=== PATIENT | male | born 1975 | race Caucasian/White ===

== ENCOUNTER 2017-02-19 19:17 | Inpatient (IN) | payer OTHER ==
[2017-02-19 19:26] VITALS: BMI 26.6
--- NOTE | 2017-02-19 20:05 | PDOC ---
History of Present Illness - General History Source: [facility] <Cruz Mock - Last Filed: 02/19/17 22:44> - General History Source: [facility] Records Exam Limitations: Clinical Condition, Other (Nonverbal ) - History of Present Illness Initial Comments: 02/19/17 20:37 The patient is a 41 year old male with significant past medical history of profound MR, seizure disorder, and osteoporosis who presents to the ED BIBA from [facility] for low grade fever and rectal bleeding. Patient is nonverbal secondary to h/o of profound MR. As per [facility] notes, patient has had h/o of MRSA. Allergies: penicillin Social History: No alcohol, tobacco, or drug use reported. Past Surgical History: None reported PCP: Dr. Kali Garcia <Nza Murillo - Last Filed: 02/20/17 02:01> - General Chief Complaint: Rectal Bleed Stated Complaint: RECTAL BLEEDING Time Seen by Provider: 02/19/17 20:05 Past History - Past Medical History Seizures: Yes Other medical history: osteoporosis, mental retardation, nasal polyp - Psycho/Social/Smoking Cessation Hx Suicidal Ideation: No Smoking History: Never smoked <Cruz Mock - Last Filed: 02/19/17 22:44> <Naz Murillo - Last Filed: 02/20/17 02:01> - Past Medical History Allergies/Adverse Reactions: Allergies Allergy/AdvReac Type Severity Reaction Status Date / Time Penicillins Allergy Verified 02/19/17 19:22 Review of Systems - Review of Systems Able to Perform ROS?: No Comments:: 02/19/17 20:37 Unable to obtain as pt is nonverbal secondary to profound MR <Naz Murillo - Last Filed: 02/20/17 02:01> *Physical Exam - Vital Signs Last Vital Signs Temp Pulse Resp BP Pulse Ox 126 H 28 H 135/90 89 L 02/19/17 19:22 02/19/17 19:22 02/19/17 19:22 02/19/17 19:22 <Cruz Mock - Last Filed: 02/19/17 22:44> - Vital Signs Last Vital Signs Temp Pulse Resp BP Pulse Ox 126 H 28 H 135/90 89 L 02/19/17 19:22 02/19/17 19:22 02/19/17 19:22 02/19/17 19:22 - Physical Exam Comments: 02/19/17 20:38 GENERAL: Awake and alert. No apparent distress. HEENT: Normocephalic, atraumatic. PERRL, EOM intact. CARDIOVASCULAR: Normal S1, S2. Regular rate and rhythm. PULMONARY: Clear to auscultation bilaterally. ABDOMEN: Soft, non-distended, non-tender. RECTAL: Good rectal tone. No stool in vault. Heme negative. EXTREMITIES: Normal ROM of bilateral upper extremities. Contraction of bilateral lower extremities. No gross deformities. SKIN: Warm, dry. No rash NEUROLOGICAL: Pt is nonverbal. Moving bilateral upper extremities equally. Contraction of bilateral lower extremities. Good muscle tone. <Naz Murillo - Last Filed: 02/20/17 02:01> Heart Score/ECG Review - ECG Impressions Comment:: 02/20/17 02:01 Sinus tachycardia @105bpm Incomplete RBBB Borderline ECG <Naz Murillo - Last Filed: 02/20/17 02:01> ED Treatment Course - LABORATORY CBC & Chemistry Diagram: 02/19/17 20:33 02/19/17 20:33 <Cruz Mock - Last Filed: 02/19/17 22:44> - LABORATORY CBC & Chemistry Diagram: 02/19/17 20:33 02/19/17 20:33 <Naz Murillo - Last Filed: 02/20/17 02:01> Medical Decision Making - Medical Decision Making 02/19/17 21:13 Dr. Mock: The scribe's documentation has been prepared under my direction and personally reviewed by me in its entirery. I confirm that the note above accurately reflects all work, treatment, procedures, and medical decision making performed by me. <Cruz Mock - Last Filed: 02/19/17 22:44> *DC/Admit/Observation/Transfer - Discharge Dispostion Admit: Yes <Cruz Mock - Last Filed: 02/19/17 22:44> - Attestations Scribe Attestion: 02/19/17 20:38 Documentation prepared by Naz Murillo, acting as medical support assistant for Cruz Mock MD/DO. <Naz Murillo - Last Filed: 02/20/17 02:01> Diagnosis at time of Disposition: Pneumonia Qualifiers: Pneumonia type: due to unspecified organism Laterality: left Lung location: lower lobe of lung Qualified Code(s): J18.1 - Lobar pneumonia, unspecified organism
[2017-02-19] MEDS ORDERED: ACETAMINOPHEN 650 MG SUPP.RECT PR ONE (20:56)
[2017-02-19 20:57] LABS: MCH 30.3 pg (25.7-33.7); MCHC 32.7 g/dl (32.0-35.9); MEAN CELL VOLUME 92.6 fl (80-96); MEAN PLT VOLUME 8.5 fl (7.5-11.1); PLATELET COUNT 115 K/MM3 (134-434); RDW 15.3 % (11.9-15.9); WHITE BLOOD COUNT 20.2 K/mm3 (4.0-10.0)
[2017-02-19] MEDS ORDERED: ACETAMINOPHEN 650 MG SUPP.RECT ONE (21:10)
[2017-02-19 21:11] LABS: INR 1.51 (0.82-1.09); PROTHROMBIN TIME (PATIENT) 16.8 SEC (9.98-11.88)
[2017-02-19 21:15] LABS: AMYLASE 45 U/L (25-115)
[2017-02-19 21:18] LABS: ALBUMIN 3.2 g/dl (3.4-5.0); BILIRUBIN,TOTAL 0.3 mg/dL (0.2-1.0); CALCIUM 9.5 mg/dL (8.5-10.1); COCKROFT - GAULT 94.53; CREATININE 1.4 mg/dL (0.7-1.3); TOT PROT 7.4 g/dl (6.4-8.2)
[2017-02-19 21:33] LABS: METAMYELOCYTE 6 % (0-2)
[2017-02-19] MEDS ORDERED: SODIUM CHLORIDE 1,000 ML IV STA (22:27)
[2017-02-19] MEDS ORDERED: LEVOFLOXACIN 750 MG IVPB 150 ML IVPB ONE ×2 (22:42→23:07)
--- NOTE | 2017-02-19 23:12 | HP ---
CHIEF COMPLAINT: brought due to fever PCP: Dr Braeden Beck HISTORY OF PRESENT ILLNESS: This is a 41 yo M [facility] Resident with PMH of severe MR (nonverbal), seizure disorder, previous MRSA, and osteoporosis who was brought due to low grade fever and diarrhea with possible rectal bleeding. History obtained from half-way record. In Ed patietn found to be tachy 126, tacypneic 28, O2 sat 89 RA and temp 99.2. tachycardia and tachypnea and O2 sat improved with tylenol and fluids. Found to have LLL infiltrate on CXR. Stool occult negative ER course was notable for: (1)labs (2)cxr, ekg (3)tlenol, levaquin, IVF 1L NS Recent Travel: none PAST MEDICAL HISTORY: as above PAST SURGICAL HISTORY:none Social History: [facility] resident Smoking: never Alcohol: never Drugs: never Family History: unknown Allergies Penicillins Allergy (Verified 02/19/17 19:22) HOME MEDICATIONS: REVIEW OF SYSTEMS unable to obtain PHYSICAL EXAMINATION Vital Signs - 24 hr 02/19/17 02/19/17 19:22 23:02 Temperature 99.2 F Pulse Rate 126 H Pulse Rate [ 113 H Left Radial] Respiratory 28 H 20 Rate Blood Pressure 135/90 Blood Pressure 102/69 [Left Arm] O2 Sat by Pulse 89 L 93 L Oximetry (%) GENERAL: Awake, baseline noverbal, makes eye contact HEAD: Normal with no signs of trauma. EYES: Pupils equal, round and reactive to light, extraocular movements intact, sclera anicteric, conjunctiva clear. No lid lag. EARS, NOSE, THROAT: Moist mucous membranes. NECK: supple without JVD LUNGS: reduced breath sounds LLL HEART: Regular rate and rhythm, normal S1 and S2 without murmur, rub or gallop. ABDOMEN: Soft, nontender, not distended, normoactive bowel sounds, no guarding, no rebound, no masses. No hepatomegaly or splenomegaly. Rectal exam done no stool in vault good rectal tone no lesions MUSCULOSKELETAL: No CVA tenderness. UPPER EXTREMITIES: 2+ pulses, warm, well-perfused. No cyanosis. No clubbing. No peripheral edema. LOWER EXTREMITIES: 2+ pulses, warm, well-perfused. No calf tenderness. No peripheral edema. NEUROLOGICAL: face symmetrical. unable to test due to uncooperation PSYCHIATRIC: calm SKIN: Warm, dry Laboratory Results - last 24 hr 02/19/17 02/19/17 02/19/17 20:05 20:27 20:33 WBC 20.2 H RBC 4.99 Hgb 15.1 Hct 46.1 MCV 92.6 MCHC 32.7 RDW 15.3 Plt Count 115 L MPV 8.5 Neutrophils % 16.0 L Lymphocytes % 29.0 Monocytes % 13.0 H Eosinophils % 0.0 Band Neutrophils 28.0 H Metamyelocytes 6 H Myelocytes 8 H INR Sodium Potassium Chloride Carbon Dioxide Anion Gap BUN Creatinine Creat Clearance w eGFR Random Glucose Calcium Total Bilirubin AST ALT Alkaline Phosphatase Total Protein Albumin Total Amylase Lipase Stool Occult Blood Negative Blood Type A POSITIVE Antibody Screen Negative 02/19/17 02/19/17 02/19/17 20:33 20:33 20:33 WBC RBC Hgb Hct MCV MCHC RDW Plt Count MPV Neutrophils % Lymphocytes % Monocytes % Eosinophils % Band Neutrophils Metamyelocytes Myelocytes INR 1.51 H Sodium 140 Potassium 4.2 Chloride 107 Carbon Dioxide 22 Anion Gap 11 BUN 27 H Creatinine 1.4 H Creat Clearance w eGFR 56.42 Random Glucose 113 H Calcium 9.5 Total Bilirubin 0.3 AST 24 ALT 20 Alkaline Phosphatase 74 Total Protein 7.4 Albumin 3.2 L Total Amylase 45 Lipase 147 Stool Occult Blood Blood Type Antibody Screen ASSESSMENT/PLAN: This is a 41 yo M [facility] Resident with PMH of severe MR (nonverbal), seizure disorder, previous MRSA, and osteoporosis who was brought due to low grade fever and diarrhea with possible rectal bleeding. Sepsis due to Institution acquired PNA -CXR LLL Infiltrate -leukocytosis 20 with bandemia -levaquion adequate, given in ED -vol contracted; IVF NS@100 -f/u lactic acid -AM CXR -blood, sputum, urine cultures -tylenol for low grade fever HANNAH -bun/creat 27/1.3 -likle prerenal due to vol conraction; treat with IVF -trend creat SZ d/o -reconcile meds -not actively seizing Diarrhea/hematochezia -c diff toxin -stool occult blood negative, h/h stable but then bright red blood seen in stool ; repeat occult -gi consult -npo FEN NS@100 lytes stable npo SCDs Dispo: adm med seng Problem List - Problem (1) Pneumonia Code(s): J18.9 - PNEUMONIA, UNSPECIFIED ORGANISM Qualifiers: Pneumonia type: due to unspecified organism Laterality: left Lung location: lower lobe of lung Qualified Code(s): J18.1 - Lobar pneumonia, unspecified organism (2) GI bleed Code(s): K92.2 - GASTROINTESTINAL HEMORRHAGE, UNSPECIFIED (3) Anemia Code(s): D64.9 - ANEMIA, UNSPECIFIED (4) Seizure disorder Code(s): G40.909 - EPILEPSY, UNSP, NOT INTRACTABLE, WITHOUT STATUS EPILEPTICUS (5) Mental retardation Code(s): F79 - UNSPECIFIED INTELLECTUAL DISABILITIES Visit type - Emergency Visit Emergency Visit: Yes ED Registration Date: 02/19/17 Care time: The patient presented to the Emergency Department on the above date and was hospitalized for further evaluation of their emergent condition. - New Patient This patient is new to me today: Yes Date on this admission: 02/20/17 - Critical Care Critical Care patient: No
[2017-02-19] MEDS: SODIUM CHLORIDE 1,000 ML IV SCH (23:59)
--- NOTE | 2017-02-20 00:04 | PN ---
<Syd Gannon - Last Filed: 02/20/17 00:27> Teaching Attending Note ATTENDING PHYSICIAN STATEMENT I saw and evaluated the patient. I reviewed the resident's note and discussed the case with the resident. I agree with the resident's findings and plan as documented. SUBJECTIVE: The patient is a 41 year old male with significant past medical history MR, seizure disorder, and osteoporosis who presented from [facility] for low grade fever and ? rectal bleeding. History is limited due to patients clinical condition. OBJECTIVE: Last Vital Signs: 3 Temp Pulse Resp BP Pulse Ox 100.5 F H 113 H 20 102/69 93 L 02/20/17 00:02 02/19/17 23:02 02/19/17 23:02 02/19/17 23:02 02/19/17 23:02 Physical Exam: GEN: NAD A&O x 0 HEENT: NCAT, PERRL CARD: RRR, S1 S2 RESP: (+) Decreased breath sounds at the left base. ABD: NT, BWS x4 EXT: - CCE Labs: CBCD 3 WBC 20.2 K/mm3 (4.0-10.0) H 02/19/17 20:33 RBC 4.99 M/mm3 (4.00-5.60) 02/19/17 20:33 Hgb 15.1 GM/dL (11.7-16.9) 02/19/17 20:33 Hct 46.1 % (35.4-49) 02/19/17 20:33 MCV 92.6 fl (80-96) 02/19/17 20:33 MCHC 32.7 g/dl (32.0-35.9) 02/19/17 20:33 RDW 15.3 % (11.9-15.9) 02/19/17 20:33 Plt Count 115 K/MM3 (134-434) L 02/19/17 20:33 MPV 8.5 fl (7.5-11.1) 02/19/17 20:33 CMP 3 Sodium 140 mmol/L (136-145) 02/19/17 20:33 Potassium 4.2 mmol/L (3.5-5.1) 02/19/17 20:33 Chloride 107 mmol/L (98-107) 02/19/17 20:33 Carbon Dioxide 22 mmol/L (21-32) 02/19/17 20:33 Anion Gap 11 (8-16) 02/19/17 20:33 BUN 27 mg/dL (7-18) H 02/19/17 20:33 Creatinine 1.4 mg/dL (0.7-1.3) H 02/19/17 20:33 Creat Clearance w eGFR 56.42 (>60) 02/19/17 20:33 Calcium 9.5 mg/dL (8.5-10.1) 02/19/17 20:33 Total Bilirubin 0.3 mg/dL (0.2-1.0) 02/19/17 20:33 AST 24 U/L (15-37) 02/19/17 20:33 ALT 20 U/L (12-78) 02/19/17 20:33 Alkaline Phosphatase 74 U/L (45-117) 02/19/17 20:33 Total Protein 7.4 g/dl (6.4-8.2) 02/19/17 20:33 Albumin 3.2 g/dl (3.4-5.0) L 02/19/17 20:33 Imaging: EXAM: Chest X-ray. Impression: Left lower lobe pneumonia. Awaiting official report. ASSESSMENT AND PLAN: The patient is a 41 year old male with significant past medical history MR, seizure disorder, and osteoporosis who presented with fever and rectal bleeding found to have left lower lobe pneumonia.Will trend H&H doubt rectal bleeding as stool culture was negative. History difficult to obtain due to clinical condition. 1. Sepsis - most likely secondary to pneumonia. Received levaquin in ED, can continue but broaden coverage if worsening fever/infection. - IVF - Britton culture - Repeat lactic acid - Urine antigens - Tylenol PRN fever 2. ? rectal bleeding - care taken at bedside unsure. H&H stable - Repeat CBC - Stool culture negative 3. HANNAH - most likely prerenal. - IVF - Trend creatinine - Renally dosed meds 4. Thrombocytopenia - most like due to sepsis - Monitor 5. Diarrhea - Check C diff - Stool culture - IVF 6. Seizure disorder - Continue home medications 7. DVT PPX - moderate risk - Heparin 5000 units Q8 Admit to med surg. Documentation prepared by Syd Gannon, acting as medical librarian for Dr. Tayla Martin MD. <Tayla Martin - Last Filed: 02/20/17 05:14> Teaching Attending Note Name of Resident: Lynda Whitmore Addendum- Rectal- Defferred- as pt. difficult to move DVT Ppx - NO Heparin as pt. hx of ?rectal bleed - SCDs
[2017-02-20] MEDS ORDERED: IBUPROFEN 800 MG/8 ML IJ IVPB ONE ×2 (00:18→00:25)
[2017-02-20] MEDS ORDERED: SODIUM CHLORIDE 1,000 ML IV STA ×2 (01:45→05:09)
[2017-02-20] MEDS ORDERED: clonazePAM 0.5 MG TABLET ONE ×2 (05:41→17:32)
[2017-02-20] MEDS ORDERED: PATIENT'S OWN MEDICATION (NON-FORMULARY) (Clonazepam [Klonopin] 1 MG) PO SCH (06:00)
[2017-02-20] MEDS ORDERED: LEVOFLOXACIN 750 MG IVPB 150 ML IVPB ONE (06:00)
[2017-02-20] MEDS ORDERED: PANTOPRAZOLE SODIUM 80 MG in SODIUM CHLORIDE 100 ML IVPB SCH (06:15)
[2017-02-20 06:21] LABS: MCH 30.1 pg (25.7-33.7); MCHC 32.2 g/dl (32.0-35.9); MEAN CELL VOLUME 93.7 fl (80-96); MEAN PLT VOLUME 8.2 fl (7.5-11.1); PLATELET COUNT 96 K/MM3 (134-434); RDW 15.2 % (11.9-15.9); WHITE BLOOD COUNT 17.2 K/mm3 (4.0-10.0)
[2017-02-20] MEDS ORDERED: PANTOPRAZOLE SODIUM 40 MG VIAL ONE (06:33)
[2017-02-20 06:40] LABS: CALCIUM 8.6 mg/dL (8.5-10.1); COCKROFT - GAULT 132.34; MAGNESIUM 2.1 mg/dL (1.8-2.4); PHOSPHOROUS 2.7 mg/dL (2.5-4.9)
[2017-02-20] MEDS ORDERED: VANCOMYCIN 1 GRAM (PRE-DOCKED) 250 ML IVPB ONE ×2 (09:30→09:50)
[2017-02-20] MEDS ORDERED: PANTOPRAZOLE SODIUM 100 ML IVPB SCH (10:00)
[2017-02-20 10:49] LABS: URINE APPEARANCE CLEAR; URINE BILIRUBIN NEGATIVE (NEGATIVE); URINE BLOOD NEGATIVE (NEGATIVE); URINE COLOR LTYELLOW; URINE GLUCOSE (UA) NEGATIVE (NEGATIVE); URINE KETONE TRACE (NEGATIVE); URINE LEUK ESTERASE NEGATIVE (NEGATIVE); URINE NITRITE NEGATIVE (NEGATIVE); URINE PROTEIN NEGATIVE (NEGATIVE); URINE UROBILINOGEN NEGATIVE E.U./dl (0.2-1.0)
[2017-02-20] MEDS: VALPROIC ACID 250 MG CAPSULE PO SCH ×2 (11:00→21:25)
[2017-02-20] MEDS: LORATADINE 10 MG TABLET PO SCH (11:00)
[2017-02-20] MEDS: TOPIRAMATE 25 MG TABLET (FP) PO SCH ×2 (11:00→21:23)
[2017-02-20] MEDS: LEVOFLOXACIN 750 MG IVPB 150 ML IVPB SCH (11:30)
--- NOTE | 2017-02-20 13:44 | PN ---
Teaching Attending Note Name of Resident: Caden Fountain ATTENDING PHYSICIAN STATEMENT I saw and evaluated the patient. I reviewed the resident's note and discussed the case with the resident. I agree with the resident's findings and plan as documented. SUBJECTIVE: unable to obtain hx due to MR. per aid form Ankit at bed side. 3 black BMs last night ( just blood ) . per Night team signout , blood per rectum was red .. OBJECTIVE: NAD, pleasant. MMM. no JVD. no facial droop CV: RRR, no MRG Lungs: CTAB Abd : distended, unable to determine tenderness. slightly hyperactive BS . Dullness over bladder Ext : no edema , no erythema . ASSESSMENT AND PLAN: 41 y/o male with h/o severe MR, seizure disorder, and h/o MRSA , who presented from [facility] with fevers. He was found to have severe sepsis . 1- Severe sepsis: possible source is LLL PNA . ? HCAP vs Aspiration . UA with no pyuria , no skin ulcers. Pt has diarrhea , and his abd is distended, and has rectal bleed. ? infectious colitis . need to keep bowel ischemia in DDx . - follow blood cx sent from Er . - cont with LEvaquin ( allergic to PCN) , add flagyl , this way aspiration will be covered. - add vanco due ot h/o MRSA - consut ID for abx mgt - check stool cx and c diff . Stool WBC - IVF , monitor lactate - obtain CT abd due to distention and lactic acid elevation 2- Rectal bleed. unclear if source is upper or lower GI tract( per aid , black blood , per Night MD bright red blood ) . of course infectious etiology needs to be r/o . - repeat CBC - Abd is distended , and pt has lactic acid elevation . Will get CT abd /w contrast . - cont hydration - cont PPI gtt started last night . - follow GI consult 3- HANNAH : likely prerenal , as it resolved with IVF - cont IVF - prep with mucomyst x [address] , and 2 doses after 4- Seizure disorder : cont home meds 5- thrombocytopenia : likely due ot sepsis . no abse line in system. monitor . avoid heparin products 6- HLOC
--- NOTE | 2017-02-20 13:57 | PN ---
Progress Note (short form) - Note Progress Note: ID consult dictated imp/reccd sepsis GI bleed/?colitis pneumonia seizures- 41 year old man, resident of [facility]- profound developmental delays- requires total care, nonverbal sent with low grade fever and rectal bleeding no SOB per aide who is at bedside- 3 episodes of blood per rectum at the AR apparently had dark stools this am [facility] records reviewed documented pen allergy - no further info available regarding nature of allergy noted MRSA "infection" 2007- no other details available now with low grade fever/lactic acidosis/leukocytosis/thrombocytopenia cxray with left lung infiltrate received vanco/levaquin/flagyl would continue same antibiotics f/u ct scan stool cdiff have ordered MRSA screen contact isolation for now gi eval pending Problem List - Problems (1) Sepsis Code(s): A41.9 - SEPSIS, UNSPECIFIED ORGANISM (2) Pneumonia Code(s): J18.9 - PNEUMONIA, UNSPECIFIED ORGANISM Qualifiers: Pneumonia type: due to unspecified organism Laterality: left Lung location: lower lobe of lung Qualified Code(s): J18.1 - Lobar pneumonia, unspecified organism (3) GI bleed Code(s): K92.2 - GASTROINTESTINAL HEMORRHAGE, UNSPECIFIED (4) Mental retardation Code(s): F79 - UNSPECIFIED INTELLECTUAL DISABILITIES (5) Seizure disorder Code(s): G40.909 - EPILEPSY, UNSP, NOT INTRACTABLE, WITHOUT STATUS EPILEPTICUS (6) Penicillin allergy Code(s): Z88.0 - ALLERGY STATUS TO PENICILLIN
[2017-02-20] MEDS ORDERED: ACETYLCYSTEINE 20% 200MG/ML 30ML VIAL *FOR INJECTION USE ONLY IVPB ONE (13:59)
[2017-02-20] MEDS: PANTOPRAZOLE SODIUM 80 MG in SODIUM CHLORIDE 100 ML IVPB SCH ×2 (14:00)
[2017-02-20] MEDS: METRONIDAZOLE 500 MG PREMIXED 100 ML IVPB SCH ×2 (15:00→18:37)
--- NOTE | 2017-02-20 15:21 | CONS ---
DATE OF CONSULTATION: DATE OF DICTATION: 02/20/2017 This is a 41-year-old man from the [facility]. He has multiple developmental delays and is nonverbal, requiring total care. Per his aide, who is at his bedside, he had 3 episodes of rectal bleeding yesterday and was then sent to the emergency room for evaluation of this. He was found to have a low-grade fever of 100.9 and a left lung infiltrate. He had an elevated white count of 20,000. He was given Levaquin, Flagyl, and vancomycin, as he has a PENICILLIN allergy, and I am asked to comment on further antibiotics. His past medical history, he has had 1 episode of dark stool since admission and is planned for a CAT scan of his abdomen and pelvis. He is allergic to PENICILLIN. I reviewed the records from the [facility]. The nature of the allergy is not documented. He has a history of severe mental retardation, seizure disorder. He had apparently a MRSA infection (undocumented what the nature of the infection was) in 2007, and osteoporosis. He has had multiple surgeries in the past, including a craniotomy. 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 He requires total assist. FAMILY HISTORY: Not known. ALLERGIES: He is allergic to PENICILLIN. The nature of the allergy is not known. His medication list at the correction includes perampanel, vitamin D3, calcium with vitamin D3, famotidine, Klonopin, loratadine, gemfibrozil, Depakene, Topamax, fluticasone, and gel. His family history is not available. There is no history of substance use. REVIEW OF SYSTEMS: He apparently had a dark stool earlier this morning. PHYSICAL EXAMINATION: Vital Signs: T-max is 100.9. Current temperature is 99. General: He is resting comfortably. His aide reports that he is at his baseline mental status. HEENT: He is normocephalic. Lungs: Clear to auscultation. Heart: Regular rate and rhythm. Abdomen: Firm, nontender. He has bowel sounds. Extremities: Without edema. His labs are notable for a white count of 17.2, hemoglobin 14.1, platelets 96,000. Last night he had 28% bands on his differential. His INR is 1.5. His lactic acid was 2.9 on admission and is now 1.6. BUN 23, creatinine 1. Urinalysis is negative except for trace ketones. His Legionella and pneumococcal antigens are negative. Blood cultures are pending. Chest x-ray reveals a left-sided infiltrate. In summary, this is a 41-year-old man admitted with rectal bleeding and a low-grade fever. He has, as well, evidence of pneumonia on x-ray, and leukocytosis. He presented with lactic acidosis. He has relative thrombocytopenia as well, a prior history of MRSA. Given this unknown PENICILLIN allergy, I would continue his Levaquin and Flagyl. Would continue vancomycin as well pending blood cultures, follow up CAT scan, continue IV fluids. Differential diagnosis of the GI bleed would include colitis, which CAT scan will help us evaluate. He is having frequent stools, probably due to his GI bleed, but would send a C. difficile as well and would continue contact isolation. I have ordered a MRSA screen for him. GI evaluation is pending, as well as CAT scan. Further recommendations to follow based on his clinical course. JOSEFA NOYOLA M.D. [id number]
[2017-02-20] MEDS ORDERED: METRONIDAZOLE 500 MG PREMIXED 100 ML IVPB ONE (16:11)
--- NOTE | 2017-02-20 16:42 | PN ---
Physical Exam: SUBJECTIVE: Patient seen and examined at bedside. Non verbal. No signs of bleeding per rectum. OBJECTIVE: Vital Signs Period Temp Pulse Resp BP Sys/Monroy Pulse Ox Last 24 Hr 99.0 F-100.5 F 99-122 18-22 97-126/67-80 93-97 GENERAL: non verbal , NAD HEAD: NC/AT. LUNGS: CTA on R side. LLL rales HEART: RRR, no M/G/R ABDOMEN: Soft, distended, BS(+) EXTREMITIES: 2+ pulses, warm, well-perfused, no edema. SKIN: Warm, dry, normal turgor, no rashes or lesions noted Laboratory Results - last 24 hr 02/19/17 02/20/17 02/20/17 23:18 06:05 06:05 WBC 17.2 H RBC 4.67 Hgb 14.1 Hct 43.8 MCV 93.7 MCHC 32.2 RDW 15.2 Plt Count 96 L MPV 8.2 Sodium Potassium Chloride Carbon Dioxide Anion Gap BUN Creatinine Random Glucose Lactic Acid 2.9 H* 2.5 H* Calcium Phosphorus Magnesium Urine Color Urine Appearance Urine pH Ur Specific [place] Urine Protein Urine Glucose (UA) Urine Ketones Urine Blood Urine Nitrite Urine Bilirubin Urine Urobilinogen Ur Leukocyte Esterase 02/20/17 02/20/17 02/20/17 06:05 08:22 08:22 WBC RBC Hgb Hct MCV MCHC RDW Plt Count MPV Sodium 144 Potassium 4.7 Chloride 109 H Carbon Dioxide 24 Anion Gap 11 BUN 23 H Creatinine 1.0 D Random Glucose 74 D Lactic Acid 1.6 Calcium 8.6 Phosphorus 2.7 Magnesium 2.1 Urine Color Ltyellow Urine Appearance Clear Urine pH 5.0 Ur Specific [place] 1.015 Urine Protein Negative Urine Glucose (UA) Negative Urine Ketones Trace H Urine Blood Negative Urine Nitrite Negative Urine Bilirubin Negative Urine Urobilinogen Negative Ur Leukocyte Esterase Negative Active Medications Generic Name Dose Route Start Last Admin Trade Name Freq PRN Reason Stop Dose Admin Acetaminophen 650 mg 02/19/17 23:50 Tylenol - PO Q4H PRN FEVER OR PAIN Acetylcysteine 600 mg 02/20/17 22:00 Acetadote 20 Injection Use Only* - IVPB 02/21/17 10:01 BID TARIQ Clonazepam 1 mg 02/20/17 06:04 Klonopin - PO TID TARIQ Gemfibrozil 600 mg 02/20/17 16:30 Lopid - PO BIDAC TARIQ Sodium Chloride 1,000 mls @ 100 mls/hr 02/19/17 23:45 02/19/17 23:59 Normal Saline - IV 100 mls/hr ASDIR TARIQ Administration Metronidazole 100 mls @ 100 mls/hr 02/20/17 10:00 Flagyl 500mg Premixed Ivpb - IVPB Q8H-IV TARIQ Levofloxacin 150 mls @ 100 mls/hr 02/20/17 10:00 02/20/17 11:30 Levaquin 750 Mg Premixed Ivpb - IVPB 100 mls/hr DAILY TARIQ Administration Pantoprazole Sodium 80 mg/ 100 mls @ 10 mls/hr 02/20/17 09:45 02/20/17 10:58 Sodium Chloride IVPB Not Given Q10H TARIQ 8 MG/HR Vancomycin HCl 1,250 mg/ 250 mls @ 150 mls/hr 02/20/17 22:00 Dextrose IVPB BID TARIQ Protocol Loratadine 10 mg 02/20/17 10:00 02/20/17 11:00 Claritin - PO 10 mg DAILY TARIQ Administration Topiramate 75 mg 02/20/17 10:00 02/20/17 11:00 Topamax - PO 75 mg BID TARIQ Administration Valproic Acid 250 mg 02/20/17 10:00 02/20/17 11:00 Depakene - PO 250 mg BID TARIQ Administration ASSESSMENT/PLAN: 41 yo M with PMhx of severe MR, Seizure disorder, h/o MRSA presented from [facility] with fevers and bloody stools admitted for severe sepsis. Problem List - Problems (1) Severe sepsis Assessment/Plan: * Found to have LLL infiltrate on CXR possible PNA; HCAP v. aspiration * Given diarrhea and bleeding possible infective colitis v. ischemic bowel. * Blood/stool and urine cultures sent * Levaquin will be continued in addition to flagyl and vanco(h/o MRSA) * ID consulted. * Check stool WBC and C.diff * COntinue IVF with NS @100ml/hr * trend lactic acid * CTA abdomen ordered. (2) GI bleed Assessment/Plan: * repeat CBC * CTA abdomen pending * PPI gtt * GI consult. (3) HANNAH (acute kidney injury) Assessment/Plan: * pre-renal improved with volume expansion. * will give mucomyst prior to CT and 2 doses after * continue IVF Code(s): N17.9 - ACUTE KIDNEY FAILURE, UNSPECIFIED (4) Seizure disorder Assessment/Plan: * continue * Fycompa 6 mg PO HS TARIQ * Topamax 75 mg PO BID * Depakene 250 mg PO BID (5) Thrombocytopenia Assessment/Plan: * most likely 2/2 sepsis * will repeat cbc in am Visit type - Emergency Visit Emergency Visit: Yes ED Registration Date: 02/19/17 Care time: The patient presented to the Emergency Department on the above date and was hospitalized for further evaluation of their emergent condition. - New Patient This patient is new to me today: Yes Date on this admission: 02/20/17 - Critical Care Critical Care patient: No - Discharge Referral Referred to [facility] No
[2017-02-20] MEDS: clonazePAM 0.5 MG TABLET PO SCH ×2 (17:25→21:23)
[2017-02-20] MEDS: GEMFIBROZIL 600 MG TABLET (FP) PO SCH (17:49)
[2017-02-20] MEDS: SODIUM CHLORIDE 1,000 ML IV SCH (18:41)
[2017-02-20] MEDS ORDERED: PERAMPANEL 6 MG PO SCH (20:00)
--- NOTE | 2017-02-20 20:33 | CON.GI ---
Consult Consult Specialty:: GI Referred by:: Hospitalists Reason for Consultation:: Abdominal pain - History of Present Illness Chief Complaint: Patient non-verbal, does not give CC History of Present Illness: History per the chart. 41M admitted last night through the [facility] ER from [facility] for evaluation of fevers, diarrhea and ? rectal bleeding. Noted to be tachycardic in ER, tachypnic with marked leukocytosis. a ? CTA \of the abdomen was performed without PO contrast that revealed changes c/w possible left sided colitis. There has been no rectal bleeding or melena reported by the floor nurse. Temp was 100.5 at midnight and has otherwise been afebrile. - History Source History Provided By: Medical Record Limitations to Obtaining History: Physical Impairment - Past Medical History Additional Medical History: Severe mental retardation, seizure disorder, osteoporosis, h/o MRSA - Past Surgical History Past Surgical History: Yes: None - Alcohol/Substance Use Hx Alcohol Use: No - Smoking History Smoking history: Never smoked - Social History Usual Living Arrangement: Assisted ADL: Support Services Occupation: Diabled Place of : [facility] History of Recent Travel: No Home Medications - Allergies Allergies/Adverse Reactions: Allergies Allergy/AdvReac Type Severity Reaction Status Date / Time Penicillins Allergy Verified 02/19/17 19:22 - Home Medications Home Medications: Ambulatory Orders Calcium Carbonate/Vitamin D3 [Oystercal-D 500 mg-400 Unit Tb] 500 mg PO DAILY Cholecalciferol (Vitamin D3) [Vitamin D3] 2,000 unit PO DAILY 02/20/17 Clonazepam [Klonopin] 1 mg PO TID 02/20/17 Diazepam Rectal Gel [Diastat Rectal Gel -] 10 mg NV ONCE 02/20/17 Famotidine 20 mg PO DAILY 02/20/17 Fluticasone Prop 0.05% Nasal [Flonase -] 1 - 2 spray NS DAILY 02/20/17 Gemfibrozil 600 mg PO BID 02/20/17 Loratadine 10 mg PO DAILY 02/20/17 Perampanel [Fycompa] 6 mg PO DAILY 02/20/17 Topiramate 75 mg PO BID 02/20/17 Valproic Acid [Depakene] 250 mg PO BID 02/20/17 Family Disease History - Family Disease History Family History: Unable to Obtain Review of Systems Unable to obtain ROS, reason: patient non-verbal Physical Exam-GI Vital Signs: Vital Signs Temperature 98 F 02/20/17 17:54 Pulse Rate 95 H 02/20/17 17:54 Respiratory Rate 18 02/20/17 19:47 Blood Pressure 130/75 02/20/17 17:54 O2 Sat by Pulse Oximetry (%) 97 02/20/17 19:47 Constitutional: Yes: Calm Eyes: No: Sclera Icterus Cardiovascular: Yes: Tachycardia. No: Murmur Respiratory: Yes: Diminished (at bases, poor inspiratory effort) Gastrointestinal Inspection: No: Distention ...Auscultate: Yes: Normoactive Bowel Sounds ...Palpate: Yes: Tenderness (No grimacing upon palpation however possible guarding elicited upon palpation of the left abdomen) ...Percussion: No: Tympanitic ...Rectal Exam: Yes: Other (no blood, melena, masses. scant light brown stool in rectal vault) Extremities: Yes: Other (contracted LE) Edema: No Neurological: Yes: Other (awake, non-verbal) Labs: CBC, BMP 02/20/17 06:05 02/20/17 06:05 INR, PTT INR 1.51 (0.82-1.09) H 02/19/17 20:33 Hepatic Panel Total Bilirubin 0.3 mg/dL (0.2-1.0) 02/19/17 20:33 AST 24 U/L (15-37) 02/19/17 20:33 ALT 20 U/L (12-78) 02/19/17 20:33 Alkaline Phosphatase 74 U/L (45-117) 02/19/17 20:33 Albumin 3.2 g/dl (3.4-5.0) L 02/19/17 20:33 Imaging - Results Cat Scan: Report Reviewed, Image Reviewed Problem List - Problems (1) Colitis Assessment/Plan: Do not think GI bleeding is the primary issue possible colitis on CT scan. Given that he is from an institution and there was reported diarrhea, C. Diff should be excluded and I started PO vancocin given the marked leukocytosis. Alternate etiologies aside from infectious given location of the inflammatory changes would need to include ischemic coilitis however he does not have much in the way of risk factors for this Monitor Labs NPO IV hydration IV Abx per ID if no improvement and stool studies unrevealing, flex sig could be considered Code(s): K52.9 - NONINFECTIVE GASTROENTERITIS AND COLITIS, UNSPECIFIED
[2017-02-20 21:16] LABS: MCH 29.9 pg (25.7-33.7); MCHC 32.3 g/dl (32.0-35.9); MEAN CELL VOLUME 92.3 fl (80-96); MEAN PLT VOLUME 8.9 fl (7.5-11.1); RDW 15.5 % (11.9-15.9); WHITE BLOOD COUNT 14.4 K/mm3 (4.0-10.0)
[2017-02-20] MEDS: ACETYLCYSTEINE 20% 200MG/ML 4 ML VIAL *FOR ORAL / INH USE ONLY PO SCH (21:24)
[2017-02-20] MEDS: PERAMPANEL 6 MG PO SCH (21:24)
[2017-02-20 21:54] LABS: PLATELET COMMENT2 NO CLUMPING NOTED; PLATELET COMMENT3 NO CLOTTING DETECTED; PLATELET COUNT 110 K/MM3 (134-434); PLATELET ESTIMATE SLT DECREASED (NORMAL)
[2017-02-20] MEDS ORDERED: ACETYLCYSTEINE 20% 200MG/ML 30ML VIAL *FOR INJECTION USE ONLY IVPB SCH (22:00)
[2017-02-20] MEDS ORDERED: LEVOFLOXACIN 750 MG IVPB 150 ML IVPB SCH (22:00)
[2017-02-20] MEDS: VANCOMYCIN 1,250 MG in DEXTROSE 5%-WATER - 250 ML IVPB SCH (22:04)
[2017-02-21] MEDS: VANCOMYCIN 250 MG/5 ML ORAL SOLUTION PO SCH ×4 (00:58→17:11)
[2017-02-21] MEDS: METRONIDAZOLE 500 MG PREMIXED 100 ML IVPB SCH ×3 (01:13→17:11)
[2017-02-21] MEDS: GEMFIBROZIL 600 MG TABLET (FP) PO SCH ×2 (06:18→16:53)
[2017-02-21] MEDS: clonazePAM 0.5 MG TABLET PO SCH ×3 (06:19→22:02)
[2017-02-21] MEDS: SODIUM CHLORIDE 1,000 ML IV SCH ×3 (06:19→17:13)
[2017-02-21 08:15] LABS: MCH 31.2 pg (25.7-33.7); MCHC 33.5 g/dl (32.0-35.9); MEAN CELL VOLUME 92.9 fl (80-96); MEAN PLT VOLUME 8.5 fl (7.5-11.1); PLATELET COUNT 88 K/MM3 (134-434); RDW 15.1 % (11.9-15.9); WHITE BLOOD COUNT 10.4 K/mm3 (4.0-10.0)
--- NOTE | 2017-02-21 08:51 | PN ---
Teaching Attending Note Name of Resident: Caden Fountain ATTENDING PHYSICIAN STATEMENT I saw and evaluated the patient. I reviewed the resident's note and discussed the case with the resident. I agree with the resident's findings and plan as documented. SUBJECTIVE: no events over night . NO more BMs or bleed OBJECTIVE: NAD, pleasant. MMM. no JVD. no facial droop CV: RRR, no MRG Lungs: CTAB Abd: ND today , unable to determine tenderness. ND , soft today . no TTP Ext: no edema , no erythema . ASSESSMENT AND PLAN: 41 y/o male with h/o severe MR, seizure disorder, and h/o MRSA , who presented from [facility] with fevers. He was found to have severe sepsis . 1- Severe sepsis: Likely due to colitis given CT scan findings . lung bases with atelectasis , and no actual infiltrate. - Will d/w ID COnt Abx levaquin and flagyl, and Dc vanco . - leukocytosis improved - cont po vanco empirically for c diff. will dc if c diff toxin neg - follow stool cx . UA with no pyuria - cont IVF, decrease rate 2- Rectal bleed. likely due to colitis ( descending and sigmoid ) - HB dropped 3 grams from bleed and dilution. no more bleed last night . - Abd exam with less distention and softer today. - no evidence of active bleed on CTA - cont hydration - change PPI gtt to PO PPI - follow stool cx and c diff - Appreciate GI input - start a diet 3- HANNAH : likely prerenal , as it resolved with IVF - cont IVF at lower rate -cont mucomyst x 1 more dose for renal protection -BMP pending 4- Seizure disorder : SD records reviewed. Increase dose of valproic acid to 1 g BID. cont topiramate and Eycompa 5- Thrombocytopenia : likely due to sepsis . monitor . avoid heparin products 6- HLOC
[2017-02-21 08:53] LABS: COCKROFT - GAULT 179.18; CREATININE 0.7 mg/dL (0.7-1.3)
[2017-02-21 09:11] LABS: MAGNESIUM 2.1 mg/dL (1.8-2.4); PHOSPHOROUS 2.3 mg/dL (2.5-4.9)
[2017-02-21] MEDS: LEVOFLOXACIN 750 MG IVPB 150 ML IVPB SCH (09:11)
[2017-02-21 12:20] LABS: METAMYELOCYTE 2 % (0-2); PLATELET ESTIMATE DECREASED (NORMAL)
[2017-02-21] MEDS: LORATADINE 10 MG TABLET PO SCH (12:25)
[2017-02-21] MEDS: TOPIRAMATE 25 MG TABLET (FP) PO SCH ×2 (12:25→22:02)
[2017-02-21] MEDS: VALPROIC ACID 250 MG CAPSULE PO SCH ×2 (12:26→22:02)
[2017-02-21] MEDS: PANTOPRAZOLE SOD 40 MG SUSPENSION PACKET PEG SCH (12:27)
[2017-02-21] MEDS: ACETYLCYSTEINE 20% 200MG/ML 4 ML VIAL *FOR ORAL / INH USE ONLY PO SCH ×2 (12:28→22:03)
[2017-02-21] MEDS: VANCOMYCIN 1,250 MG in DEXTROSE 5%-WATER - 250 ML IVPB SCH ×2 (12:36→22:02)
--- NOTE | 2017-02-21 13:42 | PN ---
Progress Note, Physician History of Present Illness: Awake, non verbal No acute distress Temps, WBC improved CT shows colitis - Current Medication List Current Medications: Active Medications Acetaminophen (Tylenol -) 650 mg PO Q4H PRN PRN Reason: FEVER OR PAIN Acetylcysteine (Mucomyst 20 Oral / Inh Use Only*) 600 mg PO BID [facility] Last Admin: 02/21/17 12:28 Dose: 600 mg Clonazepam (Klonopin -) 1 mg PO TID [facility] Last Admin: 02/21/17 06:19 Dose: 1 mg Gemfibrozil (Lopid -) 600 mg PO BIDAC [facility] Last Admin: 02/21/17 06:18 Dose: 600 mg Metronidazole (Flagyl 500mg Premixed Ivpb -) 100 mls @ 100 mls/hr IVPB Q8H-IV [facility] Last Admin: 02/21/17 10:53 Dose: 100 mls/hr Levofloxacin (Levaquin 750 Mg Premixed Ivpb -) 150 mls @ 100 mls/hr IVPB DAILY [facility] Last Admin: 02/21/17 09:11 Dose: 100 mls/hr Vancomycin HCl 1,250 mg/ (Dextrose) 250 mls @ 150 mls/hr IVPB BID [facility] PRN Reason: Protocol Last Admin: 02/21/17 12:36 Dose: 150 mls/hr Sodium Chloride (Normal Saline -) 1,000 mls @ 75 mls/hr IV ASDIR [facility] Loratadine (Claritin -) 10 mg PO DAILY [facility] Last Admin: 02/21/17 12:25 Dose: 10 mg Non-Formulary Medication (Perampanel [Fycompa]) 6 mg PO HS [facility] Last Admin: 02/20/17 21:24 Dose: 6 mg Pantoprazole Sodium (Protonix Packets For Oral Suspension -) 40 mg PEG DAILY [facility] Last Admin: 02/21/17 12:27 Dose: 40 mg Topiramate (Topamax -) 75 mg PO BID [facility] Last Admin: 02/21/17 12:25 Dose: 75 mg Valproic Acid (Depakene -) 1,000 mg PO BID [facility] Last Admin: 02/21/17 12:26 Dose: 1,000 mg Vancomycin HCl (Vancomycin Oral Solution) 125 mg PO Q6HPO [facility] Last Admin: 02/21/17 12:37 Dose: 125 mg - Objective Vital Signs: Vital Signs Temperature 97.4 F L 02/21/17 06:12 Pulse Rate 106 H 02/21/17 06:12 Respiratory Rate 18 02/21/17 06:12 Blood Pressure 101/76 02/21/17 06:12 O2 Sat by Pulse Oximetry (%) 99 02/20/17 20:43 Constitutional: Yes: No Distress Eyes: Yes: Conjunctiva Clear Cardiovascular: Yes: Regular Rate and Rhythm, S1, S2 Respiratory: Yes: CTA Bilaterally Gastrointestinal: Yes: Normal Bowel Sounds, Soft, Other (sl distended). No: Tenderness Edema: No Labs: CBC, BMP 02/21/17 06:00 02/21/17 06:00 INR, PTT INR 1.51 (0.82-1.09) H 02/19/17 20:33 Assessment/Plan Colitis Fever/ leukocytosis- improved Possible pneumonia PCN allergy Thrombocytopenia MR Continue empiric levaquin/ flagyl
--- NOTE | 2017-02-21 14:26 | PN ---
GI Progress Note Subjective: No acute events No rectal bleeding or diarrhea since admission His Pham Intake Coordinator who is bedside felt that he looked uncomfortable after eating breakfast today - Objective Vital Signs: Vital Signs Temperature 97.4 F L 02/21/17 06:12 Pulse Rate 106 H 02/21/17 06:12 Respiratory Rate 18 02/21/17 06:12 Blood Pressure 101/76 02/21/17 06:12 O2 Sat by Pulse Oximetry (%) 99 02/20/17 20:43 Constitutional: Calm Eyes: No: Sclera Icterus Cardiovascular: Yes: Tachycardia Respiratory: Yes: Diminished (at bases, poor insp effort) Gastrointestinal Inspection: No: Distention ...Auscultate: Yes: Normoactive Bowel Sounds ...Palpate: Yes: Tenderness (guarding upon palpation in the left abdomen) ...Percussion: No: Tympanitic Edema: No (b/l LE contractures) Neurological: Yes: Other (awake) Labs: CBC, BMP 02/21/17 06:00 02/21/17 06:00 INR, PTT INR 1.51 (0.82-1.09) H 02/19/17 20:33 Hepatic Panel Total Bilirubin 0.3 mg/dL (0.2-1.0) 02/19/17 20:33 AST 24 U/L (15-37) 02/19/17 20:33 ALT 20 U/L (12-78) 02/19/17 20:33 Alkaline Phosphatase 74 U/L (45-117) 02/19/17 20:33 Albumin 3.2 g/dl (3.4-5.0) L 02/19/17 20:33 Laboratory Tests 02/21/17 06:00 C-Reactive Protein 23.1 H Problem List - Problems (1) Colitis Assessment/Plan: Improved leukocytosis. No rectal bleeding or diarrhea as of yet Continue supportive measures Stool for culture / O&P, C. Diff if diarrhea Would keep NPO on clear liquids until abdominal exam improved Code(s): K52.9 - NONINFECTIVE GASTROENTERITIS AND COLITIS, UNSPECIFIED
--- NOTE | 2017-02-21 15:00 | PN ---
Physical Exam: SUBJECTIVE: Patient seen and examined at bedside. No overnight bloody bowel BM. Abdominal pain improved, no longer grimace. OBJECTIVE: Vital Signs Period Temp Pulse Resp BP Sys/Monroy Pulse Ox Last 24 Hr 97.4 F-99.9 F 95-106 18-22 101-130/73-76 97-99 GENERAL: non verbal , NAD HEAD: NC/AT. LUNGS: CTAB HEART: RRR, no M/G/R ABDOMEN: Soft,nontender, mildly distended, BS(+) EXTREMITIES: 2+ pulses, warm, well-perfused, no edema or erythema SKIN: Warm, dry, normal turgor, no rashes or lesions noted Laboratory Results - last 24 hr 02/20/17 02/20/17 02/21/17 08:22 20:15 06:00 WBC 14.4 H 10.4 H RBC 4.26 3.98 L Hgb 12.7 12.4 Hct 39.3 37.0 MCV 92.3 92.9 MCHC 32.3 33.5 RDW 15.5 15.1 Plt Count 110 L 88 L MPV 8.9 8.5 Neutrophils % 51.0 D Lymphocytes % 19.0 D Monocytes % 27.0 H D Band Neutrophils 1.0 D Metamyelocytes 2 D Differential Comment Slide scanned Manual diff done Platelet Estimate Slt decreased Decreased Platelet Comment No clumping noted Sodium Potassium Chloride Carbon Dioxide Anion Gap BUN Creatinine Random Glucose Calcium Phosphorus Magnesium C-Reactive Protein Ur Specific [place] 1.015 02/21/17 02/21/17 02/21/17 06:00 06:00 06:00 WBC RBC Hgb Hct MCV MCHC RDW Plt Count MPV Neutrophils % Lymphocytes % Monocytes % Band Neutrophils Metamyelocytes Differential Comment Platelet Estimate Platelet Comment Sodium 144 Potassium 3.3 L D Chloride 110 H Carbon Dioxide 22 Anion Gap 12 BUN 16 D Creatinine 0.7 D Random Glucose 85 Calcium 8.0 L Phosphorus 2.3 L Cancelled Magnesium 2.1 Cancelled C-Reactive Protein 23.1 H Ur Specific [place] Active Medications Generic Name Dose Route Start Last Admin Trade Name Freq PRN Reason Stop Dose Admin Acetaminophen 650 mg 02/19/17 23:50 Tylenol - PO Q4H PRN FEVER OR PAIN Acetylcysteine 600 mg 02/20/17 22:00 02/21/17 12:28 Mucomyst 20 Oral / Inh Use Only* PO 600 mg BID [facility] Administration Clonazepam 1 mg 02/20/17 06:04 02/21/17 14:19 Klonopin - PO 1 mg TID [facility] Administration Gemfibrozil 600 mg 02/20/17 16:30 02/21/17 06:18 Lopid - PO 600 mg BIDAC [facility] Administration Metronidazole 100 mls @ 100 mls/hr 02/20/17 10:00 02/21/17 10:53 Flagyl 500mg Premixed Ivpb - IVPB 100 mls/hr Q8H-IV [facility] Administration Levofloxacin 150 mls @ 100 mls/hr 02/20/17 10:00 02/21/17 09:11 Levaquin 750 Mg Premixed Ivpb - IVPB 100 mls/hr DAILY [facility] Administration Vancomycin HCl 1,250 mg/ 250 mls @ 150 mls/hr 02/20/17 22:00 02/21/17 12:36 Dextrose IVPB 150 mls/hr BID [facility] Administration Protocol Sodium Chloride 1,000 mls @ 75 mls/hr 02/21/17 10:18 Normal Saline - IV ASDIR [facility] Loratadine 10 mg 02/20/17 10:00 02/21/17 12:25 Claritin - PO 10 mg DAILY [facility] Administration Non-Formulary Medication 6 mg 02/20/17 22:00 02/20/17 21:24 Perampanel [Fycompa] PO 6 mg HS [facility] Administration Pantoprazole Sodium 40 mg 02/21/17 10:30 02/21/17 12:27 Protonix Packets For Oral Suspension - PEG 40 mg DAILY [facility] Administration Topiramate 75 mg 02/20/17 10:00 02/21/17 12:25 Topamax - PO 75 mg BID [facility] Administration Valproic Acid 1,000 mg 02/21/17 10:00 02/21/17 12:26 Depakene - PO 1,000 mg BID [facility] Administration Vancomycin HCl 125 mg 02/21/17 00:00 02/21/17 12:37 Vancomycin Oral Solution PO 125 mg Q6HPO [facility] Administration ASSESSMENT/PLAN: 41 yo M with PMhx of severe MR, Seizure disorder, h/o MRSA presented from [facility] with fevers and bloody stools admitted for severe sepsis. Problem List - Problems (1) Severe sepsis Assessment/Plan: * CTA shows Colitis as the source of infection * Blood/stool and urine cultures pending * Levaquin and Flagyl to be continued pending cultures and sensitivity. * ID consult appreciated. * stool WBC and C.diff pending. * Reduce IVF of NS to 75ml/hr * Lactic Acid normalized. (2) GI bleed Assessment/Plan: * Most likely from Colitis. * Hgb dropped 3 units from bleed and dilution * Reduce IVF. * CTA abdomen showed colitis but no active bleed * PPI gtt switched to PO * GI consult appreciated. - Liquid diet for dinner (3) HANNAH (acute kidney injury) Assessment/Plan: * pre-renal improved with volume expansion. * will give mucomyst 1 more dose this evening * continue IVF Code(s): N17.9 - ACUTE KIDNEY FAILURE, UNSPECIFIED (4) Seizure disorder Assessment/Plan: * continue * Fycompa 6 mg PO HS [facility] * Topamax 75 mg PO BID * Depakene 1gm PO BID (5) Thrombocytopenia Assessment/Plan: * most likely 2/2 sepsis * will repeat cbc in am Visit type - Emergency Visit Emergency Visit: Yes ED Registration Date: 02/19/17 Care time: The patient presented to the Emergency Department on the above date and was hospitalized for further evaluation of their emergent condition. - New Patient This patient is new to me today: No - Critical Care Critical Care patient: No - Discharge Referral Referred to [facility] Med P.C.: No
[2017-02-21] MEDS ORDERED: PT OWN MED DRAWER 7, Y5N ONE ×2 (15:22→22:05)
--- NOTE | 2017-02-21 16:33 | EKG ---
Test Reason : Blood Pressure : / mmHG Vent. Rate : 105 BPM Atrial Rate : 105 BPM P-R Int : 154 ms QRS Dur : 100 ms QT Int : 322 ms P-R-T Axes : 025 038 044 degrees QTc Int : 425 ms SINUS TACHYCARDIA INCOMPLETE RIGHT BUNDLE BRANCH BLOCK BORDERLINE ECG WHEN COMPARED WITH ECG OF 17-SEP-2009 02:20, INCOMPLETE RIGHT BUNDLE BRANCH BLOCK IS NOW PRESENT Confirmed by AMBER ACE MD ([id number]) on 02/21/2017 4:32:34 PM Referred By: Confirmed By:AMBER ACE MD
[2017-02-21 17:36] LABS: MCH 30.6 pg (25.7-33.7); MCHC 33.1 g/dl (32.0-35.9); MEAN CELL VOLUME 92.5 fl (80-96); MEAN PLT VOLUME 9.4 fl (7.5-11.1); PLATELET COUNT 104 K/MM3 (134-434); RDW 15.4 % (11.9-15.9); WHITE BLOOD COUNT 10.5 K/mm3 (4.0-10.0)
[2017-02-21] MEDS: PERAMPANEL 6 MG PO SCH (22:24)
[2017-02-22] MEDS ORDERED: PT OWN MED DRAWER 7, Y5N ONE ×2 (00:08→11:25)
[2017-02-22] MEDS: VANCOMYCIN 250 MG/5 ML ORAL SOLUTION PO SCH ×4 (00:11→17:37)
[2017-02-22] MEDS: METRONIDAZOLE 500 MG PREMIXED 100 ML IVPB SCH ×3 (01:43→17:36)
[2017-02-22] MEDS: clonazePAM 0.5 MG TABLET PO SCH ×3 (05:19→22:35)
[2017-02-22] MEDS: GEMFIBROZIL 600 MG TABLET (FP) PO SCH ×2 (06:37→17:37)
[2017-02-22 07:39] LABS: BASOPHIL 0.3 % (0-2.0); EOSINOPHIL 1.5 % (0-4.5); MCH 30.9 pg (25.7-33.7); MCHC 33.3 g/dl (32.0-35.9); MEAN CELL VOLUME 92.9 fl (80-96); MEAN PLT VOLUME 8.6 fl (7.5-11.1); NEUTROPHILS 49.8 % (42.8-82.8); PLATELET COUNT 98 K/MM3 (134-434); RDW 15.2 % (11.9-15.9); WHITE BLOOD COUNT 8.5 K/mm3 (4.0-10.0)
[2017-02-22 08:08] LABS: CALCIUM 7.7 mg/dL (8.5-10.1); COCKROFT - GAULT 209.97; CREATININE 0.6 mg/dL (0.7-1.3)
[2017-02-22] MEDS: PANTOPRAZOLE SOD 40 MG SUSPENSION PACKET PEG SCH (10:11)
[2017-02-22] MEDS: TOPIRAMATE 25 MG TABLET (FP) PO SCH ×2 (10:14→22:35)
[2017-02-22] MEDS: VALPROIC ACID 250 MG CAPSULE PO SCH ×2 (10:17→23:05)
[2017-02-22] MEDS: LORATADINE 10 MG TABLET PO SCH (10:17)
[2017-02-22] MEDS: LEVOFLOXACIN 750 MG IVPB 150 ML IVPB SCH (10:18)
[2017-02-22] MEDS: ACETYLCYSTEINE 20% 200MG/ML 4 ML VIAL *FOR ORAL / INH USE ONLY PO SCH ×2 (13:14→22:35)
[2017-02-22] MEDS: SODIUM CHLORIDE 1,000 ML IV SCH (13:16)
[2017-02-22 13:40] LABS: C-REACTIVE PROTEIN 14.9 MG/DL (0.00-0.3)
--- NOTE | 2017-02-22 13:56 | PN ---
Teaching Attending Note Name of Resident: Caden Fountain ATTENDING PHYSICIAN STATEMENT I saw and evaluated the patient. I reviewed the resident's note and discussed the case with the resident. I agree with the resident's findings and plan as documented. SUBJECTIVE: no events over night . no BMs while here OBJECTIVE: NAD, pleasant. MMM. no JVD. no facial droop CV: RRR, no MRG Lungs: CTAB Abd: distended , TTP in LLQ , BS are heard. Ext: no edema , no erythema . ASSESSMENT AND PLAN: 41 y/o male with h/o severe MR, seizure disorder, and h/o MRSA , who presented from [facility] with fevers. He was found to have severe sepsis . 1- Severe sepsis: due to colitis . due to change in Abd exam today, KUB was ordered and shows toxic neil colon. likely due to C diff - cont ABx levaquin, flagyl and po vanco - NPO - consult surgery Dr. Petit. - Spoke to Dr. Shi, recommend CT scan of Abd /plvis - cont IVF - not stooling to perform c diff toxin. 2- Rectal bleed. likely due to colitis ( descending and sigmoid ) - no more bleed. .HB stable -cont PPI . 3- HANNAH : likely prerenal , as it resolved with IVF - cont IVF at lower rate 4- Seizure disorder :COnt valproic acid 1 g BID. cont topiramate and Eycompa 5- Thrombocytopenia : likely due to sepsis . stable 6- HLOC
--- NOTE | 2017-02-22 14:10 | PN ---
Physical Exam: SUBJECTIVE: Patient seen and examined bedside. As per Aid states that he has not eaten and not had a bowel movement. Patient is lying quietly in bed. OBJECTIVE: Vital Signs Period Temp Pulse Resp BP Sys/Monroy Pulse Ox Last 24 Hr 97.3 F-98.6 F 96-107 20-20 107-118/60-85 GENERAL: non verbal , NAD HEAD: NC/AT. LUNGS: CTAB, rales of left base. HEART: RRR, no M/G/R ABDOMEN: increased distention today, tympanic on RLQ, tenderness to palplation of RLQ, BS(+) EXTREMITIES: 2+ pulses, warm, well-perfused, no edema or erythema SKIN: Warm, dry, normal turgor, no rashes or lesions noted Laboratory Results - last 24 hr 02/21/17 02/22/17 02/22/17 16:35 06:25 06:25 WBC 10.5 H 8.5 RBC 3.86 L 3.63 L Hgb 11.8 11.2 L Hct 35.7 33.7 L MCV 92.5 92.9 MCHC 33.1 33.3 RDW 15.4 15.2 Plt Count 104 L 98 L MPV 9.4 D 8.6 Neutrophils % 49.8 Lymphocytes % 20.6 Monocytes % 27.8 H Eosinophils % 1.5 D Basophils % 0.3 Sodium 144 Potassium 3.4 L Chloride 113 H Carbon Dioxide 22 Anion Gap 9 BUN 16 Creatinine 0.6 L Random Glucose 79 Calcium 7.7 L C-Reactive Protein 14.9 H D Active Medications Generic Name Dose Route Start Last Admin Trade Name Semajq PRN Reason Stop Dose Admin Acetaminophen 650 mg 02/19/17 23:50 Tylenol - PO Q4H PRN FEVER OR PAIN Acetylcysteine 600 mg 02/20/17 22:00 02/22/17 13:14 Mucomyst 20 Oral / Inh Use Only* PO 600 mg BID [facility] Administration Clonazepam 1 mg 02/20/17 06:04 02/22/17 13:12 Klonopin - PO 1 mg TID [facility] Administration Gemfibrozil 600 mg 02/20/17 16:30 02/22/17 06:37 Lopid - PO 600 mg BIDAC [facility] Administration Metronidazole 100 mls @ 100 mls/hr 02/20/17 10:00 02/22/17 10:17 Flagyl 500mg Premixed Ivpb - IVPB 100 mls/hr Q8H-IV [facility] Administration Levofloxacin 150 mls @ 100 mls/hr 02/20/17 10:00 02/22/17 10:18 Levaquin 750 Mg Premixed Ivpb - IVPB 100 mls/hr DAILY [facility] Administration Sodium Chloride 1,000 mls @ 75 mls/hr 02/21/17 10:18 02/22/17 13:16 Normal Saline - IV Not Given ASDIR [facility] Loratadine 10 mg 02/20/17 10:00 02/22/17 10:17 Claritin - PO 10 mg DAILY [facility] Administration Non-Formulary Medication 6 mg 02/20/17 22:00 02/21/17 22:24 Perampanel [Fycompa] PO 6 mg HS [facility] Administration Pantoprazole Sodium 40 mg 02/21/17 10:30 02/22/17 10:11 Protonix Packets For Oral Suspension - PEG 40 mg DAILY [facility] Administration Topiramate 75 mg 02/20/17 10:00 02/22/17 10:14 Topamax - PO 75 mg BID [facility] Administration Valproic Acid 1,000 mg 02/21/17 10:00 02/22/17 10:17 Depakene - PO 1,000 mg BID [facility] Administration Vancomycin HCl 125 mg 02/21/17 00:00 02/22/17 12:19 Vancomycin Oral Solution PO 125 mg Q6HPO [facility] Administration ASSESSMENT/PLAN: 41 yo M with PMhx of severe MR, Seizure disorder, h/o MRSA presented from [facility] with fevers and bloody stools admitted for severe sepsis. Problem List - Problems (1) Severe sepsis Assessment/Plan: * Increased abdominal distention and tenderness worrisome for acute process * KUB shows moderately dilated colon - Dr. Shi recommends STAT CT w/o contrast. * Will consult surgery * Blood cultures negative * Levaquin and Flagyl to be continued pending cultures and sensitivity. * ID consult appreciated. * stool WBC and C.diff pending. * Continue IVF of NS to 75ml/hr (2) GI bleed Assessment/Plan: * Most likely from Colitis. * Continue IVF. * continue PO PPI (3) HANNAH (acute kidney injury) Assessment/Plan: * pre-renal improved with volume expansion. * continue IVF Code(s): N17.9 - ACUTE KIDNEY FAILURE, UNSPECIFIED (4) Seizure disorder Assessment/Plan: * continue * Fycompa 6 mg PO HS [facility] * Topamax 75 mg PO BID * Depakene 1gm PO BID (5) Thrombocytopenia Assessment/Plan: * most likely 2/2 sepsis * stable will continue to monitor. (6) Functional quadriplegia Visit type - Emergency Visit Emergency Visit: Yes ED Registration Date: 02/19/17 Care time: The patient presented to the Emergency Department on the above date and was hospitalized for further evaluation of their emergent condition. - New Patient This patient is new to me today: No - Critical Care Critical Care patient: No - Discharge Referral Referred to [facility] Med P.C.: No
--- NOTE | 2017-02-22 15:24 | PN ---
Progress Note, Physician History of Present Illness: Not verbally responsive Afebrile WBC WNL Abdomen distended; no BM reported - Current Medication List Current Medications: Active Medications Acetaminophen (Tylenol -) 650 mg PO Q4H PRN PRN Reason: FEVER OR PAIN Acetylcysteine (Mucomyst 20 Oral / Inh Use Only*) 600 mg PO BID [facility] Last Admin: 02/22/17 13:14 Dose: 600 mg Clonazepam (Klonopin -) 1 mg PO TID [facility] Last Admin: 02/22/17 13:12 Dose: 1 mg Gemfibrozil (Lopid -) 600 mg PO BIDAC [facility] Last Admin: 02/22/17 06:37 Dose: 600 mg Metronidazole (Flagyl 500mg Premixed Ivpb -) 100 mls @ 100 mls/hr IVPB Q8H-IV [facility] Last Admin: 02/22/17 10:17 Dose: 100 mls/hr Levofloxacin (Levaquin 750 Mg Premixed Ivpb -) 150 mls @ 100 mls/hr IVPB DAILY [facility] Last Admin: 02/22/17 10:18 Dose: 100 mls/hr Sodium Chloride (Normal Saline -) 1,000 mls @ 75 mls/hr IV ASDIR [facility] Last Admin: 02/22/17 13:16 Dose: Not Given Loratadine (Claritin -) 10 mg PO DAILY [facility] Last Admin: 02/22/17 10:17 Dose: 10 mg Non-Formulary Medication (Perampanel [Fycompa]) 6 mg PO HS [facility] Last Admin: 02/21/17 22:24 Dose: 6 mg Pantoprazole Sodium (Protonix Packets For Oral Suspension -) 40 mg PEG DAILY [facility] Last Admin: 02/22/17 10:11 Dose: 40 mg Topiramate (Topamax -) 75 mg PO BID [facility] Last Admin: 02/22/17 10:14 Dose: 75 mg Valproic Acid (Depakene -) 1,000 mg PO BID [facility] Last Admin: 02/22/17 10:17 Dose: 1,000 mg Vancomycin HCl (Vancomycin Oral Solution) 125 mg PO Q6HPO [facility] Last Admin: 02/22/17 12:19 Dose: 125 mg - Objective Vital Signs: Vital Signs Temperature 98.1 F 02/22/17 15:05 Pulse Rate 98 H 06/02/17 15:05 Respiratory Rate 20 02/22/17 06:18 Blood Pressure 110/70 02/22/17 15:05 O2 Sat by Pulse Oximetry (%) 99 02/21/17 09:00 Constitutional: Yes: No Distress Eyes: Yes: Conjunctiva Clear Cardiovascular: Yes: Regular Rate and Rhythm, S1, S2 Respiratory: Yes: Diminished Gastrointestinal: Yes: Normal Bowel Sounds, Soft, Other (distended). No: Tenderness Labs: CBC, BMP 02/22/17 06:25 02/22/17 06:25 INR, PTT INR 1.51 (0.82-1.09) H 02/19/17 20:33 Assessment/Plan Colitis Fever/ leukocytosis- improved PCN allergy Thrombocytopenia MR Continue empiric levaquin/ flagyl/ po vancomycin For follow up CT abdomen/pelvis R/O megacolon
[2017-02-22 15:32] LABS: MCH 30.5 pg (25.7-33.7); MEAN CELL VOLUME 92.2 fl (80-96); MEAN PLT VOLUME 8.5 fl (7.5-11.1); PLATELET COUNT 111 K/MM3 (134-434); WHITE BLOOD COUNT 8.2 K/mm3 (4.0-10.0)
[2017-02-22 15:58] LABS: METAMYELOCYTE 1 % (0-2); PLATELET ESTIMATE DECREASED (NORMAL)
--- NOTE | 2017-02-22 17:17 | PN ---
GI Progress Note Subjective: Called re: AXR findings ? megacolon as one loop opf transverse colon noted to be 9cm distended. Mr. Hanson's aid from [facility] tells me that aide from [place] being somewhat more somnolent, his behavior has not been any different. No acute events. No diarrhea or rectal pain noted. He has been afebrile. - Objective Vital Signs: Vital Signs Temperature 98.1 F 02/22/17 15:05 Pulse Rate 98 H 02/22/17 15:05 Respiratory Rate 17 02/22/17 09:00 Blood Pressure 110/70 02/22/17 15:05 O2 Sat by Pulse Oximetry (%) 99 02/22/17 09:00 Constitutional: Calm Eyes: No: Sclera Icterus Cardiovascular: Yes: Regular Rate and Rhythm Respiratory: Yes: Diminished (at bases b/l) Gastrointestinal Inspection: Yes: Distention (slightly protuberant, unchanged from previous exams). No: Scars ...Auscultate: Yes: Normoactive Bowel Sounds ...Palpate: Yes: Soft. No: Guarding (no uarding noted as noted on previous exams), Hepatomegaly ...Percussion: No: Tympanitic Edema: No (no LE edema) Labs: CBC, BMP 02/22/17 15:10 02/22/17 06:25 INR, PTT INR 1.51 (0.82-1.09) H 02/19/17 20:33 Hepatic Panel Total Bilirubin 0.3 mg/dL (0.2-1.0) 02/19/17 20:33 AST 24 U/L (15-37) 02/19/17 20:33 ALT 20 U/L (12-78) 02/19/17 20:33 Alkaline Phosphatase 74 U/L (45-117) 02/19/17 20:33 Albumin 3.2 g/dl (3.4-5.0) L 02/19/17 20:33 Laboratory Tests 02/21/17 02/22/17 06:00 06:25 C-Reactive Protein 23.1 H 14.9 H D - ....Imaging X-ray: Report Reviewed Problem List - Problems (1) Colitis Assessment/Plan: Clinically improved from my previous exams with imrpoving leukocytosis / CRP. No guarding noted on my exam today. Tachycardia improved as well No diarrhea as of yet Advised Repeat CT scan of the abdomen and pelvis to reevealuate further Surgical consult placed IV hydration, NPO for now IV Abx per ID PO vanco Dr. Pagan will be covering the weekend Code(s): K52.9 - NONINFECTIVE GASTROENTERITIS AND COLITIS, UNSPECIFIED
--- NOTE | 2017-02-22 23:26 | CONSULT ---
Consult Consult Specialty:: General surgery Referred by:: Joana Reason for Consultation:: Colitis, abdominal distention. - History of Present Illness Chief Complaint: Patient is unable to give any history, from [place]. H/O Mental retardation, MRSA, colitis. - History Source History Provided By: Medical Record Limitations to Obtaining History: Physical Impairment - Past Medical History CATTYMAN: Yes: Other (Mental retardation) Additional Medical History: Severe mental retardation, seizure disorder, osteoporosis, h/o MRSA - Past Surgical History Past Surgical History: Yes: None - Alcohol/Substance Use Hx Alcohol Use: No - Smoking History Smoking history: Never smoked - Social History Usual Living Arrangement: Retirement ADL: Support Services Occupation: Diabled History of Recent Travel: No Home Medications - Allergies Allergies/Adverse Reactions: Allergies Allergy/AdvReac Type Severity Reaction Status Date / Time cheese Allergy Verified 02/22/17 22:10 legumes Allergy Verified 02/22/17 14:37 peanut Allergy Verified 02/21/17 14:53 peas Allergy Verified 02/22/17 14:36 Penicillins Allergy Verified 02/19/17 19:22 Pork/Porcine Containing Allergy Verified 02/21/17 14:54 Products soy Allergy Verified 02/21/17 14:54 turkey Allergy Verified 02/22/17 14:36 wheat Allergy Verified 02/21/17 14:54 - Home Medications Home Medications: Ambulatory Orders Calcium Carbonate/Vitamin D3 [Oystercal-D 500 mg-400 Unit Tb] 500 mg PO DAILY Cholecalciferol (Vitamin D3) [Vitamin D3] 2,000 unit PO DAILY 02/20/17 Clonazepam [Klonopin] 1 mg PO TID 02/20/17 Diazepam Rectal Gel [Diastat Rectal Gel -] 10 mg MI ONCE 02/20/17 Famotidine 20 mg PO DAILY 02/20/17 Fluticasone Prop 0.05% Nasal [Flonase -] 1 - 2 spray NS DAILY 02/20/17 Gemfibrozil 600 mg PO BID 02/20/17 Loratadine 10 mg PO DAILY 02/20/17 Perampanel [Fycompa] 6 mg PO HS 02/20/17 Topiramate 75 mg PO BID 02/20/17 Valproic Acid [Depakene] 1 gm PO BID 02/20/17 Physical Exam Vital Signs: Vital Signs Temperature 98.1 F 02/22/17 15:05 Pulse Rate 98 H 02/22/17 15:05 Respiratory Rate 17 02/22/17 09:00 Blood Pressure 110/70 02/22/17 15:05 O2 Sat by Pulse Oximetry (%) 99 02/22/17 09:00 Gastrointestinal: Yes: Soft (Softb abdomen, not distended.), Abdomen, Obese Labs: CBC, BMP 02/22/17 15:10 02/22/17 06:25 Imaging - Results Cat Scan: Report Reviewed, Image Reviewed Problem List - Problems (1) Colitis Code(s): K52.9 - NONINFECTIVE GASTROENTERITIS AND COLITIS, UNSPECIFIED (2) Mental retardation Code(s): F79 - UNSPECIFIED INTELLECTUAL DISABILITIES (3) Sepsis Code(s): A41.9 - SEPSIS, UNSPECIFIED ORGANISM Qualifiers: Sepsis type: sepsis due to unspecified organism Qualified Code(s): A41.9 - Sepsis, unspecified organism (4) Anemia Code(s): D64.9 - ANEMIA, UNSPECIFIED Qualifiers: Anemia type: iron deficiency (5) Abnormal finding on GI tract imaging Code(s): R93.3 - ABNORMAL FINDINGS ON DX IMAGING OF PRT DIGESTIVE TRACT Assessment/Plan No acute surgical event, hydrate , follow up abdominal X-ray. g.i. management of colitis.
[2017-02-23] MEDS: VANCOMYCIN 250 MG/5 ML ORAL SOLUTION PO SCH ×4 (00:18→17:29)
[2017-02-23] MEDS: PERAMPANEL 6 MG PO SCH ×2 (00:18→22:57)
[2017-02-23] MEDS: METRONIDAZOLE 500 MG PREMIXED 100 ML IVPB SCH ×3 (02:13→17:29)
[2017-02-23] MEDS: clonazePAM 0.5 MG TABLET PO SCH ×3 (05:38→22:37)
[2017-02-23] MEDS: GEMFIBROZIL 600 MG TABLET (FP) PO SCH ×2 (06:03→16:35)
[2017-02-23 08:28] LABS: ALBUMIN 2.3 g/dl (3.4-5.0); ALK PHOS 55 U/L (45-117); ANION GAP 9 (8-16); BILIRUBIN,TOTAL 0.3 mg/dL (0.2-1.0); CO2 22 mmol/L (21-32); COCKROFT - GAULT 206.79; CREATININE 0.6 mg/dL (0.7-1.3); GLUCOSE,RANDOM 64 mg/dL (74-106); SGOT/AST 19 U/L (15-37); SGPT/ALT 15 U/L (12-78); TOT PROT 5.8 g/dl (6.4-8.2)
[2017-02-23 08:39] LABS: MCH 31.1 pg (25.7-33.7); MEAN CELL VOLUME 94.1 fl (80-96); MEAN PLT VOLUME 8.4 fl (7.5-11.1); PLATELET COUNT 128 K/MM3 (134-434); RDW 15.3 % (11.9-15.9); WHITE BLOOD COUNT 8.4 K/mm3 (4.0-10.0)
[2017-02-23 09:00] LABS: C-REACTIVE PROTEIN 12.6 MG/DL (0.00-0.3)
[2017-02-23 09:52] LABS: PLATELET ESTIMATE SLT DECREASED (NORMAL)
--- NOTE | 2017-02-23 10:11 | PN ---
Teaching Attending Note Name of Resident: Caden Fountain ATTENDING PHYSICIAN STATEMENT I saw and evaluated the patient. I reviewed the resident's note and discussed the case with the resident. I agree with the resident's findings and plan as documented. SUBJECTIVE: no events over night. had 2-3 soft BMs last night , with no blood OBJECTIVE: NAD, pleasant. more awake today MMM. no JVD. no facial droop CV: RRR, no MRG Lungs: CTAB Abd: distended, TTP in LLQ , but less tender compared to yesterday. tympanic abd Ext: no edema , no erythema. ASSESSMENT AND PLAN: 41 y/o male with h/o severe MR, seizure disorder, and h/o MRSA , who presented from [facility] with fevers. He was found to have severe sepsis . 1- Severe sepsis: due to colitis, likely C diff . Colonic distention is better on CT scan . Abd exam is slightly better today , and patient is more awake and responsive today. - cont ABx levaquin, flagyl and po vanco - repeat KUB to follow on toxic neil colon. Now and at night - keep NPO , change IVF t D5/NS+ Kcl due to hypoglycemia - appreciate GI and Surgery input - stool c diff and cx was sent last night . will follow 2- Rectal bleed. likely due to colitis ( descending and sigmoid ) . resolved - no more bleed.HB stable -cont PPI . 3- HANNAH : prerenal . resolved - cont IVF 4- Seizure disorder :COnt valproic acid 1 g BID. cont topiramate and Eycompa 5- Thrombocytopenia : likely due to sepsis . improving 6- HLOC
[2017-02-23] MEDS ORDERED: PT OWN MED DRAWER 7, Y5N ONE ×3 (10:17→21:15)
[2017-02-23] MEDS: LEVOFLOXACIN 750 MG IVPB 150 ML IVPB SCH (10:20)
[2017-02-23] MEDS: TOPIRAMATE 25 MG TABLET (FP) PO SCH ×2 (10:21→22:37)
[2017-02-23] MEDS: PANTOPRAZOLE SOD 40 MG SUSPENSION PACKET PEG SCH (10:21)
[2017-02-23] MEDS: LORATADINE 10 MG TABLET PO SCH (10:21)
[2017-02-23] MEDS: VALPROIC ACID 250 MG CAPSULE PO SCH ×2 (10:21→22:38)
--- NOTE | 2017-02-23 10:49 | PN ---
Progress Note, Physician - Current Medication List Current Medications: Active Medications Acetaminophen (Tylenol -) 650 mg PO Q4H PRN PRN Reason: FEVER OR PAIN Acetylcysteine (Mucomyst 20 Oral / Inh Use Only*) 600 mg PO BID [facility] Last Admin: 02/22/17 22:35 Dose: 600 mg Clonazepam (Klonopin -) 1 mg PO TID [facility] Last Admin: 02/23/17 05:38 Dose: 1 mg Gemfibrozil (Lopid -) 600 mg PO BIDAC [facility] Last Admin: 02/23/17 06:03 Dose: 600 mg Metronidazole (Flagyl 500mg Premixed Ivpb -) 100 mls @ 100 mls/hr IVPB Q8H-IV [facility] Last Admin: 02/23/17 10:21 Dose: 100 mls/hr Levofloxacin (Levaquin 750 Mg Premixed Ivpb -) 150 mls @ 100 mls/hr IVPB DAILY [facility] Last Admin: 02/23/17 10:20 Dose: 100 mls/hr Potassium Chloride 10 meq/ (Dextrose/Sodium Chloride) 1,005 mls @ 75 mls/hr IVPB ASDIR [facility] Loratadine (Claritin -) 10 mg PO DAILY [facility] Last Admin: 02/23/17 10:21 Dose: 10 mg Non-Formulary Medication (Perampanel [Fycompa]) 6 mg PO HS [facility] Last Admin: 02/23/17 00:18 Dose: 6 mg Pantoprazole Sodium (Protonix Packets For Oral Suspension -) 40 mg PEG DAILY [facility] Last Admin: 02/23/17 10:21 Dose: 40 mg Topiramate (Topamax -) 75 mg PO BID [facility] Last Admin: 02/23/17 10:21 Dose: 75 mg Valproic Acid (Depakene -) 1,000 mg PO BID [facility] Last Admin: 02/23/17 10:21 Dose: 1,000 mg Vancomycin HCl (Vancomycin Oral Solution) 125 mg PO Q6HPO [facility] Last Admin: 02/23/17 05:38 Dose: 125 mg - Objective Vital Signs: Vital Signs Temperature 97.9 F 02/23/17 08:00 Pulse Rate 87 02/23/17 08:00 Respiratory Rate 18 02/23/17 08:00 Blood Pressure 125/64 02/23/17 08:00 O2 Sat by Pulse Oximetry (%) 99 02/22/17 21:00 Labs: CBC, BMP 02/23/17 06:30 02/23/17 06:30 INR, PTT INR 1.51 (0.82-1.09) H 02/19/17 20:33 Problem List - Problems (1) Colitis Code(s): K52.9 - NONINFECTIVE GASTROENTERITIS AND COLITIS, UNSPECIFIED (2) Mental retardation Code(s): F79 - UNSPECIFIED INTELLECTUAL DISABILITIES (3) Sepsis Code(s): A41.9 - SEPSIS, UNSPECIFIED ORGANISM Qualifiers: Sepsis type: sepsis due to unspecified organism Qualified Code(s): A41.9 - Sepsis, unspecified organism (4) Anemia Code(s): D64.9 - ANEMIA, UNSPECIFIED Qualifiers: Anemia type: iron deficiency (5) Abnormal finding on GI tract imaging Code(s): R93.3 - ABNORMAL FINDINGS ON DX IMAGING OF PRT DIGESTIVE TRACT Assessment/Plan Surgery: Patient is comfortable. Abdomen is soft , not tender. Has had bowel movement. No acute surgical condition at this time. Colitis.
--- NOTE | 2017-02-23 11:08 | PN ---
Physical Exam: SUBJECTIVE: Patient seen and examined at bedside. Multiple BM's overnight. Lying comfortably. OBJECTIVE: Vital Signs Period Temp Pulse Resp BP Sys/Monroy Pulse Ox Last 24 Hr 97.9 F-99.5 F 87-98 18-20 100-125/62-70 99 GENERAL: non verbal , NAD HEAD: NC/AT. LUNGS: CTAB, rales of left base. HEART: RRR, no M/G/R ABDOMEN: distended , tympanic on RLQ, tenderness to palplation of RLQ, BS(+) EXTREMITIES: 2+ pulses, warm, well-perfused, no edema or erythema SKIN: Warm, dry, normal turgor, no rashes or lesions noted Laboratory Results - last 24 hr 02/22/17 02/22/17 02/22/17 06:25 15:10 15:10 WBC 8.2 RBC 3.67 L Hgb 11.2 L Hct 33.8 L MCV 92.2 MCHC 33.0 RDW 15.0 Plt Count 111 L MPV 8.5 Neutrophils % 50.0 Lymphocytes % 31.0 D Monocytes % 13.0 H Eosinophils % 3.0 D Basophils % 2.0 D Metamyelocytes 1 D Myelocytes Differential Comment Manual diff done Platelet Estimate Decreased Sodium Potassium Chloride Carbon Dioxide Anion Gap BUN Creatinine Creat Clearance w eGFR Random Glucose Lactic Acid 1.1 Calcium Total Bilirubin AST ALT Alkaline Phosphatase C-Reactive Protein 14.9 H D Total Protein Albumin Stool Occult Blood 02/23/17 02/23/17 02/23/17 01:45 06:30 06:30 WBC 8.4 RBC 4.17 Hgb 12.9 D Hct 39.2 D MCV 94.1 MCHC 33.0 RDW 15.3 Plt Count 128 L MPV 8.4 Neutrophils % 28.0 L D Lymphocytes % 35.0 Monocytes % 28.0 H D Eosinophils % 7.0 H D Basophils % 1.0 Metamyelocytes Myelocytes 1 D Differential Comment Manual diff done Platelet Estimate Slt decreased Sodium 143 Potassium 3.7 Chloride 112 H Carbon Dioxide 22 Anion Gap 9 BUN 15 Creatinine 0.6 L Creat Clearance w eGFR > 60 Random Glucose 64 L Lactic Acid Calcium 8.0 L Total Bilirubin 0.3 AST 19 D ALT 15 D Alkaline Phosphatase 55 D C-Reactive Protein 12.6 H D Total Protein 5.8 L D Albumin 2.3 L D Stool Occult Blood Positive Active Medications Generic Name Dose Route Start Last Admin Trade Name Semajq PRN Reason Stop Dose Admin Acetaminophen 650 mg 02/19/17 23:50 Tylenol - PO Q4H PRN FEVER OR PAIN Acetylcysteine 600 mg 02/20/17 22:00 02/22/17 22:35 Mucomyst 20 Oral / Inh Use Only* PO 600 mg BID [facility] Administration Clonazepam 1 mg 02/20/17 06:04 02/23/17 05:38 Klonopin - PO 1 mg TID [facility] Administration Gemfibrozil 600 mg 02/20/17 16:30 02/23/17 06:03 Lopid - PO 600 mg BIDAC [facility] Administration Metronidazole 100 mls @ 100 mls/hr 02/20/17 10:00 02/23/17 10:21 Flagyl 500mg Premixed Ivpb - IVPB 100 mls/hr Q8H-IV [facility] Administration Levofloxacin 150 mls @ 100 mls/hr 02/20/17 10:00 02/23/17 10:20 Levaquin 750 Mg Premixed Ivpb - IVPB 100 mls/hr DAILY [facility] Administration Potassium Chloride 10 meq/ 1,005 mls @ 75 mls/hr 02/23/17 10:00 Dextrose/Sodium Chloride IVPB ASDIR [facility] Loratadine 10 mg 02/20/17 10:00 02/23/17 10:21 Claritin - PO 10 mg DAILY [facility] Administration Non-Formulary Medication 6 mg 02/20/17 22:00 02/23/17 00:18 Perampanel [Fycompa] PO 6 mg HS [facility] Administration Pantoprazole Sodium 40 mg 02/21/17 10:30 02/23/17 10:21 Protonix Packets For Oral Suspension - PEG 40 mg DAILY [facility] Administration Topiramate 75 mg 02/20/17 10:00 02/23/17 10:21 Topamax - PO 75 mg BID [facility] Administration Valproic Acid 1,000 mg 02/21/17 10:00 02/23/17 10:21 Depakene - PO 1,000 mg BID [facility] Administration Vancomycin HCl 125 mg 02/21/17 00:00 02/23/17 05:38 Vancomycin Oral Solution PO 125 mg Q6HPO [facility] Administration ASSESSMENT/PLAN: 41 yo M with PMhx of severe MR, Seizure disorder, h/o MRSA presented from [facility] with fevers and bloody stools admitted for severe sepsis. Problem List - Problems (1) Severe sepsis Assessment/Plan: * Repeat CT abdomen shows significant colits. * He did move his bowels overnight which is reassuring * Repeat KUB tonight and in AM * Surgery consult appreciated. * Blood cultures negative * Levaquin and Flagyl to be continued pending cultures and sensitivity. * ID consult appreciated. * stool WBC and C.diff pending. * IVF changed to D5 NS because of low glucose on labs and patient NPO. (2) GI bleed Assessment/Plan: * No signs of active bleeding * H/H rising * Continue IVF. * continue PO PPI (3) Seizure disorder Assessment/Plan: * No seizure activity * Continue: * Fycompa 6 mg PO HS [facility] * Topamax 75 mg PO BID * Depakene 1gm PO BID (4) Thrombocytopenia Assessment/Plan: * 2/2 sepsis * stable will continue to monitor. (5) Functional quadriplegia Visit type - Emergency Visit Emergency Visit: Yes ED Registration Date: 02/19/17 Care time: The patient presented to the Emergency Department on the above date and was hospitalized for further evaluation of their emergent condition. - New Patient This patient is new to me today: No - Critical Care Critical Care patient: No
[2017-02-23] MEDS: POTASSIUM CHLORIDE 10 MEQ in DEXTROSE 5%-NORMAL SALINE 1,000 ML IVPB SCH (11:12)
--- NOTE | 2017-02-23 13:56 | PN ---
GI Progress Note Subjective: pt resting comfortiably aide reports: he doing better not restless no vomiting or pain had small bm no f/c/s - Objective Vital Signs: Vital Signs Temperature 97.9 F 02/23/17 08:00 Pulse Rate 87 02/23/17 08:00 Respiratory Rate 18 02/23/17 08:00 Blood Pressure 125/64 02/23/17 08:00 O2 Sat by Pulse Oximetry (%) 99 02/23/17 09:00 Constitutional: No Distress, Calm Eyes: Yes: WNL (+bs/ soft/ nt to palpation n all quadrants no rebound or guarding) Labs: CBC, BMP 02/23/17 06:30 02/23/17 06:30 INR, PTT INR 1.51 (0.82-1.09) H 02/19/17 20:33 Assessment/Plan pt appears comfortable have not seen him prior abd is soft and not distended as of now had bm today wbc's improved would start clears po once he more awake and alert and observe and advance diet as tolerated abdomen appears non-toxic at this time md patti
--- NOTE | 2017-02-23 14:00 | PN ---
Progress Note, Physician History of Present Illness: Awake,non verbal No acute distress +BM reported CT findings noted - Current Medication List Current Medications: Active Medications Acetaminophen (Tylenol -) 650 mg PO Q4H PRN PRN Reason: FEVER OR PAIN Acetylcysteine (Mucomyst 20 Oral / Inh Use Only*) 600 mg PO BID [facility] Last Admin: 02/22/17 22:35 Dose: 600 mg Clonazepam (Klonopin -) 1 mg PO TID [facility] Last Admin: 02/23/17 13:00 Dose: 1 mg Gemfibrozil (Lopid -) 600 mg PO BIDAC [facility] Last Admin: 02/23/17 06:03 Dose: 600 mg Metronidazole (Flagyl 500mg Premixed Ivpb -) 100 mls @ 100 mls/hr IVPB Q8H-IV [facility] Last Admin: 02/23/17 10:21 Dose: 100 mls/hr Levofloxacin (Levaquin 750 Mg Premixed Ivpb -) 150 mls @ 100 mls/hr IVPB DAILY [facility] Last Admin: 02/23/17 10:20 Dose: 100 mls/hr Potassium Chloride 10 meq/ (Dextrose/Sodium Chloride) 1,005 mls @ 75 mls/hr IVPB ASDIR [facility] Last Admin: 02/23/17 11:12 Dose: 75 mls/hr Loratadine (Claritin -) 10 mg PO DAILY [facility] Last Admin: 02/23/17 10:21 Dose: 10 mg Non-Formulary Medication (Perampanel [Fycompa]) 6 mg PO HS [facility] Last Admin: 02/23/17 00:18 Dose: 6 mg Pantoprazole Sodium (Protonix Packets For Oral Suspension -) 40 mg PEG DAILY [facility] Last Admin: 02/23/17 10:21 Dose: 40 mg Topiramate (Topamax -) 75 mg PO BID [facility] Last Admin: 02/23/17 10:21 Dose: 75 mg Valproic Acid (Depakene -) 1,000 mg PO BID [facility] Last Admin: 02/23/17 10:21 Dose: 1,000 mg Vancomycin HCl (Vancomycin Oral Solution) 125 mg PO Q6HPO [facility] Last Admin: 02/23/17 13:00 Dose: 125 mg - Objective Vital Signs: Vital Signs Temperature 97.9 F 02/23/17 08:00 Pulse Rate 87 02/23/17 08:00 Respiratory Rate 18 06/03/17 08:00 Blood Pressure 125/64 02/23/17 08:00 O2 Sat by Pulse Oximetry (%) 99 02/23/17 09:00 Constitutional: Yes: No Distress Eyes: Yes: Conjunctiva Clear Cardiovascular: Yes: Regular Rate and Rhythm, S1, S2 Respiratory: Yes: Diminished Gastrointestinal: Yes: Normal Bowel Sounds, Soft, Abdomen, Obese. No: Tenderness Labs: CBC, BMP 02/23/17 06:30 02/23/17 06:30 INR, PTT INR 1.51 (0.82-1.09) H 02/19/17 20:33 Assessment/Plan Colitis Fever/ leukocytosis- improved PCN allergy Thrombocytopenia MR Continue empiric levaquin/ flagyl/ po vancomycin Await stool studies
[2017-02-23] MEDS: VALPROATE SODIUM 250 MG/5 ML UNIT DOSE CUP PO SCH (22:58)
[2017-02-24] MEDS: METRONIDAZOLE 500 MG PREMIXED 100 ML IVPB SCH ×3 (01:48→17:06)
[2017-02-24] MEDS: VANCOMYCIN 250 MG/5 ML ORAL SOLUTION PO SCH ×2 (01:55→06:31)
[2017-02-24] MEDS ORDERED: PT OWN MED DRAWER 7, Y5N ONE ×3 (05:57→23:31)
[2017-02-24] MEDS: GEMFIBROZIL 600 MG TABLET (FP) PO SCH ×2 (06:31→17:05)
[2017-02-24] MEDS: clonazePAM 0.5 MG TABLET PO SCH ×3 (06:31→22:52)
[2017-02-24 08:05] LABS: COCKROFT - GAULT 181.85; CREATININE 0.7 mg/dL (0.7-1.3); MAGNESIUM 2.1 mg/dL (1.8-2.4); PHOSPHOROUS 3.2 mg/dL (2.5-4.9)
[2017-02-24 08:26] LABS: MCH 31.3 pg (25.7-33.7); MCHC 33.6 g/dl (32.0-35.9); MEAN CELL VOLUME 93.1 fl (80-96); PLATELET COUNT 158 K/MM3 (134-434); RDW 14.8 % (11.9-15.9)
[2017-02-24] MEDS: LORATADINE 10 MG TABLET PO SCH (09:04)
[2017-02-24] MEDS: POTASSIUM CHLORIDE 10 MEQ in DEXTROSE 5%-NORMAL SALINE 1,000 ML IVPB SCH (09:04)
[2017-02-24] MEDS: TOPIRAMATE 25 MG TABLET (FP) PO SCH ×2 (09:04→22:52)
[2017-02-24] MEDS: LEVOFLOXACIN 750 MG IVPB 150 ML IVPB SCH (09:04)
[2017-02-24] MEDS: PANTOPRAZOLE SOD 40 MG SUSPENSION PACKET PEG SCH (09:04)
[2017-02-24] MEDS: VALPROATE SODIUM 250 MG/5 ML UNIT DOSE CUP PO SCH ×2 (09:06→22:52)
[2017-02-24 10:51] LABS: METAMYELOCYTE 1 % (0-2); PLATELET ESTIMATE ADEQUATE (NORMAL)
--- NOTE | 2017-02-24 14:25 | PN ---
Progress Note (short form) - Note Progress Note: Subjective: no events over night . Objective: Vital Signs: Last Vital Signs Temp Pulse Resp BP Pulse Ox 98.4 F 79 20 107/57 98 02/24/17 08:00 02/24/17 08:00 02/24/17 08:00 02/24/17 08:00 02/24/17 09:00 Laboratory Results - last 24 hr 02/24/17 02/24/17 06:20 06:20 WBC 7.0 RBC 3.86 L Hgb 12.1 Hct 35.9 MCV 93.1 MCHC 33.6 RDW 14.8 Plt Count 158 D MPV 8.0 Neutrophils % 37.0 L D Lymphocytes % 26.0 D Monocytes % 23.0 H Eosinophils % 11.0 H Metamyelocytes 1 Myelocytes 2 D Differential Comment Manual diff done Platelet Estimate Adequate Sodium 147 H Potassium 3.7 Chloride 114 H Carbon Dioxide 24 Anion Gap 9 BUN 11 D Creatinine 0.7 Random Glucose 98 D Calcium 8.0 L Phosphorus 3.2 D Magnesium 2.1 Physical Exam: NAD, pleasant. MMM. no JVD. no facial droop CV: RRR, no MRG Lungs: CTAB Abd: slightly distended,grimaces with palpation of LLQ . nl BS Ext: no edema , no erythema. ASSESSMENT AND PLAN: 41 y/o male with h/o severe MR, seizure disorder, and h/o MRSA , who presented from [facility] with fevers. He was found to have severe sepsis . 1- Severe sepsis: due to colitis. Colonic distention is better on today's ray Abd exam has improved - cont ABx levaquin, flagyl - Dc PO vanco as C diff neg - stool cx with non-lactose fermenting rods , likely samlonella or Shigella - repeat KUB tomorrow - start thickened clears 2- Rectal bleed. likely due to colitis. resolved - no more bleed.HB stable -cont PPI . 3- HANNAH : prerenal . resolved - cont IVF - monitor hypernatremia , free water deficit 4.5 L 4- Seizure disorder :COnt valproic acid 1 g BID. cont topiramate and Eycompa 5- Thrombocytopenia : likely due to sepsis . cont to improve 6- HLOC Visit type - Emergency Visit Emergency Visit: Yes ED Registration Date: 02/19/17 Care time: The patient presented to the Emergency Department on the above date and was hospitalized for further evaluation of their emergent condition. - New Patient This patient is new to me today: No - Critical Care Critical Care patient: No
[2017-02-24] MEDS: PERAMPANEL 6 MG PO SCH (22:53)
[2017-02-24] MEDS: ACETAMINOPHEN 325 MG TABLET (FP) PO PRN (22:59)
[2017-02-24] MEDS ORDERED: ACETAMINOPHEN 650 MG SUPP.RECT PR ONE (23:38)
[2017-02-24] MEDS ORDERED: SODIUM CHLORIDE 0.45% 1,000 ML IV SCH (23:45)
--- NOTE | 2017-02-24 23:53 | HOSP ---
Subjective - Review of Symptoms Events since last encounter: Called to evaluate patient due to rectal temp of 102.6 at 11:49pm. Aide at bedside, states patient has been diaphoretic and somnolent since his shift started. Patient non verbal at baseline. Aid and nurse deny n, v, associated pain, cough. Nurse states stools are more formed and jelly like. Patient with plaza, cola colored urine in bag. General: Yes: Night Sweats, Fatigue, Malaise HEENT: No: Head Aches Pulmonary: No: Dyspnea, Cough Cardiovascular: No: Chest Pain, Palpitations Gastrointestinal: Yes: Other (jelly like stool). No: Nausea, Vomiting, Abdominal Pain Genitourinary: Yes: Other (with plaza) Physical Examination Vital Signs: Vital Signs Temperature 97.6 F 02/24/17 12:00 Pulse Rate 97 H 02/24/17 12:00 Respiratory Rate 18 02/24/17 12:00 Blood Pressure 121/83 02/24/17 12:00 O2 Sat by Pulse Oximetry (%) 98 02/24/17 09:00 Constitutional: Yes: Diaphoresis (laying in bed,legs contracted iwth hand in his mouth, non verbal, no signs of acute distress) Eyes: Yes: WNL HENT: Yes: WNL Neck: Yes: WNL Cardiovascular: Yes: Regular Rate and Rhythm Respiratory: Yes: CTA Bilaterally, Diminished, On Nasal O2 Gastrointestinal: Yes: Normal Bowel Sounds, Soft Renal/: Yes: Other (with plaza; cola colored urine) Edema: No Peripheral Pulses: Left Radial: 2+, Right Radial: 2+, Left Doralis Pedis: 2+, Right Dorsalis Pedis: 2+ Integumentary: Yes: WNL Neurological: Yes: Alert. No: Oriented Labs: CBC, BMP 02/24/17 06:20 02/24/17 06:20 Hospitalist Encounter Assessment: This is a41 year old male with h/o severe MR, seizure disorder, and h/o MRSA , who presented from [facility] with fevers. He was found to have severe sepsis secondary to colitis. Patient has been having diarrhea, c diff negative. #fever : -650mg po suppository x1 -cbc -moreno culture, urine and blood -cxr -lactic acid -IVF -patient already on levo/flagyl ; trend fever; await lab results Visit type - Emergency Visit Emergency Visit: Yes ED Registration Date: 02/19/17 Care time: The patient presented to the Emergency Department on the above date and was hospitalized for further evaluation of their emergent condition. - New Patient This patient is new to me today: Yes Date on this admission: 02/24/17 - Critical Care Critical Care patient: No
[2017-02-24] MEDS: ACETYLCYSTEINE 20% 200MG/ML 4 ML VIAL *FOR ORAL / INH USE ONLY PO SCH ×2 (23:55→23:56)
[2017-02-25] MEDS: DEXTROSE 5%-0.45% SALINE 1,000 ML IV SCH (00:14)
[2017-02-25] MEDS: ACETYLCYSTEINE 20% 200MG/ML 4 ML VIAL *FOR ORAL / INH USE ONLY PO SCH ×3 (00:15→21:43)
[2017-02-25 02:16] LABS: BASOPHIL 0.4 % (0-2.0); EOSINOPHIL 1.8 % (0-4.5); MCH 30.3 pg (25.7-33.7); MCHC 32.9 g/dl (32.0-35.9); MEAN PLT VOLUME 8.3 fl (7.5-11.1); PLATELET COUNT 199 K/MM3 (134-434); RDW 14.7 % (11.9-15.9); WHITE BLOOD COUNT 10.6 K/mm3 (4.0-10.0)
[2017-02-25 02:17] LABS: URINE APPEARANCE CLEAR; URINE BILIRUBIN NEGATIVE (NEGATIVE); URINE COLOR YELLOW; URINE GLUCOSE (UA) NEGATIVE (NEGATIVE); URINE KETONE TRACE (NEGATIVE); URINE LEUK ESTERASE NEGATIVE (NEGATIVE); URINE NITRITE NEGATIVE (NEGATIVE); URINE UROBILINOGEN NEGATIVE E.U./dl (0.2-1.0)
[2017-02-25 02:19] LABS: URINE BLOOD 2+ (NEGATIVE); URINE PROTEIN 2+ (NEGATIVE)
[2017-02-25 02:21] LABS: URINE MUCUS FEW; URINE RBC 240 /hpf (0-3); URINE WBC 8 /hpf (3-5)
[2017-02-25] MEDS: METRONIDAZOLE 500 MG PREMIXED 100 ML IVPB SCH ×3 (03:05→20:07)
[2017-02-25] MEDS: clonazePAM 0.5 MG TABLET PO SCH ×3 (06:40→21:44)
[2017-02-25] MEDS: GEMFIBROZIL 600 MG TABLET (FP) PO SCH ×2 (06:40→16:56)
[2017-02-25 07:23] LABS: CALCIUM 8.1 mg/dL (8.5-10.1); COCKROFT - GAULT 176.34; CREATININE 0.7 mg/dL (0.7-1.3); PHOSPHOROUS 3.1 mg/dL (2.5-4.9)
--- NOTE | 2017-02-25 08:52 | PN ---
Physical Exam: SUBJECTIVE: Patient seen and examined at bedside. Grunting in bed. Overnight rectal temp 102. OBJECTIVE: Vital Signs Period Temp Pulse Resp BP Sys/Monroy Pulse Ox Last 24 Hr 97.6 F-102.6 F 78-97 18-18 98-121/54-83 98-98 GENERAL: non verbal , NAD HEAD: NC/AT. LUNGS: CTAB, rales of left base. HEART: RRR, no M/G/R ABDOMEN: distended , tympanic on RLQ, tenderness to palplation of RLQ, BS(+) EXTREMITIES: 2+ pulses, warm, well-perfused, no edema or erythema SKIN: Warm, dry, normal turgor, no rashes or lesions noted Laboratory Results - last 24 hr 02/24/17 02/25/17 02/25/17 06:20 00:20 00:30 WBC RBC Hgb Hct MCV MCHC RDW Plt Count MPV Neutrophils % 37.0 L D Lymphocytes % 26.0 D Monocytes % 23.0 H Eosinophils % 11.0 H Basophils % Metamyelocytes 1 Myelocytes 2 D Differential Comment Manual diff done Platelet Estimate Adequate Sodium Potassium Chloride Carbon Dioxide Anion Gap BUN Creatinine Random Glucose Lactic Acid 1.0 Calcium Phosphorus Magnesium Urine Color Yellow Urine Appearance Clear Urine pH 6.0 Urine Protein 2+ H Urine Glucose (UA) Negative Urine Ketones Trace H Urine Blood 2+ H Urine Nitrite Negative Urine Bilirubin Negative Urine Urobilinogen Negative Ur Leukocyte Esterase Negative Urine RBC 240 Urine WBC 8 Urine Mucus Few 02/25/17 02/25/17 00:30 06:20 WBC 10.6 H D RBC 3.80 L Hgb 11.5 L Hct 35.0 L MCV 92.0 MCHC 32.9 RDW 14.7 Plt Count 199 D MPV 8.3 Neutrophils % 47.0 D Lymphocytes % 20.3 D Monocytes % 30.5 H Eosinophils % 1.8 D Basophils % 0.4 Metamyelocytes Myelocytes Differential Comment Platelet Estimate Sodium 144 Potassium 3.5 Chloride 112 H Carbon Dioxide 21 Anion Gap 11 BUN 8 D Creatinine 0.7 Random Glucose 93 Lactic Acid Calcium 8.1 L Phosphorus 3.1 Magnesium 2.0 Urine Color Urine Appearance Urine pH Urine Protein Urine Glucose (UA) Urine Ketones Urine Blood Urine Nitrite Urine Bilirubin Urine Urobilinogen Ur Leukocyte Esterase Urine RBC Urine WBC Urine Mucus Active Medications Generic Name Dose Route Start Last Admin Trade Name Freq PRN Reason Stop Dose Admin Acetaminophen 650 mg 02/19/17 23:50 Tylenol - PO Q4H PRN FEVER OR PAIN Acetylcysteine 600 mg 02/20/17 22:00 02/25/17 00:15 Mucomyst 20 Oral / Inh Use Only* PO 600 mg BID TARIQ Administration Clonazepam 1 mg 02/20/17 06:04 02/25/17 06:40 Klonopin - PO 1 mg TID TARIQ Administration Gemfibrozil 600 mg 02/20/17 16:30 02/25/17 06:40 Lopid - PO 600 mg BIDAC TARIQ Administration Metronidazole 100 mls @ 100 mls/hr 02/20/17 10:00 02/25/17 03:05 Flagyl 500mg Premixed Ivpb - IVPB 100 mls/hr Q8H-IV TARIQ Administration Levofloxacin 150 mls @ 100 mls/hr 02/20/17 10:00 02/24/17 09:04 Levaquin 750 Mg Premixed Ivpb - IVPB 100 mls/hr DAILY TARIQ Administration Dextrose/Sodium Chloride 1,000 mls @ 83 mls/hr 02/24/17 23:45 02/25/17 00:14 D5-1/2ns - IV 83 mls/hr ASDIR TARIQ Administration Loratadine 10 mg 02/20/17 10:00 02/24/17 09:04 Claritin - PO 10 mg DAILY TARIQ Administration Non-Formulary Medication 6 mg 02/20/17 22:00 02/24/17 22:53 Perampanel [Fycompa] PO 6 mg HS TARIQ Administration Pantoprazole Sodium 40 mg 02/21/17 10:30 02/24/17 09:04 Protonix Packets For Oral Suspension - PEG 40 mg DAILY TARIQ Administration Topiramate 75 mg 02/20/17 10:00 02/24/17 22:52 Topamax - PO 75 mg BID TARIQ Administration Valproate Sodium 1,000 mg 02/23/17 23:00 02/24/17 22:52 Depakene - PO 1,000 mg BID TARIQ Administration ASSESSMENT/PLAN: Problem List - Problems (1) Fever Assessment/Plan: * Rectal temp overnight 102 F * Blood and urine cultures sent * CXR read as left retrocaridiac infiltrate with left sided effusion. * Will monitor for now as he is already being covered with Levaquin and Flagyl (2) Severe sepsis Assessment/Plan: * Repeat KUB shows improvement of colonic distention. * Blood cultures negative * Levaquin and Flagyl to be continued pending cultures and sensitivity. * ID consult appreciated. * stool WBC and C.diff (-) (3) GI bleed Assessment/Plan: * No signs of active bleeding * H/H slighlty decreased from yesterday * Continue IVF. * continue PO PPI (4) Seizure disorder Assessment/Plan: * No seizure activity * Continue: * Fycompa 6 mg PO HS TARIQ * Topamax 75 mg PO BID * Depakene 1gm PO BID (5) Thrombocytopenia Assessment/Plan: * 2/2 sepsis * resolved will continue to monitor. (6) Functional quadriplegia Visit type - Emergency Visit Emergency Visit: Yes ED Registration Date: 02/19/17 Care time: The patient presented to the Emergency Department on the above date and was hospitalized for further evaluation of their emergent condition. - New Patient This patient is new to me today: No - Critical Care Critical Care patient: No - Discharge Referral Referred to [facility] Med P.C.: No
--- NOTE | 2017-02-25 10:08 | PN ---
Progress Note (short form) - Note Progress Note: isolated temp to 102.6 last pm, no fevers since 2 loose BMS yesterday, none since resting comfortably tolerated clears per aide this am does not appear to be having any pain stool WBC negative stool culture (spoke with micro) negative for enteric pathogens cdiff negative toxin and antigen Vital Signs Period Temp Pulse Resp BP Sys/Monroy Pulse Ox Last 24 Hr 97.6 F-102.6 F 78-97 18-18 98-121/54-83 98 cor-rrr lungs clear, decreased bs at bases abd slightly distended +BS, NT ext no edema CBC, BMP 02/25/17 00:30 02/25/17 06:20 Microbiology 02/23/17 01:45 Stool Salmonella/Shigella Culture - Final 02/23/17 01:45 Stool Campylobacter Culture - Final NO GROWTH OF CAMPYLOBACTER SPECIES OBTAINED 02/23/17 01:45 Stool Yersinia Culture - Final NO GROWTH OF YERSINIA SPECIES OBTAINED 02/23/17 01:45 Stool Vibrio Culture - Final NO GROWTH OF VIBRIO SPECIES OBTAINED 02/23/17 01:45 Stool Escherichia coli 0157 Culture - Final NO GROWTH OF E COLI 0157 OBTAINED 02/19/17 23:00 Blood - Arterial Blood Culture - Final NO GROWTH AFTER 5 DAYS INCUBATION 02/19/17 23:00 Blood - Arterial Blood Culture - Final NO GROWTH AFTER 5 DAYS INCUBATION 02/23/17 01:45 Stool Gram Stain - Final 02/23/17 01:45 Stool Clostridium difficile Antigen (MAGDY) - Final 02/23/17 01:45 Stool Clostridium difficile Toxin Assay - Final 02/20/17 16:17 Nares - Mrsa Screen - Left MRSA Screen - Final Mr S Aureus 02/20/17 08:22 Urine - Urine - Catheterized Urine Culture - Final NO GROWTH OBTAINED 02/20/17 08:22 Urine For Antigen Detection Legionella Antigen - Final 02/20/17 08:22 Urine For Antigen Detection Streptococcus pneumoniae Antigen (M - Final a/p colitis- ?inflammatory, w/u for infectious causes so far negative, will check norovirus diarrhea appears to be improving no esr sent, trend CRP, appears to be trending down, will repeat f/u cultures day #7 levaquin/flagyl repeat abd xray ordered GI f/u Problem List - Problems (1) Sepsis Code(s): A41.9 - SEPSIS, UNSPECIFIED ORGANISM Qualifiers: Sepsis type: sepsis due to unspecified organism Qualified Code(s): A41.9 - Sepsis, unspecified organism (2) Pneumonia Code(s): J18.9 - PNEUMONIA, UNSPECIFIED ORGANISM Qualifiers: Pneumonia type: due to unspecified organism Laterality: left Lung location: lower lobe of lung Qualified Code(s): J18.1 - Lobar pneumonia, unspecified organism (3) GI bleed Code(s): K92.2 - GASTROINTESTINAL HEMORRHAGE, UNSPECIFIED Qualifiers: GI bleed type/associated pathology: unspecified gastrointestinal hemorrhage type Qualified Code(s): K92.2 - Gastrointestinal hemorrhage, unspecified (4) Mental retardation Code(s): F79 - UNSPECIFIED INTELLECTUAL DISABILITIES (5) Seizure disorder Code(s): G40.909 - EPILEPSY, UNSP, NOT INTRACTABLE, WITHOUT STATUS EPILEPTICUS (6) Penicillin allergy Code(s): Z88.0 - ALLERGY STATUS TO PENICILLIN
[2017-02-25] MEDS ORDERED: PT OWN MED DRAWER 7, Y5N ONE ×2 (10:54→21:31)
[2017-02-25] MEDS: VALPROATE SODIUM 250 MG/5 ML UNIT DOSE CUP PO SCH ×2 (10:55→21:43)
[2017-02-25] MEDS: LORATADINE 10 MG TABLET PO SCH (10:55)
[2017-02-25] MEDS: PANTOPRAZOLE SOD 40 MG SUSPENSION PACKET PEG SCH (10:56)
[2017-02-25] MEDS: TOPIRAMATE 25 MG TABLET (FP) PO SCH ×2 (10:56→21:44)
--- NOTE | 2017-02-25 13:15 | PN ---
Teaching Attending Note Name of Resident: Caden Fountain ATTENDING PHYSICIAN STATEMENT I saw and evaluated the patient. I reviewed the resident's note and discussed the case with the resident. I agree with the resident's findings and plan as documented. SUBJECTIVE: fever last night . 2 loose non bloody BM this am , no other events . OBJECTIVE: NAD, pleasant. MMM. no JVD. no facial droop CV: RRR, no MRG Lungs: CTAB Abd: slightly distended,grimaces with palpation of LLQ . nl BS Ext: no edema , no erythema. ASSESSMENT AND PLAN: 41 y/o male with h/o severe MR, seizure disorder, and h/o MRSA , who presented from [facility] with fevers. He was found to have severe sepsis . 1- Severe sepsis: due to colitis. Colonic distention appear to be better on todays' xray . read pending Abd exam has improved. He had fever 102 last night . stool cx neg . blood cx sent last night . Cxray with possible atelectasis vs infiltrate on L base - cont ABx levaquin, flagyl day 6 - repeat C diff toxin . - follow repeat blood cx. - follow urine cx - cont clears might advance diet later today 2- Rectal bleed. likely due to colitis. resolved - HB slightly lower but no further bleed. - cont PPI . 3- HANNAH : prerenal . resolved - cont IVF - hypernatremia resolved. 4- Seizure disorder :COnt valproic acid 1 g BID. cont topiramate and Eycompa HLOC
--- NOTE | 2017-02-25 17:56 | PN ---
GI Progress Note Subjective: Had a fever overnight No diarrhea today No acute events today Stool culture, gram's stain and C.Diff toxin and antigen negative Mild colonic distention noted on repeat CT scan - Objective Vital Signs: Vital Signs Temperature 98.6 F 02/25/17 15:05 Pulse Rate 83 02/25/17 15:05 Respiratory Rate 18 02/25/17 08:00 Blood Pressure 110/63 02/25/17 15:05 O2 Sat by Pulse Oximetry (%) 97 02/25/17 09:00 Constitutional: Calm Eyes: No: Sclera Icterus Cardiovascular: Yes: Regular Rate and Rhythm Gastrointestinal Inspection: Yes: Other (protuberant abdomen (however patient laying horizontally in his bed, not flat)) ...Auscultate: Yes: Normoactive Bowel Sounds ...Palpate: No: Tenderness (no grimacing upon palpation) Edema: No Labs: CBC, BMP 02/25/17 00:30 02/25/17 06:20 INR, PTT INR 1.51 (0.82-1.09) H 02/19/17 20:33 Hepatic Panel Total Bilirubin 0.3 mg/dL (0.2-1.0) 02/23/17 06:30 AST 19 U/L (15-37) D 02/23/17 06:30 ALT 15 U/L (12-78) D 02/23/17 06:30 Alkaline Phosphatase 55 U/L (45-117) D 02/23/17 06:30 Albumin 2.3 g/dl (3.4-5.0) L D 02/23/17 06:30 Problem List - Problems (1) Colitis Assessment/Plan: Clinically improved Continue supportive measures Stool for norovirus Code(s): K52.9 - NONINFECTIVE GASTROENTERITIS AND COLITIS, UNSPECIFIED
[2017-02-25] MEDS: LEVOFLOXACIN 750 MG IVPB 150 ML IVPB SCH (17:59)
[2017-02-25] MEDS: PERAMPANEL 6 MG PO SCH (21:44)
[2017-02-26] MEDS: METRONIDAZOLE 500 MG PREMIXED 100 ML IVPB SCH ×2 (01:37→11:20)
[2017-02-26] MEDS: DEXTROSE 5%-0.45% SALINE 1,000 ML IV SCH ×2 (04:36→20:24)
[2017-02-26] MEDS: clonazePAM 0.5 MG TABLET PO SCH ×3 (06:08→22:02)
[2017-02-26] MEDS: GEMFIBROZIL 600 MG TABLET (FP) PO SCH ×3 (06:08→22:02)
[2017-02-26] MEDS: ACETAMINOPHEN 325 MG TABLET (FP) PO PRN (06:08)
[2017-02-26] MEDS ORDERED: ACETAMINOPHEN 325 MG TABLET (FP) PO PRN (07:50)
[2017-02-26 09:20] LABS: MCH 30.9 pg (25.7-33.7); MCHC 33.2 g/dl (32.0-35.9); MEAN CELL VOLUME 92.9 fl (80-96); MEAN PLT VOLUME 7.8 fl (7.5-11.1); PLATELET COUNT 236 K/MM3 (134-434); RDW 14.8 % (11.9-15.9); WHITE BLOOD COUNT 10.7 K/mm3 (4.0-10.0)
[2017-02-26] MEDS ORDERED: PT OWN MED DRAWER 7, Y5N ONE (10:30)
[2017-02-26] MEDS: PANTOPRAZOLE SOD 40 MG SUSPENSION PACKET PEG SCH (11:20)
[2017-02-26] MEDS: VALPROATE SODIUM 250 MG/5 ML UNIT DOSE CUP PO SCH ×2 (11:20→22:01)
[2017-02-26 11:28] LABS: METAMYELOCYTE 1 % (0-2); PLATELET ESTIMATE ADEQUATE (NORMAL)
[2017-02-26] MEDS: LEVOFLOXACIN 750 MG IVPB 150 ML IVPB SCH (11:31)
[2017-02-26] MEDS: TOPIRAMATE 25 MG TABLET (FP) PO SCH ×2 (11:32→22:02)
--- NOTE | 2017-02-26 11:39 | PN ---
GI Progress Note Subjective: Had a 3 minute seizure per the nurse No diarrhea - Objective Vital Signs: Vital Signs Temperature 100.4 F H 02/26/17 06:00 Pulse Rate 100 H 02/26/17 06:00 Respiratory Rate 20 02/26/17 06:00 Blood Pressure 115/66 02/26/17 06:00 O2 Sat by Pulse Oximetry (%) 97 02/25/17 21:00 Constitutional: Calm Eyes: No: Sclera Icterus Cardiovascular: Yes: Regular Rate and Rhythm Respiratory: Yes: Diminished (at bases, poor inspiratory effort) Gastrointestinal Inspection: No: Distention ...Auscultate: Yes: Normoactive Bowel Sounds ...Palpate: No: Tenderness (no guarding as noted on previous exams) Edema: No (contracted LE) Labs: CBC, BMP 02/26/17 06:05 02/25/17 06:20 INR, PTT INR 1.51 (0.82-1.09) H 02/19/17 20:33 Hepatic Panel Total Bilirubin 0.3 mg/dL (0.2-1.0) 02/23/17 06:30 AST 19 U/L (15-37) D 02/23/17 06:30 ALT 15 U/L (12-78) D 02/23/17 06:30 Alkaline Phosphatase 55 U/L (45-117) D 02/23/17 06:30 Albumin 2.3 g/dl (3.4-5.0) L D 02/23/17 06:30 Problem List - Problems (1) Colitis Assessment/Plan: No diarrhea and abdominal exam improved Abnormal CBC differential. ? viral etiology. ? heme evaluation Code(s): K52.9 - NONINFECTIVE GASTROENTERITIS AND COLITIS, UNSPECIFIED
[2017-02-26] MEDS: ACETYLCYSTEINE 20% 200MG/ML 4 ML VIAL *FOR ORAL / INH USE ONLY PO SCH ×2 (13:45→22:02)
--- NOTE | 2017-02-26 13:50 | PN ---
Physical Exam: SUBJECTIVE: Patient seen and examined at bedside. He continued to spike fevers last night. No BM just some spotting as per aide. questionable seizure activity this morning. OBJECTIVE: Vital Signs Period Temp Pulse Resp BP Sys/Monroy Pulse Ox Last 24 Hr 98.6 F-100.4 F 83-100 16-20 104-122/62-70 97 GENERAL: non verbal , NAD HEAD: NC/AT. LUNGS: CTAB, rales of left base. HEART: RRR, no M/G/R ABDOMEN: less distended ,BS(+), non tender. EXTREMITIES: contracted bilateral LE 2+ pulses, warm, well-perfused, no edema or erythema SKIN: Warm, dry, normal turgor, no rashes or lesions noted Laboratory Results - last 24 hr 02/26/17 06:05 WBC 10.7 H RBC 3.75 L Hgb 11.6 L Hct 34.9 L MCV 92.9 MCHC 33.2 RDW 14.8 Plt Count 236 MPV 7.8 Neutrophils % 42.0 L Lymphocytes % 26.0 D Monocytes % 18.0 H Eosinophils % 11.0 H D Metamyelocytes 1 Myelocytes 2 Nucleated RBCs 1 H Differential Comment Manual diff done Platelet Estimate Adequate Active Medications Generic Name Dose Route Start Last Admin Trade Name Freq PRN Reason Stop Dose Admin Acetaminophen 650 mg 02/26/17 07:50 Tylenol - PO Q4H PRN FEVER OR PAIN Acetylcysteine 600 mg 02/20/17 22:00 02/25/17 21:43 Mucomyst 20 Oral / Inh Use Only* PO 600 mg BID TARIQ Administration Clonazepam 1 mg 02/26/17 14:00 Klonopin - PO TID TARIQ Gemfibrozil 600 mg 02/26/17 10:00 02/26/17 11:31 Lopid - PO 600 mg BID TARIQ Administration Metronidazole 100 mls @ 100 mls/hr 02/20/17 10:00 02/26/17 11:20 Flagyl 500mg Premixed Ivpb - IVPB 100 mls/hr Q8H-IV TARIQ Administration Levofloxacin 150 mls @ 100 mls/hr 02/20/17 10:00 02/26/17 11:31 Levaquin 750 Mg Premixed Ivpb - IVPB 100 mls/hr DAILY TARIQ Administration Dextrose/Sodium Chloride 1,000 mls @ 83 mls/hr 06/04/17 23:45 02/26/17 04:36 D5-1/2ns - IV 83 mls/hr ASDIR TARIQ Administration Loratadine 10 mg 02/26/17 10:00 Claritin - PO DAILY TARIQ Non-Formulary Medication 6 mg 02/20/17 22:00 02/25/17 21:44 Perampanel [Fycompa] PO 6 mg HS TARIQ Administration Pantoprazole Sodium 40 mg 02/21/17 10:30 02/26/17 11:20 Protonix Packets For Oral Suspension - PEG 40 mg DAILY TARIQ Administration Topiramate 75 mg 02/26/17 10:00 02/26/17 11:32 Topamax - PO 75 mg BID TARIQ Administration Valproate Sodium 1,000 mg 02/23/17 23:00 02/26/17 11:20 Depakene - PO 1,000 mg BID TARIQ Administration ASSESSMENT/PLAN: 41 yo M with PMhx of severe MR, Seizure disorder, h/o MRSA presented from [facility] with fevers and bloody stools admitted for severe sepsis. Problem List - Problems (1) Fever Assessment/Plan: * Rectal temp overnight 102 F * Blood and urine cultures pending * CXR read as left retrocaridiac infiltrate with left sided effusion. * Will monitor for now as he is already being covered with Levaquin and Flagyl (2) Severe sepsis Assessment/Plan: * Repeat KUB shows improvement of colonic distention. * Blood cultures negative * Levaquin and Flagyl to be continued pending cultures and sensitivity. * ID consult appreciated. * stool WBC and C.diff (-) (3) GI bleed Assessment/Plan: * No signs of active bleeding * H/H slighlty decreased from yesterday * Continue IVF. * continue PO PPI (4) Seizure disorder Assessment/Plan: * No seizure activity * Continue: * Fycompa 6 mg PO HS TARIQ * Topamax 75 mg PO BID * Depakene 1gm PO BID (5) Thrombocytopenia Assessment/Plan: * 2/2 sepsis * resolved will continue to monitor. (6) Functional quadriplegia Visit type - Emergency Visit Emergency Visit: Yes ED Registration Date: 02/19/17 Care time: The patient presented to the Emergency Department on the above date and was hospitalized for further evaluation of their emergent condition. - New Patient This patient is new to me today: No - Critical Care Critical Care patient: No
--- NOTE | 2017-02-26 15:01 | PN ---
Progress Note, Physician History of Present Illness: Not verbally responsive No acute distress No diarrhea today per nurse Low grade temp noted Stool c/s, C diff negative Viral studies ordered - Current Medication List Current Medications: Active Medications Acetaminophen (Tylenol -) 650 mg PO Q4H PRN PRN Reason: FEVER OR PAIN Acetylcysteine (Mucomyst 20 Oral / Inh Use Only*) 600 mg PO BID [facility] Last Admin: 02/26/17 13:45 Dose: 600 mg Clonazepam (Klonopin -) 1 mg PO TID [facility] Last Admin: 02/26/17 13:44 Dose: 1 mg Gemfibrozil (Lopid -) 600 mg PO BID [facility] Last Admin: 02/26/17 11:31 Dose: 600 mg Metronidazole (Flagyl 500mg Premixed Ivpb -) 100 mls @ 100 mls/hr IVPB Q8H-IV [facility] Last Admin: 02/26/17 11:20 Dose: 100 mls/hr Levofloxacin (Levaquin 750 Mg Premixed Ivpb -) 150 mls @ 100 mls/hr IVPB DAILY [facility] Last Admin: 02/26/17 11:31 Dose: 100 mls/hr Dextrose/Sodium Chloride (D5-1/2ns -) 1,000 mls @ 83 mls/hr IV ASDIR [facility] Last Admin: 02/26/17 04:36 Dose: 83 mls/hr Loratadine (Claritin -) 10 mg PO DAILY [facility] Non-Formulary Medication (Perampanel [Fycompa]) 6 mg PO HS [facility] Last Admin: 02/25/17 21:44 Dose: 6 mg Pantoprazole Sodium (Protonix Packets For Oral Suspension -) 40 mg PEG DAILY [facility] Last Admin: 02/26/17 11:20 Dose: 40 mg Topiramate (Topamax -) 75 mg PO BID [facility] Last Admin: 02/26/17 11:32 Dose: 75 mg Valproate Sodium (Depakene -) 1,000 mg PO BID [facility] Last Admin: 02/26/17 11:20 Dose: 1,000 mg - Objective Vital Signs: Vital Signs Temperature 99.1 F 02/26/17 14:00 Pulse Rate 90 02/26/17 14:00 Respiratory Rate 18 02/26/17 14:00 Blood Pressure 115/66 02/26/17 06:00 O2 Sat by Pulse Oximetry (%) 97 02/25/17 21:00 Constitutional: Yes: No Distress Eyes: Yes: Conjunctiva Clear Cardiovascular: Yes: Regular Rate and Rhythm, S1, S2 Respiratory: Yes: Diminished Gastrointestinal: Yes: Normal Bowel Sounds, Soft. No: Tenderness Labs: CBC, BMP 02/26/17 06:05 02/25/17 06:20 INR, PTT INR 1.51 (0.82-1.09) H 02/19/17 20:33 Assessment/Plan Colitis, possible viral etiology ( rota, noro ) PCN allergy Thrombocytopenia MR Switch to po levaquin / flagyl Await stool viral studies
--- NOTE | 2017-02-26 15:43 | PN ---
Teaching Attending Note Name of Resident: Caden Fountain ATTENDING PHYSICIAN STATEMENT I saw and evaluated the patient. I reviewed the resident's note and discussed the case with the resident. I agree with the resident's findings and plan as documented. SUBJECTIVE: fever overnight. no diarrhea . per aid, has a 3 second minimal shaking ( tremor ) of his R hand . no tonic or other clonicactivities. no Urineor stool incontinence , no tongue biting. OBJECTIVE: NAD, pleasant. MMM. no JVD. no facial droop CV: RRR, no MRG Lungs: fine crackles at L base . otherwise clear Abd: less distended than yesterday, soft. NL BS . still grimaces with LLQ palpation Ext: no edema , no erythema. ASSESSMENT AND PLAN: 41 y/o male with h/o severe MR, seizure disorder, and h/o MRSA , who presented from [facility] with fevers. He was found to have severe sepsis . 1- Severe sepsis: due to colitis. cont to have fever ( unclear etiology). diarrhea stopped. stool cx and blood cx neg - day 7 of abx . switched to po - pt had diarrhea at presentation , stopped stooling due to toxic neil colon , so c diff ordered on admission , was not collected until later. it is neg. sensitivity of assay 98%. repeat c diff to r/o false neg results if he has diarrhea agin - follow repeat blood cx. - follow urine cx - cont full liquids. change for puree tomorrow - order KUB 2- Rectal bleed. likely due to colitis. resolved - follow HB 3- HANNAH : prerenal . resolved - cont IVF . can dc IVF tomorrow - hypernatremia resolved. 4- Seizure disorder :COnt valproic acid 1 g BID. cont topiramate and Eycompa meds confirmed with [facility] records. the activity described by his aid this AM , does not seem to be a seizure . HLOC
[2017-02-26] MEDS: LORATADINE 10 MG TABLET PO SCH (19:53)
[2017-02-26] MEDS: metroNIDAZOLE 250 MG TABLET PO SCH (22:01)
[2017-02-26] MEDS: PERAMPANEL 6 MG PO SCH (22:02)
[2017-02-27] MEDS: metroNIDAZOLE 250 MG TABLET PO SCH ×3 (05:56→21:32)
[2017-02-27] MEDS: clonazePAM 0.5 MG TABLET PO SCH ×3 (05:56→21:33)
[2017-02-27 07:25] LABS: BASOPHIL 1.7 % (0-2.0); MCH 30.9 pg (25.7-33.7); MCHC 33.7 g/dl (32.0-35.9); MEAN CELL VOLUME 91.6 fl (80-96); MEAN PLT VOLUME 7.5 fl (7.5-11.1); NEUTROPHILS 46.1 % (42.8-82.8); PLATELET COUNT 258 K/MM3 (134-434); RDW 14.8 % (11.9-15.9); WHITE BLOOD COUNT 6.7 K/mm3 (4.0-10.0)
[2017-02-27 07:32] LABS: CALCIUM 8.1 mg/dL (8.5-10.1); COCKROFT - GAULT 172.98; CREATININE 0.7 mg/dL (0.7-1.3)
[2017-02-27] MEDS ORDERED: PT OWN MED DRAWER 7, Y5N ONE (09:54)
[2017-02-27] MEDS: VALPROATE SODIUM 250 MG/5 ML UNIT DOSE CUP PO SCH ×2 (10:32→21:30)
[2017-02-27] MEDS: LEVOFLOXACIN 500 MG TABLET (FP) PO SCH (10:32)
[2017-02-27] MEDS: GEMFIBROZIL 600 MG TABLET (FP) PO SCH ×2 (10:32→21:33)
[2017-02-27] MEDS: DEXTROSE 5%-0.45% SALINE 1,000 ML IV SCH (10:33)
[2017-02-27] MEDS: TOPIRAMATE 25 MG TABLET (FP) PO SCH ×2 (10:34→21:32)
[2017-02-27] MEDS: ACETYLCYSTEINE 20% 200MG/ML 4 ML VIAL *FOR ORAL / INH USE ONLY PO SCH ×2 (10:34→21:34)
[2017-02-27] MEDS: LORATADINE 10 MG TABLET PO SCH (10:34)
--- NOTE | 2017-02-27 15:39 | PN ---
Physical Exam: SUBJECTIVE: Patient seen and examined at bedside. More alert and awake today. No overnight events. Afebrile overnight. Lying comfortably. OBJECTIVE: Vital Signs Period Temp Pulse Resp BP Sys/Monroy Pulse Ox Last 24 Hr 98.4 F-99.6 F 59-95 16-22 101-116/62-86 97 GENERAL: non verbal , NAD HEAD: NC/AT. LUNGS: CTAB, rales of left base. HEART: RRR, no M/G/R ABDOMEN: Soft, NT, ND ,BS(+), EXTREMITIES: contracted bilateral LE 2+ pulses, warm, well-perfused, no edema or erythema SKIN: Warm, dry, normal turgor, no rashes or lesions noted Laboratory Results - last 24 hr 02/27/17 02/27/17 06:20 06:20 WBC 6.7 D RBC 3.77 L Hgb 11.6 L Hct 34.5 L MCV 91.6 MCHC 33.7 RDW 14.8 Plt Count 258 MPV 7.5 Neutrophils % 46.1 Lymphocytes % 24.2 Monocytes % 17.0 H Eosinophils % 11.0 H Basophils % 1.7 D Sodium 143 Potassium 3.5 Chloride 112 H Carbon Dioxide 24 Anion Gap 7 L BUN 5 L D Creatinine 0.7 Random Glucose 118 H D Calcium 8.1 L Active Medications Generic Name Dose Route Start Last Admin Trade Name Freq PRN Reason Stop Dose Admin Acetaminophen 650 mg 02/26/17 07:50 Tylenol - PO Q4H PRN FEVER OR PAIN Acetylcysteine 600 mg 02/20/17 22:00 02/27/17 10:34 Mucomyst 20 Oral / Inh Use Only* PO Not Given BID TARIQ Clonazepam 1 mg 02/26/17 14:00 02/27/17 14:36 Klonopin - PO 1 mg TID TARIQ Administration Gemfibrozil 600 mg 02/26/17 10:00 02/27/17 10:32 Lopid - PO 600 mg BID TARIQ Administration Dextrose/Sodium Chloride 1,000 mls @ 83 mls/hr 02/24/17 23:45 02/27/17 10:33 D5-1/2ns - IV 83 mls/hr ASDIR TARIQ Administration Levofloxacin 500 mg 02/27/17 10:00 02/27/17 10:32 Levaquin - PO 500 mg DAILY TARIQ Administration Loratadine 10 mg 02/26/17 10:00 02/27/17 10:34 Claritin - PO 10 mg DAILY TARIQ Administration Metronidazole 500 mg 02/26/17 22:00 02/27/17 14:35 Flagyl - PO 500 mg TID TARIQ Administration Non-Formulary Medication 6 mg 02/20/17 22:00 02/26/17 22:02 Perampanel [Fycompa] PO 6 mg HS TARIQ Administration Topiramate 75 mg 02/26/17 10:00 02/27/17 10:34 Topamax - PO 75 mg BID TARIQ Administration Valproate Sodium 1,000 mg 02/23/17 23:00 02/27/17 10:32 Depakene - PO 1,000 mg BID TARIQ Administration ASSESSMENT/PLAN: 41 yo M with PMhx of severe MR, Seizure disorder, h/o MRSA presented from [facility] with fevers and bloody stools admitted for severe sepsis. Problem List - Problems (1) Fever Assessment/Plan: * Afebrile for 24hrs * Blood and urine cultures negative * Will continue with Oral antibiotics. (2) Severe sepsis Assessment/Plan: * Repeat KUB shows improvement of colonic distention. * Blood cultures negative * Stool viral studies pending. * stool WBC and repeat C.diff (-) * Levaquin and Flagyl switched to oral * ID consult appreciated. (3) GI bleed Assessment/Plan: * No signs of active bleeding * H/H stable (4) Seizure disorder Assessment/Plan: * No seizure activity * Continue: * Fycompa 6 mg PO HS TARIQ * Topamax 75 mg PO BID * Depakene 1gm PO BID (5) Functional quadriplegia Visit type - Emergency Visit Emergency Visit: Yes ED Registration Date: 02/19/17 Care time: The patient presented to the Emergency Department on the above date and was hospitalized for further evaluation of their emergent condition. - New Patient This patient is new to me today: No - Critical Care Critical Care patient: No - Discharge Referral Referred to [facility] Med P.C.: No
--- NOTE | 2017-02-27 20:54 | PN ---
Teaching Attending Note Name of Resident: Caden Fountain ATTENDING PHYSICIAN STATEMENT I saw and evaluated the patient. I reviewed the resident's note and discussed the case with the resident. I agree with the resident's findings and plan as documented. SUBJECTIVE: Patient is lying in bed comfortable with no acute distress. OBJECTIVE: Vital Signs Temperature 99.6 F 02/27/17 14:00 Pulse Rate 90 02/27/17 14:00 Respiratory Rate 22 02/27/17 14:00 Blood Pressure 110/62 02/27/17 10:00 O2 Sat by Pulse Oximetry (%) 97 02/27/17 09:00 CBCD WBC 6.7 K/mm3 (4.0-10.0) D 02/27/17 06:20 RBC 3.77 M/mm3 (4.00-5.60) L 02/27/17 06:20 Hgb 11.6 GM/dL (11.7-16.9) L 02/27/17 06:20 Hct 34.5 % (35.4-49) L 02/27/17 06:20 MCV 91.6 fl (80-96) 02/27/17 06:20 MCHC 33.7 g/dl (32.0-35.9) 02/27/17 06:20 RDW 14.8 % (11.9-15.9) 02/27/17 06:20 Plt Count 258 K/MM3 (134-434) 02/27/17 06:20 MPV 7.5 fl (7.5-11.1) 02/27/17 06:20 CMP Sodium 143 mmol/L (136-145) 02/27/17 06:20 Potassium 3.5 mmol/L (3.5-5.1) 02/27/17 06:20 Chloride 112 mmol/L (98-107) H 02/27/17 06:20 Carbon Dioxide 24 mmol/L (21-32) 02/27/17 06:20 Anion Gap 7 (8-16) L 02/27/17 06:20 BUN 5 mg/dL (7-18) L D 02/27/17 06:20 Creatinine 0.7 mg/dL (0.7-1.3) 02/27/17 06:20 Creat Clearance w eGFR > 60 (>60) 02/23/17 06:30 Random Glucose 118 mg/dL (74-106) H D 02/27/17 06:20 Calcium 8.1 mg/dL (8.5-10.1) L 02/27/17 06:20 Total Bilirubin 0.3 mg/dL (0.2-1.0) 02/23/17 06:30 AST 19 U/L (15-37) D 02/23/17 06:30 ALT 15 U/L (12-78) D 02/23/17 06:30 Alkaline Phosphatase 55 U/L (45-117) D 02/23/17 06:30 Total Protein 5.8 g/dl (6.4-8.2) L D 02/23/17 06:30 Albumin 2.3 g/dl (3.4-5.0) L D 02/23/17 06:30 Current Medications Generic Name Dose Route Start Last Admin Trade Name Freq PRN Reason Stop Dose Admin Acetaminophen 650 mg 02/26/17 07:50 Tylenol - PO Q4H PRN FEVER OR PAIN Acetylcysteine 600 mg 02/20/17 22:00 02/27/17 10:34 Mucomyst 20 Oral / Inh Use Only* PO Not Given BID TARIQ Clonazepam 1 mg 02/26/17 14:00 02/27/17 14:36 Klonopin - PO 1 mg TID TARIQ Administration Gemfibrozil 600 mg 02/26/17 10:00 02/27/17 10:32 Lopid - PO 600 mg BID TARIQ Administration Dextrose/Sodium Chloride 1,000 mls @ 83 mls/hr 02/24/17 23:45 02/27/17 10:33 D5-1/2ns - IV 83 mls/hr ASDIR TARIQ Administration Levofloxacin 500 mg 02/27/17 10:00 02/27/17 10:32 Levaquin - PO 500 mg DAILY TARIQ Administration Loratadine 10 mg 02/26/17 10:00 02/27/17 10:34 Claritin - PO 10 mg DAILY TARIQ Administration Metronidazole 500 mg 02/26/17 22:00 02/27/17 14:35 Flagyl - PO 500 mg TID TARIQ Administration Non-Formulary Medication 6 mg 02/20/17 22:00 02/26/17 22:02 Perampanel [Fycompa] PO 6 mg HS TARIQ Administration Topiramate 75 mg 02/26/17 10:00 02/27/17 10:34 Topamax - PO 75 mg BID TARIQ Administration Valproate Sodium 1,000 mg 02/23/17 23:00 02/27/17 10:32 Depakene - PO 1,000 mg BID TARIQ Administration Home Medications Medication Instructions Recorded Calcium Carbonate/Vitamin D3 500 mg PO DAILY 02/20/17 [Oystercal-D 500 mg-400 Unit Tb] Cholecalciferol (Vitamin D3) 2,000 unit PO DAILY 02/20/17 [Vitamin D3] Clonazepam [Klonopin] 1 mg PO TID 02/20/17 Diazepam Rectal Gel [Diastat [address] ONCE 02/20/17 Rectal Gel -] Famotidine 20 mg PO DAILY 02/20/17 Fluticasone Prop 0.05% Nasal 1 - 2 spray NS DAILY 02/20/17 [Flonase -] Gemfibrozil 600 mg PO BID 02/20/17 Loratadine 10 mg PO DAILY 02/20/17 Perampanel [Fycompa] 6 mg PO HS 02/20/17 Topiramate 75 mg PO BID 02/20/17 Valproic Acid [Depakene] 1 gm PO BID 02/20/17 PE: per resident's note ASSESSMENT AND PLAN: 41 y/o male with h/o severe MR, seizure disorder, and h/o MRSA , who presented from [facility] with fevers. He was found to have severe sepsis . #s/p Severe sepsis: due to colitis. On IV antibiotic cont. for now. Diarrhea stopped. stool cx and blood cx neg # Rectal bleed. likely due to colitis. resolved # ARF : prerenal, resolved # Acute hypernatremia resolved. Post IVF # Seizure disorder :Cnnt valproic acid 1 g BID, cont topiramate and Eycompa meds were confirmed with [facility] records by . DVT Px: SCds
[2017-02-27] MEDS: PERAMPANEL 6 MG PO SCH (21:34)
[2017-02-28] MEDS: clonazePAM 0.5 MG TABLET PO SCH ×3 (06:01→21:51)
[2017-02-28] MEDS: metroNIDAZOLE 250 MG TABLET PO SCH ×3 (06:01→21:50)
[2017-02-28 08:55] LABS: MCH 30.5 pg (25.7-33.7); MCHC 32.9 g/dl (32.0-35.9); MEAN CELL VOLUME 92.6 fl (80-96); MEAN PLT VOLUME 7.3 fl (7.5-11.1); PLATELET COUNT 267 K/MM3 (134-434); RDW 14.7 % (11.9-15.9); WHITE BLOOD COUNT 8.7 K/mm3 (4.0-10.0)
[2017-02-28 09:23] LABS: CALCIUM 8.3 mg/dL (8.5-10.1); COCKROFT - GAULT 172.19; CREATININE 0.7 mg/dL (0.7-1.3)
[2017-02-28] MEDS ORDERED: PT OWN MED DRAWER 7, Y5N ONE ×2 (09:59→21:39)
[2017-02-28] MEDS: ACETYLCYSTEINE 20% 200MG/ML 4 ML VIAL *FOR ORAL / INH USE ONLY PO SCH ×2 (10:02→21:49)
[2017-02-28] MEDS: LEVOFLOXACIN 500 MG TABLET (FP) PO SCH (10:03)
[2017-02-28] MEDS: LORATADINE 10 MG TABLET PO SCH (10:04)
[2017-02-28] MEDS: TOPIRAMATE 25 MG TABLET (FP) PO SCH ×2 (10:04→21:51)
[2017-02-28] MEDS: GEMFIBROZIL 600 MG TABLET (FP) PO SCH ×2 (10:05→21:51)
[2017-02-28] MEDS: VALPROATE SODIUM 250 MG/5 ML UNIT DOSE CUP PO SCH ×2 (10:05→21:51)
--- NOTE | 2017-02-28 17:03 | PN ---
Physical Exam: SUBJECTIVE:Patient seen and examined at bedside. More alert and awake today. No overnight events. Afebrile overnight. Lying comfortably OBJECTIVE: Vital Signs Period Temp Pulse Resp BP Sys/Monroy Pulse Ox Last 24 Hr 97.7 F-99.5 F 75-98 19-22 92-136/50-76 98 GENERAL: non verbal , NAD HEAD: NC/AT. LUNGS: CTAB, rales of left base. HEART: RRR, no M/G/R ABDOMEN: Soft, NT, ND ,BS(+), EXTREMITIES: contracted bilateral LE 2+ pulses, warm, well-perfused, no edema or erythema SKIN: Warm, dry, normal turgor, no rashes or lesions noted Laboratory Results - last 24 hr 02/28/17 02/28/17 08:51 08:51 WBC 8.7 RBC 3.85 L Hgb 11.7 Hct 35.6 MCV 92.6 MCHC 32.9 RDW 14.7 Plt Count 267 MPV 7.3 L Sodium 144 Potassium 3.5 Chloride 113 H Carbon Dioxide 23 Anion Gap 8 BUN 6 L Creatinine 0.7 Random Glucose 118 H Calcium 8.3 L Active Medications Generic Name Dose Route Start Last Admin Trade Name Freq PRN Reason Stop Dose Admin Acetaminophen 650 mg 02/26/17 07:50 Tylenol - PO Q4H PRN FEVER OR PAIN Acetylcysteine 600 mg 02/20/17 22:00 02/28/17 10:02 Mucomyst 20 Oral / Inh Use Only* PO 600 mg BID TARIQ Administration Clonazepam 1 mg 02/26/17 14:00 02/28/17 15:03 Klonopin - PO 1 mg TID TARIQ Administration Gemfibrozil 600 mg 02/26/17 10:00 02/28/17 10:05 Lopid - PO 600 mg BID TARIQ Administration Dextrose/Sodium Chloride 1,000 mls @ 83 mls/hr 02/24/17 23:45 02/27/17 10:33 D5-1/2ns - IV 83 mls/hr ASDIR TARIQ Administration Levofloxacin 500 mg 02/27/17 10:00 02/28/17 10:03 Levaquin - PO 500 mg DAILY TARIQ Administration Loratadine 10 mg 02/26/17 10:00 02/28/17 10:04 Claritin - PO 10 mg DAILY TARIQ Administration Metronidazole 500 mg 02/26/17 22:00 02/28/17 15:03 Flagyl - PO 500 mg TID TARIQ Administration Non-Formulary Medication 6 mg 02/20/17 22:00 02/27/17 21:34 Perampanel [Fycompa] PO 6 mg HS TARIQ Administration Topiramate 75 mg 02/26/17 10:00 02/28/17 10:04 Topamax - PO 75 mg BID TARIQ Administration Valproate Sodium 1,000 mg 02/23/17 23:00 02/28/17 10:05 Depakene - PO 1,000 mg BID TARIQ Administration ASSESSMENT/PLAN: 41 yo M with PMhx of severe MR, Seizure disorder, h/o MRSA presented from [facility] with fevers and bloody stools admitted for severe sepsis. Problem List - Problems (1) Fever Assessment/Plan: * Afebrile for 48hrs * Blood and urine cultures negative * Will continue with Oral antibiotics. (2) Severe sepsis Assessment/Plan: * Repeat KUB shows improvement of colonic distention. * Blood cultures negative * Stool viral studies pending. * stool WBC and repeat C.diff (-) * Levaquin and Flagyl PO (day 9 of ABx) * ID consult appreciated. (3) Seizure disorder Assessment/Plan: * No seizure activity * Continue: * Fycompa 6 mg PO HS TARIQ * Topamax 75 mg PO BID * Depakene 1gm PO BID (4) Functional quadriplegia Visit type - Emergency Visit Emergency Visit: Yes ED Registration Date: 02/19/17 Care time: The patient presented to the Emergency Department on the above date and was hospitalized for further evaluation of their emergent condition. - New Patient This patient is new to me today: No - Critical Care Critical Care patient: No
--- NOTE | 2017-02-28 20:39 | PN ---
Teaching Attending Note Name of Resident: Caden Fountain ATTENDING PHYSICIAN STATEMENT I saw and evaluated the patient. I reviewed the resident's note and discussed the case with the resident. I agree with the resident's findings and plan as documented. SUBJECTIVE: Patient is comfortable with no acute distress. no new seizure activity. OBJECTIVE: Vital Signs Temperature 97.7 F 02/28/17 14:00 Pulse Rate 98 H 02/28/17 14:00 Respiratory Rate 20 02/28/17 20:16 Blood Pressure 92/55 02/28/17 14:00 O2 Sat by Pulse Oximetry (%) 98 02/28/17 20:16 CBCD WBC 8.7 K/mm3 (4.0-10.0) 02/28/17 08:51 RBC 3.85 M/mm3 (4.00-5.60) L 02/28/17 08:51 Hgb 11.7 GM/dL (11.7-16.9) 02/28/17 08:51 Hct 35.6 % (35.4-49) 02/28/17 08:51 MCV 92.6 fl (80-96) 02/28/17 08:51 MCHC 32.9 g/dl (32.0-35.9) 02/28/17 08:51 RDW 14.7 % (11.9-15.9) 02/28/17 08:51 Plt Count 267 K/MM3 (134-434) 02/28/17 08:51 MPV 7.3 fl (7.5-11.1) L 02/28/17 08:51 CMP Sodium 144 mmol/L (136-145) 02/28/17 08:51 Potassium 3.5 mmol/L (3.5-5.1) 02/28/17 08:51 Chloride 113 mmol/L (98-107) H 02/28/17 08:51 Carbon Dioxide 23 mmol/L (21-32) 02/28/17 08:51 Anion Gap 8 (8-16) 02/28/17 08:51 BUN 6 mg/dL (7-18) L 02/28/17 08:51 Creatinine 0.7 mg/dL (0.7-1.3) 02/28/17 08:51 Creat Clearance w eGFR > 60 (>60) 02/23/17 06:30 Random Glucose 118 mg/dL (74-106) H 02/28/17 08:51 Calcium 8.3 mg/dL (8.5-10.1) L 02/28/17 08:51 Total Bilirubin 0.3 mg/dL (0.2-1.0) 02/23/17 06:30 AST 19 U/L (15-37) D 02/23/17 06:30 ALT 15 U/L (12-78) D 02/23/17 06:30 Alkaline Phosphatase 55 U/L (45-117) D 02/23/17 06:30 Total Protein 5.8 g/dl (6.4-8.2) L D 02/23/17 06:30 Albumin 2.3 g/dl (3.4-5.0) L D 02/23/17 06:30 Current Medications Generic Name Dose Route Start Last Admin Trade Name Freq PRN Reason Stop Dose Admin Acetaminophen 650 mg 02/26/17 07:50 Tylenol - PO Q4H PRN FEVER OR PAIN Acetylcysteine 600 mg 02/20/17 22:00 02/28/17 10:02 Mucomyst 20 Oral / Inh Use Only* PO 600 mg BID TARIQ Administration Clonazepam 1 mg 02/26/17 14:00 02/28/17 15:03 Klonopin - PO 1 mg TID TARIQ Administration Gemfibrozil 600 mg 02/26/17 10:00 02/28/17 10:05 Lopid - PO 600 mg BID TARIQ Administration Dextrose/Sodium Chloride 1,000 mls @ 83 mls/hr 02/24/17 23:45 02/27/17 10:33 D5-1/2ns - IV 83 mls/hr ASDIR TARIQ Administration Levofloxacin 500 mg 02/27/17 10:00 02/28/17 10:03 Levaquin - PO 500 mg DAILY TARIQ Administration Loratadine 10 mg 02/26/17 10:00 02/28/17 10:04 Claritin - PO 10 mg DAILY TARIQ Administration Metronidazole 500 mg 02/26/17 22:00 02/28/17 15:03 Flagyl - PO 500 mg TID TARIQ Administration Non-Formulary Medication 6 mg 02/20/17 22:00 02/27/17 21:34 Perampanel [Fycompa] PO 6 mg HS TARIQ Administration Topiramate 75 mg 02/26/17 10:00 02/28/17 10:04 Topamax - PO 75 mg BID TARIQ Administration Valproate Sodium 1,000 mg 02/23/17 23:00 02/28/17 10:05 Depakene - PO 1,000 mg BID TARIQ Administration Home Medications Medication Instructions Recorded Calcium Carbonate/Vitamin D3 500 mg PO DAILY 02/20/17 [Oystercal-D 500 mg-400 Unit Tb] Cholecalciferol (Vitamin D3) 2,000 unit PO DAILY 02/20/17 [Vitamin D3] Clonazepam [Klonopin] 1 mg PO TID 02/20/17 Diazepam Rectal Gel [Diastat 10 mg [place] ONCE 02/20/17 Rectal Gel -] Famotidine 20 mg PO DAILY 02/20/17 Fluticasone Prop 0.05% Nasal 1 - 2 spray NS DAILY 02/20/17 [Flonase -] Gemfibrozil 600 mg PO BID 02/20/17 Loratadine 10 mg PO DAILY 02/20/17 Perampanel [Fycompa] 6 mg PO HS 02/20/17 Topiramate 75 mg PO BID 02/20/17 Valproic Acid [Depakene] 1 gm PO BID 02/20/17 ASSESSMENT AND PLAN: 41 y/o male with h/o severe MR, seizure disorder, and h/o MRSA , who presented from [facility] with fevers. He was found to have severe sepsis . #s/p Severe sepsis: due to colitis. On IV antibiotics Levaquin and Flagyl cont. Diarrhea stopped. stool cx and blood cx neg # Rectal bleed. likely due to colitis. resolved # ARF :resolved # Acute hypernatremia resolved. Post IVF # Seizure disorder :Continue valproic acid 1 g BID, cont topiramate and Eycompa meds were confirmed with [place] records by . DVT Px: SCds possible discharge in am
[2017-02-28] MEDS: PERAMPANEL 6 MG PO SCH (22:28)
[2017-02-28] MEDS: DEXTROSE 5%-0.45% SALINE 1,000 ML IV SCH (23:45)
[2017-03-01] MEDS: clonazePAM 0.5 MG TABLET PO SCH ×2 (06:01→14:45)
[2017-03-01] MEDS: metroNIDAZOLE 250 MG TABLET PO SCH ×2 (06:01→14:45)
[2017-03-01 07:32] VITALS: BP 125/61
[2017-03-01] MEDS ORDERED: PT OWN MED DRAWER 7, Y5N ONE (11:34)
[2017-03-01] MEDS: ACETYLCYSTEINE 20% 200MG/ML 4 ML VIAL *FOR ORAL / INH USE ONLY PO SCH (11:40)
[2017-03-01] MEDS: LEVOFLOXACIN 500 MG TABLET (FP) PO SCH (11:41)
[2017-03-01] MEDS: LORATADINE 10 MG TABLET PO SCH (11:41)
[2017-03-01] MEDS: GEMFIBROZIL 600 MG TABLET (FP) PO SCH (11:42)
[2017-03-01] MEDS: VALPROATE SODIUM 250 MG/5 ML UNIT DOSE CUP PO SCH (11:42)
[2017-03-01] MEDS: TOPIRAMATE 25 MG TABLET (FP) PO SCH (11:46)
[2017-03-01 14:49] VITALS: PULSE 65; TEMP 99.9
--- NOTE | 2017-03-01 14:50 | DS ---
Physical Exam: SUBJECTIVE: Patient seen and examined at bedside. No overnight events. No new complaints. Afebrile for 72hrs. Tolerating diet. No diarrhea. OBJECTIVE: Vital Signs Period Temp Pulse Resp BP Sys/Monroy Pulse Ox Last 24 Hr 98.4 F-98.6 F 64-82 18-20 118-137/61-68 98 PHYSICAL EXAM GENERAL: non verbal , NAD HEAD: NC/AT. LUNGS: CTAB, rales of left base. HEART: RRR, no M/G/R ABDOMEN: Soft, NT, ND ,BS(+), EXTREMITIES: contracted bilateral LE 2+ pulses, warm, well-perfused, no edema or erythema SKIN: Warm, dry, normal turgor, no rashes or lesions noted LABS Laboratory Last Values WBC 8.7 K/mm3 (4.0-10.0) 02/28/17 08:51 RBC 3.85 M/mm3 (4.00-5.60) L 02/28/17 08:51 Hgb 11.7 GM/dL (11.7-16.9) 02/28/17 08:51 Hct 35.6 % (35.4-49) 02/28/17 08:51 MCV 92.6 fl (80-96) 02/28/17 08:51 MCHC 32.9 g/dl (32.0-35.9) 02/28/17 08:51 RDW 14.7 % (11.9-15.9) 02/28/17 08:51 Plt Count 267 K/MM3 (134-434) 02/28/17 08:51 MPV 7.3 fl (7.5-11.1) L 02/28/17 08:51 Neutrophils % 46.1 % (42.8-82.8) 02/27/17 06:20 Lymphocytes % 24.2 % (8-40) 02/27/17 06:20 Monocytes % 17.0 % (3.8-10.2) H 02/27/17 06:20 Eosinophils % 11.0 % (0-4.5) H 02/27/17 06:20 Basophils % 1.7 % (0-2.0) D 02/27/17 06:20 Band Neutrophils 1.0 % (0-10) D 02/21/17 06:00 Metamyelocytes 1 % (0-2) 02/26/17 06:05 Myelocytes 2 % (0-2) 02/26/17 06:05 Nucleated RBCs 1 % (0-0) H 02/26/17 06:05 Differential Comment Manual diff done 02/26/17 06:05 Platelet Estimate Adequate (NORMAL) 02/26/17 06:05 Platelet Comment Few giant plts 02/20/17 20:15 Platelet Comment No clumping noted 02/20/17 20:15 INR 1.51 (0.82-1.09) H 02/19/17 20:33 Sodium 144 mmol/L (136-145) 02/28/17 08:51 Potassium 3.5 mmol/L (3.5-5.1) 02/28/17 08:51 Chloride 113 mmol/L (98-107) H 02/28/17 08:51 Carbon Dioxide 23 mmol/L (21-32) 02/28/17 08:51 Anion Gap 8 (8-16) 02/28/17 08:51 BUN 6 mg/dL (7-18) L 02/28/17 08:51 Creatinine 0.7 mg/dL (0.7-1.3) 02/28/17 08:51 Creat Clearance w eGFR > 60 (>60) 02/23/17 06:30 Random Glucose 118 mg/dL (74-106) H 02/28/17 08:51 Lactic Acid 1.0 mmol/L (0.4-2.0) 02/25/17 00:20 Calcium 8.3 mg/dL (8.5-10.1) L 02/28/17 08:51 Phosphorus 3.1 mg/dL (2.5-4.9) 02/25/17 06:20 Magnesium 2.0 mg/dL (1.8-2.4) 02/25/17 06:20 Total Bilirubin 0.3 mg/dL (0.2-1.0) 02/23/17 06:30 AST 19 U/L (15-37) D 02/23/17 06:30 ALT 15 U/L (12-78) D 02/23/17 06:30 Alkaline Phosphatase 55 U/L (45-117) D 02/23/17 06:30 C-Reactive Protein 6.2 MG/DL (0.00-0.3) H D 02/26/17 06:05 Total Protein 5.8 g/dl (6.4-8.2) L D 02/23/17 06:30 Albumin 2.3 g/dl (3.4-5.0) L D 02/23/17 06:30 Total Amylase 45 U/L (25-115) 02/19/17 20:33 Lipase 147 U/L (73-393) 02/19/17 20:33 Urine Color Yellow 02/25/17 00:30 Urine Appearance Clear 02/25/17 00:30 Urine pH 6.0 (5.0-8.0) 02/25/17 00:30 Ur Specific [place] 1.025 (1.005-1.025) 02/25/17 00:30 Urine Protein 2+ (NEGATIVE) H 02/25/17 00:30 Urine Glucose (UA) Negative (NEGATIVE) 02/25/17 00:30 Urine Ketones Trace (NEGATIVE) H 02/25/17 00:30 Urine Blood 2+ (NEGATIVE) H 02/25/17 00:30 Urine Nitrite Negative (NEGATIVE) 02/25/17 00:30 Urine Bilirubin Negative (NEGATIVE) 02/25/17 00:30 Urine Urobilinogen Negative E.U./dl (0.2-1.0) 02/25/17 00:30 Ur Leukocyte Esterase Negative (NEGATIVE) 02/25/17 00:30 Urine RBC 240 /hpf (0-3) 02/25/17 00:30 Urine WBC 8 /hpf (3-5) 02/25/17 00:30 Urine Mucus Few 02/25/17 00:30 Stool Occult Blood Positive (NEGATIVE) 02/23/17 01:45 Blood Type A POSITIVE 02/19/17 20:05 Antibody Screen Negative 02/19/17 20:05 Microbiology 02/27/17 00:00 Stool Clostridium difficile Antigen (MAGDY) - Final 02/27/17 00:00 Stool Clostridium difficile Toxin Assay - Final 02/23/17 01:45 Stool Salmonella/Shigella Culture - Final 02/23/17 01:45 Stool Escherichia coli 0157 Culture - Final NO GROWTH OF CAMPYLOBACTER SPECIES OBTAINED NO GROWTH OF YERSINIA SPECIES OBTAINED NO GROWTH OF VIBRIO SPECIES OBTAINED NO GROWTH OF E COLI 0157 OBTAINED 02/23/17 01:45 Stool Clostridium difficile Antigen (MAGDY) - Final 02/23/17 01:45 Stool Clostridium difficile Toxin Assay - Final 02/25/17 00:30 Blood - Peripheral Venous Blood Culture - Preliminary NO GROWTH OBTAINED AFTER 96 HOURS, INCUBATION TO CONTINUE FOR 1 DAYS. 02/25/17 00:30 Blood - Peripheral Venous Blood Culture - Preliminary NO GROWTH OBTAINED AFTER 96 HOURS, INCUBATION TO CONTINUE FOR 1 DAYS. IMAGING: * CT/ABDOMEN/PELVIS CTA W/WO CONTR CT ANGIOGRAM OF THE ABDOMEN AND PELVIS WITHOUT AND WITH IV CONTRAST HISTORY: 41-year-old male with sepsis and lower GI bleed TECHNIQUE: Multiaxial CT angiogram of the abdomen and pelvis before and after the intravenous administration of contrast, in the arterial and venous phase, was performed from the distal thoracic aorta through the common femoral arteries into the distal feet. Sagittal and coronal reformats were performed. Axial, sagittal and coronal maximum intensity projection reformats in addition to 3D MIP and 3D volume rendered reformats were performed on a separate dedicated station. Total of 97 cc of Omnipaque 350 was administered intravenously. No comparison study angiogram is available. FINDINGS: VASCULAR: The distal thoracic aorta, suprarenal abdominal aorta, infrarenal abdominal aorta, common iliac arteries, internal and external iliac arteries as well as the common femoral arteries and proximal superficial femoral arteries are widely patent. The celiac trunk, SMA, TISHA and renal arteries are widely patent. There is no evidence of active intraluminal blush in the stomach, small bowel or colon to suggest active bleeding. ABDOMEN AND PELVIS: There is marked thickening and edema of the descending colon and more severe in the sigmoid colon with extensive surrounding edema. There are no abnormally dilated bowel loops suggest obstruction. The appendix is normal. There is no evidence of pneumoperitoneum or abnormally enlarged lymph nodes. Small amount of free fluid is seen along the inferior border of the right hepatic lobe tracing inferiorly along the right paracolic gutter. The liver, spleen, pancreas, gallbladder, biliary tree and adrenal glands are unremarkable. Nonobstructing right renal stones are seen the largest measuring 5 to 6 mm. There is no hydronephrosis. There is no enhancing renal lesion. Thomas catheter balloon seen in minimally distended urinary bladder limiting its evaluation. The prostate gland is unremarkable. The seminal vesicles are symmetric. There is marked bilateral lower lobe subsegmental atelectasis with trace pleural effusions. There is no gross destructive bony lesion IMPRESSION: No CT evidence of active GI bleeding in the stomach, small bowel or colon. Markedly thickened and edematous descending and sigmoid colon with extensive surrounding edema and active mesenteric fluid consistent with colitis-infectious or inflammatory. Nonobstructive right nephrolithiasis. Thomas catheter balloon in the urinary bladder. Marked bilateral lower lobes atelectatic changes with trace bilateral pleural effusions * ABDOMEN-KUB FLAT PLATE Abdomen: HISTORY: Abdominal distention. Rule out ileus or toxic megacolon. Supine views of the abdomen are provided. There are dilated loops of colon with dilatation in the transverse colon measuring up to 9 cm concerning for toxic megacolon. There is stool seen in the rectum. There are scattered mildly dilated loops of small bowel. Cannot exclude free air on these supine views. IMPRESSION: Dilatation of the colon with transverse colon measuring up to 9 cm in maximum dimension concerning for toxic megacolon. See above. Findings were discussed with Kaity Maddox RN at 1:31 pm on 02-22-17. Reported By: Angeline Todd MD 02/22/17 [id number] HOSPITAL COURSE: 41 yo M with PMhx of severe MR, Seizure disorder, h/o MRSA presented from [facility] with fevers and bloody stools admitted for severe sepsis secondary to colitis. CTA abdomen was done and showed radiographic evidence of colitis and no signs of active bleed. He was started on broad spectrum antibiotics to cover for MRSA, gram+/- and anaerobes. Blood, stool and urine cultures were sent and remained negative for duration of admission. KUB showed dilatation of colon concerning for toxic megacolon. Patient was placed on oral vanco and flagyl. Surgery consulted and no intervention indicated. C-diff was sent and was negative x2 . Patient was continued on Levaquin and Flagyl and completed 10 day course. Serial KUB's demonstrated improvement of dilatation. Clinically patient remained afebrile and tolerated advancement of diet with no diarrhea or blood. Hemoglobin and hematocrit improved and remained stable. Thrombocytopenia noted on admission most likely secondary to sepsis and resolved. He initially presented with pre-renal HANNAH and lactic acidosis which resolved with administration of IV fluids. In terms of his history of seizure disorder he was continued on his home medications and no seizure activity during admission. Patient is stable for discharge back to [place] to follow up with Dr. Braeden Beck. Date of Admission:02/19/17 Date of Discharge: 03/01/17 Minutes to complete discharge: 35 Discharge Summary Reason For Visit: PNEUMONIA Current Active Problems HANNAH (acute kidney injury) (Acute) Abnormal finding on GI tract imaging (Acute) Anemia (Acute) Colitis (Acute) Fever (Acute) Functional quadriplegia (Acute) GI bleed (Acute) Sepsis (Acute) Severe sepsis (Acute) Thrombocytopenia (Acute) Mental retardation (Chronic) Penicillin allergy (Chronic) Seizure disorder (Chronic) Condition: Improved - Instructions Diet, Activity, Other Instructions: -Return to [place] and follow with Dr. Braeden Beck. -Regular diet. -Increase activity as tolerated. Referrals: Kali Pham MD [Staff Physician] - Disposition: S[facility]IOR [facility]ARE FACILITY - Home Medications Comprehensive Discharge Medication List: Ambulatory Orders Calcium Carbonate/Vitamin D3 [Oystercal-D 500 mg-400 Unit Tb] 500 mg PO DAILY Cholecalciferol (Vitamin D3) [Vitamin D3] 2,000 unit PO DAILY 02/20/17 Clonazepam [Klonopin] 1 mg PO TID 02/20/17 Diazepam Rectal Gel [Diastat Rectal Gel -] 10 mg TX ONCE 02/20/17 Famotidine 20 mg PO DAILY 02/20/17 Fluticasone Prop 0.05% Nasal [Flonase -] 1 - 2 spray NS DAILY 02/20/17 Gemfibrozil 600 mg PO BID 02/20/17 Loratadine 10 mg PO DAILY 02/20/17 Perampanel [Fycompa] 6 mg PO HS 02/20/17 Topiramate 75 mg PO BID 02/20/17 Valproic Acid [Depakene -] 1 gm PO BID 02/20/17 Problem List - Problems (1) Fever (2) Severe sepsis (3) Seizure disorder (4) Functional quadriplegia This patient is new to me today: No Emergency Visit: Yes ED Registration Date: 02/19/17 Care time: The patient presented to the Emergency Department on the above date and was hospitalized for further evaluation of their emergent condition. Critical Care patient: No - Discharge Referral Referred to [facility] Med [facility] No
--- NOTE | 2017-03-01 20:12 | PN ---
Teaching Attending Note Name of Resident: Caden Fountain ATTENDING PHYSICIAN STATEMENT I saw and evaluated the patient. I reviewed the resident's note and discussed the case with the resident. I agree with the resident's findings and plan as documented. SUBJECTIVE: Comfortable, with no acute distress. No new overnight event. OBJECTIVE: Vital Signs Temperature 99.9 F H 03/01/17 14:00 Pulse Rate 65 03/01/17 14:00 Respiratory Rate 17 03/01/17 14:00 Blood Pressure 125/61 03/01/17 06:00 O2 Sat by Pulse Oximetry (%) 98 02/28/17 20:16 CBCD WBC 8.7 K/mm3 (4.0-10.0) 02/28/17 08:51 RBC 3.85 M/mm3 (4.00-5.60) L 02/28/17 08:51 Hgb 11.7 GM/dL (11.7-16.9) 02/28/17 08:51 Hct 35.6 % (35.4-49) 02/28/17 08:51 MCV 92.6 fl (80-96) 02/28/17 08:51 MCHC 32.9 g/dl (32.0-35.9) 02/28/17 08:51 RDW 14.7 % (11.9-15.9) 02/28/17 08:51 Plt Count 267 K/MM3 (134-434) 02/28/17 08:51 MPV 7.3 fl (7.5-11.1) L 02/28/17 08:51 CMP Sodium 144 mmol/L (136-145) 02/28/17 08:51 Potassium 3.5 mmol/L (3.5-5.1) 02/28/17 08:51 Chloride 113 mmol/L (98-107) H 02/28/17 08:51 Carbon Dioxide 23 mmol/L (21-32) 02/28/17 08:51 Anion Gap 8 (8-16) 02/28/17 08:51 BUN 6 mg/dL (7-18) L 02/28/17 08:51 Creatinine 0.7 mg/dL (0.7-1.3) 02/28/17 08:51 Creat Clearance w eGFR > 60 (>60) 02/23/17 06:30 Random Glucose 118 mg/dL (74-106) H 02/28/17 08:51 Calcium 8.3 mg/dL (8.5-10.1) L 02/28/17 08:51 Total Bilirubin 0.3 mg/dL (0.2-1.0) 02/23/17 06:30 AST 19 U/L (15-37) D 02/23/17 06:30 ALT 15 U/L (12-78) D 02/23/17 06:30 Alkaline Phosphatase 55 U/L (45-117) D 02/23/17 06:30 Total Protein 5.8 g/dl (6.4-8.2) L D 02/23/17 06:30 Albumin 2.3 g/dl (3.4-5.0) L D 02/23/17 06:30 Home Medications Medication Instructions Recorded Calcium Carbonate/Vitamin D3 500 mg PO DAILY 02/20/17 [Oystercal-D 500 mg-400 Unit Tb] Cholecalciferol (Vitamin D3) 2,000 unit PO DAILY 02/20/17 [Vitamin D3] Clonazepam [Klonopin] 1 mg PO TID 02/20/17 Diazepam Rectal Gel [Diastat 10 mg UT ONCE 02/20/17 Rectal Gel -] Famotidine 20 mg PO DAILY 02/20/17 Fluticasone Prop 0.05% Nasal 1 - 2 spray NS DAILY 02/20/17 [Flonase -] Gemfibrozil 600 mg PO BID 02/20/17 Loratadine 10 mg PO DAILY 02/20/17 Perampanel [Fycompa] 6 mg PO HS 02/20/17 Topiramate 75 mg PO BID 02/20/17 Valproic Acid [Depakene -] 1 gm PO BID 02/20/17 ASSESSMENT AND PLAN: 41 y/o male with h/o severe MR, seizure disorder, and h/o MRSA , who presented from [facility] with fevers. He was found to have severe sepsis . #s/p Severe sepsis: due to colitis. completed IV antibiotics Levaquin and Flagyl . Diarrhea resolved. stool cx and blood cx neg # Rectal bleed. due to colitis. resolved # ARF :resolved # Acute hypernatremia resolved. Post IVF # Seizure disorder :Continue valproic acid 1 g BID, cont topiramate and Eycompa meds were confirmed with [facility] records by . DVT Px: SCds Discharge patient back to [facility].
== END 2017-03-01 16:21 | DRG 871 ==
LOC: JER 19:17 → JERBED 22:45 → UNDOADMIN 23:25 → J6S 02-20 18:16
PROVIDERS: ADMIT Internal Medicine; ATTEND Internal Medicine
DX: A41.9 Sepsis, unspecified organism (principal); J18.1 Lobar pneumonia, unspecified organism; R53.2 Functional quadriplegia; F73 Profound intellectual disabilities; N17.9 Acute kidney failure, unspecified; K92.2 Gastrointestinal hemorrhage, unspecified; J90 Pleural effusion, not elsewhere classified; K59.31 Toxic megacolon; E87.0 Hyperosmolality and hypernatremia; K52.9 Noninfective gastroenteritis and colitis, unspecified; R65.20 Severe sepsis without septic shock; G40.909 Epilepsy, unspecified, not intractable, without status epilepticus; M81.0 Age-related osteoporosis without current pathological fracture; D64.9 Anemia, unspecified; D69.6 Thrombocytopenia, unspecified; Z88.0 Allergy status to penicillin; Z86.14 Personal history of Methicillin resistant Staphylococcus aureus infection
CPT/HCPCS: 36415; 71010-TC; 74000-TC; 74174-TC; 74176-TC; 80048; 80053; 81003; 81015; 82150; 82272; 83605; 83690; 83735; 84100; 85025; 85027; 85610; 86140; 86850; 86900; 86901; 87040; 87045; 87046; 87081; 87086; 87186; 87205; 87324; 87449; 87798; 87899; 93005; 93010; 99285-25

== ENCOUNTER 2017-03-04 19:10 | Inpatient (IN) | payer OTHER ==
[2017-03-04] MEDS ORDERED: ACETAMINOPHEN 650 MG SUPP.RECT PR ONE (19:15)
[2017-03-04 19:18] VITALS: BMI 32.5
--- NOTE | 2017-03-04 19:18 | PDOC ---
Rapid Medical Evaluation Chief Complaint: SIRS, Suspected/Possible Time Seen by Provider: 03/04/17 19:14 Medical Evaluation: Allergies Allergy/AdvReac Type Severity Reaction Status Date / Time cheese Allergy Verified 03/04/17 19:12 legumes Allergy Verified 03/04/17 19:12 peanut Allergy Verified 03/04/17 19:12 peas Allergy Verified 03/04/17 19:12 Penicillins Allergy Verified 03/04/17 19:12 Pork/Porcine Containing Allergy Verified 03/04/17 19:12 Products soy Allergy Verified 03/04/17 19:12 turkey Allergy Verified 03/04/17 19:12 wheat Allergy Verified 03/04/17 19:12 03/04/17 19:15 41 year old male resident of [facility] with history of MR, seizure disorder presenting with fever and hypoxia (101.2, 93% per report). Temp 101.3 orally SpO2 90% -Sepsis order set -Rectal Tylenol -To Main ED for further evaluation
--- NOTE | 2017-03-04 20:00 | PDOC ---
History of Present Illness - General History Source: Long Term Records Exam Limitations: Other - History of Present Illness Initial Comments: 03/04/17 20:05 The patient is a 41 year old male, resident of [facility], with a significant past medical history of profound MR, nonverbal, and seizure disorder, and osteoporosis, who presents to the ER with persistent fever for several weeks. Patient was admitted into this hospital two weeks ago and was discharged one week ago with a diagnosis of colitis. Patient was discharged with Levaquin and Flagyl. Patients fever has persisted since the discharge. Surgical Hx: Right craniotomy <Opal Thrasher - Last Filed: 03/04/17 20:07> <Aylin Fontenot - Last Filed: 03/06/17 00:21> - General Chief Complaint: SIRS, Suspected/Possible Stated Complaint: FEVER Time Seen by Provider: 03/04/17 19:14 Past History <Opal Thrasher - Last Filed: 03/04/17 20:07> - Past Medical History Anemia: No Asthma: No Cancer: No Cardiac Disorders: No CVA: No COPD: No CHF: No Dementia: No Diabetes: No GI Disorders: No Disorders: No HTN: No Hypercholesterolemia: No Liver Disease: No Seizures: Yes Thyroid Disease: No - Immunization History Immunization Up to Date: Yes - Psycho/Social/Smoking Cessation Hx Suicidal Ideation: No Smoking History: Never smoked Hx Alcohol Use: No Drug/Substance Use Hx: No Substance Use Type: None Hx Substance Use Treatment: No <Aylin Fontenot - Last Filed: 03/06/17 00:21> - Past Medical History Allergies/Adverse Reactions: Allergies Allergy/AdvReac Type Severity Reaction Status Date / Time cheese Allergy Verified 03/04/17 19:12 legumes Allergy Verified 03/04/17 19:12 peanut Allergy Verified 03/04/17 19:12 peas Allergy Verified 03/04/17 19:12 Penicillins Allergy Verified 03/04/17 19:12 Pork/Porcine Containing Allergy Verified 03/04/17 19:12 Products soy Allergy Verified 03/04/17 19:12 turkey Allergy Verified 03/04/17 19:12 wheat Allergy Verified 03/04/17 19:12 Home Medications: Ambulatory Orders Calcium Carbonate/Vitamin D3 [Oystercal-D 500 mg-400 Unit Tb] 500 mg PO DAILY Cholecalciferol (Vitamin D3) [Vitamin D3] 2,000 unit PO DAILY 02/20/17 Clonazepam [Klonopin] 1 mg PO TID 02/20/17 Diazepam Rectal Gel [Diastat Rectal Gel -] 10 mg TN ONCE 02/20/17 Famotidine 20 mg PO DAILY 02/20/17 Fluticasone Prop 0.05% Nasal [Flonase -] 1 - 2 spray NS DAILY 02/20/17 Gemfibrozil 600 mg PO BID 02/20/17 Loratadine 10 mg PO DAILY 02/20/17 Perampanel [Fycompa] 6 mg PO HS 02/20/17 Topiramate 75 mg PO BID 02/20/17 Valproic Acid [Depakene -] 1 gm PO BID 02/20/17 Review of Systems - Review of Systems Able to Perform ROS?: No (Profound MR/ nonverbal) <Opal Thrasher - Last Filed: 03/04/17 20:07> *Physical Exam - Vital Signs Last Vital Signs Temp Pulse Resp BP Pulse Ox 101.3 F H 101 H 20 128/79 90 L 03/04/17 19:13 03/04/17 19:13 03/04/17 19:13 03/04/17 19:13 03/04/17 19:13 - Physical Exam Comments: 03/04/17 20:05 GENERAL: Well-appearing, well-nourished. No apparent distress. Well developed. Wheelchair bound HEENT: Normocephalic, atraumatic. PERRL, EOM intact. CARDIOVASCULAR: Normal S1, S2. Regular rate and rhythm. PULMONARY: Fine rales bilaterally. ABDOMEN: Soft, non-distended, non-tender. EXTREMITIES: Contracted limbs. Normal ROM in all four extremities. No gross deformities. SKIN: Warm, dry. No rash NEUROLOGICAL: No focal neurological deficits. <Opal Thrasher - Last Filed: 03/04/17 20:07> - Vital Signs Last Vital Signs Temp Pulse Resp BP Pulse Ox 101.3 F H 101 H 20 128/79 90 L 03/04/17 19:13 03/04/17 19:13 03/04/17 19:13 03/04/17 19:13 03/04/17 19:13 <Aylin Fontenot - Last Filed: 03/06/17 00:21> ED Treatment Course - LABORATORY CBC & Chemistry Diagram: 03/05/17 08:40 03/05/17 07:04 <Aylin Fontenot - Last Filed: 03/06/17 00:21> Medical Decision Making - Medical Decision Making 03/04/17 20:01 This 41-year-old male brought in from [place] for persistent fevers. He was just discharged on March 11 when he was admitted and treated for colitis. Levaquin and Flagyl. Past medical history significant for profound mental retardation, epilepsy, MRSA infection, osteoporosis, right craniotomy for corpus colostomy, bilateral cataracts and Allergies to penicillin and multiple foods 61-year-old well-developed, well-nourished, nonverbal male seated in a wheelchair with his fingers in his mouth. He has some scattered fine Rales bilaterally, regular rate and rhythm and a soft belly -labs ordered cxr taken 03/04/17 20:22 Chest x-ray was of very poor quality due to patient's body habitus, He was seated in wheelchair when cxr taken Since January. The patient has taken an antibiotic regimen consisting of Bactrim twice a day for 10 days and Zithromax 500 mg daily for 10 days. He is being transferred from [facility] for feverof 101.5 -CBC and chemistries are within normal limits. Urinalysis negative/lactic acid is elevated/patient admitted for recurrent fevers 03/06/17 00:20 <Aylin Fontenot - Last Filed: 03/06/17 00:21> *DC/Admit/Observation/Transfer - Attestations Scribe Attestion: 03/04/17 20:06 Documentation prepared by Opal Thrasher, acting as ophthalmic medical assistant for Aylin Fontenot MD. <Opal Thrasher - Last Filed: 03/04/17 20:07> - Discharge Dispostion Admit: Yes <Aylin Fontenot - Last Filed: 03/06/17 00:21> Diagnosis at time of Disposition: Functional quadriplegia, Mental retardation Fever Qualifiers: Fever type: unspecified Qualified Code(s): R50.9 - Fever, unspecified
[2017-03-04] MEDS ORDERED: clonazePAM 0.5 MG TABLET PO ONE (20:19)
[2017-03-04] MEDS ORDERED: ACETAMINOPHEN 650 MG SUPP.RECT ONE (20:26)
[2017-03-04 21:33] LABS: MCH 30.3 pg (25.7-33.7); MCHC 32.3 g/dl (32.0-35.9); MEAN PLT VOLUME 7.7 fl (7.5-11.1); PLATELET COUNT 294 K/MM3 (134-434); RDW 15.4 % (11.9-15.9); WHITE BLOOD COUNT 10.4 K/mm3 (4.0-10.0)
[2017-03-04 22:06] LABS: ALBUMIN 2.9 g/dl (3.4-5.0); ANION GAP 10 (8-16); BILIRUBIN,TOTAL 0.2 mg/dL (0.2-1.0); CALCIUM 8.8 mg/dL (8.5-10.1); CO2 23 mmol/L (21-32); COCKROFT - GAULT 165.43; CREATININE 0.8 mg/dL (0.7-1.3); GLUCOSE,RANDOM 100 mg/dL (74-106); SGPT/ALT 19 U/L (12-78); TOT PROT 7.4 g/dl (6.4-8.2)
[2017-03-04 22:07] LABS: ALK PHOS 55 U/L (45-117)
[2017-03-04 22:10] LABS: SGOT/AST 18 U/L (15-37)
[2017-03-04 22:26] LABS: VENOUS BLOOD GAS HCO3 20.7 meq/L (19-25); VENOUS PH 7.37 (7.32-7.42)
[2017-03-04] MEDS ORDERED: clonazePAM 0.5 MG TABLET ONE (23:02)
[2017-03-04] MEDS ORDERED: SODIUM CHLORIDE 1,000 ML IV STA (23:51)
[2017-03-04 23:52] LABS: POLYCHROMASIA OCC
[2017-03-04] MEDS ORDERED: LEVOFLOXACIN 750 MG IVPB 150 ML IVPB ONE (23:52)
[2017-03-04 23:53] LABS: PLATELET ESTIMATE ADEQUATE (NORMAL)
[2017-03-05] MEDS ORDERED: LEVOFLOXACIN 500 MG IVPB 100 ML IVPB ONE (01:32)
[2017-03-05] MEDS ORDERED: LEVOFLOXACIN 250 MG IVPB 50 ML IVPB ONE (01:32)
[2017-03-05 01:40] LABS: INR 1.22 (0.82-1.09); PROTHROMBIN TIME (PATIENT) 13.5 SEC (9.98-11.88)
[2017-03-05 01:43] LABS: URINE APPEARANCE CLEAR; URINE BILIRUBIN NEGATIVE (NEGATIVE); URINE BLOOD NEGATIVE (NEGATIVE); URINE COLOR YELLOW; URINE GLUCOSE (UA) NEGATIVE (NEGATIVE); URINE KETONE NEGATIVE (NEGATIVE); URINE LEUK ESTERASE NEGATIVE (NEGATIVE); URINE NITRITE NEGATIVE (NEGATIVE); URINE PROTEIN NEGATIVE (NEGATIVE); URINE UROBILINOGEN NEGATIVE E.U./dl (0.2-1.0)
--- NOTE | 2017-03-05 03:00 | PN ---
<Tayla Martin - Last Filed: 03/05/17 03:00> Teaching Attending Note Name of Resident: Urban Viera ATTENDING PHYSICIAN STATEMENT I saw and evaluated the patient. I reviewed the resident's note and discussed the case with the resident. I agree with the resident's findings and plan as documented. SUBJECTIVE: OBJECTIVE: ASSESSMENT AND PLAN: <Sandie Gonzalez - Last Filed: 03/05/17 04:09> Teaching Attending Note ATTENDING PHYSICIAN STATEMENT I saw and evaluated the patient. I reviewed the resident's note and discussed the case with the resident. I agree with the resident's findings and plan as documented. SUBJECTIVE: 41 yo M with a PMHx severe MR, seizure disorder, hx of MRSA who was recently admitted and discharged on 03/01 for severe sepsis secondary to choleties. Was also known to have bloody stools at the time but CTA showed no signs of bleed. Patients continued on 10 day course of levaquin and flagyl. Now, patient presents with continued fevers. OBJECTIVE: Last Vital Signs Temp Pulse Resp BP Pulse Ox 101.3 F H 101 H 20 128/79 90 L 03/04/17 19:13 03/04/17 19:13 03/04/17 19:13 03/04/17 19:13 03/04/17 19:13 GENERAL: AAO x0 nonverbal at baseline. in no acute distress HEENT: Atraumatic. PERRLA, EOMI. Moist mucosa. No JVD LUNGS: No distress, speaks full sentences, clear to auscultation bilaterally HEART: Regular rate and rhythm, normal S1 and S2, no murmurs, rubs or gallops, peripheral pulses normal and equal bilaterally. ABDOMEN: Soft, nontender, normoactive bowel sounds. No guarding, no rebound. No masses EXTREMITIES: Normal inspection, Normal range of motion, no edema. No clubbing or Cyanosis. NEUROLOGICAL: Cranial nerves II through XII grossly intact. Normal speech, no focal sensorimotor deficits SKIN: Warm, Dry, normal turgor, no rashes or lesions noted. CBCD WBC 10.4 K/mm3 (4.0-10.0) H 03/04/17 21:05 RBC 3.98 M/mm3 (4.00-5.60) L 03/04/17 21:05 Hgb 12.1 GM/dL (11.7-16.9) 03/04/17 21:05 Hct 37.4 % (35.4-49) 03/04/17 21:05 MCV 94.0 fl (80-96) 03/04/17 21:05 MCHC 32.3 g/dl (32.0-35.9) 03/04/17 21:05 RDW 15.4 % (11.9-15.9) 03/04/17 21:05 Plt Count 294 K/MM3 (134-434) 03/04/17 21:05 MPV 7.7 fl (7.5-11.1) 03/04/17 21:05 CMP Sodium 149 mmol/L (136-145) H 03/04/17 21:05 Potassium 4.8 mmol/L (3.5-5.1) D 03/04/17 21:05 Chloride 116 mmol/L (98-107) H 03/04/17 21:05 Carbon Dioxide 23 mmol/L (21-32) 03/04/17 21:05 Anion Gap 10 (8-16) 03/04/17 21:05 BUN 13 mg/dL (7-18) D 03/04/17 21:05 Creatinine 0.8 mg/dL (0.7-1.3) 03/04/17 21:05 Creat Clearance w eGFR > 60 (>60) 03/04/17 21:05 Calcium 8.8 mg/dL (8.5-10.1) 03/04/17 21:05 Total Bilirubin 0.2 mg/dL (0.2-1.0) D 03/04/17 21:05 AST 18 U/L (15-37) 03/04/17 21:05 ALT 19 U/L (12-78) D 03/04/17 21:05 Alkaline Phosphatase 55 U/L (45-117) 03/04/17 21:05 Total Protein 7.4 g/dl (6.4-8.2) D 03/04/17 21:05 Albumin 2.9 g/dl (3.4-5.0) L D 03/04/17 21:05 CXR No acute process UA Negative CTA/Angiogram Negative. No PE. ASSESSMENT AND PLAN 41 yo M with a PMHx severe MR, seizure disorder, hx of MRSA who presents persistent fever found to be septic. 1.) Sepsis unknown etiology -Britton culture -IVF -Repeat lactic acid -Broad spectrum antibiotics -Vancomycin -Aztreonam 2.) Seizure disorder -Continue Topiramate -Continue valproic acid 3.) Hx of colitis -Abdominal X Ray -Consider CT repeat Documentation is prepared by Sandie Gonzalez acting as medical billing coder for Tayla Martin D.O.
--- NOTE | 2017-03-05 03:25 | HP ---
CHIEF COMPLAINT: persistent fever HISTORY OF PRESENT ILLNESS: 41 y/o M w/ PMH of mental retardation, non-verbal, seizures, from [facility] presents to ER w/ persistent fevers since being discharged from [facility] approximately 1 week ago (treated for colitis). According to paperwork brought in with patient, patient had fever of 101.5 today and HR of 100 and sent to ER. According to aide at bedside pt is usually calm but at this time feels as though his behaviour is somewhat out of the ordinary as pt is moving around more than he usually would be. Further history was difficult to obtain as pt is non-verbal. ER course was notable for: (1) Chest CTA, CXR, levaquin (2) (3) PAST MEDICAL HISTORY: mental retardation, non-verbal, seizures, osteoporosis PAST SURGICAL HISTORY: right craniotomy Social History: Smoking: n/a, nonverbal pt Alcohol: n/a nonverbal pt Drugs: n/a nonverbal pt Family History: non-verbal pt Allergies cheese Allergy (Verified 03/04/17 19:12) legumes Allergy (Verified 03/04/17 19:12) peanut Allergy (Verified 03/04/17 19:12) peas Allergy (Verified 03/04/17 19:12) Penicillins Allergy (Verified 03/04/17 19:12) Pork/Porcine Containing Products Allergy (Verified 03/04/17 19:12) soy Allergy (Verified 03/04/17 19:12) turkey Allergy (Verified 03/04/17 19:12) wheat Allergy (Verified 03/04/17 19:12) HOME MEDICATIONS: Home Medications Medication Instructions Recorded Calcium Carbonate/Vitamin D3 500 mg PO DAILY 02/20/17 [Oystercal-D 500 mg-400 Unit Tb] Cholecalciferol (Vitamin D3) 2,000 unit PO DAILY 02/20/17 [Vitamin D3] Clonazepam [Klonopin] 1 mg PO TID 02/20/17 Diazepam Rectal Gel [Diastat 10 mg AL ONCE 02/20/17 Rectal Gel -] Famotidine 20 mg PO DAILY 02/20/17 Fluticasone Prop 0.05% Nasal 1 - 2 spray NS DAILY 02/20/17 [Flonase -] Gemfibrozil 600 mg PO BID 02/20/17 Loratadine 10 mg PO DAILY 02/20/17 Perampanel [Fycompa] 6 mg PO HS 02/20/17 Topiramate 75 mg PO BID 02/20/17 Valproic Acid [Depakene -] 1 gm PO BID 02/20/17 REVIEW OF SYSTEMS CONSTITUTIONAL: +fever as per day care home provider nonverbal pt, rest of ROS not able to be performed. PHYSICAL EXAMINATION Vital Signs - 24 hr 03/04/17 19:13 Temperature 101.3 F H Pulse Rate 101 H Respiratory 20 Rate Blood Pressure 128/79 O2 Sat by Pulse 90 L Oximetry (%) GENERAL: Awake, alert, in no acute distress HEAD: Normal with no signs of trauma. EYES: sclera anicteric, conjunctiva clear. No lid lag. EARS, NOSE, THROAT: Some yellow crusting around lips. Ears normal, nares patent , No gross lesions on gums or anterior tongue. Pharynx not visualized as pt not able to follow commands.. Moist mucous membranes. NECK: supple without lymphadenopathy, LUNGS: Auscultated anteriorly - clear to auscultation bilaterally. No wheezes, and no crackles. No accessory muscle use. HEART: Tachycardic, normal S1 and S2 ABDOMEN: Firm, nontender, not distended, normoactive bowel sounds, no guarding, no rebound, no masses.. LOWER EXTREMITIES: 2+ pulses, warm, well-perfused. No calf tenderness. No peripheral edema. NEUROLOGICAL: Non-verbal. Pt unable to ambulate. PSYCHIATRIC: mental retardation SKIN: Warm, dry, normal turgor, no rashes or lesions noted on arms, hands, abdomen, legs, feet, between toes. Laboratory Results - last 24 hr 03/04/17 03/04/17 03/04/17 21:05 21:05 21:05 WBC 10.4 H RBC 3.98 L Hgb 12.1 Hct 37.4 MCV 94.0 MCHC 32.3 RDW 15.4 Plt Count 294 MPV 7.7 Neutrophils % 42.0 L Lymphocytes % 16.0 D Monocytes % 32.0 H D Eosinophils % 3.0 Basophils % Radio Interference Investigator Band Neutrophils 7.0 D Differential Comment Slide scanned Platelet Estimate Adequate Polychromasia Occ INR Cancelled PTT (Actin FS) Cancelled VBG pH POC VBG pCO2 POC VBG pO2 Mixed VBG HCO3 Sodium 149 H Potassium 4.8 D Chloride 116 H Carbon Dioxide 23 Anion Gap 10 BUN 13 D Creatinine 0.8 Creat Clearance w eGFR > 60 Random Glucose 100 Lactic Acid Calcium 8.8 Total Bilirubin 0.2 D AST 18 ALT 19 D Alkaline Phosphatase 55 Total Protein 7.4 D Albumin 2.9 L D Urine Color Urine Appearance Urine pH Urine Protein Urine Glucose (UA) Urine Ketones Urine Blood Urine Nitrite Urine Bilirubin Urine Urobilinogen Ur Leukocyte Esterase Blood Type Antibody Screen Spec Expiration Date 03/04/17 03/04/17 03/04/17 21:05 21:05 22:25 WBC RBC Hgb Hct MCV MCHC RDW Plt Count MPV Neutrophils % Lymphocytes % Monocytes % Eosinophils % Basophils % Band Neutrophils Differential Comment Platelet Estimate Polychromasia INR PTT (Actin FS) VBG pH 7.37 POC VBG pCO2 36.3 L POC VBG pO2 55.5 H Mixed VBG HCO3 20.7 Sodium Potassium Chloride Carbon Dioxide Anion Gap BUN Creatinine Creat Clearance w eGFR Random Glucose Lactic Acid 2.1 H* Calcium Total Bilirubin AST ALT Alkaline Phosphatase Total Protein Albumin Urine Color Urine Appearance Urine pH Urine Protein Urine Glucose (UA) Urine Ketones Urine Blood Urine Nitrite Urine Bilirubin Urine Urobilinogen Ur Leukocyte Esterase Blood Type Cancelled Antibody Screen Cancelled Spec Expiration Date Cancelled 03/05/17 03/05/17 03/05/17 01:08 01:08 01:25 WBC RBC Hgb Hct MCV MCHC RDW Plt Count MPV Neutrophils % Lymphocytes % Monocytes % Eosinophils % Basophils % Band Neutrophils Differential Comment Platelet Estimate Polychromasia INR 1.22 H PTT (Actin FS) 32.0 VBG pH POC VBG pCO2 POC VBG pO2 Mixed VBG HCO3 Sodium Potassium Chloride Carbon Dioxide Anion Gap BUN Creatinine Creat Clearance w eGFR Random Glucose Lactic Acid Calcium Total Bilirubin AST ALT Alkaline Phosphatase Total Protein Albumin Urine Color Yellow Urine Appearance Clear Urine pH 6.0 Urine Protein Negative Urine Glucose (UA) Negative Urine Ketones Negative Urine Blood Negative Urine Nitrite Negative Urine Bilirubin Negative Urine Urobilinogen Negative Ur Leukocyte Esterase Negative Blood Type Antibody Screen Spec Expiration Date Imaging: CXR: no signs of acute pathology Chest CTA: no signs of PE Active Medications Gemfibrozil (Lopid -) 600 mg PO BID TARIQ Sodium Chloride (Normal Saline -) 1,000 mls @ 125 mls/hr IV ASDIR TARIQ Aztreonam 1 gm/ Dextrose 50 mls @ 100 mls/hr IVPB ONCE ONE PRN Reason: Protocol Stop: 03/05/17 03:54 Vancomycin HCl 1,500 mg/ (Dextrose) 500 mls @ 250 mls/hr IVPB ONCE ONE PRN Reason: Protocol Stop: 03/05/17 05:24 Loratadine (Claritin -) 10 mg PO DAILY TARIQ Non-Formulary Medication (Clonazepam [Klonopin]) 1 mg PO TID TARIQ Non-Formulary Medication (Perampanel [Fycompa]) 6 mg PO HS TARIQ Topiramate (Topamax -) 75 mg PO BID TARIQ Valproic Acid (Depakene -) 1,000 mg PO BID TARIQ ASSESSMENT/PLAN: 41 y/o M w/ PMH of mental retardation, non-verbal, seizures, from [facility] presents to ER w/ persistent fevers since being discharged from [facility] approximately 1 week ago. Admitted for sepsis of unknown source. -Sepsis secondary to unknown source -SIRS 3/4+ (WBC, fever, tachycardic); Lactic acidosis -NS @ 125 ml/hr -Vanco, Aztreonam (pt has penicillin allergy); received levaquin in ER -ID consulted -pt has history of colitis - KUB flat plate ordered -f/u moreno cultures, trend lactic acid, f/u official read on CTA chest -Seizures -c/w fycompa 6 mg po qhs, valproic acid 1000 mg po bid, topamax 75 mg po bid , klonopin 1 mg po tid -HLD -c/w gemfribrozil 600 mg po bid -DVT ppx -SCDs, pt w/pork allergy -FEN -NS @ 125 ml/hr -hypernatremia, hyperchloremia, monitor -Will need to find out from [facility] if particular diet is required for pt -Dispo: -Admit to m/s Visit type - Emergency Visit Emergency Visit: Yes ED Registration Date: 03/05/17 Care time: The patient presented to the Emergency Department on the above date and was hospitalized for further evaluation of their emergent condition. - New Patient This patient is new to me today: Yes Date on this admission: 03/05/17 - Critical Care Critical Care patient: No
[2017-03-05] MEDS ORDERED: AZTREONAM 1 GM in DEXTROSE 5%-WATER - 50 ML IVPB ONE (05:00)
[2017-03-05] MEDS ORDERED: VANCOMYCIN 1,500 MG in DEXTROSE 5%-WATER - 500 ML IVPB ONE (05:00)
[2017-03-05 07:57] LABS: ALBUMIN 2.7 g/dl (3.4-5.0); ANION GAP 12 (8-16); CALCIUM 8.9 mg/dL (8.5-10.1); CO2 21 mmol/L (21-32); COCKROFT - GAULT 189.06; CREATININE 0.7 mg/dL (0.7-1.3); GLUCOSE,RANDOM 89 mg/dL (74-106); SGOT/AST 14 U/L (15-37)
[2017-03-05 08:00] LABS: ALK PHOS 53 U/L (45-117); BILIRUBIN,TOTAL 0.4 mg/dL (0.2-1.0); SGPT/ALT 17 U/L (12-78)
[2017-03-05 09:00] LABS: MCH 30.9 pg (25.7-33.7); MEAN CELL VOLUME 93.8 fl (80-96); MEAN PLT VOLUME 7.6 fl (7.5-11.1); PLATELET COUNT 272 K/MM3 (134-434); RDW 15.3 % (11.9-15.9); WHITE BLOOD COUNT 9.5 K/mm3 (4.0-10.0)
[2017-03-05] MEDS ORDERED: diazePAM ACUDIAL 5-7.5-10 MG 1 EACH KIT RC SCH (09:00)
[2017-03-05] MEDS ORDERED: clonazePAM 0.5 MG TABLET ONE (09:05)
[2017-03-05] MEDS: clonazePAM 0.5 MG TABLET PO SCH ×2 (09:06→22:01)
[2017-03-05 09:14] LABS: INR 1.32 (0.82-1.09); PROTHROMBIN TIME (PATIENT) 14.6 SEC (9.98-11.88)
[2017-03-05] MEDS: TOPIRAMATE 25 MG TABLET (FP) PO SCH ×2 (10:33→22:02)
[2017-03-05] MEDS: LORATADINE 10 MG TABLET PO SCH (10:33)
[2017-03-05] MEDS: RANITIDINE HCL 150 MG TABLET (FP) PO SCH (10:34)
[2017-03-05] MEDS: GEMFIBROZIL 600 MG TABLET (FP) PO SCH ×2 (10:36→22:02)
[2017-03-05 10:41] LABS: PLATELET ESTIMATE ADEQUATE (NORMAL)
--- NOTE | 2017-03-05 10:51 | EKG ---
Test Reason : Blood Pressure : / mmHG Vent. Rate : 095 BPM Atrial Rate : 095 BPM P-R Int : 150 ms QRS Dur : 092 ms QT Int : 332 ms P-R-T Axes : 016 005 000 degrees QTc Int : 417 ms NORMAL SINUS RHYTHM NORMAL ECG WHEN COMPARED WITH ECG OF 20-FEB-2017 01:49, T WAVE VARIATION Confirmed by MELLO BROWN MD ([id number]) on 03/05/2017 10:51:05 AM Referred By: Confirmed By:MELLO BROWN MD
[2017-03-05] MEDS: NYSTATIN 500,000 UNITS/5 ML SUSPENSION PO SCH ×2 (12:17→22:04)
[2017-03-05 12:21] LABS: PHOSPHOROUS 4.7 mg/dL (2.5-4.9)
--- NOTE | 2017-03-05 12:27 | PN ---
Progress Note (short form) - Note Progress Note: ID consult dictated I called [facility] and spoke to the nurse he was hospitalized here from 02/19 to 03/01 for fevr and got a 10 day course of levaquin/flagyl for colitis- cdiff was negative he was afebrile for 72 ours and had no diarrhea at time of d/c per nursing supervisoer he had an isolated temp 03/02 to 101 and no furhter fever until yesterday when he was noted to have temp of 101.5 and was sent to ER he was not coughing he had no diarrhea after discharge this am aide notes he has had two loose BMS he is resting comfortably No SOB noted chest cta was done for hypoxia - no PE, RUL atelectasis with question of infiltrate hypoxia resolved abdominal exam benign he was given vanco levaquin azactam in ED possible pneumonia possible cdiff cultures are pending would send CDIFF treat with vanco/azactam/flagyl pending cultures pen allergy history of colitis (negative cdiff)
[2017-03-05] MEDS: METRONIDAZOLE 500 MG PREMIXED 100 ML IVPB SCH ×2 (13:30→18:38)
--- NOTE | 2017-03-05 14:43 | PN ---
Teaching Attending Note Name of Resident: Caden Fountain ATTENDING PHYSICIAN STATEMENT I saw and evaluated the patient. I reviewed the resident's note and discussed the case with the resident. I agree with the resident's findings and plan as documented. SUBJECTIVE: Patient is a 41yo male from [facility] was hospitalized recently from 02/19- 03/01/2017 for having sepsis with colitis- cdiff was negative s/p Levaquin/Flagyl , was send to ED for having Fever of 101.5. OBJECTIVE: Vital Signs Temperature 100.4 F H 03/05/17 14:26 Pulse Rate 92 H 03/05/17 14:26 Respiratory Rate 14 03/05/17 14:26 Blood Pressure 113/75 03/05/17 14:26 O2 Sat by Pulse Oximetry (%) 95 03/05/17 14:26 CBCD WBC 9.5 K/mm3 (4.0-10.0) 03/05/17 08:40 RBC 3.86 M/mm3 (4.00-5.60) L 03/05/17 08:40 Hgb 11.9 GM/dL (11.7-16.9) 03/05/17 08:40 Hct 36.2 % (35.4-49) 03/05/17 08:40 MCV 93.8 fl (80-96) 03/05/17 08:40 MCHC 33.0 g/dl (32.0-35.9) 03/05/17 08:40 RDW 15.3 % (11.9-15.9) 03/05/17 08:40 Plt Count 272 K/MM3 (134-434) 03/05/17 08:40 MPV 7.6 fl (7.5-11.1) 03/05/17 08:40 CMP Sodium 148 mmol/L (136-145) H 03/05/17 07:04 Potassium 4.4 mmol/L (3.5-5.1) 03/05/17 07:04 Chloride 115 mmol/L (98-107) H 03/05/17 07:04 Carbon Dioxide 21 mmol/L (21-32) 03/05/17 07:04 Anion Gap 12 (8-16) 03/05/17 07:04 BUN 12 mg/dL (7-18) 03/05/17 07:04 Creatinine 0.7 mg/dL (0.7-1.3) 03/05/17 07:04 Creat Clearance w eGFR > 60 (>60) 03/05/17 07:04 Random Glucose 89 mg/dL (74-106) 03/05/17 07:04 Calcium 8.9 mg/dL (8.5-10.1) 03/05/17 07:04 Total Bilirubin 0.4 mg/dL (0.2-1.0) D 03/05/17 07:04 AST 14 U/L (15-37) L D 03/05/17 07:04 ALT 17 U/L (12-78) 03/05/17 07:04 Alkaline Phosphatase 53 U/L (45-117) 03/05/17 07:04 Total Protein 7.0 g/dl (6.4-8.2) 03/05/17 07:04 Albumin 2.7 g/dl (3.4-5.0) L 03/05/17 07:04 Current Medications Generic Name Dose Route Start Last Admin Trade Name Nathanael PRN Reason Stop Dose Admin Clonazepam 1 mg 03/05/17 07:15 03/05/17 09:06 Klonopin - PO 1 mg TID [facility]AR[facility] Administration Diazepam 10 mg 03/05/17 09:00 Diastat Rectal Gel - RC ONCE TAR[facility] Gemfibrozil 600 mg 03/05/17 10:00 03/05/17 10:36 Lopid - PO 600 mg BID TAR[facility] Administration Sodium Chloride 1,000 mls @ 125 mls/hr 03/05/17 03:30 Normal Saline - IV ASDIR TAR[facility] Aztreonam 2 gm/ Dextrose 100 mls @ 100 mls/hr 03/05/17 18:00 IV Q8H-IV [facility] Protocol Vancomycin HCl 1,250 mg/ 250 mls @ 166.667 mls/hr 03/05/17 17:00 Dextrose IVPB BID@0500,1700 [facility] Protocol Metronidazole 100 mls @ 100 mls/hr 03/05/17 12:45 Flagyl 500mg Premixed Ivpb - IVPB Q8H-IV [facility] Loratadine 10 mg 03/05/17 10:00 03/05/17 10:33 Claritin - PO 10 mg DAILY [facility] Administration Non-Formulary Medication 6 mg 03/05/17 22:00 Perampanel [Fycompa] PO HS TARIQ Nystatin 500,000 units 03/05/17 12:00 03/05/17 12:17 Nystatin Oral Suspension - PO 500,000 units Q6HPO [facility] Administration Nystatin 1 applic 03/05/17 11:15 Nystop Powder - TP DAILY [facility] Ranitidine HCl 150 mg 03/05/17 10:00 03/05/17 10:34 Zantac - PO 150 mg DAILY [facility]AR[facility] Administration Topiramate 75 mg 03/05/17 10:00 03/05/17 10:33 Topamax - PO 75 mg BID TAR[facility] Administration Valproic Acid 1,000 mg 03/05/17 10:00 Depakene - PO BID [facility] Home Medications Medication Instructions Recorded Calcium Carbonate/Vitamin D3 500 mg PO DAILY 02/20/17 [Oystercal-D 500 mg-400 Unit Tb] Cholecalciferol (Vitamin D3) 2,000 unit PO DAILY 02/20/17 [Vitamin D3] Clonazepam [Klonopin] 1 mg PO TID 02/20/17 Diazepam Rectal Gel [Diastat 10 mg RI ONCE 02/20/17 Rectal Gel -] Famotidine 20 mg PO DAILY 02/20/17 Fluticasone Prop 0.05% Nasal 1 - 2 spray NS DAILY 02/20/17 [Flonase -] Gemfibrozil 600 mg PO BID 02/20/17 Loratadine 10 mg PO DAILY 02/20/17 Perampanel [Fycompa] 6 mg PO HS 02/20/17 Topiramate 75 mg PO BID 02/20/17 Valproic Acid [Depakene -] 1 gm PO BID 02/20/17 PE: per resident's note XR: No acute process UA:Negative CTA/Angiogram: Negative. No PE., possible early infiltrate ASSESSMENT AND PLAN Patient is a 41 y/o male with h/o severe MR, seizure disorder, and h/o MRSA , who presented from [facility] with fevers. # Sepsis unknown etiology, possible early Infiltrate since patient is also coughing , Britton culture was done, cdiff was ordered since patient was on recent antibiotics, IVF, repeat lactic acid improved s/p IVF, ON IV antibiotic Vancomycin, Aztreonam, Flagyl, pen allergy # Seizure disorder on Topiramate and valproic acid continue. # Hx of colitis was treated on last admission with IV antibiotics DVT Px: Lovenox 40mg sq
--- NOTE | 2017-03-05 15:29 | PN ---
Physical Exam: SUBJECTIVE: Patient seen and examined at bedside. Lying comformtably. OBJECTIVE: Vital Signs Period Temp Pulse Resp BP Sys/Monroy Pulse Ox Last 24 Hr 100.4 F 92-97 14-16 100-113/49-75 94-96 GENERAL: non verbal , NAD HEENT: Oral thrush noted. HEAD: NC/AT. LUNGS: CTAB, rales of left base. HEART: RRR, no M/G/R ABDOMEN: Soft, NT, ND ,BS(+), EXTREMITIES: contracted bilateral LE 2+ pulses, warm, well-perfused, no edema or erythema SKIN: Warm, dry, normal turgor, no rashes or lesions noted Laboratory Results - last 24 hr 03/05/17 03/05/17 03/05/17 07:04 07:04 08:40 WBC 9.5 RBC 3.86 L Hgb 11.9 Hct 36.2 MCV 93.8 MCHC 33.0 RDW 15.3 Plt Count 272 MPV 7.6 Neutrophils % 48.0 Lymphocytes % 15.0 Monocytes % 28.0 H Eosinophils % 3.0 Basophils % 1.0 Band Neutrophils 5.0 D Platelet Estimate Adequate INR Sodium 148 H Potassium 4.4 Chloride 115 H Carbon Dioxide 21 Anion Gap 12 BUN 12 Creatinine 0.7 Creat Clearance w eGFR > 60 Random Glucose 89 Lactic Acid Calcium 8.9 Phosphorus 4.7 D Cancelled Magnesium 2.0 Cancelled Total Bilirubin 0.4 D AST 14 L D ALT 17 Alkaline Phosphatase 53 Total Protein 7.0 Albumin 2.7 L 03/05/17 03/05/17 08:40 08:40 WBC RBC Hgb Hct MCV MCHC RDW Plt Count MPV Neutrophils % Lymphocytes % Monocytes % Eosinophils % Basophils % Band Neutrophils Platelet Estimate INR 1.32 H Sodium Potassium Chloride Carbon Dioxide Anion Gap BUN Creatinine Creat Clearance w eGFR Random Glucose Lactic Acid 1.3 Calcium Phosphorus Magnesium Total Bilirubin AST ALT Alkaline Phosphatase Total Protein Albumin Active Medications Generic Name Dose Route Start Last Admin Trade Name Freq PRN Reason Stop Dose Admin Clonazepam 1 mg 03/05/17 07:15 03/05/17 09:06 Klonopin - PO 1 mg TID [facility]AR[facility] Administration Diazepam 10 mg 03/05/17 09:00 Diastat Rectal Gel - RC ONCE [facility] Gemfibrozil 600 mg 03/05/17 10:00 03/05/17 10:36 Lopid - PO 600 mg BID [facility] Administration Sodium Chloride 1,000 mls @ 125 mls/hr 03/05/17 03:30 Normal Saline - IV ASDIR [facility] Aztreonam 2 gm/ Dextrose 100 mls @ 100 mls/hr 03/05/17 18:00 IV Q8H-IV [facility] Protocol Vancomycin HCl 1,250 mg/ 250 mls @ 166.667 mls/hr 03/05/17 17:00 Dextrose IVPB BID@0500,1700 [facility] Protocol Metronidazole 100 mls @ 100 mls/hr 03/05/17 12:45 Flagyl 500mg Premixed Ivpb - IVPB Q8H-IV [facility] Loratadine 10 mg 03/05/17 10:00 03/05/17 10:33 Claritin - PO 10 mg DAILY [facility] Administration Non-Formulary Medication 6 mg 03/05/17 22:00 Perampanel [Fycompa] PO HS [facility] Nystatin 500,000 units 03/05/17 12:00 03/05/17 12:17 Nystatin Oral Suspension - PO 500,000 units Q6HPO [facility] Administration Nystatin 1 applic 03/05/17 11:15 Nystop Powder - TP DAILY [facility] Ranitidine HCl 150 mg 03/05/17 10:00 03/05/17 10:34 Zantac - PO 150 mg DAILY [facility] Administration Topiramate 75 mg 03/05/17 10:00 03/05/17 10:33 Topamax - PO 75 mg BID [facility] Administration Valproic Acid 1,000 mg 03/05/17 10:00 Depakene - PO BID T[facility] ASSESSMENT/PLAN: 41 yo M with PMhx of severe MR, Seizure disorder, h/o MRSA presented from [facility] with fevers admitted for SIRS. Problem List - Problems (1) Sepsis Assessment/Plan: * possible PNA on CXR * Britton culture * c-diff sent on recent antibiotics * repeat lactic acid improved s/p IVF, * Started antibiotic Vancomycin, Aztreonam, Flagyl, pen allergy (2) Colitis (3) Seizure disorder Assessment/Plan: * Continue: * Fycompa 6 mg PO HS TARIQ * Topamax 75 mg PO BID * Depakene 1gm PO BID Visit type - Emergency Visit Emergency Visit: Yes ED Registration Date: 03/05/17 Care time: The patient presented to the Emergency Department on the above date and was hospitalized for further evaluation of their emergent condition. - New Patient This patient is new to me today: Yes Date on this admission: 03/06/17 - Critical Care Critical Care patient: No
--- NOTE | 2017-03-05 15:37 | CONS ---
INFECTIOUS DISEASE CONSULTATION DATE OF CONSULTATION: DATE OF DICTATION: 03/05/2017 This is a 41-year-old man with multiple developmental delays who is nonverbal requiring total care. He resides at the [facility]. He was admitted from January 20 to March 01 with a history of fever and a possible left lung infiltrate. He had an elevated white count. He presented with a lactic acidosis and thrombocytopenia on that admission. He was ultimately discharged on March 01, after receiving a 10- day course of Levaquin and Flagyl as he is PENICILLIN allergic for a presumed colitis. He had bloody stools, as well. On admission, he had an abdominal CTA that showed no bleeding. A repeat CAT scan was done that showed colitis. He had a C difficile sent that was negative. He completed a 10-day course of Levaquin and Flagyl. He had improvement in abdominal symptoms. He was stable and had no fever for 3 days prior to discharge which was on March 01. He was discharged off antibiotics. I called the [facility] to obtain more history. On March 02, apparently, he had an isolated fever. He had no recurrence of fever, until yesterday, when he had a temperature of 101.5 accompanied by some hypoxia. He was sent to the emergency room for evaluation. He was in no respiratory distress. In the emergency room, he had a CTA of his chest that showed no signs of PE. It showed some right upper lobe and bibasilar atelectasis and they could not rule out superimposed infiltrate. He was given vancomycin, Levaquin, and Azactam in the emergency room. I am asked to see him for further evaluation. He is resting comfortably. His aide reports he has had 2 loose BMs, since arrival in the ER. Per the [facility], he did not have any diarrhea when he was there. There is also no history of any cough, nausea or vomiting. PAST MEDICAL HISTORY: Notable for a history of severe mental retardation, seizure disorder. He had a MRSA infection in 2008. He has a history of osteoporosis, multiple surgeries in the past including a craniotomy. ALLERGIES: He is allergic to MULTIPLE FOODS and PENICILLIN. The nature of the PENICILLIN allergy is not known. CURRENT MEDICATIONS: Include vitamin D, Klonopin, diazepam, famotidine, fluticasone, gemfibrozil, loratadine, verapamil, Topamax, and valproic acid. He is not on any antibiotics. SOCIAL HISTORY: He resides at the [facility]. Requires total care. His aide is present who reports he is at his baseline. REVIEW OF SYSTEMS: The aide denies any history of any cough. He had not had any loose bowel movements, until this morning. There has been no vomiting. He has otherwise been comfortable. PHYSICAL EXAMINATION: Vital signs: In the ER, temperature on admission was 101.3, with a pulse of 101 and later 97, blood pressure 100/49, respiratory rate now is 14 and unlabored, with an O2 saturation of 96%. HEENT: He is normocephalic. Eyes are anicteric. Neck: Supple. Lungs: Clear to auscultation Heart: Regular rate and rhythm. Abdomen: Soft. Nontender. Extremities: Without edema. Skin: He has some perirectal erythema and excoriations. His white count was 9.5 on admission. Yesterday, it was 10.4. Hemoglobin is 11.9, platelets are 272. Prior admission, his platelet count was as low as 88. Chemistries: BUN and creatinine are 12 and 0.7. LFTs are normal. Urinalysis is negative and cultures are pending. Looking at his prior admission cultures, the only positive culture was a MRSA screen. CT findings are as stated. In summary, this is a 41-year-old man with fever, possible pneumonia, possible C difficile. Cultures are pending. Would send a C difficile which was just done. Would treat him with vancomycin, Azactam and Flagyl, pending the cultures, given his PENICILLIN allergy. Further recommendations to follow. Alex [id number] MTDD
[2017-03-05] MEDS ORDERED: METRONIDAZOLE 500 MG PREMIXED 100 ML IVPB ONE (15:52)
[2017-03-05] MEDS: VALPROIC ACID 250 MG CAPSULE PO SCH ×2 (17:02→22:01)
[2017-03-05] MEDS: VANCOMYCIN 1,250 MG in DEXTROSE 5%-WATER - 250 ML IVPB SCH (19:57)
[2017-03-05] MEDS: AZTREONAM 2 GM in DEXTROSE 5%-WATER - 100 ML IV SCH (20:02)
[2017-03-05] MEDS: SODIUM CHLORIDE 1,000 ML IV SCH (21:59)
[2017-03-05] MEDS ORDERED: PERAMPANEL 6 MG PO SCH (22:00)
[2017-03-05] MEDS: NYSTATIN POWDER 100,000 UNITS/GM - 15 GM TOPICAL POWDER TP SCH (22:00)
[2017-03-06] MEDS: NYSTATIN 500,000 UNITS/5 ML SUSPENSION PO SCH ×5 (00:09→23:37)
[2017-03-06] MEDS: METRONIDAZOLE 500 MG PREMIXED 100 ML IVPB SCH ×3 (01:30→18:09)
[2017-03-06] MEDS: AZTREONAM 2 GM in DEXTROSE 5%-WATER - 100 ML IV SCH ×3 (01:31→17:25)
[2017-03-06] MEDS: SODIUM CHLORIDE 1,000 ML IV SCH ×2 (03:47→23:36)
[2017-03-06] MEDS: VANCOMYCIN 1,250 MG in DEXTROSE 5%-WATER - 250 ML IVPB SCH ×2 (05:27→19:13)
[2017-03-06] MEDS: clonazePAM 0.5 MG TABLET PO SCH ×4 (05:28→22:35)
[2017-03-06 07:51] LABS: MCH 30.7 pg (25.7-33.7); MCHC 32.9 g/dl (32.0-35.9); MEAN CELL VOLUME 93.3 fl (80-96); MEAN PLT VOLUME 7.7 fl (7.5-11.1); PLATELET COUNT 215 K/MM3 (134-434); WHITE BLOOD COUNT 5.2 K/mm3 (4.0-10.0)
--- NOTE | 2017-03-06 08:47 | PN ---
Progress Note (short form) - Note Progress Note: resting comfortably no further diarrhea- I was with the patient in ED when stool sample was collected and sent- NO SPECIMEN is recorded as received in lab ate breakfast no fever no diarrhea Vital Signs Period Temp Pulse Resp BP Sys/Monroy Pulse Ox Last 24 Hr 98.3 F-100.4 F 67-94 14-18 96-126/52-75 94-95 cor-rrr lungs clear abd soft,nt ext no edema CBC, BMP 03/06/17 06:35 Microbiology 03/04/17 21:05 Blood - Peripheral Venous Blood Culture - Preliminary Pending Organism 03/04/17 21:05 Blood - Peripheral Venous Blood Culture - Preliminary Pending Organism a/p gram postive bacteremia- ?source, f/u cultures possible pneumonia pen allergy treat with vanco/azactam/flagyl pending cultures pen allergy history of colitis (negative cdiff) Problem List - Problems (1) Fever Code(s): R50.9 - FEVER, UNSPECIFIED Qualifiers: Fever type: unspecified Qualified Code(s): R50.9 - Fever, unspecified (2) Pneumonia Code(s): J18.9 - PNEUMONIA, UNSPECIFIED ORGANISM Qualifiers: Pneumonia type: due to unspecified organism Laterality: left Lung location: lower lobe of lung Qualified Code(s): J18.1 - Lobar pneumonia, unspecified organism (3) Penicillin allergy Code(s): Z88.0 - ALLERGY STATUS TO PENICILLIN
[2017-03-06 09:03] LABS: ALBUMIN 2.3 g/dl (3.4-5.0); ALK PHOS 46 U/L (45-117); ANION GAP 10 (8-16); BILIRUBIN,TOTAL 0.3 mg/dL (0.2-1.0); CALCIUM 7.8 mg/dL (8.5-10.1); CO2 22 mmol/L (21-32); COCKROFT - GAULT 220.57; CREATININE 0.6 mg/dL (0.7-1.3); GLUCOSE,RANDOM 106 mg/dL (74-106); SGOT/AST 13 U/L (15-37); SGPT/ALT 12 U/L (12-78)
[2017-03-06] MEDS ORDERED: PT OWN MED DRAWER 7, Y5N ONE ×2 (09:29→17:23)
[2017-03-06 09:33] LABS: PLATELET ESTIMATE ADEQUATE (NORMAL)
[2017-03-06] MEDS: RANITIDINE HCL 150 MG TABLET (FP) PO SCH (09:53)
[2017-03-06] MEDS: TOPIRAMATE 25 MG TABLET (FP) PO SCH ×2 (09:53→22:35)
[2017-03-06] MEDS: LORATADINE 10 MG TABLET PO SCH (09:54)
[2017-03-06] MEDS: VALPROIC ACID 250 MG CAPSULE PO SCH ×2 (09:54→22:36)
[2017-03-06] MEDS: GEMFIBROZIL 600 MG TABLET (FP) PO SCH ×2 (09:55→22:35)
--- NOTE | 2017-03-06 10:58 | MSN ---
Progress Note (short form) - Note Progress Note: Subjective: Patient seen and examined at bedside this morning. Patient is resting with eyes closed and an aid from [employer] is present. Patient is non- verbal with flexion contractions of lower extremities at baseline. Patient now requires a nasal cannula due to decreasing O2 saturation (88) when on room air. Patient has not had a bowel movement since one in the ER (03-05-17). Objective: Vital Signs Period Temp Pulse Resp BP Sys/Monroy Pulse Ox Last 24 Hr 98.3 F-100.4 F 67-94 14-18 96-126/52-75 94-95 General: Patient lying in bed, in no acute distress. Ears: EAC with cerumen visible Mouth: Few white plaques on hard palate; minor cracking of skin on lips Neck: Trachea midline Heart: Regular rate and rhythm with normal S1 and S2; no murmurs, rubs, or gallops Lungs: Coarse breath sounds b/l Abdomen: Mildly distend; non-tender Extremities: Warm; well-perfused; 2+ pulses UE/LE Skin: UE with few ecchymosis CBC, BMP 03/06/17 06:35 03/06/17 06:35 CMP Sodium 142 mmol/L (136-145) 03/06/17 06:35 Potassium 3.7 mmol/L (3.5-5.1) 03/06/17 06:35 Chloride 110 mmol/L (98-107) H 03/06/17 06:35 Carbon Dioxide 22 mmol/L (21-32) 03/06/17 06:35 Anion Gap 10 (8-16) 03/06/17 06:35 BUN 10 mg/dL (7-18) 03/06/17 06:35 Creatinine 0.6 mg/dL (0.7-1.3) L 03/06/17 06:35 Creat Clearance w eGFR > 60 (>60) 03/06/17 06:35 Random Glucose 106 mg/dL (74-106) 03/06/17 06:35 Lactic Acid 1.3 mmol/L (0.4-2.0) 03/05/17 08:40 Calcium 7.8 mg/dL (8.5-10.1) L 03/06/17 06:35 Phosphorus 4.7 mg/dL (2.5-4.9) D 03/05/17 07:04 Magnesium 2.0 mg/dL (1.8-2.4) 03/05/17 07:04 Total Bilirubin 0.3 mg/dL (0.2-1.0) D 03/06/17 06:35 AST 13 U/L (15-37) L 03/06/17 06:35 ALT 12 U/L (12-78) D 03/06/17 06:35 Alkaline Phosphatase 46 U/L (45-117) 03/06/17 06:35 Total Protein 6.0 g/dl (6.4-8.2) L 03/06/17 06:35 Albumin 2.3 g/dl (3.4-5.0) L 03/06/17 06:35 Current Medications Generic Name Dose Route Start Last Admin Trade Name Freq PRN Reason Stop Dose Admin Clonazepam 1 mg 03/05/17 07:15 03/06/17 05:28 Klonopin - PO 1 mg TID TARIQ Administration Gemfibrozil 600 mg 03/05/17 10:00 03/06/17 09:55 Lopid - PO 600 mg BID TARIQ Administration Sodium Chloride 1,000 mls @ 125 mls/hr 03/05/17 03:30 03/06/17 03:47 Normal Saline - IV 125 mls/hr ASDIR TARIQ Administration Aztreonam 2 gm/ Dextrose 100 mls @ 100 mls/hr 03/05/17 18:00 03/06/17 09:52 IV 100 mls/hr Q8H-IV TARIQ Administration Protocol Vancomycin HCl 1,250 mg/ 250 mls @ 166.667 mls/hr 03/05/17 17:00 03/06/17 05:27 Dextrose IVPB 166.667 mls/hr BID@0500,1700 TARIQ Administration Protocol Metronidazole 100 mls @ 100 mls/hr 03/05/17 12:45 03/06/17 01:30 Flagyl 500mg Premixed Ivpb - IVPB 100 mls/hr Q8H-IV [facility]ARIQ Administration Loratadine 10 mg 03/05/17 10:00 03/06/17 09:54 Claritin - PO 10 mg DAILY [facility] Administration Non-Formulary Medication 6 mg 03/05/17 22:00 Perampanel [Fycompa] PO HS T[facility]IQ Nystatin 500,000 units 03/05/17 12:00 03/06/17 05:28 Nystatin Oral Suspension - PO 500,000 units Q6HPO [facility] Administration Nystatin 1 applic 03/05/17 11:15 03/05/17 22:00 Nystop Powder - TP 1 applic DAILY [facility] Administration Ranitidine HCl 150 mg 03/05/17 10:00 03/06/17 09:53 Zantac - PO 150 mg DAILY [facility] Administration Topiramate 75 mg 03/05/17 10:00 03/06/17 09:53 Topamax - PO 75 mg BID T[facility]IQ Administration Valproic Acid 1,000 mg 03/05/17 10:00 03/06/17 09:54 Depakene - PO 1,000 mg BID TARIQ Administration Assessment/Plan: 41 yr old male with MR, history of a seizure disorder, recently discharged from hospital (03-01-2017) after colitis on a 10-day course of levaquin and flagyl is admitted from the ER following a fever of 100 F recorded at [facility] ( patient's residence). 1. Sepsis-bacteremia possibly secondary to colitis * Blood culture grow gram (+) cocci in chains; organism pending * Started on Vancomycin, aztrenom, flagyl per ID consult (Dr. Aguirre); Patient has Penicillin ax * O2 staturation declined to 88 when on room air; continue with nasal cannula 2L flow rate * CXR: No airspace opacities, no pneumothorax * Chest CTA: RUL atelectasis * Repeated LDH in normal range 2. Seizure disorder * Continue on Toprimate; Valproic acid; Fycompa 3.) Thrush * Oral-Continue nystatin swish and swallow * Genital-Continue to apply nystatin powder 4.) Hx of colitis * Discharged 03-01-2017 and completed 10 day course of levaquin and Flagyl * Abdomen XRay- No obstruction or free air * Order abdomen CT * Stool sample sent for culture and C. diff antigen and toxin 5.) Prophylaxis * DVT-SCDs * GI- Ranitidine-home medication
[2017-03-06] MEDS: NYSTATIN POWDER 100,000 UNITS/GM - 15 GM TOPICAL POWDER TP SCH (11:28)
[2017-03-06] MEDS ORDERED: LORAZEPAM CARPU-JECT 2 MG/ML DISP.SYRIN IVPUSH PRN (12:39)
--- NOTE | 2017-03-06 14:59 | PN ---
Teaching Attending Note Name of Resident: Caden Fountain ATTENDING PHYSICIAN STATEMENT I saw and evaluated the patient. I reviewed the resident's note and discussed the case with the resident. I agree with the resident's findings and plan as documented. SUBJECTIVE: Non verbal No acute events overnight OBJECTIVE: Vital Signs Temperature 97 F L 03/06/17 13:44 Pulse Rate 90 03/06/17 13:44 Respiratory Rate 18 03/06/17 13:44 Blood Pressure 106/62 03/06/17 13:44 O2 Sat by Pulse Oximetry (%) 95 03/05/17 21:00 GENERAL: non verbal , NAD HEENT: Oral thrush noted. HEAD: NC/AT. LUNGS: CTAB, rales of left base. HEART: RRR, no M/G/R ABDOMEN: Soft, NT, ND ,BS(+), EXTREMITIES: contracted bilateral LE 2+ pulses, warm, well-perfused, no edema or erythema SKIN: Warm, dry, normal turgor, no rashes or lesions noted CBC, BMP 03/06/17 06:35 03/06/17 06:35 Microbiology 03/05/17 01:25 Urine Culture - Final Urine - Urine - Catheterized NO GROWTH OBTAINED 03/05/17 15:33 Clostridium difficile Antigen (MAGDY) - Final Stool Clostridium difficile Toxin Assay - Final 03/04/17 21:05 Blood Culture - Preliminary Blood - Peripheral Venous Group D Strep Or Entero Coccus Pending Organism Pending Organism#2 03/04/17 21:05 Blood Culture - Preliminary Blood - Peripheral Venous Group D Strep Or Entero Coccus Pending Organism Pending Organism#2 Active Medications Clonazepam (Klonopin -) 1 mg PO TID [facility] Last Admin: 03/06/17 13:35 Dose: 1 mg Gemfibrozil (Lopid -) 600 mg PO BID [facility] Last Admin: 03/06/17 09:55 Dose: 600 mg Sodium Chloride (Normal Saline -) 1,000 mls @ 125 mls/hr IV ASDIR [facility] Last Admin: 03/06/17 03:47 Dose: 125 mls/hr Aztreonam 2 gm/ Dextrose 100 mls @ 100 mls/hr IV Q8H-IV TARIQ PRN Reason: Protocol Last Admin: 03/06/17 09:52 Dose: 100 mls/hr Vancomycin HCl 1,250 mg/ (Dextrose) 250 mls @ 166.667 mls/hr IVPB BID@0500, 1700 [facility] PRN Reason: Protocol Last Admin: 03/06/17 05:27 Dose: 166.667 mls/hr Metronidazole (Flagyl 500mg Premixed Ivpb -) 100 mls @ 100 mls/hr IVPB Q8H-IV [facility] Last Admin: 03/06/17 11:27 Dose: 100 mls/hr Loratadine (Claritin -) 10 mg PO DAILY [facility] Last Admin: 03/06/17 09:54 Dose: 10 mg Lorazepam (Ativan Injection -) 1 mg IVPUSH Q4H PRN PRN Reason: SEIZURE Non-Formulary Medication (Perampanel [Fycompa]) 6 mg PO HS [facility] Nystatin (Nystatin Oral Suspension -) 500,000 units PO Q6HPO [facility] Last Admin: 03/06/17 11:28 Dose: 500,000 units Nystatin (Nystop Powder -) 1 applic TP DAILY [facility] Last Admin: 03/06/17 11:28 Dose: 1 applic Ranitidine HCl (Zantac -) 150 mg PO DAILY [facility] Last Admin: 03/06/17 09:53 Dose: 150 mg Topiramate (Topamax -) 75 mg PO BID [facility] Last Admin: 03/06/17 09:53 Dose: 75 mg Valproic Acid (Depakene -) 1,000 mg PO BID [facility] Last Admin: 03/06/17 09:54 Dose: 1,000 mg ASSESSMENT AND PLAN: 1. Sepsis secondary to enterococcal bacteremia - sourse possibly being colitis. -IVF -IV Flagyl/Aztreonam/Vanco -will possibly need further abdominal imaging 2. Quadriplegia - turn & position - decub prevention 3. Abnormal imaging of the lung suggestive of RUL changes- likely atelectasis due to remote R 5th rib fracture and bone osteophyte 4. History of seizure disorder- stable - c/w current meds - awaiting Fycompa to be delivered from home as it is non formulary - PRN ativan for breakthrough seizure 5 DVT PPX - heparin SQ
--- NOTE | 2017-03-06 16:57 | PN ---
Physical Exam: SUBJECTIVE: Patient seen and examined at bedside. No overnight events. Lying comformtably OBJECTIVE: Vital Signs Period Temp Pulse Resp BP Sys/Monroy Pulse Ox Last 24 Hr 97 F-99.7 F 67-93 16-18 96-126/40-73 93-95 GENERAL: non verbal , NAD HEENT: Oral thrush noted. HEAD: NC/AT. LUNGS: CTAB, rales of left base. HEART: RRR, no M/G/R ABDOMEN: Soft, NT, ND ,BS(+), EXTREMITIES: contracted bilateral LE 2+ pulses, warm, well-perfused, no edema or erythema SKIN: Warm, dry, normal turgor, no rashes or lesions noted Laboratory Results - last 24 hr 03/06/17 03/06/17 06:35 06:35 WBC 5.2 D RBC 3.42 L Hgb 10.5 L D Hct 31.9 L MCV 93.3 MCHC 32.9 RDW 15.0 Plt Count 215 D MPV 7.7 Neutrophils % 38.0 L D Lymphocytes % 39.0 D Monocytes % 14.0 H Eosinophils % 9.0 H D Differential Comment Manual diff done Platelet Estimate Adequate Sodium 142 Potassium 3.7 Chloride 110 H Carbon Dioxide 22 Anion Gap 10 BUN 10 Creatinine 0.6 L Creat Clearance w eGFR > 60 Random Glucose 106 Calcium 7.8 L Total Bilirubin 0.3 D AST 13 L ALT 12 D Alkaline Phosphatase 46 Total Protein 6.0 L Albumin 2.3 L Active Medications Generic Name Dose Route Start Last Admin Trade Name Freq PRN Reason Stop Dose Admin Clonazepam 1 mg 03/05/17 07:15 03/06/17 13:35 Klonopin - PO 1 mg TID TARIQ Administration Gemfibrozil 600 mg 03/05/17 10:00 03/06/17 09:55 Lopid - PO 600 mg BID TARIQ Administration Heparin Sodium (Porcine) 5,000 unit 03/06/17 22:00 Heparin - SQ BID TARIQ Sodium Chloride 1,000 mls @ 125 mls/hr 03/05/17 03:30 03/06/17 03:47 Normal Saline - IV 125 mls/hr ASDIR TARIQ Administration Aztreonam 2 gm/ Dextrose 100 mls @ 100 mls/hr 03/05/17 18:00 03/06/17 09:52 IV 100 mls/hr Q8H-IV TARIQ Administration Protocol Vancomycin HCl 1,250 mg/ 250 mls @ 166.667 mls/hr 03/05/17 17:00 03/06/17 05:27 Dextrose IVPB 166.667 mls/hr BID@0500,1700 TARIQ Administration Protocol Metronidazole 100 mls @ 100 mls/hr 03/05/17 12:45 03/06/17 11:27 Flagyl 500mg Premixed Ivpb - IVPB 100 mls/hr Q8H-IV TARIQ Administration Loratadine 10 mg 03/05/17 10:00 03/06/17 09:54 Claritin - PO 10 mg DAILY TARIQ Administration Lorazepam 1 mg 03/06/17 12:39 Ativan Injection - IVPUSH Q4H PRN SEIZURE Non-Formulary Medication 6 mg 03/05/17 22:00 Perampanel [Fycompa] PO HS TARIQ Nystatin 500,000 units 03/05/17 12:00 03/06/17 11:28 Nystatin Oral Suspension - PO 500,000 units Q6HPO TARIQ Administration Nystatin 1 applic 03/05/17 11:15 03/06/17 11:28 Nystop Powder - TP 1 applic DAILY TARIQ Administration Ranitidine HCl 150 mg 03/05/17 10:00 03/06/17 09:53 Zantac - PO 150 mg DAILY TARIQ Administration Topiramate 75 mg 03/05/17 10:00 03/06/17 09:53 Topamax - PO 75 mg BID TARIQ Administration Valproic Acid 1,000 mg 03/05/17 10:00 03/06/17 09:54 Depakene - PO 1,000 mg BID TARIQ Administration ASSESSMENT/PLAN: 41 yo M with PMhx of severe MR, Seizure disorder, h/o MRSA presented from [facility] with fevers admitted for Sepsis found to have gram(+) bacteremia. Problem List - Problems (1) Sepsis Assessment/Plan: * Blood cultures reveled Gram (+) Group D strep * Will obtain CT abdomen with contrast to r/o microperforation. * c-diff (-) * repeat lactic acid improved s/p IVF, * Continue antibiotic Vancomycin, Aztreonam, Flagyl, pen allergy (2) Colitis Assessment/Plan: * C-Diff negative * CT abdomen (3) Seizure disorder Assessment/Plan: * Continue: * Fycompa 6 mg PO HS TARIQ * Topamax 75 mg PO BID * Depakene 1gm PO BID Visit type - Emergency Visit Emergency Visit: Yes ED Registration Date: 03/05/17 Care time: The patient presented to the Emergency Department on the above date and was hospitalized for further evaluation of their emergent condition. - New Patient This patient is new to me today: No - Critical Care Critical Care patient: No - Discharge Referral Referred to [facility] No
[2017-03-06] MEDS ORDERED: LORAZEPAM CARPU-JECT 2 MG/ML DISP.SYRIN IM ONE (20:09)
[2017-03-06] MEDS: HEPARIN NA (PORCINE) 5,000 UNITS/ML 1ML VIAL SQ SCH (22:35)
[2017-03-06] MEDS: PERAMPANEL 6 MG PO SCH (22:35)
[2017-03-07] MEDS: AZTREONAM 2 GM in DEXTROSE 5%-WATER - 100 ML IV SCH ×2 (02:08→11:32)
[2017-03-07] MEDS: METRONIDAZOLE 500 MG PREMIXED 100 ML IVPB SCH ×3 (02:08→15:04)
[2017-03-07] MEDS: VANCOMYCIN 1,250 MG in DEXTROSE 5%-WATER - 250 ML IVPB SCH ×2 (06:03→17:39)
[2017-03-07] MEDS: SODIUM CHLORIDE 1,000 ML IV SCH ×2 (06:03→16:52)
[2017-03-07] MEDS: clonazePAM 0.5 MG TABLET PO SCH ×3 (06:04→22:55)
[2017-03-07] MEDS: NYSTATIN 500,000 UNITS/5 ML SUSPENSION PO SCH ×3 (06:04→18:28)
[2017-03-07 07:51] LABS: MCH 31.2 pg (25.7-33.7); MCHC 33.5 g/dl (32.0-35.9); MEAN CELL VOLUME 93.1 fl (80-96); MEAN PLT VOLUME 7.7 fl (7.5-11.1); PLATELET COUNT 209 K/MM3 (134-434); RDW 14.9 % (11.9-15.9); WHITE BLOOD COUNT 4.7 K/mm3 (4.0-10.0)
[2017-03-07 08:07] LABS: ALBUMIN 2.2 g/dl (3.4-5.0); ANION GAP 9 (8-16); CALCIUM 7.8 mg/dL (8.5-10.1); CO2 23 mmol/L (21-32); COCKROFT - GAULT 264.69; CREATININE 0.5 mg/dL (0.7-1.3); GLUCOSE,RANDOM 120 mg/dL (74-106); SGOT/AST 12 U/L (15-37); SGPT/ALT 11 U/L (12-78)
[2017-03-07 08:09] LABS: ALK PHOS 47 U/L (45-117); BILIRUBIN,TOTAL 0.4 mg/dL (0.2-1.0)
[2017-03-07 08:41] LABS: PLATELET ESTIMATE ADEQUATE (NORMAL)
[2017-03-07] MEDS ORDERED: PT OWN MED DRAWER 7, Y5N ONE ×4 (11:20→22:29)
[2017-03-07] MEDS: LORATADINE 10 MG TABLET PO SCH (11:39)
[2017-03-07] MEDS: TOPIRAMATE 25 MG TABLET (FP) PO SCH ×2 (11:39→22:56)
[2017-03-07] MEDS: RANITIDINE HCL 150 MG TABLET (FP) PO SCH (11:39)
[2017-03-07] MEDS: VALPROIC ACID 250 MG CAPSULE PO SCH ×2 (11:40→22:54)
[2017-03-07] MEDS: HEPARIN NA (PORCINE) 5,000 UNITS/ML 1ML VIAL SQ SCH ×2 (11:41→22:55)
[2017-03-07] MEDS: GEMFIBROZIL 600 MG TABLET (FP) PO SCH ×2 (11:42→22:56)
--- NOTE | 2017-03-07 12:43 | PN ---
Teaching Attending Note Name of Resident: Caden Fountain ATTENDING PHYSICIAN STATEMENT I saw and evaluated the patient. I reviewed the resident's note and discussed the case with the resident. I agree with the resident's findings and plan as documented. SUBJECTIVE:non verbal . No acute events overnight. No more episodes of diarrhea as per aid OBJECTIVE: Vital Signs Temperature 97.9 F 03/07/17 11:33 Pulse Rate 76 03/07/17 11:33 Respiratory Rate 20 03/07/17 11:33 Blood Pressure 145/54 03/07/17 11:33 O2 Sat by Pulse Oximetry (%) 93 L 03/06/17 21:00 GENERAL: non verbal , NAD HEENT: Oral thrush noted. HEAD: NC/AT. LUNGS: CTAB, rales of left base. HEART: RRR, no M/G/R ABDOMEN: Soft, NT, ND ,BS(+), EXTREMITIES: contracted bilateral LE 2+ pulses, warm, well-perfused, no edema or erythema SKIN: Warm, dry, normal turgor, no rashes or lesions noted Abnormal Lab Results 03/07/17 03/07/17 06:45 06:45 RBC 3.52 L Hgb 11.0 L Hct 32.8 L Monocytes % 19.0 H Eosinophils % 7.0 H Chloride 111 H Creatinine 0.5 L Random Glucose 120 H Calcium 7.8 L AST 12 L ALT 11 L Total Protein 6.0 L Albumin 2.2 L Generic Name Dose Route Start Last Admin Trade Name Freq PRN Reason Stop Dose Admin Clonazepam 1 mg 03/05/17 07:15 03/07/17 06:04 Klonopin - PO 1 mg TID TARIQ Administration Gemfibrozil 600 mg 03/05/17 10:00 03/07/17 11:42 Lopid - PO 600 mg BID TARIQ Administration Heparin Sodium (Porcine) 5,000 unit 03/06/17 22:00 03/07/17 11:41 Heparin - SQ 5,000 unit BID TARIQ Administration Sodium Chloride 1,000 mls @ 125 mls/hr 03/05/17 03:30 03/07/17 06:03 Normal Saline - IV Not Given ASDIR TARIQ Aztreonam 2 gm/ Dextrose 100 mls @ 100 mls/hr 03/05/17 18:00 03/07/17 11:32 IV 100 mls/hr Q8H-IV TARIQ Administration Protocol Vancomycin HCl 1,250 mg/ 250 mls @ 166.667 mls/hr 03/05/17 17:00 03/07/17 06:03 Dextrose IVPB 166.667 mls/hr BID@0500,1700 TARIQ Administration Protocol Metronidazole 100 mls @ 100 mls/hr 03/05/17 12:45 03/07/17 02:08 Flagyl 500mg Premixed Ivpb - IVPB 100 mls/hr Q8H-IV TARIQ Administration Loratadine 10 mg 03/05/17 10:00 03/07/17 11:39 Claritin - PO 10 mg DAILY TARIQ Administration Lorazepam 1 mg 03/06/17 12:39 Ativan Injection - IVPUSH Q4H PRN SEIZURE Non-Formulary Medication 6 mg 03/06/17 22:00 03/06/17 22:35 Perampanel [Fycompa] PO 6 mg HS TARIQ Administration Nystatin 500,000 units 03/05/17 12:00 03/07/17 11:43 Nystatin Oral Suspension - PO 500,000 units Q6HPO TARIQ Administration Nystatin 1 applic 03/05/17 11:15 03/06/17 11:28 Nystop Powder - TP 1 applic DAILY TARIQ Administration Ranitidine HCl 150 mg 03/05/17 10:00 03/07/17 11:39 Zantac - PO 150 mg DAILY TARIQ Administration Topiramate 75 mg 03/05/17 10:00 03/07/17 11:39 Topamax - PO 75 mg BID TARIQ Administration Valproic Acid 1,000 mg 03/05/17 10:00 03/07/17 11:40 Depakene - PO 1,000 mg BID TARIQ Administration ASSESSMENT AND PLAN: 1. Sepsis secondary to enterococcal bacteremia - sourse possibly being colitis.Improving, afebrile, no leukocytosis. CT abdomen confirmed -IVF continue -IV Flagyl/Aztreonam/Vanco -need ID input re length of treatment 2. Quadriplegia - turn & position - decub prevention 3. Abnormal imaging of the lung suggestive of RUL changes- likely atelectasis due to remote R 5th rib fracture and bone osteophyte 4. History of seizure disorder- stable - c/w current meds - awaiting Fycompa to be delivered from home as it is non formulary - PRN ativan for breakthrough seizure 5 DVT PPX - heparin SQ
[2017-03-07] MEDS: NYSTATIN POWDER 100,000 UNITS/GM - 15 GM TOPICAL POWDER TP SCH (14:47)
--- NOTE | 2017-03-07 16:36 | PN ---
Progress Note (short form) - Note Progress Note: resting comfortably ate his meals no fever Vital Signs Period Temp Pulse Resp BP Sys/Monroy Pulse Ox Last 24 Hr 97.8 F-99.0 F 70-92 18-20 103-145/54-76 93 cor-rrr lungs clear abd soft,nt ext no edema CBC, BMP 03/07/17 06:45 03/07/17 06:45 Microbiology 03/04/17 21:05 Blood - Peripheral Venous Blood Culture - Preliminary Group D Strep Or Entero Coccus Pending Organism Pending Organism#2 03/04/17 21:05 Blood - Peripheral Venous Blood Culture - Preliminary Enterococcus Faecalis Alpha Hemolytic Streptococcus Staphylococcus Coagulase Neg 03/05/17 01:25 Urine - Urine - Catheterized Urine Culture - Final NO GROWTH OBTAINED 03/05/17 15:33 Stool Clostridium difficile Antigen (MAGDY) - Final 03/05/17 15:33 Stool Clostridium difficile Toxin Assay - Final ct scan improved a/p gram postive bacteremia- ?source, f/u cultures pen allergy treat with vancmycin alone repeat blood cultures esr/crp pen allergy history of colitis (negative cdiff) abd ct scan improved d/w resident Problem List - Problems (1) Fever Code(s): R50.9 - FEVER, UNSPECIFIED Qualifiers: Qualified Code(s): R50.9 - Fever, unspecified (2) Pneumonia Code(s): J18.9 - PNEUMONIA, UNSPECIFIED ORGANISM Qualifiers: Qualified Code(s): J18.1 - Lobar pneumonia, unspecified organism (3) Penicillin allergy Code(s): Z88.0 - ALLERGY STATUS TO PENICILLIN
--- NOTE | 2017-03-07 16:51 | MSN ---
Progress Note (short form) - Note Progress Note: Subjective: Patient seen and examined at bedside this morning. Patient non- verbal at baseline. Patient is alert and lying comfortably in bed. An aid from [employer] is present. The patient did not have any acute overnight events. Objective: Vital Signs Period Temp Pulse Resp BP Sys/Monroy Pulse Ox Last 24 Hr 97.8 F-99.0 F 70-92 18-20 103-145/54-76 93 General: Non-verbal; alert Head: Normocephalic, atraumatic Eyes: Conjunctiva clear, no scleral icterus Mouth: Moist mucous membranes; minimal oral thrush Neck: Supple, no JVD Lungs: CTA b/l, rales LLL Heart: Regular rate and rhythm, normal S1 and S2, no murmur, gallop, or rubs Abdomen: Normoactive bowel sounds; non-tender Extremities: Warm; well-perfused; 2+ pulses b/l; flexion contraction of LE b/l Skin: Several ecchymosis on UE; mild eczematous rash along mandible CBC, BMP 03/07/17 06:45 03/07/17 06:45 Laboratory Results - last 24 hr 03/07/17 03/07/17 06:45 06:45 WBC 4.7 RBC 3.52 L Hgb 11.0 L Hct 32.8 L MCV 93.1 MCHC 33.5 RDW 14.9 Plt Count 209 MPV 7.7 Neutrophils % 43.0 Lymphocytes % 31.0 D Monocytes % 19.0 H Eosinophils % 7.0 H Differential Comment Manual diff done Platelet Estimate Adequate Sodium 143 Potassium 3.8 Chloride 111 H Carbon Dioxide 23 Anion Gap 9 BUN 9 Creatinine 0.5 L Creat Clearance w eGFR > 60 Random Glucose 120 H Calcium 7.8 L Total Bilirubin 0.4 D AST 12 L ALT 11 L Alkaline Phosphatase 47 Total Protein 6.0 L Albumin 2.2 L Active Medications Generic Name Dose Route Start Last Admin Trade Name Freq PRN Reason Stop Dose Admin Clonazepam 1 mg 03/05/17 07:15 03/07/17 14:46 Klonopin - PO 1 mg TID TARIQ Administration Gemfibrozil 600 mg 03/05/17 10:00 03/07/17 11:42 Lopid - PO 600 mg BID TARIQ Administration Heparin Sodium (Porcine) 5,000 unit 03/06/17 22:00 03/07/17 11:41 Heparin - SQ 5,000 unit BID TARIQ Administration Sodium Chloride 1,000 mls @ 125 mls/hr 03/05/17 03:30 03/07/17 06:03 Normal Saline - IV Not Given ASDIR TARIQ Vancomycin HCl 1,250 mg/ 250 mls @ 166.667 mls/hr 03/05/17 17:00 03/07/17 06:03 Dextrose IVPB 166.667 mls/hr BID@0500,1700 TARIQ Administration Protocol Loratadine 10 mg 03/05/17 10:00 03/07/17 11:39 Claritin - PO 10 mg DAILY TARIQ Administration Lorazepam 1 mg 03/06/17 12:39 Ativan Injection - IVPUSH Q4H PRN SEIZURE Non-Formulary Medication 6 mg 03/06/17 22:00 03/06/17 22:35 Perampanel [Fycompa] PO 6 mg HS TARIQ Administration Nystatin 500,000 units 03/05/17 12:00 03/07/17 11:43 Nystatin Oral Suspension - PO 500,000 units Q6HPO TARIQ Administration Nystatin 1 applic 03/05/17 11:15 03/07/17 14:47 Nystop Powder - TP 1 applic DAILY TARIQ Administration Ranitidine HCl 150 mg 03/05/17 10:00 03/07/17 11:39 Zantac - PO 150 mg DAILY TARIQ Administration Topiramate 75 mg 03/05/17 10:00 03/07/17 11:39 Topamax - PO 75 mg BID TARIQ Administration Valproic Acid 1,000 mg 03/05/17 10:00 03/07/17 11:40 Depakene - PO 1,000 mg BID TARIQ Administration Assessment and Plan: 41 year old functional quadriplegic male with a history of MR, seizure disorder , and colitis (discharged 03-01-2017 following 10-day course of Levaquin and Flagyl) presented to ER from [facility] with a fever. Patient was found to have gram (+) bacteremia. 1.) Sepsis * Bacteremia-blood cultures demonstrated growth of Enterococcus, coagulase negative Staph * IV Vancomycin (after discussion with Dr. Aguirre; discontinue Aztreonam, Flagyl); Penicillin ax * No leukocytosis; afebrile * Order ESR and repeat blood cultures 2.) Abnormal lung imaging * CXR- No airspace opacities * Chest CTA- R UL atelectasis * No acute pathology 3.) Seizure disorder * Continue home medications * Fycompa/Topiramate/Valproic acid/Klonopin 4.) History of colitis * Abdomen CT-demonstrated no perforations (rule out as source of bacteremia); some fecal residue (consistent with constipation) and sigmoid colon wall thickness identified * C. diff antigen and toxin negative 5.) Thrush * Nystatin swish and swallow; nystatin powder * Improvement noted-diminished area 6.) Prophylaxis * DVT-Heparin SQ and SCD * GI-Ranitidine (home medication) 7.) FEN * NS at 125 mls/hr
--- NOTE | 2017-03-07 17:29 | PN ---
Physical Exam: SUBJECTIVE: Patient seen and examined at bedside. No overnight events. Lying comfortably in bed. OBJECTIVE: Vital Signs Period Temp Pulse Resp BP Sys/Monroy Pulse Ox Last 24 Hr 97.8 F-99.0 F 70-92 18-20 103-145/54-76 93 GENERAL: non verbal , NAD HEENT: Oral pharynx without thrush or erythema HEAD: NC/AT. LUNGS: CTAB, no wheezing HEART: RRR, no M/G/R ABDOMEN: Soft, NT, ND ,BS(+), EXTREMITIES: contracted bilateral LE 2+ pulses, warm, well-perfused, no edema or erythema SKIN: Warm, dry, normal turgor, no rashes or lesions noted Laboratory Results - last 24 hr 03/07/17 03/07/17 06:45 06:45 WBC 4.7 RBC 3.52 L Hgb 11.0 L Hct 32.8 L MCV 93.1 MCHC 33.5 RDW 14.9 Plt Count 209 MPV 7.7 Neutrophils % 43.0 Lymphocytes % 31.0 D Monocytes % 19.0 H Eosinophils % 7.0 H Differential Comment Manual diff done Platelet Estimate Adequate Sodium 143 Potassium 3.8 Chloride 111 H Carbon Dioxide 23 Anion Gap 9 BUN 9 Creatinine 0.5 L Creat Clearance w eGFR > 60 Random Glucose 120 H Calcium 7.8 L Total Bilirubin 0.4 D AST 12 L ALT 11 L Alkaline Phosphatase 47 Total Protein 6.0 L Albumin 2.2 L Active Medications Generic Name Dose Route Start Last Admin Trade Name Freq PRN Reason Stop Dose Admin Clonazepam 1 mg 03/05/17 07:15 03/07/17 14:46 Klonopin - PO 1 mg TID TARIQ Administration Gemfibrozil 600 mg 03/05/17 10:00 03/07/17 11:42 Lopid - PO 600 mg BID TARIQ Administration Heparin Sodium (Porcine) 5,000 unit 03/06/17 22:00 03/07/17 11:41 Heparin - SQ 5,000 unit BID TARIQ Administration Sodium Chloride 1,000 mls @ 125 mls/hr 03/05/17 03:30 03/07/17 16:52 Normal Saline - IV 125 mls/hr ASDIR TARIQ Administration Vancomycin HCl 1,250 mg/ 250 mls @ 166.667 mls/hr 03/05/17 17:00 03/07/17 06:03 Dextrose IVPB 166.667 mls/hr BID@0500,1700 TARIQ Administration Protocol Loratadine 10 mg 03/05/17 10:00 03/07/17 11:39 Claritin - PO 10 mg DAILY TARIQ Administration Lorazepam 1 mg 03/06/17 12:39 Ativan Injection - IVPUSH Q4H PRN SEIZURE Non-Formulary Medication 6 mg 03/06/17 22:00 03/06/17 22:35 Perampanel [Fycompa] PO 6 mg HS TARIQ Administration Nystatin 500,000 units 03/05/17 12:00 03/07/17 11:43 Nystatin Oral Suspension - PO 500,000 units Q6HPO TARIQ Administration Nystatin 1 applic 03/05/17 11:15 03/07/17 14:47 Nystop Powder - TP 1 applic DAILY TARIQ Administration Ranitidine HCl 150 mg 03/05/17 10:00 03/07/17 11:39 Zantac - PO 150 mg DAILY TARIQ Administration Topiramate 75 mg 03/05/17 10:00 03/07/17 11:39 Topamax - PO 75 mg BID TARIQ Administration Valproic Acid 1,000 mg 03/05/17 10:00 03/07/17 11:40 Depakene - PO 1,000 mg BID TARIQ Administration IMAGING: * [id number] CT/ABDOMEN PELVIS CT WITH CONTR Rule out bowel perforation CT scan of the abdomen and pelvis following oral and intravenous contrast. Coronal and sagittal reformatted images were obtained 95 cc of Omnipaque 350 was intravenously injected Comparison: Compared to prior CT scan of the abdomen pelvis dated 02/22/2017 There are residual bibasal atelectatic changes and minimal bilateral pleural effusion. Old right posterior rib fractures with spur formation pointing anteriorly are again noted. The heart is within normal limits in size. Partially distended stomach limiting evaluation of its wall. The liver, spleen, gallbladder, pancreas, both adrenal glands and both kidneys appear unremarkable except for a small nonobstructing right renal stone again seen. There is no evidence of small bowel obstruction. A moderate amount of fecal residue is present in the ascending, transverse and descending colon consistent with constipation. There is residual thickening of the proximal sigmoid colon wall with stranding of the surrounding fat. Watery stools present in the distal sigmoid colon. No gross extraluminal air or abscess formation is identified. Partially distended urinary bladder without wall thickening. Normal size prostate gland. Perirectal and pericecal fat is clear. Normal-appearing appendix Impression: Residual thickening of the proximal sigmoid colon and stranding of the surrounding fat/mesentery without extravasation of air or abscess formation. Continued follow-up and further evaluation of the sigmoid colon is recommended Reported By: Thien Cedeño MD 03/06/17 2344 Microbiology 03/04/17 21:05 Blood - Peripheral Venous Blood Culture - Preliminary Enterococcus Faecalis Alpha Hemolytic Streptococcus Staphylococcus Coagulase Neg ASSESSMENT/PLAN: 41 yo M with PMhx of severe MR, Seizure disorder, h/o MRSA presented from [facility] with fevers admitted for Sepsis found to have gram(+) bacteremia. Problem List - Problems (1) Sepsis Assessment/Plan: * Blood cultures Enterococcus Faecalis, Alpha Hemolytic Streptococcus, Staphylococcus Coagulase Neg * repeat blood cultures sent. * CT abdomen with contrast showd no microperforation. * c-diff (-) * Patient is afebrile with no leukocytosis. * repeat lactic acid improved s/p IVF, * Will discontinue IV aztreonam and Flagyl * Continue vancomycin IV * ID consult appreciated. (2) Colitis Assessment/Plan: * C-Diff negative * CT abdomen reported above. (3) Seizure disorder Assessment/Plan: * No seizure activity. * Continue: * Fycompa 6 mg PO HS TARIQ * Topamax 75 mg PO BID * Depakene 1gm PO BID Visit type - Emergency Visit Emergency Visit: Yes ED Registration Date: 03/05/17 Care time: The patient presented to the Emergency Department on the above date and was hospitalized for further evaluation of their emergent condition. - New Patient This patient is new to me today: No - Critical Care Critical Care patient: No - Discharge Referral Referred to [facility] No
[2017-03-07] MEDS: PERAMPANEL 6 MG PO SCH (22:56)
[2017-03-08] MEDS: NYSTATIN 500,000 UNITS/5 ML SUSPENSION PO SCH ×5 (00:18→23:10)
[2017-03-08] MEDS: SODIUM CHLORIDE 1,000 ML IV SCH ×2 (05:30→19:30)
[2017-03-08] MEDS: VANCOMYCIN 1,250 MG in DEXTROSE 5%-WATER - 250 ML IVPB SCH ×2 (05:30→17:03)
[2017-03-08] MEDS: clonazePAM 0.5 MG TABLET PO SCH ×3 (06:24→23:08)
[2017-03-08 08:36] LABS: BASOPHIL 0.8 % (0-2.0); EOSINOPHIL 5.1 % (0-4.5); MCH 30.8 pg (25.7-33.7); MCHC 33.1 g/dl (32.0-35.9); MEAN CELL VOLUME 92.9 fl (80-96); MEAN PLT VOLUME 7.7 fl (7.5-11.1); NEUTROPHILS 43.9 % (42.8-82.8); PLATELET COUNT 202 K/MM3 (134-434); RDW 14.9 % (11.9-15.9); WHITE BLOOD COUNT 4.5 K/mm3 (4.0-10.0)
[2017-03-08 09:05] LABS: ALBUMIN 2.1 g/dl (3.4-5.0); ALK PHOS 45 U/L (45-117); ANION GAP 7 (8-16); BILIRUBIN,TOTAL 0.2 mg/dL (0.2-1.0); C-REACTIVE PROTEIN 2.2 MG/DL (0.00-0.3); CALCIUM 8.2 mg/dL (8.5-10.1); CO2 23 mmol/L (21-32); CREATININE 0.5 mg/dL (0.7-1.3); GLUCOSE,RANDOM 100 mg/dL (74-106); SGOT/AST 14 U/L (15-37); SGPT/ALT 11 U/L (12-78); TOT PROT 5.8 g/dl (6.4-8.2)
[2017-03-08] MEDS ORDERED: GENTAMICIN IVPB SCH (10:00)
[2017-03-08] MEDS ORDERED: DEXTROSE 5% IVPB SCH (10:00)
[2017-03-08] MEDS ORDERED: WATER IVPB SCH (10:00)
--- NOTE | 2017-03-08 10:08 | PN ---
Physical Exam: SUBJECTIVE: Patient seen and examined at bedside. No overnight events. Eating well. Non-verbal but awake and alert. OBJECTIVE: Vital Signs Period Temp Pulse Resp BP Sys/Monroy Pulse Ox Last 24 Hr 97.8 F-99.1 F 76-92 20-20 101-145/54-76 92-95 GENERAL: non verbal , NAD HEENT: Oral pharynx without thrush or erythema HEAD: NC/AT. LUNGS: CTAB, no wheezing HEART: RRR, no M/G/R ABDOMEN: Soft, NT, ND ,BS(+), EXTREMITIES: contracted bilateral LE 2+ pulses, warm, well-perfused, no edema or erythema SKIN: Warm, dry, normal turgor, no rashes or lesions noted Laboratory Results - last 24 hr 03/08/17 03/08/17 08:10 08:10 WBC 4.5 RBC 3.31 L Hgb 10.2 L Hct 30.7 L MCV 92.9 MCHC 33.1 RDW 14.9 Plt Count 202 MPV 7.7 Neutrophils % 43.9 Lymphocytes % 27.5 Monocytes % 22.7 H Eosinophils % 5.1 H Basophils % 0.8 Sodium 145 Potassium 3.7 Chloride 115 H Carbon Dioxide 23 Anion Gap 7 L BUN 6 L D Creatinine 0.5 L Creat Clearance w eGFR > 60 Random Glucose 100 Calcium 8.2 L Total Bilirubin 0.2 D AST 14 L ALT 11 L Alkaline Phosphatase 45 C-Reactive Protein 2.2 H D Total Protein 5.8 L Albumin 2.1 L Active Medications Generic Name Dose Route Start Last Admin Trade Name Freq PRN Reason Stop Dose Admin Clonazepam 1 mg 03/05/17 07:15 03/08/17 06:24 Klonopin - PO 1 mg TID [facility] Administration Gemfibrozil 600 mg 03/05/17 10:00 03/07/17 22:56 Lopid - PO 600 mg BID [facility] Administration Heparin Sodium (Porcine) 5,000 unit 03/06/17 22:00 03/07/17 22:55 Heparin - SQ 5,000 unit BID [facility] Administration Sodium Chloride 1,000 mls @ 125 mls/hr 03/05/17 03:30 03/08/17 05:30 Normal Saline - IV 125 mls/hr ASDIR [facility] Administration Vancomycin HCl 1,250 mg/ 250 mls @ 166.667 mls/hr 03/05/17 17:00 03/08/17 05:30 Dextrose IVPB 166.667 mls/hr BID@0500,1700 [facility] Administration Protocol Gentamicin Sulfate 65 mg/ 101.625 mls @ 250 mls/hr 03/08/17 10:00 Dextrose IVPB Q8H-IV [facility] Loratadine 10 mg 03/05/17 10:00 03/07/17 11:39 Claritin - PO 10 mg DAILY [facility] Administration Lorazepam 1 mg 03/06/17 12:39 Ativan Injection - IVPUSH Q4H PRN SEIZURE Non-Formulary Medication 6 mg 03/06/17 22:00 03/07/17 22:56 Perampanel [Fycompa] PO 6 mg HS [facility] Administration Nystatin 500,000 units 03/05/17 12:00 03/08/17 06:24 Nystatin Oral Suspension - PO 500,000 units Q6HPO [facility] Administration Nystatin 1 applic 03/05/17 11:15 03/07/17 14:47 Nystop Powder - TP 1 applic DAILY [facility] Administration Ranitidine HCl 150 mg 03/05/17 10:00 03/07/17 11:39 Zantac - PO 150 mg DAILY [facility] Administration Topiramate 75 mg 03/05/17 10:00 03/07/17 22:56 Topamax - PO 75 mg BID [facility] Administration Valproic Acid 1,000 mg 03/05/17 10:00 03/07/17 22:54 Depakene - PO 1,000 mg BID [facility] Administration IMAGING: * [id number] CT/ABDOMEN PELVIS CT WITH CONTR Rule out bowel perforation CT scan of the abdomen and pelvis following oral and intravenous contrast. Coronal and sagittal reformatted images were obtained 95 cc of Omnipaque 350 was intravenously injected Comparison: Compared to prior CT scan of the abdomen pelvis dated 02/22/2017 There are residual bibasal atelectatic changes and minimal bilateral pleural effusion. Old right posterior rib fractures with spur formation pointing anteriorly are again noted. The heart is within normal limits in size. Partially distended stomach limiting evaluation of its wall. The liver, spleen, gallbladder, pancreas, both adrenal glands and both kidneys appear unremarkable except for a small nonobstructing right renal stone again seen. There is no evidence of small bowel obstruction. A moderate amount of fecal residue is present in the ascending, transverse and descending colon consistent with constipation. There is residual thickening of the proximal sigmoid colon wall with stranding of the surrounding fat. Watery stools present in the distal sigmoid colon. No gross extraluminal air or abscess formation is identified. Partially distended urinary bladder without wall thickening. Normal size prostate gland. Perirectal and pericecal fat is clear. Normal-appearing appendix Impression: Residual thickening of the proximal sigmoid colon and stranding of the surrounding fat/mesentery without extravasation of air or abscess formation. Continued follow-up and further evaluation of the sigmoid colon is recommended Reported By: Thien Cedeño MD 03/06/17 2344 Microbiology 03/04/17 21:05 Blood - Peripheral Venous Blood Culture - Preliminary Enterococcus Faecalis Alpha Hemolytic Streptococcus Staphylococcus Coagulase Neg ASSESSMENT/PLAN: 41 yo M with PMhx of severe MR, Seizure disorder, h/o MRSA presented from [facility] with fevers admitted for Sepsis found to have gram(+) bacteremia. Problem List - Problems (1) Sepsis Assessment/Plan: * Will send for ECHO today to r/o vegitations. * Continue vancomycin IV and Gentamycin 65mg IVQ8H * Patient is afebrile with no leukocytosis. * Blood cultures Enterococcus Faecalis, Alpha Hemolytic Streptococcus, Staphylococcus Coagulase Neg * repeat blood cultures sent. * CT abdomen with contrast(-) microperforation. * c-diff (-) * Repeat lactic acid improved s/p IVF, * ID consult appreciated. (2) Colitis Assessment/Plan: * C-Diff negative * CT abdomen reported above. (3) Seizure disorder Assessment/Plan: * No seizure activity. * Continue: * Fycompa 6 mg PO HS TARIQ * Topamax 75 mg PO BID * Depakene 1gm PO BID Visit type - Emergency Visit Emergency Visit: Yes ED Registration Date: 03/05/17 Care time: The patient presented to the Emergency Department on the above date and was hospitalized for further evaluation of their emergent condition. - New Patient This patient is new to me today: No - Critical Care Critical Care patient: No - Discharge Referral Referred to [facility] Med P.C.: No
[2017-03-08] MEDS ORDERED: PT OWN MED DRAWER 7, Y5N ONE ×3 (10:35→13:25)
[2017-03-08] MEDS: TOPIRAMATE 25 MG TABLET (FP) PO SCH ×2 (10:46→23:09)
[2017-03-08] MEDS: VALPROIC ACID 250 MG CAPSULE PO SCH ×2 (10:46→23:08)
[2017-03-08] MEDS: LORATADINE 10 MG TABLET PO SCH (10:46)
[2017-03-08] MEDS: RANITIDINE HCL 150 MG TABLET (FP) PO SCH (10:46)
[2017-03-08] MEDS: HEPARIN NA (PORCINE) 5,000 UNITS/ML 1ML VIAL SQ SCH ×2 (10:46→23:08)
[2017-03-08] MEDS: GEMFIBROZIL 600 MG TABLET (FP) PO SCH ×2 (10:47→23:09)
[2017-03-08] MEDS: WATER IVPB SCH ×3 (11:15→18:30)
[2017-03-08] MEDS: DEXTROSE 5% IVPB SCH ×3 (11:15→18:30)
[2017-03-08] MEDS: GENTAMICIN IVPB SCH ×3 (11:15→18:30)
--- NOTE | 2017-03-08 11:46 | PN ---
Progress Note (short form) - Note Progress Note: resting comfortably ate his meals no fever Vital Signs Period Temp Pulse Resp BP Sys/Monroy Pulse Ox Last 24 Hr 97.8 F-99.1 F 76-92 20-20 101-122/62-76 92-95 cor-rrr lungs clear abd soft,nt ext no edema cxray- he has a vagus nerve stimulator CBC, BMP 03/08/17 08:10 03/08/17 08:10 Microbiology 03/04/17 21:05 Blood - Peripheral Venous Blood Culture - Preliminary Group D Strep Or Entero Coccus Pending Organism Pending Organism#2 03/04/17 21:05 Blood - Peripheral Venous Blood Culture - Preliminary Enterococcus Faecalis Alpha Hemolytic Streptococcus Staphylococcus Coagulase Neg 03/05/17 01:25 Urine - Urine - Catheterized Urine Culture - Final NO GROWTH OBTAINED 03/05/17 15:33 Stool Clostridium difficile Antigen (MAGDY) - Final 03/05/17 15:33 Stool Clostridium difficile Toxin Assay - Final a/p gram postive bacteremia- polymicrobial continue vancomycin add gent for synergy follow levels closely echo esr/crp, echo pendinng pen allergy pen allergy history of colitis (negative cdiff) abd ct scan improved d/w resident Problem List - Problems (1) Fever Code(s): R50.9 - FEVER, UNSPECIFIED Qualifiers: Fever type: unspecified Qualified Code(s): R50.9 - Fever, unspecified (2) Pneumonia Code(s): J18.9 - PNEUMONIA, UNSPECIFIED ORGANISM Qualifiers: Pneumonia type: due to unspecified organism Laterality: left Lung location: lower lobe of lung Qualified Code(s): J18.1 - Lobar pneumonia, unspecified organism (3) Penicillin allergy Code(s): Z88.0 - ALLERGY STATUS TO PENICILLIN
[2017-03-08] MEDS: NYSTATIN POWDER 100,000 UNITS/GM - 15 GM TOPICAL POWDER TP SCH (12:38)
--- NOTE | 2017-03-08 13:33 | PN ---
Teaching Attending Note Name of Resident: Caden Fountain ATTENDING PHYSICIAN STATEMENT I saw and evaluated the patient. I reviewed the resident's note and discussed the case with the resident. I agree with the resident's findings and plan as documented. SUBJECTIVE:non verbal , no acute events OBJECTIVE: Vital Signs Temperature 98.7 F 03/08/17 12:00 Pulse Rate 84 03/08/17 10:43 Respiratory Rate 20 03/08/17 10:43 Blood Pressure 104/64 03/08/17 10:43 O2 Sat by Pulse Oximetry (%) 95 03/07/17 21:00 GENERAL: non verbal , NAD HEENT: Oral thrush noted. HEAD: NC/AT. LUNGS: CTAB, rales of left base. HEART: RRR, no M/G/R ABDOMEN: Soft, NT, ND ,BS(+), EXTREMITIES: contracted bilateral LE 2+ pulses, warm, well-perfused, no edema or erythema SKIN: Warm, dry, normal turgor, no rashes or lesions noted CBC, BMP 03/08/17 08:10 03/08/17 08:10 ASSESSMENT AND PLAN: 1. Sepsis secondary to gr positive bacteremia - Improved , afebrile, no leukocytosis. * echo ordered to r/o vegetations * c/w vanco /gentamycin 2. Quadriplegia - turn & position - decub prevention 3. Abnormal imaging of the lung suggestive of RUL changes- likely atelectasis due to remote R 5th rib fracture and bone osteophyte 4. History of seizure disorder- stable - c/w current meds - awaiting Fycompa to be delivered from home as it is non formulary - PRN ativan for breakthrough seizure 5 DVT PPX - heparin SQ If echo is negative will plan for d./c with IVAB
[2017-03-08] MEDS: PERAMPANEL 6 MG PO SCH (23:09)
[2017-03-09] MEDS ORDERED: PT OWN MED DRAWER 7, Y5N ONE ×3 (01:30→17:14)
[2017-03-09] MEDS: GENTAMICIN IVPB SCH ×3 (02:20→17:43)
[2017-03-09] MEDS: WATER IVPB SCH (02:20)
[2017-03-09] MEDS: DEXTROSE 5% IVPB SCH (02:20)
[2017-03-09] MEDS: VANCOMYCIN 1,250 MG in DEXTROSE 5%-WATER - 250 ML IVPB SCH (06:00)
[2017-03-09] MEDS: clonazePAM 0.5 MG TABLET PO SCH ×3 (06:01→22:08)
[2017-03-09] MEDS: SODIUM CHLORIDE 1,000 ML IV SCH ×2 (06:02→23:13)
[2017-03-09] MEDS: NYSTATIN 500,000 UNITS/5 ML SUSPENSION PO SCH ×3 (06:03→17:43)
--- NOTE | 2017-03-09 08:43 | PN ---
Progress Note, Physician Chief Complaint: ID Vancomycin Gentamicin Alert NAD No longer febrile - Current Medication List Current Medications: Active Medications Clonazepam (Klonopin -) 1 mg PO TID [facility] Last Admin: 03/09/17 06:01 Dose: 1 mg Gemfibrozil (Lopid -) 600 mg PO BID [facility] Last Admin: 03/08/17 23:09 Dose: 600 mg Heparin Sodium (Porcine) (Heparin -) 5,000 unit SQ BID [facility] Last Admin: 03/08/17 23:08 Dose: 5,000 unit Sodium Chloride (Normal Saline -) 1,000 mls @ 125 mls/hr IV ASDIR [facility] Last Admin: 03/09/17 06:02 Dose: 125 mls/hr Vancomycin HCl 1,250 mg/ (Dextrose) 250 mls @ 166.667 mls/hr IVPB BID@0500, 1700 [facility] PRN Reason: Protocol Last Admin: 03/09/17 06:00 Dose: 166.667 mls/hr Gentamicin Sulfate 65 mg/ (Dextrose) 101.625 mls @ 250 mls/hr IVPB Q8H-IV [facility] Last Admin: 03/09/17 02:20 Dose: 250 mls/hr Loratadine (Claritin -) 10 mg PO DAILY [facility] Last Admin: 03/08/17 10:46 Dose: 10 mg Lorazepam (Ativan Injection -) 1 mg IVPUSH Q4H PRN PRN Reason: SEIZURE Non-Formulary Medication (Perampanel [Fycompa]) 6 mg PO HS [facility] Last Admin: 03/08/17 23:09 Dose: 6 mg Nystatin (Nystatin Oral Suspension -) 500,000 units PO Q6HPO [facility] [place] Last Admin: 03/09/17 06:03 Dose: 500,000 units Nystatin (Nystop Powder -) 1 applic TP DAILY [facility] Last Admin: 03/08/17 12:38 Dose: 1 applic Ranitidine HCl (Zantac -) 150 mg PO DAILY [facility] Last Admin: 03/08/17 10:46 Dose: 150 mg Topiramate (Topamax -) 75 mg PO BID [facility] Last Admin: 03/08/17 23:09 Dose: 75 mg Valproic Acid (Depakene -) 1,000 mg PO BID [facility] Last Admin: 03/08/17 23:08 Dose: 1,000 mg - Objective Vital Signs: Vital Signs Temperature 98.1 F 03/09/17 06:52 Pulse Rate 71 03/09/17 06:52 Respiratory Rate 18 03/09/17 06:52 Blood Pressure 99/51 03/09/17 06:52 O2 Sat by Pulse Oximetry (%) 94 L 03/08/17 21:43 Constitutional: Yes: Well Nourished, No Distress Neck: Yes: WNL, Supple Cardiovascular: Yes: S1, S2. No: Murmur Respiratory: Yes: WNL, Regular, CTA Bilaterally Gastrointestinal: Yes: WNL, Normal Bowel Sounds, Soft. No: Tenderness, Tenderness, Epigastrium Edema: No Labs: CBC, BMP 03/08/17 08:10 03/08/17 08:10 INR, PTT INR 1.32 (0.82-1.09) H 03/05/17 08:40 Assessment/Plan Microbiology 03/04/17 21:05 Blood - Peripheral Venous Blood Culture - Final Enterococcus Faecalis Pediococcus Pentosaceus Staphylococcus Epidermidis 03/04/17 21:05 Blood - Peripheral Venous Blood Culture - Final Enterococcus Faecalis Pediococcus Pentosaceus Staphylococcus Epidermidis Laboratory Tests 03/05/17 03/05/17 03/08/17 07:04 08:40 08:10 WBC 4.5 Hgb 10.2 L Hct 30.7 L Plt Count 202 ESR BUN Creatinine Creat Clearance w eGFR Lactic Acid 1.3 Alkaline Phosphatase 53 C-Reactive Protein Vancomycin Pre-Dose 03/08/17 03/08/17 03/09/17 08:10 08:56 07:00 WBC Hgb Hct Plt Count ESR 70 H BUN 6 L D Creatinine 0.5 L Creat Clearance w eGFR > 60 Lactic Acid Alkaline Phosphatase C-Reactive Protein 2.2 H D Vancomycin Pre-Dose 21.095 H* Assessment Polymicrobial bacateremia includes Pediococcus ( not really familiar with this but an anaerobe) ? Bowel barry with an anaerobe Plan Unaysn Ceftriaxone for now Nadya KEENAN
[2017-03-09] MEDS ORDERED: GENTAMICIN SO4 *PEDIATRIC* 20 MG/2 ML VIAL IVPB SCH (09:00)
[2017-03-09] MEDS: RANITIDINE HCL 150 MG TABLET (FP) PO SCH (10:58)
[2017-03-09] MEDS: HEPARIN NA (PORCINE) 5,000 UNITS/ML 1ML VIAL SQ SCH ×2 (10:59→22:09)
[2017-03-09] MEDS: TOPIRAMATE 25 MG TABLET (FP) PO SCH ×2 (10:59→22:08)
[2017-03-09] MEDS: LORATADINE 10 MG TABLET PO SCH (10:59)
[2017-03-09] MEDS: SODIUM CHLORIDE IVPB SCH ×2 (10:59→17:43)
[2017-03-09] MEDS: GEMFIBROZIL 600 MG TABLET (FP) PO SCH ×2 (11:00→22:08)
[2017-03-09] MEDS: NYSTATIN POWDER 100,000 UNITS/GM - 15 GM TOPICAL POWDER TP SCH (11:00)
[2017-03-09] MEDS: VALPROIC ACID 250 MG CAPSULE PO SCH ×2 (11:00→22:08)
[2017-03-09] MEDS: METRONIDAZOLE 500 MG PREMIXED 100 ML IVPB SCH ×2 (12:22→18:41)
--- NOTE | 2017-03-09 13:57 | PN ---
Physical Exam: SUBJECTIVE: Patient seen and examined, no more episodes of diarrhea noted . OBJECTIVE: Vital Signs Period Temp Pulse Resp BP Sys/Monroy Pulse Ox Last 24 Hr 97.6 F-98.4 F 71-81 18-20 91-141/51-73 94 GENERAL: non verbal , NAD HEENT: Oral thrush noted. HEAD: NC/AT. LUNGS: CTAB, rales of left base. HEART: RRR, no M/G/R ABDOMEN: Soft, NT, ND ,BS(+), EXTREMITIES: contracted bilateral LE 2+ pulses, warm, well-perfused, no edema or erythema SKIN: Warm, dry, normal turgor, no rashes or lesions noted Laboratory Results - last 24 hr 03/09/17 07:00 Vancomycin Pre-Dose 21.095 H* Active Medications Generic Name Dose Route Start Last Admin Trade Name Freq PRN Reason Stop Dose Admin Clonazepam 1 mg 03/05/17 07:15 03/09/17 13:28 Klonopin - PO 1 mg TID [facility]AR[facility] Administration Gemfibrozil 600 mg 03/05/17 10:00 03/09/17 11:00 Lopid - PO 600 mg BID [facility] Administration Heparin Sodium (Porcine) 5,000 unit 03/06/17 22:00 03/09/17 10:59 Heparin - SQ 5,000 unit BID [facility] Administration Sodium Chloride 1,000 mls @ 125 mls/hr 03/05/17 03:30 03/09/17 06:02 Normal Saline - IV 125 mls/hr ASDIR [facility] Administration Vancomycin HCl 250 mls @ 166.667 mls/hr 03/10/17 06:00 Vancomycin (Pre-Docked) IVPB BID@0600,1800 [facility] Protocol Metronidazole 100 mls @ 100 mls/hr 03/09/17 10:00 03/09/17 12:22 Flagyl 500mg Premixed Ivpb - IVPB 100 mls/hr Q8H-IV [facility] Administration Gentamicin Sulfate 125 mg/ 103.125 mls @ 103.125 mls/hr 03/09/17 10:00 10:59 Sodium Chloride IVPB 103.125 mls/hr Q8H-IV [facility] Administration Loratadine 10 mg 03/05/17 10:00 03/09/17 10:59 Claritin - PO 10 mg DAILY [facility] Administration Non-Formulary Medication 6 mg 03/06/17 22:00 03/08/17 23:09 Perampanel [Fycompa] PO 6 mg HS [facility] Administration Nystatin 500,000 units 03/05/17 12:00 03/09/17 11:01 Nystatin Oral Suspension - PO 500,000 units Q6HPO [facility] Administration Nystatin 1 applic 03/05/17 11:15 03/09/17 11:00 Nystop Powder - TP 1 applic DAILY [facility] Administration Ranitidine HCl 150 mg 03/05/17 10:00 03/09/17 10:58 Zantac - PO 150 mg DAILY [facility] Administration Topiramate 75 mg 03/05/17 10:00 03/09/17 10:59 Topamax - PO 75 mg BID [facility] Administration Valproic Acid 1,000 mg 03/05/17 10:00 03/09/17 11:00 Depakene - PO 1,000 mg BID [facility] Administration ASSESSMENT/PLAN: 1. Sepsis secondary to gr positive bacteremia - Improved , afebrile, no leukocytosis.Blood cultures are noted and possibly * on unasyn/ceftriaxone , length of treatment to be determined by ID * will need PICC line * 2. Quadriplegia - turn & position - decub prevention 3. Abnormal imaging of the lung suggestive of RUL changes- likely atelectasis due to remote R 5th rib fracture and bone osteophyte 4. History of seizure disorder- stable - c/w current meds - PRN ativan for breakthrough seizure 5 DVT PPX - heparin SQ Visit type - Emergency Visit Emergency Visit: No - New Patient This patient is new to me today: No - Critical Care Critical Care patient: No - Discharge Referral Referred to [facility] Med P.C.: No
[2017-03-09] MEDS: PERAMPANEL 6 MG PO SCH (22:13)
[2017-03-10] MEDS: SODIUM CHLORIDE IVPB SCH ×3 (01:14→18:24)
[2017-03-10] MEDS: NYSTATIN 500,000 UNITS/5 ML SUSPENSION PO SCH ×4 (01:14→17:07)
[2017-03-10] MEDS: GENTAMICIN IVPB SCH ×3 (01:14→18:24)
[2017-03-10] MEDS: METRONIDAZOLE 500 MG PREMIXED 100 ML IVPB SCH ×3 (02:03→17:07)
[2017-03-10] MEDS: SODIUM CHLORIDE 1,000 ML IV SCH ×2 (05:51→09:45)
[2017-03-10] MEDS: VANCOMYCIN 1 GRAM (PRE-DOCKED) 250 ML IVPB SCH ×2 (05:52→19:42)
[2017-03-10] MEDS: clonazePAM 0.5 MG TABLET PO SCH ×3 (05:53→21:49)
[2017-03-10 07:54] LABS: MCH 30.9 pg (25.7-33.7); MCHC 32.9 g/dl (32.0-35.9); MEAN CELL VOLUME 93.9 fl (80-96); MEAN PLT VOLUME 7.9 fl (7.5-11.1); PLATELET COUNT 213 K/MM3 (134-434); RDW 14.8 % (11.9-15.9); WHITE BLOOD COUNT 4.1 K/mm3 (4.0-10.0)
[2017-03-10 09:13] LABS: PLATELET ESTIMATE ADEQUATE (NORMAL)
--- NOTE | 2017-03-10 09:33 | PN ---
Physical Exam: SUBJECTIVE: Patient seen and examined. Sleeping but arousable. Aide present. OBJECTIVE: Vital Signs Period Temp Pulse Resp BP Sys/Monroy Pulse Ox Last 24 Hr 98.3 F-98.9 F 66-97 18-18 102-152/47-89 GENERAL/NEURO: The patient is awake. Nonverbal at baseline. Does not follow commands. In no apparent distress. Appears comfortable. HEAD: Normal with no signs of trauma. LUNGS: Breath sounds equal, clear to auscultation bilaterally, no wheezes, no crackles, no accessory muscle use. HEART: Regular rate and rhythm, S1, S2 without murmur, rub or gallop. ABDOMEN: Soft, nontender, nondistended, normoactive bowel sounds, no guarding, no rebound EXTREMITIES: bilateral lower extremities contracted Laboratory Results - last 24 hr 03/10/17 06:25 WBC 4.1 RBC 3.52 L Hgb 10.9 L Hct 33.0 L MCV 93.9 MCHC 32.9 RDW 14.8 Plt Count 213 MPV 7.9 Neutrophils % 23.0 L D Lymphocytes % 53.0 H D Monocytes % 15.0 H Eosinophils % 7.0 H Basophils % 2.0 Differential Comment Manual diff done Platelet Estimate Adequate Active Medications Generic Name Dose Route Start Last Admin Trade Name Freq PRN Reason Stop Dose Admin Clonazepam 1 mg 03/05/17 07:15 03/10/17 05:53 Klonopin - PO 1 mg TID [facility] Administration Gemfibrozil 600 mg 03/05/17 10:00 03/09/17 22:08 Lopid - PO 600 mg BID [facility] Administration Heparin Sodium (Porcine) 5,000 unit 03/06/17 22:00 03/09/17 22:09 Heparin - SQ 5,000 unit BID [facility] Administration Sodium Chloride 1,000 mls @ 125 mls/hr 03/05/17 03:30 03/10/17 05:51 Normal Saline - IV Not Given ASDIR [facility] Vancomycin HCl 250 mls @ 166.667 mls/hr 03/10/17 06:00 03/10/17 05:52 Vancomycin (Pre-Docked) IVPB 166.667 mls/hr BID@0600,1800 [facility] OF [facility] Administration Protocol Metronidazole 100 mls @ 100 mls/hr 03/09/17 10:00 03/10/17 02:03 Flagyl 500mg Premixed Ivpb - IVPB 100 mls/hr Q8H-IV [facility] Administration Gentamicin Sulfate 125 mg/ 103.125 mls @ 103.125 mls/hr 03/09/17 10:00 01:14 Sodium Chloride IVPB 103.125 mls/hr Q8H-IV [facility] Administration Loratadine 10 mg 03/05/17 10:00 03/09/17 10:59 Claritin - PO 10 mg DAILY [facility] Administration Non-Formulary Medication 6 mg 03/06/17 22:00 03/09/17 22:13 Perampanel [Fycompa] PO 6 mg HS [facility] Administration Nystatin 500,000 units 03/05/17 12:00 03/10/17 05:53 Nystatin Oral Suspension - PO 500,000 units Q6HPO [facility] Administration Nystatin 1 applic 03/05/17 11:15 03/09/17 11:00 Nystop Powder - TP 1 applic DAILY [facility] Administration Ranitidine HCl 150 mg 03/05/17 10:00 03/09/17 10:58 Zantac - PO 150 mg DAILY [facility] Administration Topiramate 75 mg 03/05/17 10:00 03/09/17 22:08 Topamax - PO 75 mg BID [facility] Administration Valproic Acid 1,000 mg 03/05/17 10:00 03/09/17 22:08 Depakene - PO 1,000 mg BID [facility] Administration ASSESSMENT/PLAN 41 year-old male, [facility], with a PMH of severe mental retardation and seizure disorder. Admitted 02/19-03/01 for severe sepsis secondary to colitis. Readmitted 03/04 for recurrent fevers. E. faecalis and Pediococcus pentosaceus bacteremia --afebrile, no leukocytosis --per ID, resume Vanc, continue gent and metronidazole Colitis --03/06 CTAP: residual thickening of the proximal sigmoid colon and stranding of the surrounding fat/mesentary; no sign of abscess --having regular bowel movements Functional quadriplegia --dependent for all ADLs Seizure disorder --stable --continue perampanel, topiramate, valproic acid F/E/N Fluids: stop IV fluids; PO intake adequate Electrolytes: replete as indicated Nutrition: puree diet DVT prophylaxis: subq heparin Dispo: continues to require inpatient care. Full Code. Visit type - Emergency Visit Emergency Visit: Yes ED Registration Date: 03/05/17 Care time: The patient presented to the Emergency Department on the above date and was hospitalized for further evaluation of their emergent condition. - New Patient This patient is new to me today: Yes Date on this admission: 03/10/17 - Critical Care Critical Care patient: No
[2017-03-10] MEDS: NYSTATIN POWDER 100,000 UNITS/GM - 15 GM TOPICAL POWDER TP SCH (10:10)
[2017-03-10] MEDS: LORATADINE 10 MG TABLET PO SCH (10:15)
[2017-03-10] MEDS: TOPIRAMATE 25 MG TABLET (FP) PO SCH ×2 (10:15→21:50)
[2017-03-10] MEDS: RANITIDINE HCL 150 MG TABLET (FP) PO SCH (10:15)
[2017-03-10] MEDS: HEPARIN NA (PORCINE) 5,000 UNITS/ML 1ML VIAL SQ SCH ×2 (10:15→21:48)
[2017-03-10] MEDS: VALPROIC ACID 250 MG CAPSULE PO SCH ×2 (10:16→21:48)
[2017-03-10] MEDS: GEMFIBROZIL 600 MG TABLET (FP) PO SCH ×2 (10:16→21:48)
[2017-03-10] MEDS: PERAMPANEL 6 MG PO SCH (21:49)
[2017-03-11] MEDS: NYSTATIN 500,000 UNITS/5 ML SUSPENSION PO SCH ×4 (01:14→18:00)
[2017-03-11] MEDS: METRONIDAZOLE 500 MG PREMIXED 100 ML IVPB SCH ×3 (01:18→18:00)
[2017-03-11] MEDS: GENTAMICIN IVPB SCH ×2 (02:04→13:15)
[2017-03-11] MEDS: SODIUM CHLORIDE IVPB SCH ×2 (02:04→13:15)
[2017-03-11] MEDS: clonazePAM 0.5 MG TABLET PO SCH ×3 (05:41→23:05)
[2017-03-11] MEDS: VANCOMYCIN 1 GRAM (PRE-DOCKED) 250 ML IVPB SCH ×2 (05:41→19:09)
[2017-03-11 07:37] LABS: MEAN PLT VOLUME 7.7 fl (7.5-11.1); PLATELET COUNT 231 K/MM3 (134-434); RDW 14.9 % (11.9-15.9); WHITE BLOOD COUNT 3.8 K/mm3 (4.0-10.0)
[2017-03-11 08:03] LABS: ALBUMIN 2.5 g/dl (3.4-5.0); ANION GAP 9 (8-16); CALCIUM 8.4 mg/dL (8.5-10.1); CO2 24 mmol/L (21-32); GLUCOSE,RANDOM 94 mg/dL (74-106); SGOT/AST 31 U/L (15-37); SGPT/ALT 30 U/L (12-78)
[2017-03-11 08:05] LABS: ALK PHOS 51 U/L (45-117); BILIRUBIN,TOTAL 0.2 mg/dL (0.2-1.0); CREATININE 0.6 mg/dL (0.7-1.3); TOT PROT 6.3 g/dl (6.4-8.2)
[2017-03-11] MEDS: HEPARIN NA (PORCINE) 5,000 UNITS/ML 1ML VIAL SQ SCH ×2 (09:39→23:05)
--- NOTE | 2017-03-11 10:31 | PN ---
Progress Note (short form) - Note Progress Note: resting comfortably AFEBRILE Vital Signs Period Temp Pulse Resp BP Sys/Monroy Pulse Ox Last 24 Hr 98.8 F-99.4 F 69-87 20-20 97-118/48-78 COR-RRR LLUNGS CLEAR ABD SOFT,NT EXT NO EDEMA CBC, BMP 03/11/17 05:35 03/11/17 05:35 Microbiology 03/07/17 16:30 Blood - Peripheral Venous Blood Culture - Preliminary NO GROWTH OBTAINED AFTER 72 HOURS, INCUBATION TO CONTINUE FOR 2 DAYS. 03/07/17 16:30 Blood - Peripheral Venous Blood Culture - Preliminary NO GROWTH OBTAINED AFTER 72 HOURS, INCUBATION TO CONTINUE FOR 2 DAYS. 03/04/17 21:05 Blood - Peripheral Venous Blood Culture - Final Enterococcus Faecalis Pediococcus Pentosaceus Staphylococcus Epidermidis 03/04/17 21:05 Blood - Peripheral Venous Blood Culture - Final Enterococcus Faecalis Pediococcus Pentosaceus Staphylococcus Epidermidis 03/05/17 01:25 Urine - Urine - Catheterized Urine Culture - Final NO GROWTH OBTAINED 03/05/17 15:33 Stool Clostridium difficile Antigen (MAGDY) - Final 03/05/17 15:33 Stool Clostridium difficile Toxin Assay - Final Laboratory Tests 03/08/17 03/08/17 08:10 08:56 ESR 70 H C-Reactive Protein 2.2 H D a/p POLYMICROBIAL BACTEREMIA - INCLUDING enterococcus and anaerobe on vanco/gent and flagyl check vancomycin and gent levels today (trough levels ordered) echo unrevealing, CAITLIN may be helpful in this instance-if negative we could treat 2 weeks i suggest GI evaluation for possible colonoscopy- ?source of bacteremia would continue IVF while patient is on vanc/gent pen allergy history of colitis (negative cdiff) abd ct scan improved Problem List - Problems (1) Fever Code(s): R50.9 - FEVER, UNSPECIFIED Qualifiers: Fever type: unspecified Qualified Code(s): R50.9 - Fever, unspecified (2) Pneumonia Code(s): J18.9 - PNEUMONIA, UNSPECIFIED ORGANISM Qualifiers: Pneumonia type: due to unspecified organism Laterality: left Lung location: lower lobe of lung Qualified Code(s): J18.1 - Lobar pneumonia, unspecified organism (3) Penicillin allergy Code(s): Z88.0 - ALLERGY STATUS TO PENICILLIN
[2017-03-11] MEDS: VALPROIC ACID 250 MG CAPSULE PO SCH ×2 (11:05→23:06)
[2017-03-11] MEDS: LORATADINE 10 MG TABLET PO SCH (11:06)
[2017-03-11] MEDS: RANITIDINE HCL 150 MG TABLET (FP) PO SCH (11:06)
[2017-03-11] MEDS: GEMFIBROZIL 600 MG TABLET (FP) PO SCH ×2 (11:06→23:05)
[2017-03-11] MEDS: TOPIRAMATE 25 MG TABLET (FP) PO SCH ×2 (11:06→23:05)
[2017-03-11 12:13] LABS: PLATELET COMMENT2 NO CLOTTING DETECTED; PLATELET ESTIMATE ADEQUATE (NORMAL)
[2017-03-11 12:14] LABS: ANISOCYTOSIS 1+; HYPOCHROMIA 1+
--- NOTE | 2017-03-11 13:25 | PN ---
Physical Exam: SUBJECTIVE: Patient seen and examined at bedside. No overnight events. Eating well. Non-verbal but awake and alert. OBJECTIVE: Vital Signs Period Temp Pulse Resp BP Sys/Monroy Pulse Ox Last 24 Hr 98.4 F-99.4 F 69-87 20-20 97-132/48-78 GENERAL: non verbal , NAD HEAD: NC/AT. LUNGS: CTAB, no wheezing HEART: RRR, no M/G/R ABDOMEN: Soft, LLQ tenderness, ND ,BS(+), EXTREMITIES: contracted bilateral LE 2+ pulses, warm, well-perfused, no edema or erythema SKIN: Warm, dry, normal turgor, no rashes or lesions noted Laboratory Results - last 24 hr 03/11/17 03/11/17 03/11/17 05:35 05:35 11:05 WBC 3.8 L RBC 3.50 L Hgb 10.9 L Hct 32.9 L MCV 94.0 MCHC 33.0 RDW 14.9 Plt Count 231 MPV 7.7 Neutrophils % 22.0 L Lymphocytes % 52.0 H Monocytes % 22.0 H Eosinophils % 3.0 Band Neutrophils 1.0 D Platelet Estimate Adequate Platelet Comment No clotting detected Hypochromic-Microcytic 1+ Anisocytosis 1+ Sodium 144 Potassium 3.8 Chloride 111 H Carbon Dioxide 24 Anion Gap 9 BUN 5 L Creatinine 0.6 L Creat Clearance w eGFR > 60 Random Glucose 94 Calcium 8.4 L Magnesium 2.0 Total Bilirubin 0.2 AST 31 D ALT 30 D Alkaline Phosphatase 51 Total Protein 6.3 L Albumin 2.5 L Gentamicin Trough 2.2 H Active Medications Generic Name Dose Route Start Last Admin Trade Name Nathanael PRN Reason Stop Dose Admin Clonazepam 1 mg 03/05/17 07:15 03/11/17 05:41 Klonopin - PO 1 mg TID TARIQ Administration Gemfibrozil 600 mg 03/05/17 10:00 03/11/17 11:06 Lopid - PO 600 mg BID TARIQ Administration Heparin Sodium (Porcine) 5,000 unit 03/06/17 22:00 03/11/17 09:39 Heparin - SQ 5,000 unit BID TARIQ Administration Vancomycin HCl 250 mls @ 166.667 mls/hr 03/10/17 06:00 03/11/17 05:41 Vancomycin (Pre-Docked) IVPB 166.667 mls/hr BID@0600,1800 TARIQ Administration Protocol Metronidazole 100 mls @ 100 mls/hr 03/09/17 10:00 03/11/17 09:39 Flagyl 500mg Premixed Ivpb - IVPB 100 mls/hr Q8H-IV TARIQ Administration Gentamicin Sulfate 125 mg/ 103.125 mls @ 103.125 mls/hr 03/09/17 10:00 13:15 Sodium Chloride IVPB 103.125 mls/hr Q8H-IV TARIQ Administration Loratadine 10 mg 03/05/17 10:00 03/11/17 11:06 Claritin - PO 10 mg DAILY TARIQ Administration Non-Formulary Medication 6 mg 03/06/17 22:00 03/10/17 21:49 Perampanel [Fycompa] PO 6 mg HS TARIQ Administration Nystatin 500,000 units 03/05/17 12:00 03/11/17 13:17 Nystatin Oral Suspension - PO 500,000 units Q6HPO TARIQ Administration Nystatin 1 applic 03/05/17 11:15 03/10/17 10:10 Nystop Powder - TP 1 applic DAILY TARIQ Administration Ranitidine HCl 150 mg 03/05/17 10:00 03/11/17 11:06 Zantac - PO 150 mg DAILY TARIQ Administration Topiramate 75 mg 03/05/17 10:00 03/11/17 11:06 Topamax - PO 75 mg BID TARIQ Administration Valproic Acid 1,000 mg 03/05/17 10:00 03/11/17 11:05 Depakene - PO 1,000 mg BID TARIQ Administration ASSESSMENT/PLAN: 41 yo M with PMhx of severe MR, Seizure disorder, h/o MRSA presented from [facility] with fevers admitted for Sepsis found to have gram(+) bacteremia. Problem List - Problems (1) Sepsis Assessment/Plan: * Source unkown - probable translocation from previous colitis. * TTECHO (-) for vegitations.- will consult cardio for possible CAITLIN * Repeat blood cultures (-) 72hrs. * Continue vancomycin IV and Flagyl * Held Gentamycin because level >2.0 * Patient is afebrile with no leukocytosis. * CT abdomen with contrast(-) microperforation. * c-diff (-) * ID consult appreciated. (2) Colitis Assessment/Plan: * Will obtain GI consult for possible colonoscopy * Continue Abx. * C-Diff negative (3) Seizure disorder Assessment/Plan: * No seizure activity. * Continue: * Fycompa 6 mg PO HS TARIQ * Topamax 75 mg PO BID * Depakene 1gm PO BID Visit type - Emergency Visit Emergency Visit: Yes ED Registration Date: 03/05/17 Care time: The patient presented to the Emergency Department on the above date and was hospitalized for further evaluation of their emergent condition. - New Patient This patient is new to me today: No - Critical Care Critical Care patient: No - Discharge Referral Referred to [facility] Med P.C.: No
[2017-03-11] MEDS: NYSTATIN POWDER 100,000 UNITS/GM - 15 GM TOPICAL POWDER TP SCH (18:00)
--- NOTE | 2017-03-11 19:49 | PN ---
Teaching Attending Note Name of Resident: Caden Fountain ATTENDING PHYSICIAN STATEMENT I saw and evaluated the patient. I reviewed the resident's note and discussed the case with the resident. I agree with the resident's findings and plan as documented. SUBJECTIVE: No events over night OBJECTIVE: NAD, pleasant. MMM. no JVD. no facial droop CV: RRR, no MRG Lungs: not cooperative , unable to assess breathing sounds Abd: ND, soft. NL BS . grimaces with LLQ palpation Ext: no edema , no erythema. ASSESSMENT AND PLAN: 41 y/o male with h/o severe MR, seizure disorder, and h/o MRSA , who presented from [facility] with fevers. He was found to have severe sepsis . 1- Sepsis 2/2 bacteremia : blood cx reviewed. probably due to translocation of bacteria in setting of colitis cont vanco , genta ), and flagyl d/w Dr. Aguirre consult CArd for CAITLIN consult GI for possible colonoscopy 2- Seizure disorder :COnt valproic acid cont topiramate and Eycompa 3- Residual colitis: on Abx 4- functional quadreplegia HLOC
[2017-03-11] MEDS: PERAMPANEL 6 MG PO SCH (23:16)
[2017-03-12] MEDS: NYSTATIN 500,000 UNITS/5 ML SUSPENSION PO SCH ×4 (00:16→18:27)
[2017-03-12] MEDS: METRONIDAZOLE 500 MG PREMIXED 100 ML IVPB SCH ×3 (01:43→17:44)
[2017-03-12] MEDS: VANCOMYCIN 1 GRAM (PRE-DOCKED) 250 ML IVPB SCH ×2 (06:12→18:27)
[2017-03-12] MEDS: clonazePAM 0.5 MG TABLET PO SCH (06:12)
[2017-03-12 08:21] LABS: MCH 30.4 pg (25.7-33.7); MCHC 32.7 g/dl (32.0-35.9); MEAN CELL VOLUME 93.1 fl (80-96); MEAN PLT VOLUME 7.4 fl (7.5-11.1); PLATELET COUNT 223 K/MM3 (134-434); RDW 15.2 % (11.9-15.9); WHITE BLOOD COUNT 4.6 K/mm3 (4.0-10.0)
[2017-03-12 08:45] LABS: ANION GAP 8 (8-16); CALCIUM 8.5 mg/dL (8.5-10.1); CO2 25 mmol/L (21-32); CREATININE 0.6 mg/dL (0.7-1.3); GLUCOSE,RANDOM 109 mg/dL (74-106)
[2017-03-12] MEDS ORDERED: PT OWN MED DRAWER 7, Y5N ONE ×2 (09:40→11:53)
[2017-03-12] MEDS: LORATADINE 10 MG TABLET PO SCH (09:59)
[2017-03-12] MEDS: VALPROIC ACID 250 MG CAPSULE PO SCH ×2 (09:59→23:31)
[2017-03-12] MEDS: RANITIDINE HCL 150 MG TABLET (FP) PO SCH (09:59)
[2017-03-12] MEDS: TOPIRAMATE 25 MG TABLET (FP) PO SCH ×2 (10:00→23:32)
[2017-03-12] MEDS: GEMFIBROZIL 600 MG TABLET (FP) PO SCH ×2 (10:00→23:32)
[2017-03-12] MEDS: NYSTATIN POWDER 100,000 UNITS/GM - 15 GM TOPICAL POWDER TP SCH (10:01)
[2017-03-12] MEDS: HEPARIN NA (PORCINE) 5,000 UNITS/ML 1ML VIAL SQ SCH ×2 (10:01→23:32)
--- NOTE | 2017-03-12 10:41 | CON.GI ---
Consult Consult Specialty:: GI Referred by:: Hospitalist Reason for Consultation:: Polymicrobial Bacteremia - History of Present Illness Chief Complaint: Polymicrobial Bacteremia History of Present Illness: 41M recently admitted to [facility] from [facility] for evaluation of fevers, rectal bleeding, diarrhea. There was a question of colitis on CT scan at that time. Stool studies were unrevealing as were blood cultures, there was no rectal bleeding at that time and noted to be guaiac negative. Stool studies were unrevealing as were blood cultures and he improved with conservative measures. He was started on Abx including PO Vanco at the time to cover for C. Diff. He was readmitted 03/04/17 for eval of fevers. he was noted to have polymicrobial bacteremia including enterococcus. He has been evaluated by ID and is receiving Abx. Cardiology was consulted to evaluate for CAITLIN as well as GI to evaluate for possible colonoscopy. There has been no reported rectal bleeding. 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: Seizure, Other (Mental retardation) Additional Medical History: Severe mental retardation, seizure disorder, osteoporosis, h/o MRSA - Past Surgical History Past Surgical History: Yes: None - Alcohol/Substance Use Hx Alcohol Use: No - Smoking History Smoking history: Never smoked Have you smoked in the past 12 months: No - Social History Usual Living Arrangement: Halfway ADL: Support Services Occupation: Diabled History of Recent Travel: No Home Medications - Allergies Allergies/Adverse Reactions: Allergies Allergy/AdvReac Type Severity Reaction Status Date / Time cheese Allergy Verified 03/04/17 19:12 legumes Allergy Verified 03/04/17 19:12 peanut Allergy Verified 03/04/17 19:12 peas Allergy Verified 03/04/17 19:12 Penicillins Allergy Verified 03/04/17 19:12 Pork/Porcine Containing Allergy Verified 03/04/17 19:12 Products soy Allergy Verified 03/04/17 19:12 turkey Allergy Verified 03/04/17 19:12 wheat Allergy Verified 03/04/17 19:12 - Home Medications Home Medications: Ambulatory Orders Calcium Carbonate/Vitamin D3 [Oystercal-D 500 mg-400 Unit Tb] 500 mg PO DAILY Cholecalciferol (Vitamin D3) [Vitamin D3] 2,000 unit PO DAILY 02/20/17 Clonazepam [Klonopin] 1 mg PO TID 02/20/17 Diazepam Rectal Gel [Diastat Rectal Gel -] 10 mg ND ONCE 02/20/17 Famotidine 20 mg PO DAILY 02/20/17 Fluticasone Prop 0.05% Nasal [Flonase -] 1 - 2 spray NS DAILY 02/20/17 Gemfibrozil 600 mg PO BID 02/20/17 Loratadine 10 mg PO DAILY 02/20/17 Perampanel [Fycompa] 6 mg PO HS 02/20/17 Topiramate 75 mg PO BID 02/20/17 Valproic Acid [Depakene -] 1 gm PO BID 02/20/17 Family Disease History - Family Disease History Family History: Unable to Obtain Review of Systems - Review of Systems Gastrointestinal: denies: Diarrhea Physical Exam-GI Vital Signs: Vital Signs Temperature 97.8 F 03/12/17 10:00 Pulse Rate 71 03/12/17 10:00 Respiratory Rate 20 03/12/17 10:00 Blood Pressure 117/70 03/12/17 10:00 O2 Sat by Pulse Oximetry (%) 94 L 03/08/17 21:43 Constitutional: Yes: Calm Eyes: No: Sclera Icterus Cardiovascular: Yes: Regular Rate and Rhythm (heart noises somewhat obscured by patient's grunts) Respiratory: Yes: Diminished (poor inspiratory and obscured by patien'ts grunts) Gastrointestinal Inspection: No: Distention ...Auscultate: Yes: Normoactive Bowel Sounds ...Palpate: No: Tenderness (No grimacing upon palpation) ...Percussion: No: Tympanitic Extremities: Yes: Other (Contractures LE) Edema: No (contractures LE) Neurological: Yes: Other (Awake, no meaningful verbalization) Labs: CBC, BMP 03/12/17 07:35 03/12/17 07:35 INR, PTT INR 1.32 (0.82-1.09) H 03/05/17 08:40 Imaging - Results Cat Scan: Report Reviewed (residual left sided colitis) Problem List - Problems (1) Colitis Assessment/Plan: Asked to evaluate for colonoscopy to evaluate for source of polymicrobial bacteremia Called parents to discuss the possibility of a colonoscopy. Bowel preparation may be difficult and this will be discussed as well. If the family is amenable then colonoscopy could be undertaken. Code(s): K52.9 - NONINFECTIVE GASTROENTERITIS AND COLITIS, UNSPECIFIED
--- NOTE | 2017-03-12 13:12 | PN ---
Teaching Attending Note Name of Resident: Caden Fountain ATTENDING PHYSICIAN STATEMENT I saw and evaluated the patient. I reviewed the resident's note and discussed the case with the resident. I agree with the resident's findings and plan as documented. SUBJECTIVE: no events over night OBJECTIVE: NAD, pleasant. MMM. no JVD. no facial droop CV: RRR, no MRG Lungs:bibasilar crackles Abd: ND, soft. NL BS . grimaces with LLQ deep palpation Ext: no edema , no erythema. ASSESSMENT AND PLAN: 41 y/o male with h/o severe MR, seizure disorder, and h/o MRSA , who presented from [facility] with fevers. He was found to have severe sepsis . 1- Sepsis 2/2 bacteremia : possibly secondary to colitis cont vanco , genta , and flagyl Card consult for CAITLIN pending appreciate GI input 2- Seizure disorder :Cont valproic acid cont topiramate and Eycompa 3- Residual colitis: on Abx 4- functional quadreplegia HLOC
--- NOTE | 2017-03-12 14:17 | PN ---
Progress Note (short form) - Note Progress Note: resting comfortably Vital Signs Period Temp Pulse Resp BP Sys/Monroy Pulse Ox Last 24 Hr 97.8 F-98.9 F 71-153 20-20 109-128/59-70 95 cor-rrr lungs clear abd soft,nt ext no edema CBC, BMP 03/12/17 07:35 03/12/17 07:35 Microbiology 03/07/17 16:30 Blood - Peripheral Venous Blood Culture - Preliminary NO GROWTH OBTAINED AFTER 96 HOURS, INCUBATION TO CONTINUE FOR 1 DAYS. 03/07/17 16:30 Blood - Peripheral Venous Blood Culture - Preliminary NO GROWTH OBTAINED AFTER 96 HOURS, INCUBATION TO CONTINUE FOR 1 DAYS. 03/04/17 21:05 Blood - Peripheral Venous Blood Culture - Final Enterococcus Faecalis Pediococcus Pentosaceus Staphylococcus Epidermidis 03/04/17 21:05 Blood - Peripheral Venous Blood Culture - Final Enterococcus Faecalis Pediococcus Pentosaceus Staphylococcus Epidermidis 03/05/17 01:25 Urine - Urine - Catheterized Urine Culture - Final NO GROWTH OBTAINED 03/05/17 15:33 Stool Clostridium difficile Antigen (MAGDY) - Final 03/05/17 15:33 Stool Clostridium difficile Toxin Assay - Final a/p POLYMICROBIAL BACTEREMIA - INCLUDING enterococcus and anaerobe on vanco/gent and flagyl resume gentamicin, continue vancomycin and flagyl echo unrevealing, CAITLIN may be helpful in this instance-if negative we could treat 2 weeks i d/w GI would continue IVF while patient is on vanc/gent pen allergy history of colitis (negative cdiff) abd ct scan improved Laboratory Tests 03/08/17 03/08/17 03/11/17 08:10 08:56 11:05 ESR 70 H C-Reactive Protein 2.2 H D Gentamicin Trough 2.2 H Vancomycin Pre-Dose 03/11/17 03/12/17 16:52 07:35 ESR C-Reactive Protein Gentamicin Trough 0.3 D Vancomycin Pre-Dose 11.215 H D Problem List - Problems (1) Fever Code(s): R50.9 - FEVER, UNSPECIFIED Qualifiers: Fever type: unspecified Qualified Code(s): R50.9 - Fever, unspecified (2) Pneumonia Code(s): J18.9 - PNEUMONIA, UNSPECIFIED ORGANISM Qualifiers: Pneumonia type: due to unspecified organism Laterality: left Lung location: lower lobe of lung Qualified Code(s): J18.1 - Lobar pneumonia, unspecified organism (3) Penicillin allergy Code(s): Z88.0 - ALLERGY STATUS TO PENICILLIN
--- NOTE | 2017-03-12 15:09 | PN ---
Physical Exam: SUBJECTIVE: Patient seen and examined at bedside. No overnight events. Eating well. Non-verbal but awake and alert. OBJECTIVE: Vital Signs Period Temp Pulse Resp BP Sys/Monroy Pulse Ox Last 24 Hr 97.8 F-98.9 F 71-153 20-20 109-128/59-70 95 GENERAL: non verbal , NAD HEAD: NC/AT. LUNGS: CTAB, no wheezing HEART: RRR, no M/G/R ABDOMEN: Soft, LLQ tenderness, ND ,BS(+), EXTREMITIES: contracted bilateral LE 2+ pulses, warm, well-perfused, no edema or erythema SKIN: Warm, dry, normal turgor, no rashes or lesions noted Laboratory Results - last 24 hr 03/11/17 03/12/17 03/12/17 16:52 07:35 07:35 WBC 4.6 RBC 3.54 L Hgb 10.8 L Hct 32.9 L MCV 93.1 MCHC 32.7 RDW 15.2 Plt Count 223 MPV 7.4 L Sodium Potassium Chloride Carbon Dioxide Anion Gap BUN Creatinine Random Glucose Calcium Gentamicin Trough 0.3 D Vancomycin Pre-Dose 11.215 H D 03/12/17 07:35 WBC RBC Hgb Hct MCV MCHC RDW Plt Count MPV Sodium 145 Potassium 3.8 Chloride 112 H Carbon Dioxide 25 Anion Gap 8 BUN 6 L Creatinine 0.6 L Random Glucose 109 H Calcium 8.5 Gentamicin Trough Vancomycin Pre-Dose Active Medications Generic Name Dose Route Start Last Admin Trade Name Freq PRN Reason Stop Dose Admin Gemfibrozil 600 mg 03/05/17 10:00 03/12/17 10:00 Lopid - PO 600 mg BID TARIQ Administration Heparin Sodium (Porcine) 5,000 unit 03/06/17 22:00 03/12/17 10:01 Heparin - SQ 5,000 unit BID TARIQ Administration Vancomycin HCl 250 mls @ 166.667 mls/hr 03/10/17 06:00 03/12/17 06:12 Vancomycin (Pre-Docked) IVPB 166.667 mls/hr BID@0600,1800 TARIQ Administration Protocol Metronidazole 100 mls @ 100 mls/hr 03/09/17 10:00 03/12/17 10:11 Flagyl 500mg Premixed Ivpb - IVPB 100 mls/hr Q8H-IV TARIQ Administration Gentamicin Sulfate 95 mg/ 102.375 mls @ 250 mls/hr 03/12/17 14:15 Dextrose IVPB Q8H-IV TARIQ Sodium Chloride 1,000 mls @ 42 mls/hr 03/12/17 15:00 Normal Saline - IV ASDIR TARIQ Loratadine 10 mg 03/05/17 10:00 03/12/17 09:59 Claritin - PO 10 mg DAILY TARIQ Administration Non-Formulary Medication 6 mg 03/06/17 22:00 03/11/17 23:16 Perampanel [Fycompa] PO 6 mg HS TARIQ Administration Nystatin 500,000 units 03/05/17 12:00 03/12/17 11:16 Nystatin Oral Suspension - PO 500,000 units Q6HPO TARIQ Administration Nystatin 1 applic 03/05/17 11:15 03/12/17 10:01 Nystop Powder - TP 1 applic DAILY TARIQ Administration Ranitidine HCl 150 mg 03/05/17 10:00 03/12/17 09:59 Zantac - PO 150 mg DAILY TARIQ Administration Topiramate 75 mg 03/05/17 10:00 03/12/17 10:00 Topamax - PO 75 mg BID TARIQ Administration Valproic Acid 1,000 mg 03/05/17 10:00 03/12/17 09:59 Depakene - PO 1,000 mg BID TARIQ Administration ASSESSMENT/PLAN: 41 yo M with PMhx of severe MR, Seizure disorder, h/o MRSA presented from [facility] with fevers admitted for Sepsis found to have gram(+) bacteremia. Problem List - Problems (1) Sepsis Assessment/Plan: * Source unkown - probable translocation from previous colitis. * Consult cardio for possible CAITLIN * Repeat blood cultures have been (-) 96hrs. * Continue vancomycin IV and Flagyl * Restart Gentamycin * Patient is afebrile with no leukocytosis. * CT abdomen with contrast(-) microperforation. * c-diff (-) * ID consult appreciated. (2) Colitis Assessment/Plan: * GI consulted for colonoscopy * spoke with mother who gives consent. * Bowel prep for possible colonoscopy this week * Continue Abx. * C-Diff negative (3) Seizure disorder Assessment/Plan: * No seizure activity. * Continue: * Fycompa 6 mg PO HS TARIQ * Topamax 75 mg PO BID * Depakene 1gm PO BID Visit type - Emergency Visit Emergency Visit: Yes ED Registration Date: 03/05/17 Care time: The patient presented to the Emergency Department on the above date and was hospitalized for further evaluation of their emergent condition. - New Patient This patient is new to me today: No - Critical Care Critical Care patient: No
[2017-03-12] MEDS: SODIUM CHLORIDE 1,000 ML IV SCH (15:24)
[2017-03-12] MEDS: WATER IVPB SCH ×2 (16:40→17:43)
[2017-03-12] MEDS: GENTAMICIN IVPB SCH ×2 (16:40→17:43)
[2017-03-12] MEDS: DEXTROSE 5% IVPB SCH ×2 (16:40→17:43)
--- NOTE | 2017-03-12 23:13 | CON.CARD ---
Consult Consult Specialty:: Cardiology Referred by:: Hospitalist Reason for Consultation:: Cardiac evaluation - History of Present Illness Chief Complaint: Bacteremia History of Present Illness: Patient is a 41 year old male, resident of [facility], with a significant past medical history of profound mental retardation , nonverbal, seizure disorder and osteoporosis, who presented to the ER with persistent fever for several weeks. Patient has history of colitis. Patient was discharged recently with Levaquin and Flagyl for treatment of colitis. Patient s fever has persisted since the discharge and now with positive blood culture. Cardiology consultation was called requesting possible CAITLIN. 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, Other (Mental retardation) Additional Medical History: Severe mental retardation, seizure disorder, osteoporosis, h/o MRSA - Past Surgical History Past Surgical History: Yes: None - Alcohol/Substance Use Hx Alcohol Use: No - Smoking History Smoking history: Never smoked Have you smoked in the past 12 months: No - Social History Usual Living Arrangement: Care Home ADL: Support Services Occupation: Diabled History of Recent Travel: No Home Medications - Allergies Allergies/Adverse Reactions: Allergies Allergy/AdvReac Type Severity Reaction Status Date / Time cheese Allergy Verified 03/04/17 19:12 legumes Allergy Verified 03/04/17 19:12 peanut Allergy Verified 03/04/17 19:12 peas Allergy Verified 03/04/17 19:12 Penicillins Allergy Verified 03/04/17 19:12 Pork/Porcine Containing Allergy Verified 03/04/17 19:12 Products soy Allergy Verified 03/04/17 19:12 turkey Allergy Verified 03/04/17 19:12 wheat Allergy Verified 03/04/17 19:12 - Home Medications Home Medications: Ambulatory Orders Calcium Carbonate/Vitamin D3 [Oystercal-D 500 mg-400 Unit Tb] 500 mg PO DAILY Cholecalciferol (Vitamin D3) [Vitamin D3] 2,000 unit PO DAILY 02/20/17 Clonazepam [Klonopin] 1 mg PO TID 02/20/17 Diazepam Rectal Gel [Diastat Rectal Gel -] 10 mg OH ONCE 02/20/17 Famotidine 20 mg PO DAILY 02/20/17 Fluticasone Prop 0.05% Nasal [Flonase -] 1 - 2 spray NS DAILY 02/20/17 Gemfibrozil 600 mg PO BID 02/20/17 Loratadine 10 mg PO DAILY 02/20/17 Perampanel [Fycompa] 6 mg PO HS 02/20/17 Topiramate 75 mg PO BID 02/20/17 Valproic Acid [Depakene -] 1 gm PO BID 02/20/17 Family Disease History - Family Disease History Family History: Unable to Obtain Review of Systems Unable to obtain ROS, reason: Mental retardation Vital Signs: Vital Signs Temperature 98.5 F 03/12/17 18:00 Pulse Rate 77 03/12/17 18:00 Respiratory Rate 20 03/12/17 18:00 Blood Pressure 117/70 03/12/17 18:00 O2 Sat by Pulse Oximetry (%) 95 03/12/17 09:00 Respiratory: Yes: Diminished Gastrointestinal: Yes: Normal Bowel Sounds, Soft. No: Tenderness Cardiovascular: Yes: Regular Rate and Rhythm JVD: No Carotid Bruit: No PMI: Non-Displaced Heart Sounds: Yes: S1, S2 Edema: No - Other Data Labs, Other Data: CBC, BMP 03/12/17 07:35 03/12/17 07:35 Assessment/Plan 1. Bacteremia 2. Mental retardation 3. History of colitis PLAN: 1. Transthoracic echocardiography reveals normal left ventricular systolic function with mild MR and TR 2. Due to underlying mental retardation, CAITLIN is not feasible at this time nor is indicated as he is not persistently febrile and transthoracic echocardiography does not reveal any evidence of valvular heart disease or vegetations 3. Continue antibiotic coverage as per ID service Further plans are to follow Thank you for your request for consultation Misbah Raza MD
[2017-03-12] MEDS: PERAMPANEL 6 MG PO SCH (23:32)
[2017-03-13] MEDS: NYSTATIN 500,000 UNITS/5 ML SUSPENSION PO SCH ×4 (01:00→17:49)
[2017-03-13] MEDS ORDERED: PT OWN MED DRAWER 7, Y5N ONE ×2 (02:38→17:30)
[2017-03-13] MEDS: GENTAMICIN IVPB SCH ×3 (02:45→17:50)
[2017-03-13] MEDS: METRONIDAZOLE 500 MG PREMIXED 100 ML IVPB SCH ×3 (02:45→17:49)
[2017-03-13] MEDS: DEXTROSE 5% IVPB SCH ×3 (02:45→17:50)
[2017-03-13] MEDS: WATER IVPB SCH ×3 (02:45→17:50)
[2017-03-13] MEDS: VANCOMYCIN 1 GRAM (PRE-DOCKED) 250 ML IVPB SCH ×2 (06:48→17:50)
[2017-03-13] MEDS: LORATADINE 10 MG TABLET PO SCH (10:39)
[2017-03-13] MEDS: RANITIDINE HCL 150 MG TABLET (FP) PO SCH (10:39)
[2017-03-13] MEDS: HEPARIN NA (PORCINE) 5,000 UNITS/ML 1ML VIAL SQ SCH ×2 (10:39→22:40)
[2017-03-13] MEDS: TOPIRAMATE 25 MG TABLET (FP) PO SCH ×2 (10:39→22:40)
[2017-03-13] MEDS: VALPROIC ACID 250 MG CAPSULE PO SCH ×2 (10:39→22:39)
[2017-03-13] MEDS: GEMFIBROZIL 600 MG TABLET (FP) PO SCH ×2 (10:40→22:39)
[2017-03-13] MEDS: NYSTATIN POWDER 100,000 UNITS/GM - 15 GM TOPICAL POWDER TP SCH (10:41)
--- NOTE | 2017-03-13 11:09 | PN ---
Physical Exam: SUBJECTIVE: Patient seen and examined at bedside. No overnight events. No new complaints. Non-verbal. Back to baseline as per aide. OBJECTIVE: Vital Signs Period Temp Pulse Resp BP Sys/Monroy Pulse Ox Last 24 Hr 97.7 F-99.2 F 67-85 18-22 98-140/47-74 95 GENERAL: non verbal , NAD HEAD: NC/AT. LUNGS: CTAB, no wheezing HEART: RRR, no M/G/R ABDOMEN: Soft, LLQ tenderness, ND ,BS(+), EXTREMITIES: contracted bilateral LE 2+ pulses, warm, well-perfused, no edema or erythema SKIN: Warm, dry, normal turgor, no rashes or lesions noted Active Medications Generic Name Dose Route Start Last Admin Trade Name Freq PRN Reason Stop Dose Admin Gemfibrozil 600 mg 03/05/17 10:00 03/13/17 10:40 Lopid - PO 600 mg BID TARIQ Administration Heparin Sodium (Porcine) 5,000 unit 03/06/17 22:00 03/13/17 10:39 Heparin - SQ 5,000 unit BID TARIQ Administration Vancomycin HCl 250 mls @ 166.667 mls/hr 03/10/17 06:00 03/13/17 06:48 Vancomycin (Pre-Docked) IVPB 166.667 mls/hr BID@0600,1800 TARIQ Administration Protocol Metronidazole 100 mls @ 100 mls/hr 03/09/17 10:00 03/13/17 10:38 Flagyl 500mg Premixed Ivpb - IVPB 100 mls/hr Q8H-IV TARIQ Administration Gentamicin Sulfate 95 mg/ 102.375 mls @ 250 mls/hr 03/12/17 14:15 03/13/17 02: 45 Dextrose IVPB 250 mls/hr Q8H-IV TARIQ Administration Sodium Chloride 1,000 mls @ 42 mls/hr 03/12/17 15:00 03/12/17 15:24 Normal Saline - IV 42 mls/hr ASDIR TARIQ Administration Loratadine 10 mg 03/05/17 10:00 03/13/17 10:39 Claritin - PO 10 mg DAILY TARIQ Administration Non-Formulary Medication 6 mg 03/06/17 22:00 03/12/17 23:32 Perampanel [Fycompa] PO 6 mg HS TARIQ Administration Nystatin 500,000 units 03/05/17 12:00 03/13/17 06:48 Nystatin Oral Suspension - PO 500,000 units Q6HPO TARIQ Administration Nystatin 1 applic 03/05/17 11:15 03/13/17 10:41 Nystop Powder - TP 1 applic DAILY TARIQ Administration Ranitidine HCl 150 mg 03/05/17 10:00 03/13/17 10:39 Zantac - PO 150 mg DAILY TARIQ Administration Topiramate 75 mg 03/05/17 10:00 03/13/17 10:39 Topamax - PO 75 mg BID TARIQ Administration Valproic Acid 1,000 mg 03/05/17 10:00 03/13/17 10:39 Depakene - PO 1,000 mg BID TARIQ Administration ASSESSMENT/PLAN: 41 yo M with PMhx of severe MR, Seizure disorder, h/o MRSA presented from [facility] with fevers admitted for Sepsis found to have gram(+) bacteremia. Problem List - Problems (1) Sepsis Assessment/Plan: * Source unkown - probable translocation from previous colitis. * Consult cardio for possible CAITLIN but not a candidate as per Dr. Raza * Repeat blood cultures have been (-) 5 days. * Continue vancomycin IV and Flagyl, Gentamycin * Patient is afebrile with no leukocytosis 7 days * CT abdomen with contrast was (-) for microperforation. * c-diff (-) * ID consult appreciated. (2) Colitis Assessment/Plan: * GI consulted for colonoscopy * spoke with mother who gives consent. * Bowel prep for possible colonoscopy this week * Continue Abx. * C-Diff negative (3) Seizure disorder Assessment/Plan: * No seizure activity. * Continue: * Fycompa 6 mg PO HS TARIQ * Topamax 75 mg PO BID * Depakene 1gm PO BID Visit type - Emergency Visit Emergency Visit: Yes ED Registration Date: 03/05/17 Care time: The patient presented to the Emergency Department on the above date and was hospitalized for further evaluation of their emergent condition. - New Patient This patient is new to me today: No - Critical Care Critical Care patient: No
[2017-03-13] MEDS ORDERED: BISACODYL 5 MG TABLET.DR (FP) PO ONE (12:00)
--- NOTE | 2017-03-13 12:21 | PN ---
Teaching Attending Note Name of Resident: Caden Fountain ATTENDING PHYSICIAN STATEMENT I saw and evaluated the patient. I reviewed the resident's note and discussed the case with the resident. I agree with the resident's findings and plan as documented. SUBJECTIVE: Patient is comfortable, lying in bed with no acute distress. No fever or chills , no shortness of breath. OBJECTIVE: Vital Signs Temperature 99.2 F 03/13/17 09:00 Pulse Rate 78 03/13/17 09:00 Respiratory Rate 18 03/13/17 09:00 Blood Pressure 115/71 03/13/17 09:00 O2 Sat by Pulse Oximetry (%) 95 03/12/17 21:00 CBCD WBC 4.6 K/mm3 (4.0-10.0) 03/12/17 07:35 RBC 3.54 M/mm3 (4.00-5.60) L 03/12/17 07:35 Hgb 10.8 GM/dL (11.7-16.9) L 03/12/17 07:35 Hct 32.9 % (35.4-49) L 03/12/17 07:35 MCV 93.1 fl (80-96) 03/12/17 07:35 MCHC 32.7 g/dl (32.0-35.9) 03/12/17 07:35 RDW 15.2 % (11.9-15.9) 03/12/17 07:35 Plt Count 223 K/MM3 (134-434) 03/12/17 07:35 MPV 7.4 fl (7.5-11.1) L 03/12/17 07:35 CMP Sodium 145 mmol/L (136-145) 03/12/17 07:35 Potassium 3.8 mmol/L (3.5-5.1) 03/12/17 07:35 Chloride 112 mmol/L (98-107) H 03/12/17 07:35 Carbon Dioxide 25 mmol/L (21-32) 03/12/17 07:35 Anion Gap 8 (8-16) 03/12/17 07:35 BUN 6 mg/dL (7-18) L 03/12/17 07:35 Creatinine 0.6 mg/dL (0.7-1.3) L 03/12/17 07:35 Creat Clearance w eGFR > 60 (>60) 03/11/17 05:35 Random Glucose 109 mg/dL (74-106) H 03/12/17 07:35 Calcium 8.5 mg/dL (8.5-10.1) 03/12/17 07:35 Total Bilirubin 0.2 mg/dL (0.2-1.0) 03/11/17 05:35 AST 31 U/L (15-37) D 03/11/17 05:35 ALT 30 U/L (12-78) D 03/11/17 05:35 Alkaline Phosphatase 51 U/L (45-117) 03/11/17 05:35 Total Protein 6.3 g/dl (6.4-8.2) L 03/11/17 05:35 Albumin 2.5 g/dl (3.4-5.0) L 03/11/17 05:35 Current Medications Generic Name Dose Route Start Last Admin Trade Name Freq PRN Reason Stop Dose Admin Gemfibrozil 600 mg 03/05/17 10:00 03/13/17 10:40 Lopid - PO 600 mg BID [facility] Administration Heparin Sodium (Porcine) 5,000 unit 03/06/17 22:00 03/13/17 10:39 Heparin - SQ 5,000 unit BID [facility] Administration Vancomycin HCl 250 mls @ 166.667 mls/hr 03/10/17 06:00 03/13/17 06:48 Vancomycin (Pre-Docked) IVPB 166.667 mls/hr BID@0600,1800 [facility] Administration Protocol Metronidazole 100 mls @ 100 mls/hr 03/09/17 10:00 03/13/17 10:38 Flagyl 500mg Premixed Ivpb - IVPB 100 mls/hr Q8H-IV [facility] Administration Gentamicin Sulfate 95 mg/ 102.375 mls @ 250 mls/hr 03/12/17 14:15 03/13/17 02: 45 Dextrose IVPB 250 mls/hr Q8H-IV [facility] Administration Sodium Chloride 1,000 mls @ 42 mls/hr 03/12/17 15:00 03/12/17 15:24 Normal Saline - IV 42 mls/hr ASDIR [facility] Administration Loratadine 10 mg 03/05/17 10:00 03/13/17 10:39 Claritin - PO 10 mg DAILY [facility] Administration Non-Formulary Medication 6 mg 03/06/17 22:00 03/12/17 23:32 Perampanel [Fycompa] PO 6 mg HS [facility] Administration Nystatin 500,000 units 03/05/17 12:00 03/13/17 06:48 Nystatin Oral Suspension - PO 500,000 units Q6HPO [facility] Administration Nystatin 1 applic 03/05/17 11:15 03/13/17 10:41 Nystop Powder - TP 1 applic DAILY [facility] Administration Polyethylene Glycol 255 gm 03/13/17 13:00 Miralax (For Bowel Prep) - PO 03/13/17 13:01 ONCE ONE Ranitidine HCl 150 mg 03/05/17 10:00 03/13/17 10:39 Zantac - PO 150 mg DAILY [facility] Administration Topiramate 75 mg 03/05/17 10:00 03/13/17 10:39 Topamax - PO 75 mg BID [facility] Administration Valproic Acid 1,000 mg 03/05/17 10:00 03/13/17 10:39 Depakene - PO 1,000 mg BID [facility] Administration Home Medications Medication Instructions Recorded Calcium Carbonate/Vitamin D3 500 mg PO DAILY 02/20/17 [Oystercal-D 500 mg-400 Unit Tb] Cholecalciferol (Vitamin D3) 2,000 unit PO DAILY 02/20/17 [Vitamin D3] Clonazepam [Klonopin] 1 mg PO TID 02/20/17 Diazepam Rectal Gel [Diastat 10 mg NC ONCE 02/20/17 Rectal Gel -] Famotidine 20 mg PO DAILY 02/20/17 Fluticasone Prop 0.05% Nasal 1 - 2 spray NS DAILY 02/20/17 [Flonase -] Gemfibrozil 600 mg PO BID 02/20/17 Loratadine 10 mg PO DAILY 02/20/17 Perampanel [Fycompa] 6 mg PO HS 02/20/17 Topiramate 75 mg PO BID 02/20/17 Valproic Acid [Depakene -] 1 gm PO BID 02/20/17 Microbiology 03/07/17 16:30 Blood - Peripheral Venous Blood Culture - Final NO GROWTH AFTER 5 DAYS INCUBATION 03/07/17 16:30 Blood - Peripheral Venous Blood Culture - Final NO GROWTH AFTER 5 DAYS INCUBATION 03/04/17 21:05 Blood - Peripheral Venous Blood Culture - Final Pediococcus Pentosaceus, Enterococcus Faecalis Staphylococcus Epidermidis 03/04/17 21:05 Blood - Peripheral Venous Blood Culture - Final Enterococcus Faecalis Pediococcus Pentosaceus Staphylococcus Epidermidis 03/05/17 01:25 Urine - Urine - Catheterized Urine Culture - Final NO GROWTH OBTAINED 03/05/17 15:33 Stool Clostridium difficile Antigen (MAGDY) - Final 03/05/17 15:33 Stool Clostridium difficile Toxin Assay - Final PE: per resident's note Abdomen: soft, NT, NR. Positive for BS. ASSESSMENT AND PLAN: 41 y/o male with h/o severe MR, seizure disorder, and h/o MRSA , who presented from [facility] with fevers. He was found to have severe sepsis . # s/p Acute sepsis with bacteremia 2/2 : Pediococcus Pentosaceus, Enterococcus Faecalis , possibly due to colitis. On IV vanco , genta , and flagyl Cardiology consulted for possible CAITLIN, GI consult for possible colonoscopy appreciated. # Seizure disorder :Cont valproic acid, topiramate and Eycompa # Residual colitis: on Abx # Mental retardation from [facility][1]. DVT Px: Heparin sq
--- NOTE | 2017-03-13 12:25 | PN ---
Progress Note (short form) - Note Progress Note: Spoke with Mr. Hanson's mother Sherly re: proposed colonoscopy to assess colitis seen on CT scan and for potential alternate source of bacteremia such as a colon cancer. We discussed potential risks of the procedure like but not limited to bleeding, perforation requiring surgery to repair, infection and sedation medication effects all of which could be potentially life threatening. She has agreed to the procedure. She is aware of the technical difficulties involved with potential bowel prep. She is not opposed to having NGT placed in Mr. Hanson to help facilitate bowel preparation however I explained this would also be technically difficult given his inability to cooperate and the high likekihood of having him pull it out / having traumatic insertion. I eould prefer he attempt to drink the bowel prep. He was given both breakfast and regular lunch today despite his diet being changed to a clear liquid diet prior to lunch being served. This may postpone procedure until saturday. Problem List - Problems (1) Colitis Code(s): K52.9 - NONINFECTIVE GASTROENTERITIS AND COLITIS, UNSPECIFIED
[2017-03-13] MEDS: POLYETHYLENE GLYCOL 3350 255 GM BTL PO ONE ×2 (13:30→13:49)
--- NOTE | 2017-03-13 13:34 | PN ---
Progress Note, Physician History of Present Illness: Afebrile, surveillance cx cleared. - Current Medication List Current Medications: Active Medications Gemfibrozil (Lopid -) 600 mg PO BID [facility] Last Admin: 03/13/17 10:40 Dose: 600 mg Heparin Sodium (Porcine) (Heparin -) 5,000 unit SQ BID [facility] Last Admin: 03/13/17 10:39 Dose: 5,000 unit Vancomycin HCl (Vancomycin (Pre-Docked)) 250 mls @ 166.667 mls/hr IVPB BID@0600 ,1800 [facility] PRN Reason: Protocol Last Admin: 03/13/17 06:48 Dose: 166.667 mls/hr Metronidazole (Flagyl 500mg Premixed Ivpb -) 100 mls @ 100 mls/hr IVPB Q8H-IV [facility] Last Admin: 03/13/17 10:38 Dose: 100 mls/hr Gentamicin Sulfate 95 mg/ (Dextrose) 102.375 mls @ 250 mls/hr IVPB Q8H-IV [facility] Last Admin: 03/13/17 13:00 Dose: 250 mls/hr Sodium Chloride (Normal Saline -) 1,000 mls @ 42 mls/hr IV ASDIR [facility] Last Admin: 03/12/17 15:24 Dose: 42 mls/hr Loratadine (Claritin -) 10 mg PO DAILY [facility] Last Admin: 03/13/17 10:39 Dose: 10 mg Non-Formulary Medication (Perampanel [Fycompa]) 6 mg PO HS [facility] Last Admin: 03/12/17 23:32 Dose: 6 mg Nystatin (Nystatin Oral Suspension -) 500,000 units PO Q6HPO [facility] Last Admin: 03/13/17 13:01 Dose: 500,000 units Nystatin (Nystop Powder -) 1 applic TP DAILY [facility] Last Admin: 03/13/17 10:41 Dose: 1 applic Ranitidine HCl (Zantac -) 150 mg PO DAILY [facility] Last Admin: 03/13/17 10:39 Dose: 150 mg Topiramate (Topamax -) 75 mg PO BID [facility] Last Admin: 03/13/17 10:39 Dose: 75 mg Valproic Acid (Depakene -) 1,000 mg PO BID [facility] Last Admin: 03/13/17 10:39 Dose: 1,000 mg - Objective Vital Signs: Vital Signs Temperature 99.2 F 03/13/17 09:00 Pulse Rate 78 03/13/17 09:00 Respiratory Rate 18 03/13/17 09:00 Blood Pressure 115/71 03/13/17 09:00 O2 Sat by Pulse Oximetry (%) 95 03/12/17 21:00 Constitutional: Yes: No Distress, Calm Neck: Yes: Supple Cardiovascular: Yes: Regular Rate and Rhythm Respiratory: Yes: Regular, Diminished Gastrointestinal: Yes: Normal Bowel Sounds, Soft Musculoskeletal: Yes: Other (Contracted) Edema: No Labs: CBC, BMP 03/12/17 07:35 03/12/17 07:35 INR, PTT INR 1.32 (0.82-1.09) H 03/05/17 08:40 Problem List - Problems (1) Mental retardation Code(s): F79 - UNSPECIFIED INTELLECTUAL DISABILITIES (2) Anemia Code(s): D64.9 - ANEMIA, UNSPECIFIED Qualifiers: Anemia type: iron deficiency (3) Colitis Code(s): K52.9 - NONINFECTIVE GASTROENTERITIS AND COLITIS, UNSPECIFIED (4) Seizure disorder Code(s): G40.909 - EPILEPSY, UNSP, NOT INTRACTABLE, WITHOUT STATUS EPILEPTICUS (5) Polymicrobial septicemia Code(s): A41.9 - SEPSIS, UNSPECIFIED ORGANISM Assessment/Plan 1. Polymicrobial Bacteremia 2. Mental retardation 3. History of colitis 4. Seizure d/o PLAN: 1. Transthoracic echocardiography reveals normal left ventricular systolic function with mild MR and TR 2. Due to underlying mental retardation, CAITLIN is not feasible at this time nor is indicated as he is not persistently febrile and transthoracic echocardiography does not reveal any evidence of valvular heart disease or vegetations 3. Continue antibiotic coverage as per ID service 4. Continue Lopid 600 bid, GI and DVT prophylaxis
--- NOTE | 2017-03-13 16:03 | PN ---
Progress Note (short form) - Note Progress Note: resting comfortably Vital Signs Period Temp Pulse Resp BP Sys/Monroy Pulse Ox Last 24 Hr 98.5 F-99.2 F 67-86 18-20 92-140/44-74 95 cor-rrr lungs clear abd soft,nt ext no edema CBC, BMP 03/12/17 07:35 03/12/17 07:35 Microbiology 03/07/17 16:30 Blood - Peripheral Venous Blood Culture - Final NO GROWTH AFTER 5 DAYS INCUBATION 03/07/17 16:30 Blood - Peripheral Venous Blood Culture - Final NO GROWTH AFTER 5 DAYS INCUBATION 03/04/17 21:05 Blood - Peripheral Venous Blood Culture - Final Enterococcus Faecalis Pediococcus Pentosaceus Staphylococcus Epidermidis 03/04/17 21:05 Blood - Peripheral Venous Blood Culture - Final Enterococcus Faecalis Pediococcus Pentosaceus Staphylococcus Epidermidis 03/05/17 01:25 Urine - Urine - Catheterized Urine Culture - Final NO GROWTH OBTAINED 03/05/17 15:33 Stool Clostridium difficile Antigen (MAGDY) - Final 03/05/17 15:33 Stool Clostridium difficile Toxin Assay - Final a/p POLYMICROBIAL BACTEREMIA - INCLUDING enterococcus and anaerobe on vanco/gent and flagyl day #9 antibiotics, continue antibiotics CAITLIN not feasible, colonscopy prep being attempted pen allergy history of colitis (negative cdiff) abd ct scan improved Problem List - Problems (1) Fever Code(s): R50.9 - FEVER, UNSPECIFIED Qualifiers: Fever type: unspecified Qualified Code(s): R50.9 - Fever, unspecified (2) Pneumonia Code(s): J18.9 - PNEUMONIA, UNSPECIFIED ORGANISM Qualifiers: Pneumonia type: due to unspecified organism Laterality: left Lung location: lower lobe of lung Qualified Code(s): J18.1 - Lobar pneumonia, unspecified organism (3) Penicillin allergy Code(s): Z88.0 - ALLERGY STATUS TO PENICILLIN
[2017-03-13] MEDS: SODIUM CHLORIDE 1,000 ML IV SCH (17:49)
[2017-03-13] MEDS: PERAMPANEL 6 MG PO SCH (22:40)
[2017-03-14] MEDS ORDERED: PT OWN MED DRAWER 7, Y5N ONE ×2 (03:00→22:01)
[2017-03-14] MEDS: DEXTROSE 5% IVPB SCH ×3 (03:07→17:22)
[2017-03-14] MEDS: NYSTATIN 500,000 UNITS/5 ML SUSPENSION PO SCH ×4 (03:07→17:22)
[2017-03-14] MEDS: WATER IVPB SCH ×3 (03:07→17:22)
[2017-03-14] MEDS: GENTAMICIN IVPB SCH ×3 (03:07→17:22)
[2017-03-14] MEDS: METRONIDAZOLE 500 MG PREMIXED 100 ML IVPB SCH ×2 (03:07→10:39)
[2017-03-14] MEDS: VANCOMYCIN 1 GRAM (PRE-DOCKED) 250 ML IVPB SCH (06:55)
[2017-03-14 09:26] LABS: MCH 30.4 pg (25.7-33.7); MCHC 32.7 g/dl (32.0-35.9); MEAN CELL VOLUME 93.1 fl (80-96); PLATELET COUNT 213 K/MM3 (134-434); RDW 15.2 % (11.9-15.9); WHITE BLOOD COUNT 5.5 K/mm3 (4.0-10.0)
[2017-03-14 09:48] LABS: ANION GAP 8 (8-16); CALCIUM 8.4 mg/dL (8.5-10.1); CO2 23 mmol/L (21-32); CREATININE 0.6 mg/dL (0.7-1.3); GLUCOSE,RANDOM 102 mg/dL (74-106)
--- NOTE | 2017-03-14 11:38 | PN ---
Progress Note, Physician Chief Complaint: ID Vancomycin metronidazole and Gentamicin - Current Medication List Current Medications: Active Medications Gemfibrozil (Lopid -) 600 mg PO BID [facility] [place] Last Admin: 03/13/17 22:39 Dose: 600 mg Heparin Sodium (Porcine) (Heparin -) 5,000 unit SQ BID [facility] [place] Last Admin: 03/13/17 22:40 Dose: 5,000 unit Vancomycin HCl (Vancomycin (Pre-Docked)) 250 mls @ 166.667 mls/hr IVPB BID@0600 ,1800 [facility] PRN Reason: Protocol Last Admin: 03/14/17 06:55 Dose: 166.667 mls/hr Gentamicin Sulfate 95 mg/ (Dextrose) 102.375 mls @ 250 mls/hr IVPB Q8H-IV [facility] Last Admin: 03/14/17 03:07 Dose: 250 mls/hr Sodium Chloride (Normal Saline -) 1,000 mls @ 42 mls/hr IV ASDIR [facility] Last Admin: 03/13/17 17:49 Dose: 42 mls/hr Loratadine (Claritin -) 10 mg PO DAILY [facility] Last Admin: 03/13/17 10:39 Dose: 10 mg Non-Formulary Medication (Perampanel [Fycompa]) 6 mg PO HS [facility] [place] Last Admin: 03/13/17 22:40 Dose: 6 mg Nystatin (Nystatin Oral Suspension -) 500,000 units PO Q6HPO [facility] Last Admin: 03/14/17 06:55 Dose: 500,000 units Nystatin (Nystop Powder -) 1 applic TP DAILY [facility] Last Admin: 03/13/17 10:41 Dose: 1 applic Ranitidine HCl (Zantac -) 150 mg PO DAILY [facility] Last Admin: 03/13/17 10:39 Dose: 150 mg Sodium Phosphate (Fleet Adult Rectal Enema -) 133 ml [place] ONCE ONE Stop: 03/14/17 11:34 Topiramate (Topamax -) 75 mg PO BID [facility] Last Admin: 03/13/17 22:40 Dose: 75 mg Valproic Acid (Depakene -) 1,000 mg PO BID [facility] [facility] Last Admin: 03/13/17 22:39 Dose: 1,000 mg - Objective Vital Signs: Vital Signs Temperature 98.5 F 03/14/17 03:00 Pulse Rate 78 03/14/17 03:00 Respiratory Rate 18 03/14/17 03:00 Blood Pressure 136/52 03/14/17 03:00 O2 Sat by Pulse Oximetry (%) 94 L 03/13/17 21:00 Constitutional: Yes: Well Nourished, No Distress Neck: Yes: WNL, Supple Cardiovascular: Yes: Regular Rate and Rhythm, S1, S2. No: Murmur Respiratory: Yes: WNL, Regular, CTA Bilaterally Gastrointestinal: Yes: WNL, Normal Bowel Sounds, Soft. No: Tenderness, Tenderness, Epigastrium Edema: No Labs: CBC, BMP 03/14/17 08:35 03/14/17 08:35 INR, PTT INR 1.32 (0.82-1.09) H 03/05/17 08:40 Assessment/Plan Microbiology 03/04/17 21:05 Blood - Peripheral Venous Blood Culture - Final Enterococcus Faecalis Pediococcus Pentosaceus Staphylococcus Epidermidis 03/04/17 21:05 Blood - Peripheral Venous Blood Culture - Final Enterococcus Faecalis Pediococcus Pentosaceus Staphylococcus Epidermidis Laboratory Tests 03/08/17 03/08/17 03/14/17 08:10 08:56 08:35 WBC 5.5 Hgb 11.2 L Hct 34.3 L Plt Count 213 ESR 70 H BUN Creatinine C-Reactive Protein 2.2 H D 03/14/17 08:35 WBC Hgb Hct Plt Count ESR BUN 6 L Creatinine 0.6 L C-Reactive Protein Assessment Polymicroibal bacteremia GI source likely Plan Would advise 14 days of antibiotics so perhaps traet through the weekend and discharge saturday No t sure he could do a PICC catheter as arms always folded closed
[2017-03-14] MEDS: HEPARIN NA (PORCINE) 5,000 UNITS/ML 1ML VIAL SQ SCH ×2 (11:39→22:19)
--- NOTE | 2017-03-14 11:41 | PN ---
Progress Note (short form) - Note Progress Note: Patient has not cooperated with bowel prep Spoke with his mother: discussed options: Not proceeding with procedures / conservative measures or attempt at flex sig for limited evaluation of the distal colon. She would like to proceed with limited evaluation of the distal colon. She is aware that Mr. Hanson does not have IV access as of yet and procedure contingent upon him having an IV. Spoke with his nurse. Hold AM SC heparin, NPO, Fleet enema followed by tap water enema Problem List - Problems (1) Colitis Code(s): K52.9 - NONINFECTIVE GASTROENTERITIS AND COLITIS, UNSPECIFIED
[2017-03-14] MEDS ORDERED: SODIUM PHOSPHATE/NA BIPHOS 133 ML ENEMA PR ONE (12:00)
[2017-03-14] MEDS: NYSTATIN POWDER 100,000 UNITS/GM - 15 GM TOPICAL POWDER TP SCH (12:42)
--- NOTE | 2017-03-14 14:02 | PN ---
Progress Note (short form) - Note Progress Note: Flex sig complete. Report placed in procedural section of physical chart and to be scanned into [employer] Problem List - Problems (1) Colitis Code(s): K52.9 - NONINFECTIVE GASTROENTERITIS AND COLITIS, UNSPECIFIED
[2017-03-14] MEDS: TOPIRAMATE 25 MG TABLET (FP) PO SCH ×2 (15:47→22:19)
[2017-03-14] MEDS: RANITIDINE HCL 150 MG TABLET (FP) PO SCH (15:47)
[2017-03-14] MEDS: GEMFIBROZIL 600 MG TABLET (FP) PO SCH ×2 (15:47→22:19)
[2017-03-14] MEDS: VALPROIC ACID 250 MG CAPSULE PO SCH ×2 (15:47→22:20)
[2017-03-14] MEDS: LORATADINE 10 MG TABLET PO SCH (15:47)
[2017-03-14] MEDS: SODIUM CHLORIDE 1,000 ML IV SCH (16:29)
--- NOTE | 2017-03-14 16:35 | PN ---
Physical Exam: SUBJECTIVE: Patient seen and examined at bedside. No overnight events. No new complaints. Non-verbal.Lying comfortably OBJECTIVE: Vital Signs Period Temp Pulse Resp BP Sys/Monroy Pulse Ox Last 24 Hr 97.6 F-99.2 F 68-88 18-20 94-138/45-79 6-97 GENERAL: non verbal , NAD HEAD: NC/AT. LUNGS: CTAB, no wheezing HEART: RRR, no M/G/R ABDOMEN: Soft, LLQ tenderness, ND ,BS(+), EXTREMITIES: contracted bilateral LE 2+ pulses, warm, well-perfused, no edema or erythema SKIN: Warm, dry, normal turgor, no rashes or lesions noted Laboratory Results - last 24 hr 03/14/17 03/14/17 03/14/17 08:35 08:35 12:00 WBC 5.5 RBC 3.68 L Hgb 11.2 L Hct 34.3 L MCV 93.1 MCHC 32.7 RDW 15.2 Plt Count 213 MPV 7.0 L Sodium 141 Potassium 4.0 Chloride 110 H Carbon Dioxide 23 Anion Gap 8 BUN 6 L Creatinine 0.6 L Random Glucose 102 Calcium 8.4 L Gentamicin Trough Vancomycin Pre-Dose 21.126 H* D 03/14/17 12:00 WBC RBC Hgb Hct MCV MCHC RDW Plt Count MPV Sodium Potassium Chloride Carbon Dioxide Anion Gap BUN Creatinine Random Glucose Calcium Gentamicin Trough 1.5 D Vancomycin Pre-Dose Active Medications Generic Name Dose Route Start Last Admin Trade Name Freq PRN Reason Stop Dose Admin Gemfibrozil 600 mg 03/05/17 10:00 03/14/17 15:47 Lopid - PO 600 mg BID [facility] Administration Heparin Sodium (Porcine) 5,000 unit 03/06/17 22:00 03/14/17 11:39 Heparin - SQ Not Given BID [facility] Gentamicin Sulfate 95 mg/ 102.375 mls @ 250 mls/hr 03/12/17 14:15 03/14/17 10: 00 Dextrose IVPB Not Given Q8H-IV [facility] Sodium Chloride 1,000 mls @ 42 mls/hr 03/12/17 15:00 03/13/17 17:49 Normal Saline - IV 42 mls/hr ASDIR [facility] Administration Loratadine 10 mg 03/05/17 10:00 03/14/17 15:47 Claritin - PO 10 mg DAILY [facility] Administration Non-Formulary Medication 6 mg 03/06/17 22:00 03/13/17 22:40 Perampanel [Fycompa] PO 6 mg HS [facility] Administration Nystatin 500,000 units 03/05/17 12:00 03/14/17 12:39 Nystatin Oral Suspension - PO 500,000 units Q6HPO [facility] Administration Nystatin 1 applic 03/05/17 11:15 03/14/17 12:42 Nystop Powder - TP 1 applic DAILY [facility] Administration Ranitidine HCl 150 mg 03/05/17 10:00 03/14/17 15:47 Zantac - PO 150 mg DAILY [facility] Administration Topiramate 75 mg 03/05/17 10:00 03/14/17 15:47 Topamax - PO 75 mg BID [facility] Administration Valproic Acid 1,000 mg 03/05/17 10:00 03/14/17 15:47 Depakene - PO 1,000 mg BID [facility] Administration ASSESSMENT/PLAN: 41 yo M with PMhx of severe MR, Seizure disorder, h/o MRSA presented from [facility] with fevers admitted for Sepsis found to have gram(+) bacteremia. Problem List - Problems (1) Sepsis Assessment/Plan: * Most likely from translocation from colitis. * Repeat blood cultures have been (-) 6 days. * Continue vancomycin IV and Flagyl, Gentamycin. * Gentamycin trough pending. continue IVF to avoid nephrotoxicity. * Patient is afebrile with no leukocytosis 9 days * c-diff (-) * ID consult appreciated. (2) Colitis Assessment/Plan: * Flex sigmoidoscopy today shows resolving colitis -most likely ischemic * Continue Abx. to complete 14 day course ; currently day 10 * Gent trough pending. * C-Diff negative (3) Seizure disorder Assessment/Plan: * No seizure activity. * Continue: * Fycompa 6 mg PO HS [facility] * Topamax 75 mg PO BID * Depakene 1gm PO BID Visit type - Emergency Visit Emergency Visit: Yes ED Registration Date: 03/05/17 Care time: The patient presented to the Emergency Department on the above date and was hospitalized for further evaluation of their emergent condition. - New Patient This patient is new to me today: No - Critical Care Critical Care patient: No
[2017-03-14] MEDS: PERAMPANEL 6 MG PO SCH (22:20)
[2017-03-15] MEDS: NYSTATIN 500,000 UNITS/5 ML SUSPENSION PO SCH ×4 (00:16→17:33)
[2017-03-15] MEDS ORDERED: PT OWN MED DRAWER 7, Y5N ONE ×2 (01:11→17:11)
[2017-03-15] MEDS: DEXTROSE 5% IVPB SCH ×2 (02:11→10:39)
[2017-03-15] MEDS: GENTAMICIN IVPB SCH ×2 (02:11→10:39)
[2017-03-15] MEDS: WATER IVPB SCH ×2 (02:11→10:39)
[2017-03-15 07:53] LABS: MCH 30.7 pg (25.7-33.7); MEAN CELL VOLUME 92.9 fl (80-96); MEAN PLT VOLUME 7.3 fl (7.5-11.1); PLATELET COUNT 211 K/MM3 (134-434); RDW 15.5 % (11.9-15.9); WHITE BLOOD COUNT 5.6 K/mm3 (4.0-10.0)
[2017-03-15 08:02] LABS: ANION GAP 7 (8-16); CALCIUM 8.8 mg/dL (8.5-10.1); CO2 24 mmol/L (21-32); CREATININE 0.8 mg/dL (0.7-1.3); GLUCOSE,RANDOM 84 mg/dL (74-106)
[2017-03-15] MEDS: TOPIRAMATE 25 MG TABLET (FP) PO SCH ×2 (10:35→22:06)
[2017-03-15] MEDS: GEMFIBROZIL 600 MG TABLET (FP) PO SCH ×2 (10:36→22:06)
[2017-03-15] MEDS: RANITIDINE HCL 150 MG TABLET (FP) PO SCH (10:37)
[2017-03-15] MEDS: VALPROIC ACID 250 MG CAPSULE PO SCH ×2 (10:37→22:06)
[2017-03-15] MEDS: LORATADINE 10 MG TABLET PO SCH (10:37)
[2017-03-15] MEDS: HEPARIN NA (PORCINE) 5,000 UNITS/ML 1ML VIAL SQ SCH ×2 (10:38→22:07)
[2017-03-15] MEDS: NYSTATIN POWDER 100,000 UNITS/GM - 15 GM TOPICAL POWDER TP SCH (10:38)
--- NOTE | 2017-03-15 11:30 | PN ---
Progress Note (short form) - Note Progress Note: Discussed Flex Sig findings with Nitin's mother Sherly Hanson. Discussed that this was likely ischemic event and that this could recur/become a chronic proiblem. Suspected bacteria translocated leading to bacteremia and length of abx course per ID [id number] 17g BID, titrated to avoid copious loose BM's and please follow recommendations as outlined in procedure report Follow-up pathology results Problem List - Problems (1) Colitis Code(s): K52.9 - NONINFECTIVE GASTROENTERITIS AND COLITIS, UNSPECIFIED
--- NOTE | 2017-03-15 12:12 | PN ---
Physical Exam: SUBJECTIVE: Patient seen and examined at bedside. No overnight events. No new complaints. Non-verbal. Awake and lying comfortably. OBJECTIVE: Vital Signs Period Temp Pulse Resp BP Sys/Monroy Pulse Ox Last 24 Hr 97.9 F-98.3 F 68-102 18-20 94-119/45-76 6-97 ENERAL: non verbal , NAD HEAD: NC/AT. LUNGS: CTAB, no wheezing HEART: RRR, no M/G/R ABDOMEN: Soft, LLQ tenderness improved, ND ,BS(+), EXTREMITIES: contracted bilateral LE 2+ pulses, warm, well-perfused, no edema or erythema SKIN: Warm, dry, normal turgor, no rashes or lesions noted Laboratory Results - last 24 hr 03/14/17 03/14/17 03/15/17 12:00 12:00 06:25 WBC RBC Hgb Hct MCV MCHC RDW Plt Count MPV Sodium Potassium Chloride Carbon Dioxide Anion Gap BUN Creatinine Random Glucose Calcium Gentamicin Trough 1.5 D Random Vancomycin 6.055 Vancomycin Pre-Dose 21.126 H* D 03/15/17 03/15/17 06:25 06:25 WBC 5.6 RBC 3.82 L Hgb 11.7 Hct 35.5 MCV 92.9 MCHC 33.0 RDW 15.5 Plt Count 211 MPV 7.3 L Sodium 140 Potassium 4.6 Chloride 109 H Carbon Dioxide 24 Anion Gap 7 L BUN 7 Creatinine 0.8 D Random Glucose 84 Calcium 8.8 Gentamicin Trough Random Vancomycin Vancomycin Pre-Dose Active Medications Generic Name Dose Route Start Last Admin Trade Name Freq PRN Reason Stop Dose Admin Gemfibrozil 600 mg 03/05/17 10:00 03/15/17 10:36 Lopid - PO 600 mg BID TARIQ Administration Heparin Sodium (Porcine) 5,000 unit 03/06/17 22:00 03/15/17 10:38 Heparin - SQ 5,000 unit BID TARIQ Administration Sodium Chloride 1,000 mls @ 42 mls/hr 03/12/17 15:00 03/14/17 16:29 Normal Saline - IV 42 mls/hr ASDIR TARIQ Administration Vancomycin HCl 1,250 mg/ 250 mls @ 166.667 mls/hr 03/15/17 13:00 Dextrose IVPB Q12H TARIQ Protocol Gentamicin Sulfate/Sodium Chloride 100 mls @ 100 mls/hr 03/16/17 10:00 Garamycin 80 Mg Premixed Ivpb - IVPB Q8H-IV TARIQ Loratadine 10 mg 03/05/17 10:00 03/15/17 10:37 Claritin - PO 10 mg DAILY TARIQ Administration Non-Formulary Medication 6 mg 03/06/17 22:00 03/14/17 22:20 Perampanel [Fycompa] PO 6 mg HS TARIQ Administration Nystatin 500,000 units 03/05/17 12:00 03/15/17 06:29 Nystatin Oral Suspension - PO 500,000 units Q6HPO TARIQ Administration Nystatin 1 applic 03/05/17 11:15 03/15/17 10:38 Nystop Powder - TP 1 applic DAILY TARIQ Administration Ranitidine HCl 150 mg 03/05/17 10:00 03/15/17 10:37 Zantac - PO 150 mg DAILY TARIQ Administration Topiramate 75 mg 03/05/17 10:00 03/15/17 10:35 Topamax - PO 75 mg BID TARIQ Administration Valproic Acid 1,000 mg 03/05/17 10:00 03/15/17 10:37 Depakene - PO 1,000 mg BID TARIQ Administration ASSESSMENT/PLAN: 41 yo M with PMhx of severe MR, Seizure disorder, h/o MRSA presented from [facility] with fevers admitted for Sepsis found to have gram(+) bacteremia. Problem List - Problems (1) Sepsis Assessment/Plan: * secondary to translocation from colitis. * Patient is afebrile with no leukocytosis * Continue vancomycin IV and Flagyl, * Gentamycin reduced to 80mg IV Q8H * Gentamycin trough pending on Saturday after three doses. continue IVF to avoid nephrotoxicity. * c-diff (-) * ID consult appreciated. (2) Colitis Assessment/Plan: * Flex sigmoidoscopy today shows resolving colitis -most likely ischemic * Avoid NSAIDs * Await pathology report * Miralax 17gm BID * Avoid stimulant laxatives. * Continue Abx. to complete 14 day course ; currently day 11 * Gent trough pending. * C-Diff negative * GI consult appreciated. (3) Seizure disorder Assessment/Plan: * No seizure activity. * Continue: * Fycompa 6 mg PO HS TARIQ * Topamax 75 mg PO BID * Depakene 1gm PO BID (4) DVT prophylaxis Assessment/Plan: * Heparin 5000U SQ BID Visit type - Emergency Visit Emergency Visit: Yes ED Registration Date: 03/05/17 Care time: The patient presented to the Emergency Department on the above date and was hospitalized for further evaluation of their emergent condition. - New Patient This patient is new to me today: No - Critical Care Critical Care patient: No - Discharge Referral Referred to [facility] Med P.C.: No
--- NOTE | 2017-03-15 12:43 | PN ---
Progress Note (short form) - Note Progress Note: resting comfortably NAD Vital Signs Period Temp Pulse Resp BP Sys/Monroy Pulse Ox Last 24 Hr 97.9 F-98.3 F 68-102 18-20 94-119/45-76 6-97 cor-rrr llungs clear abd soft,nt ext no edema endoscopy with segmental colitis CBC, BMP 03/15/17 06:25 03/15/17 06:25 Microbiology 03/07/17 16:30 Blood - Peripheral Venous Blood Culture - Final NO GROWTH AFTER 5 DAYS INCUBATION 03/07/17 16:30 Blood - Peripheral Venous Blood Culture - Final NO GROWTH AFTER 5 DAYS INCUBATION 03/04/17 21:05 Blood - Peripheral Venous Blood Culture - Final Enterococcus Faecalis Pediococcus Pentosaceus Staphylococcus Epidermidis 03/04/17 21:05 Blood - Peripheral Venous Blood Culture - Final Enterococcus Faecalis Pediococcus Pentosaceus Staphylococcus Epidermidis 03/05/17 01:25 Urine - Urine - Catheterized Urine Culture - Final NO GROWTH OBTAINED 03/05/17 15:33 Stool Clostridium difficile Antigen (MAGDY) - Final 03/05/17 15:33 Stool Clostridium difficile Toxin Assay - Final Laboratory Tests 03/08/17 03/08/17 03/11/17 08:10 08:56 11:05 ESR 70 H C-Reactive Protein 2.2 H D Gentamicin Trough 2.2 H Random Vancomycin Vancomycin Pre-Dose 03/11/17 03/12/17 03/14/17 16:52 07:35 12:00 ESR C-Reactive Protein Gentamicin Trough 0.3 D Random Vancomycin Vancomycin Pre-Dose 11.215 H D 21.126 H* D 03/14/17 03/15/17 12:00 06:25 ESR C-Reactive Protein Gentamicin Trough 1.5 D Random Vancomycin 6.055 Vancomycin Pre-Dose a/p POLYMICROBIAL BACTEREMIA - INCLUDING enterococcus and anaerobe on vanco/gent and flagyl day #10 antibiotics, continue antibiotics-plan 14 days, most likely source is GI tract CAITLIN not feasible, colonscopy prep being attempted pen allergy history of colitis (negative cdiff) abd ct scan improved antibiotics being dose adjusted- last vanco level was random, so will restart, gent level was a trough will readjust antibiotic doses Problem List - Problems (1) Fever Code(s): R50.9 - FEVER, UNSPECIFIED Qualifiers: Fever type: unspecified Qualified Code(s): R50.9 - Fever, unspecified (2) Pneumonia Code(s): J18.9 - PNEUMONIA, UNSPECIFIED ORGANISM Qualifiers: Pneumonia type: due to unspecified organism Laterality: left Lung location: lower lobe of lung Qualified Code(s): J18.1 - Lobar pneumonia, unspecified organism (3) Penicillin allergy Code(s): Z88.0 - ALLERGY STATUS TO PENICILLIN
[2017-03-15] MEDS: METRONIDAZOLE 500 MG PREMIXED 100 ML IVPB SCH ×3 (14:58→19:33)
[2017-03-15] MEDS: VANCOMYCIN 1,250 MG in DEXTROSE 5%-WATER - 250 ML IVPB SCH (14:58)
[2017-03-15] MEDS: SODIUM CHLORIDE 1,000 ML IV SCH (15:00)
--- NOTE | 2017-03-15 15:40 | PN ---
Progress Note, Physician History of Present Illness: Afebrile, surveillance cx cleared. - Current Medication List Current Medications: Active Medications Gemfibrozil (Lopid -) 600 mg PO BID [facility] Last Admin: 03/15/17 10:36 Dose: 600 mg Heparin Sodium (Porcine) (Heparin -) 5,000 unit SQ BID TARIQ Last Admin: 03/15/17 10:38 Dose: 5,000 unit Sodium Chloride (Normal Saline -) 1,000 mls @ 42 mls/hr IV ASDIR [facility] Last Admin: 03/15/17 15:00 Dose: 42 mls/hr Vancomycin HCl 1,250 mg/ (Dextrose) 250 mls @ 166.667 mls/hr IVPB Q12H [facility] PRN Reason: Protocol Last Admin: 03/15/17 14:58 Dose: 166.667 mls/hr Gentamicin Sulfate/Sodium Chloride (Garamycin 80 Mg Premixed Ivpb -) 100 mls @ 100 mls/hr IVPB Q8H-IV TARIQ Metronidazole (Flagyl 500mg Premixed Ivpb -) 100 mls @ 100 mls/hr IVPB Q8H-IV [facility] Last Admin: 03/15/17 14:58 Dose: 100 mls/hr Loratadine (Claritin -) 10 mg PO DAILY [facility] Last Admin: 03/15/17 10:37 Dose: 10 mg Non-Formulary Medication (Perampanel [Fycompa]) 6 mg PO HS [facility] Last Admin: 03/14/17 22:20 Dose: 6 mg Nystatin (Nystatin Oral Suspension -) 500,000 units PO Q6HPO [facility] Last Admin: 03/15/17 12:13 Dose: 500,000 units Nystatin (Nystop Powder -) 1 applic TP DAILY [facility] Last Admin: 03/15/17 10:38 Dose: 1 applic Ranitidine HCl (Zantac -) 150 mg PO DAILY [facility] Last Admin: 03/15/17 10:37 Dose: 150 mg Topiramate (Topamax -) 75 mg PO BID [facility] Last Admin: 03/15/17 10:35 Dose: 75 mg Valproic Acid (Depakene -) 1,000 mg PO BID [facility] Last Admin: 03/15/17 10:37 Dose: 1,000 mg - Objective Vital Signs: Vital Signs Temperature 98.0 F 03/15/17 10:12 Pulse Rate 90 03/15/17 10:12 Respiratory Rate 18 03/15/17 10:12 Blood Pressure 114/58 03/15/17 10:12 O2 Sat by Pulse Oximetry (%) 95 03/15/17 10:00 Constitutional: Yes: No Distress, Calm, Thin Neck: Yes: Supple Cardiovascular: Yes: Regular Rate and Rhythm Respiratory: Yes: Regular, Diminished Gastrointestinal: Yes: Normal Bowel Sounds, Soft Edema: No Labs: CBC, BMP 03/15/17 06:25 03/15/17 06:25 INR, PTT INR 1.32 (0.82-1.09) H 03/05/17 08:40 Problem List - Problems (1) Mental retardation Code(s): F79 - UNSPECIFIED INTELLECTUAL DISABILITIES (2) Anemia Code(s): D64.9 - ANEMIA, UNSPECIFIED Qualifiers: Anemia type: iron deficiency (3) Colitis Code(s): K52.9 - NONINFECTIVE GASTROENTERITIS AND COLITIS, UNSPECIFIED (4) Seizure disorder Code(s): G40.909 - EPILEPSY, UNSP, NOT INTRACTABLE, WITHOUT STATUS EPILEPTICUS (5) Polymicrobial septicemia Code(s): A41.9 - SEPSIS, UNSPECIFIED ORGANISM Assessment/Plan 1. Polymicrobial Bacteremia, possible colonic translocation 2. Mental retardation 3. History of colitis 4. Seizure d/o PLAN: 1. Transthoracic echocardiography reveals normal left ventricular systolic function with mild MR and TR 2. Due to underlying mental retardation, CAITLIN is not feasible at this time nor is indicated as he is not persistently febrile and transthoracic echocardiography does not reveal any evidence of valvular heart disease or vegetations 3. Continue antibiotic coverage as per ID service 4. Continue Lopid 600 bid, GI and DVT prophylaxis
--- NOTE | 2017-03-15 17:21 | PN ---
Teaching Attending Note Name of Resident: Caden Fountain ATTENDING PHYSICIAN STATEMENT I saw and evaluated the patient. I reviewed the resident's note and discussed the case with the resident. I agree with the resident's findings and plan as documented. SUBJECTIVE: Patient is comfortable with no acute distress. Awake but just stares at you OBJECTIVE: Vital Signs Temperature 98.2 F 03/15/17 14:03 Pulse Rate 82 03/15/17 14:03 Respiratory Rate 18 03/15/17 14:03 Blood Pressure 124/74 03/15/17 14:03 O2 Sat by Pulse Oximetry (%) 95 03/15/17 10:00 CBCD WBC 5.6 K/mm3 (4.0-10.0) 03/15/17 06:25 RBC 3.82 M/mm3 (4.00-5.60) L 03/15/17 06:25 Hgb 11.7 GM/dL (11.7-16.9) 03/15/17 06:25 Hct 35.5 % (35.4-49) 03/15/17 06:25 MCV 92.9 fl (80-96) 03/15/17 06:25 MCHC 33.0 g/dl (32.0-35.9) 03/15/17 06:25 RDW 15.5 % (11.9-15.9) 03/15/17 06:25 Plt Count 211 K/MM3 (134-434) 03/15/17 06:25 MPV 7.3 fl (7.5-11.1) L 03/15/17 06:25 CMP Sodium 140 mmol/L (136-145) 03/15/17 06:25 Potassium 4.6 mmol/L (3.5-5.1) 03/15/17 06:25 Chloride 109 mmol/L (98-107) H 03/15/17 06:25 Carbon Dioxide 24 mmol/L (21-32) 03/15/17 06:25 Anion Gap 7 (8-16) L 03/15/17 06:25 BUN 7 mg/dL (7-18) 03/15/17 06:25 Creatinine 0.8 mg/dL (0.7-1.3) D 03/15/17 06:25 Creat Clearance w eGFR > 60 (>60) 03/11/17 05:35 Random Glucose 84 mg/dL (74-106) 03/15/17 06:25 Calcium 8.8 mg/dL (8.5-10.1) 03/15/17 06:25 Total Bilirubin 0.2 mg/dL (0.2-1.0) 03/11/17 05:35 AST 31 U/L (15-37) D 03/11/17 05:35 ALT 30 U/L (12-78) D 03/11/17 05:35 Alkaline Phosphatase 51 U/L (45-117) 03/11/17 05:35 Total Protein 6.3 g/dl (6.4-8.2) L 03/11/17 05:35 Albumin 2.5 g/dl (3.4-5.0) L 03/11/17 05:35 Current Medications Generic Name Dose Route Start Last Admin Trade Name Freq PRN Reason Stop Dose Admin Gemfibrozil 600 mg 03/05/17 10:00 03/15/17 10:36 Lopid - PO 600 mg BID TARIQ Administration Heparin Sodium (Porcine) 5,000 unit 03/06/17 22:00 03/15/17 10:38 Heparin - SQ 5,000 unit BID TARIQ Administration Sodium Chloride 1,000 mls @ 42 mls/hr 03/12/17 15:00 03/15/17 15:00 Normal Saline - IV 42 mls/hr ASDIR TARIQ Administration Vancomycin HCl 1,250 mg/ 250 mls @ 166.667 mls/hr 03/15/17 13:00 03/15/17 14:58 Dextrose IVPB 166.667 mls/hr Q12H TARIQ Administration Protocol Gentamicin Sulfate/Sodium Chloride 100 mls @ 100 mls/hr 03/16/17 10:00 Garamycin 80 Mg Premixed Ivpb - IVPB Q8H-IV TARIQ Metronidazole 100 mls @ 100 mls/hr 03/15/17 12:45 03/15/17 14:58 Flagyl 500mg Premixed Ivpb - IVPB 100 mls/hr Q8H-IV TARIQ Administration Loratadine 10 mg 03/05/17 10:00 03/15/17 10:37 Claritin - PO 10 mg DAILY TARIQ Administration Non-Formulary Medication 6 mg 03/06/17 22:00 03/14/17 22:20 Perampanel [Fycompa] PO 6 mg HS TARIQ Administration Nystatin 500,000 units 03/05/17 12:00 03/15/17 12:13 Nystatin Oral Suspension - PO 500,000 units Q6HPO TARIQ Administration Nystatin 1 applic 03/05/17 11:15 03/15/17 10:38 Nystop Powder - TP 1 applic DAILY TARIQ Administration Polyethylene Glycol 17 gm 03/15/17 22:00 Miralax (For Daily Use) - PO BID TARIQ Ranitidine HCl 150 mg 03/05/17 10:00 03/15/17 10:37 Zantac - PO 150 mg DAILY TARIQ Administration Topiramate 75 mg 03/05/17 10:00 03/15/17 10:35 Topamax - PO 75 mg BID TARIQ Administration Valproic Acid 1,000 mg 03/05/17 10:00 03/15/17 10:37 Depakene - PO 1,000 mg BID TARIQ Administration Home Medications Medication Instructions Recorded Calcium Carbonate/Vitamin D3 500 mg PO DAILY 02/20/17 [Oystercal-D 500 mg-400 Unit Tb] Cholecalciferol (Vitamin D3) 2,000 unit PO DAILY 02/20/17 [Vitamin D3] Clonazepam [Klonopin] 1 mg PO TID 02/20/17 Diazepam Rectal Gel [Diastat 10 mg AK ONCE 02/20/17 Rectal Gel -] Famotidine 20 mg PO DAILY 02/20/17 Fluticasone Prop 0.05% Nasal 1 - 2 spray NS DAILY 02/20/17 [Flonase -] Gemfibrozil 600 mg PO BID 02/20/17 Loratadine 10 mg PO DAILY 02/20/17 Perampanel [Fycompa] 6 mg PO HS 02/20/17 Topiramate 75 mg PO BID 02/20/17 Valproic Acid [Depakene -] 1 gm PO BID 02/20/17 ASSESSMENT AND PLAN: 41 y/o male with h/o severe MR, seizure disorder, and h/o MRSA , who presented from [facility] with fevers. He was found to have severe sepsis . # s/p Acute sepsis with bacteremia 2/2 : Pediococcus Pentosaceus, Enterococcus Faecalis , possibly due to colitis. On IV vanco , genta , and flagyl GI consulted and patient went for Flex sig. As per GI: Patient had Flex Sig with likely ischemic event and that this could recur/become a chronic problem. Suspected bacteria translocated leading to bacteremia on IV antibiotic for total of 14 days of Antibiotic 09/05 today. # Seizure disorder :Cont valproic acid, topiramate and Eycompa # Residual colitis: on Abx # Mental retardation from [facility]. DVT Px: Heparin sq
--- NOTE | 2017-03-15 17:35 | PN ---
Teaching Attending Note Name of Resident: Caden Fountain ATTENDING PHYSICIAN STATEMENT I saw and evaluated the patient. I reviewed the resident's note and discussed the case with the resident. I agree with the resident's findings and plan as documented. SUBJECTIVE: Patient went for flex [email or web address] OBJECTVital Signs Period Temp Pulse Resp BP Sys/Monroy Pulse Ox Last 24 Hr 97.6 F-99.2 F 68-88 18-20 94-138/45-79 6-97 Laboratory Results - last 24 hr 03/14/17 03/14/17 03/14/17 08:35 08:35 12:00 WBC 5.5 RBC 3.68 L Hgb 11.2 L Hct 34.3 L MCV 93.1 MCHC 32.7 RDW 15.2 Plt Count 213 MPV 7.0 L Sodium 141 Potassium 4.0 Chloride 110 H Carbon Dioxide 23 Anion Gap 8 BUN 6 L Creatinine 0.6 L Random Glucose 102 Calcium 8.4 L Gentamicin Trough Vancomycin Pre-Dose 21.126 H* D 03/14/17 12:00 WBC RBC Hgb Hct MCV MCHC RDW Plt Count MPV Sodium Potassium Chloride Carbon Dioxide Anion Gap BUN Creatinine Random Glucose Calcium Gentamicin Trough 1.5 D Vancomycin Pre-Dose Active Medications Generic Name Dose Route Start Last Admin Trade Name Freq PRN Reason Stop Dose Admin Gemfibrozil 600 mg 03/05/17 10:00 03/14/17 15:47 Lopid - PO 600 mg BID TARIQ Administration Heparin Sodium (Porcine) 5,000 unit 03/06/17 22:00 03/14/17 11:39 Heparin - SQ Not Given BID TARIQ Gentamicin Sulfate 95 mg/ 102.375 mls @ 250 mls/hr 03/12/17 14:15 03/14/17 10: 00 Dextrose IVPB Not Given Q8H-IV TARIQ Sodium Chloride 1,000 mls @ 42 mls/hr 03/12/17 15:00 03/13/17 17:49 Normal Saline - IV 42 mls/hr ASDIR TARIQ Administration Loratadine 10 mg 03/05/17 10:00 03/14/17 15:47 Claritin - PO 10 mg DAILY TARIQ Administration Non-Formulary Medication 6 mg 03/06/17 22:00 03/13/17 22:40 Perampanel [Fycompa] PO 6 mg HS TARIQ Administration Nystatin 500,000 units 03/05/17 12:00 03/14/17 12:39 Nystatin Oral Suspension - PO 500,000 units Q6HPO TARIQ Administration Nystatin 1 applic 03/05/17 11:15 03/14/17 12:42 Nystop Powder - TP 1 applic DAILY TARIQ Administration Ranitidine HCl 150 mg 03/05/17 10:00 03/14/17 15:47 Zantac - PO 150 mg DAILY TARIQ Administration Topiramate 75 mg 03/05/17 10:00 03/14/17 15:47 Topamax - PO 75 mg BID TARIQ Administration Valproic Acid 1,000 mg 03/05/17 10:00 03/14/17 15:47 Depakene - PO 1,000 mg BID TARIQ Administration PE: per resident's note Abdomen: soft, NT, NR. Positive for BS. ASSESSMENT AND PLAN: 41 y/o male with h/o severe MR, seizure disorder, and h/o MRSA , who presented from [facility] with fevers. He was found to have severe sepsis . # s/p Acute sepsis with bacteremia 2/2 : Pediococcus Pentosaceus, Enterococcus Faecalis , possibly due to colitis. On IV vanco , genta , and flagyl Cardiology consulted for possible CAITLIN, patient went for flex sig today. # Seizure disorder :Cont valproic acid, topiramate and Eycompa # Residual colitis: on Abx # Mental retardation from [facility]. DVT Px: Heparin sq
--- NOTE | 2017-03-15 18:05 | PN ---
GI Progress Note Subjective: GI NOte: Tolerating diet. No rectal bleeding or diarrhea - Objective Vital Signs: Vital Signs Temperature 98.2 F 03/15/17 14:03 Pulse Rate 82 03/15/17 14:03 Respiratory Rate 18 03/15/17 14:03 Blood Pressure 124/74 03/15/17 14:03 O2 Sat by Pulse Oximetry (%) 95 03/15/17 10:00 Constitutional: Calm ...Auscultate: Yes: Normoactive Bowel Sounds ...Palpate: Yes: Soft, Other (nontender) Labs: CBC, BMP 03/15/17 06:25 03/15/17 06:25 INR, PTT INR 1.32 (0.82-1.09) H 03/05/17 08:40 Assessment/Plan Resolving ischemic colitis. Hb stable. Dr Pagan will be covering this weekend. Please call him as needed.
[2017-03-15] MEDS: PERAMPANEL 6 MG PO SCH (22:07)
[2017-03-15] MEDS: POLYETHYLENE GLYCOL 3350 119 GM BTL PO SCH (22:07)
[2017-03-16] MEDS: VANCOMYCIN 1,250 MG in DEXTROSE 5%-WATER - 250 ML IVPB SCH ×2 (00:48→15:27)
[2017-03-16] MEDS: NYSTATIN 500,000 UNITS/5 ML SUSPENSION PO SCH ×5 (01:14→23:59)
[2017-03-16] MEDS: METRONIDAZOLE 500 MG PREMIXED 100 ML IVPB SCH ×3 (03:03→18:20)
[2017-03-16] MEDS: POLYETHYLENE GLYCOL 3350 119 GM BTL PO SCH ×3 (07:35→22:42)
[2017-03-16 08:35] LABS: MCH 30.9 pg (25.7-33.7); MEAN CELL VOLUME 93.5 fl (80-96); MEAN PLT VOLUME 7.4 fl (7.5-11.1); PLATELET COUNT 191 K/MM3 (134-434); RDW 15.4 % (11.9-15.9); WHITE BLOOD COUNT 4.9 K/mm3 (4.0-10.0)
[2017-03-16 08:42] LABS: ANION GAP 10 (8-16); CALCIUM 8.6 mg/dL (8.5-10.1); CO2 23 mmol/L (21-32); CREATININE 0.7 mg/dL (0.7-1.3); GLUCOSE,RANDOM 86 mg/dL (74-106)
[2017-03-16] MEDS: TOPIRAMATE 25 MG TABLET (FP) PO SCH ×2 (11:04→22:43)
[2017-03-16] MEDS: HEPARIN NA (PORCINE) 5,000 UNITS/ML 1ML VIAL SQ SCH ×2 (11:04→22:42)
[2017-03-16] MEDS: RANITIDINE HCL 150 MG TABLET (FP) PO SCH (11:04)
[2017-03-16] MEDS: LORATADINE 10 MG TABLET PO SCH (11:04)
[2017-03-16] MEDS: GENTAMICIN 80 MG PREMIXED IVPB 100 ML IVPB SCH ×2 (11:05→18:20)
[2017-03-16] MEDS: VALPROIC ACID 250 MG CAPSULE PO SCH ×2 (11:06→22:41)
[2017-03-16] MEDS: GEMFIBROZIL 600 MG TABLET (FP) PO SCH ×2 (11:08→22:42)
[2017-03-16] MEDS: NYSTATIN POWDER 100,000 UNITS/GM - 15 GM TOPICAL POWDER TP SCH (11:09)
[2017-03-16] MEDS: SODIUM CHLORIDE 1,000 ML IV SCH (15:27)
--- NOTE | 2017-03-16 19:15 | PN ---
Physical Exam: SUBJECTIVE: Patient seen and examined OBJECTIVE: Vital Signs Temperature 99.2 F 03/16/17 14:11 Pulse Rate 88 03/16/17 14:11 Respiratory Rate 18 03/16/17 14:11 Blood Pressure 108/77 03/16/17 14:11 O2 Sat by Pulse Oximetry (%) 95 03/15/17 10:00 GENERAL: The patient is awake, alert, and fully oriented, in no acute distress. HEAD: Normal with no signs of trauma. EYES: PERRL, extraocular movements intact, sclera anicteric, conjunctiva clear. No ptosis. ENT: Ears normal, nares patent, oropharynx clear without exudates, moist mucous membranes. NECK: Trachea midline, full range of motion, supple. LUNGS: Breath sounds equal, clear to auscultation bilaterally, no wheezes, no crackles, no accessory muscle use. HEART: Regular rate and rhythm, S1, S2 without murmur, rub or gallop. ABDOMEN: Soft, nontender, nondistended, normoactive bowel sounds, no guarding, no rebound, no hepatosplenomegaly, no masses. EXTREMITIES: 2+ pulses, warm, well-perfused, no edema. NEUROLOGICAL: Cranial nerves II through XII grossly intact. Normal speech, gait not observed. PSYCH: Normal mood, normal affect. SKIN: Warm, dry, normal turgor, no rashes or lesions noted CBCD WBC 4.9 K/mm3 (4.0-10.0) 03/16/17 06:00 RBC 3.63 M/mm3 (4.00-5.60) L 03/16/17 06:00 Hgb 11.2 GM/dL (11.7-16.9) L 03/16/17 06:00 Hct 34.0 % (35.4-49) L 03/16/17 06:00 MCV 93.5 fl (80-96) 03/16/17 06:00 MCHC 33.0 g/dl (32.0-35.9) 03/16/17 06:00 RDW 15.4 % (11.9-15.9) 03/16/17 06:00 Plt Count 191 K/MM3 (134-434) 03/16/17 06:00 MPV 7.4 fl (7.5-11.1) L 03/16/17 06:00 CMP Sodium 140 mmol/L (136-145) 03/16/17 06:00 Potassium 4.0 mmol/L (3.5-5.1) 03/16/17 06:00 Chloride 107 mmol/L (98-107) 03/16/17 06:00 Carbon Dioxide 23 mmol/L (21-32) 03/16/17 06:00 Anion Gap 10 (8-16) 03/16/17 06:00 BUN 8 mg/dL (7-18) 03/16/17 06:00 Creatinine 0.7 mg/dL (0.7-1.3) 03/16/17 06:00 Creat Clearance w eGFR > 60 (>60) 03/11/17 05:35 Random Glucose 86 mg/dL (74-106) 03/16/17 06:00 Calcium 8.6 mg/dL (8.5-10.1) 03/16/17 06:00 Total Bilirubin 0.2 mg/dL (0.2-1.0) 03/11/17 05:35 AST 31 U/L (15-37) D 03/11/17 05:35 ALT 30 U/L (12-78) D 03/11/17 05:35 Alkaline Phosphatase 51 U/L (45-117) 03/11/17 05:35 Total Protein 6.3 g/dl (6.4-8.2) L 03/11/17 05:35 Albumin 2.5 g/dl (3.4-5.0) L 03/11/17 05:35 Laboratory Results - last 24 hr 03/16/17 03/16/17 06:00 06:00 WBC 4.9 RBC 3.63 L Hgb 11.2 L Hct 34.0 L MCV 93.5 MCHC 33.0 RDW 15.4 Plt Count 191 MPV 7.4 L Sodium 140 Potassium 4.0 Chloride 107 Carbon Dioxide 23 Anion Gap 10 BUN 8 Creatinine 0.7 Random Glucose 86 Calcium 8.6 Active Medications Generic Name Dose Route Start Last Admin Trade Name Freq PRN Reason Stop Dose Admin Gemfibrozil 600 mg 03/05/17 10:00 03/16/17 11:08 Lopid - PO 600 mg BID [facility] Administration Heparin Sodium (Porcine) 5,000 unit 03/06/17 22:00 03/16/17 11:04 Heparin - SQ 5,000 unit BID [facility] Administration Sodium Chloride 1,000 mls @ 42 mls/hr 03/12/17 15:00 03/16/17 15:27 Normal Saline - IV 42 mls/hr ASDIR [facility] Administration Vancomycin HCl 1,250 mg/ 250 mls @ 166.667 mls/hr 03/15/17 13:00 03/16/17 15:27 Dextrose IVPB 166.667 mls/hr Q12H [facility] Administration Protocol Gentamicin Sulfate/Sodium Chloride 100 mls @ 100 mls/hr 03/16/17 10:00 18:20 Garamycin 80 Mg Premixed Ivpb - IVPB 100 mls/hr Q8H-IV [facility] Administration Metronidazole 100 mls @ 100 mls/hr 03/15/17 12:45 03/16/17 18:20 Flagyl 500mg Premixed Ivpb - IVPB 100 mls/hr Q8H-IV [facility] Administration Loratadine 10 mg 03/05/17 10:00 03/16/17 11:04 Claritin - PO 10 mg DAILY [facility] Administration Non-Formulary Medication 6 mg 03/06/17 22:00 03/15/17 22:07 Perampanel [Fycompa] PO 6 mg HS [facility] Administration Nystatin 500,000 units 03/05/17 12:00 03/16/17 18:19 Nystatin Oral Suspension - PO 500,000 units Q6HPO [facility] Administration Nystatin 1 applic 03/05/17 11:15 03/16/17 11:09 Nystop Powder - TP 1 applic DAILY [facility] Administration Polyethylene Glycol 17 gm 03/15/17 22:00 03/16/17 11:08 Miralax (For Daily Use) - PO 17 gm BID [facility] Administration Ranitidine HCl 150 mg 03/05/17 10:00 03/16/17 11:04 Zantac - PO 150 mg DAILY [facility] Administration Topiramate 75 mg 03/05/17 10:00 03/16/17 11:04 Topamax - PO 75 mg BID [facility] Administration Valproic Acid 1,000 mg 03/05/17 10:00 03/16/17 11:06 Depakene - PO 1,000 mg BID [facility] Administration Home Medications Medication Instructions Recorded Calcium Carbonate/Vitamin D3 500 mg PO DAILY 02/20/17 [Oystercal-D 500 mg-400 Unit Tb] Cholecalciferol (Vitamin D3) 2,000 unit PO DAILY 02/20/17 [Vitamin D3] Clonazepam [Klonopin] 1 mg PO TID 02/20/17 Diazepam Rectal Gel [Diastat 10 mg [place] ONCE 02/20/17 Rectal Gel -] Famotidine 20 mg PO DAILY 02/20/17 Fluticasone Prop 0.05% Nasal 1 - 2 spray NS DAILY 02/20/17 [Flonase -] Gemfibrozil 600 mg PO BID 02/20/17 Loratadine 10 mg PO DAILY 02/20/17 Perampanel [Fycompa] 6 mg PO HS 02/20/17 Topiramate 75 mg PO BID 02/20/17 Valproic Acid [Depakene -] 1 gm PO BID 02/20/17 ASSESSMENT/PLAN: 41 y/o male with h/o severe MR, seizure disorder, and h/o MRSA , who presented from [facility] with fevers. He was found to have severe sepsis . # s/p Acute sepsis with bacteremia 2/2 : Pediococcus Pentosaceus, Enterococcus Faecalis , possibly due to colitis. day antibiotic, patient pulled his IV line, unable to get an access at this time, discussed with ID, will monitor for now. GI consulted and patient went for Flex sig. As per GI: Patient had Flex Sig with likely ischemic event and that this could recur/become a chronic problem. Suspected bacteria translocated leading to bacteremia on IV antibiotic day 13 today. # Seizure disorder :Cont valproic acid, topiramate and Eycompa # Residual colitis: on Abx # Mental retardation from [facility]. DVT Px: Heparin sq Visit type - Emergency Visit Emergency Visit: Yes ED Registration Date: 03/05/17 Care time: The patient presented to the Emergency Department on the above date and was hospitalized for further evaluation of their emergent condition. - New Patient This patient is new to me today: No - Critical Care Critical Care patient: No
[2017-03-16] MEDS: PERAMPANEL 6 MG PO SCH (22:42)
[2017-03-17] MEDS: VANCOMYCIN 1,250 MG in DEXTROSE 5%-WATER - 250 ML IVPB SCH ×2 (00:50→14:11)
[2017-03-17] MEDS: METRONIDAZOLE 500 MG PREMIXED 100 ML IVPB SCH ×3 (01:54→18:50)
[2017-03-17] MEDS: GENTAMICIN 80 MG PREMIXED IVPB 100 ML IVPB SCH ×3 (01:55→18:01)
[2017-03-17] MEDS: NYSTATIN 500,000 UNITS/5 ML SUSPENSION PO SCH ×3 (06:35→18:50)
[2017-03-17] MEDS ORDERED: PT OWN MED DRAWER 7, Y5N ONE ×4 (10:09→22:28)
[2017-03-17] MEDS: LORATADINE 10 MG TABLET PO SCH (14:00)
[2017-03-17] MEDS: VALPROIC ACID 250 MG CAPSULE PO SCH ×2 (14:08→23:40)
[2017-03-17] MEDS: HEPARIN NA (PORCINE) 5,000 UNITS/ML 1ML VIAL SQ SCH ×2 (14:09→23:40)
[2017-03-17] MEDS: POLYETHYLENE GLYCOL 3350 119 GM BTL PO SCH ×2 (14:10→23:41)
[2017-03-17] MEDS: GEMFIBROZIL 600 MG TABLET (FP) PO SCH ×2 (14:10→23:39)
[2017-03-17] MEDS: RANITIDINE HCL 150 MG TABLET (FP) PO SCH (14:11)
[2017-03-17] MEDS: NYSTATIN POWDER 100,000 UNITS/GM - 15 GM TOPICAL POWDER TP SCH (14:11)
[2017-03-17] MEDS: TOPIRAMATE 25 MG TABLET (FP) PO SCH ×2 (14:11→23:39)
[2017-03-17] MEDS: SODIUM CHLORIDE 1,000 ML IV SCH (15:10)
--- NOTE | 2017-03-17 20:40 | PN ---
Progress Note (short form) - Note Progress Note: Patient is comfortable, no acute distress. Vital Signs Temperature 98.4 F 03/17/17 18:30 Pulse Rate 95 H 03/17/17 18:30 Respiratory Rate 20 03/17/17 18:30 Blood Pressure 111/72 03/17/17 18:30 O2 Sat by Pulse Oximetry (%) 95 03/15/17 10:00 GENERAL: non verbal , NAD, lying in bed.spits when he is happy. HEAD: NC/AT. LUNGS: CTAB, no wheezing HEART: RRR, no M/G/R ABDOMEN: Soft, LLQ tenderness improved, ND ,BS(+), EXTREMITIES: contracted bilateral LE 2+ pulses, warm, well-perfused, no edema or erythema SKIN: Warm, dry, normal turgor, no rashes or lesions noted CBCD WBC 4.9 K/mm3 (4.0-10.0) 03/16/17 06:00 RBC 3.63 M/mm3 (4.00-5.60) L 03/16/17 06:00 Hgb 11.2 GM/dL (11.7-16.9) L 03/16/17 06:00 Hct 34.0 % (35.4-49) L 03/16/17 06:00 MCV 93.5 fl (80-96) 03/16/17 06:00 MCHC 33.0 g/dl (32.0-35.9) 03/16/17 06:00 RDW 15.4 % (11.9-15.9) 03/16/17 06:00 Plt Count 191 K/MM3 (134-434) 03/16/17 06:00 MPV 7.4 fl (7.5-11.1) L 03/16/17 06:00 CMP Sodium 140 mmol/L (136-145) 03/16/17 06:00 Potassium 4.0 mmol/L (3.5-5.1) 03/16/17 06:00 Chloride 107 mmol/L (98-107) 03/16/17 06:00 Carbon Dioxide 23 mmol/L (21-32) 03/16/17 06:00 Anion Gap 10 (8-16) 03/16/17 06:00 BUN 8 mg/dL (7-18) 03/16/17 06:00 Creatinine 0.7 mg/dL (0.7-1.3) 03/16/17 06:00 Creat Clearance w eGFR > 60 (>60) 03/11/17 05:35 Random Glucose 86 mg/dL (74-106) 03/16/17 06:00 Calcium 8.6 mg/dL (8.5-10.1) 03/16/17 06:00 Total Bilirubin 0.2 mg/dL (0.2-1.0) 03/11/17 05:35 AST 31 U/L (15-37) D 03/11/17 05:35 ALT 30 U/L (12-78) D 03/11/17 05:35 Alkaline Phosphatase 51 U/L (45-117) 03/11/17 05:35 Total Protein 6.3 g/dl (6.4-8.2) L 03/11/17 05:35 Albumin 2.5 g/dl (3.4-5.0) L 03/11/17 05:35 Current Medications Generic Name Dose Route Start Last Admin Trade Name Freq PRN Reason Stop Dose Admin Gemfibrozil 600 mg 03/05/17 10:00 03/17/17 14:10 Lopid - PO 600 mg BID [facility]ARIQ Administration Heparin Sodium (Porcine) 5,000 unit 03/06/17 22:00 03/17/17 14:09 Heparin - SQ 5,000 unit BID [facility] Administration Sodium Chloride 1,000 mls @ 42 mls/hr 03/12/17 15:00 03/17/17 15:10 Normal Saline - IV 42 mls/hr ASDIR [facility]AR[facility] Administration Vancomycin HCl 1,250 mg/ 250 mls @ 166.667 mls/hr 03/15/17 13:00 03/17/17 14:11 Dextrose IVPB 166.667 mls/hr Q12H [facility]AR[facility] Administration Protocol Gentamicin Sulfate/Sodium Chloride 100 mls @ 100 mls/hr 03/16/17 10:00 18:01 Garamycin 80 Mg Premixed Ivpb - IVPB 100 mls/hr Q8H-IV [facility] Administration Metronidazole 100 mls @ 100 mls/hr 03/15/17 12:45 03/17/17 18:50 Flagyl 500mg Premixed Ivpb - IVPB 100 mls/hr Q8H-IV [facility] Administration Loratadine 10 mg 03/05/17 10:00 03/17/17 14:00 Claritin - PO 10 mg DAILY [facility] Administration Non-Formulary Medication 6 mg 03/06/17 22:00 03/16/17 22:42 Perampanel [Fycompa] PO 6 mg HS [facility] Administration Nystatin 500,000 units 03/05/17 12:00 03/17/17 18:50 Nystatin Oral Suspension - PO 500,000 units Q6HPO [facility] Administration Nystatin 1 applic 03/05/17 11:15 03/17/17 14:11 Nystop Powder - TP 1 applic DAILY [facility] Administration Polyethylene Glycol 17 gm 03/15/17 22:00 03/17/17 14:10 Miralax (For Daily Use) - PO 17 gm BID [facility] Administration Ranitidine HCl 150 mg 03/05/17 10:00 03/17/17 14:11 Zantac - PO 150 mg DAILY [facility] Administration Topiramate 75 mg 03/05/17 10:00 03/17/17 14:11 Topamax - PO 75 mg BID [facility] Administration Valproic Acid 1,000 mg 03/05/17 10:00 03/17/17 14:08 Depakene - PO 1,000 mg BID [facility]AR[facility] Administration Home Medications Medication Instructions Recorded Calcium Carbonate/Vitamin D3 500 mg PO DAILY 02/20/17 [Oystercal-D 500 mg-400 Unit Tb] Cholecalciferol (Vitamin D3) 2,000 unit PO DAILY 02/20/17 [Vitamin D3] Clonazepam [Klonopin] 1 mg PO TID 02/20/17 Diazepam Rectal Gel [Diastat 10 mg [place] ONCE 02/20/17 Rectal Gel -] Famotidine 20 mg PO DAILY 02/20/17 Fluticasone Prop 0.05% Nasal 1 - 2 spray NS DAILY 02/20/17 [Flonase -] Gemfibrozil 600 mg PO BID 02/20/17 Loratadine 10 mg PO DAILY 02/20/17 Perampanel [Fycompa] 6 mg PO HS 02/20/17 Topiramate 75 mg PO BID 02/20/17 Valproic Acid [Depakene -] 1 gm PO BID 02/20/17 A/P: 41 y/o male with h/o severe MR, seizure disorder, and h/o MRSA , who presented from [facility] with fevers. He was found to have severe sepsis . # s/p Acute sepsis with bacteremia 2/2 : Pediococcus Pentosaceus, Enterococcus Faecalis , possibly due to colitis. day antibiotic, patient pulled his IV line, unable to get an access at this time, discussed with ID, will monitor for now. s/p Flex sigmoidoscopy by GI. As per GI: Patient had Flex Sig with likely ischemic event and that this could recur/become a chronic problem. Suspected bacteria translocated leading to bacteremia on IV antibiotic day today. # Seizure disorder :Cont valproic acid, topiramate and Eycompa # Residual colitis: on Abx # Mental retardation from [facility]. DVT Px: Heparin sq Visit type - Emergency Visit Emergency Visit: Yes ED Registration Date: 03/05/17 Care time: The patient presented to the Emergency Department on the above date and was hospitalized for further evaluation of their emergent condition. - New Patient This patient is new to me today: No - Critical Care Critical Care patient: No
[2017-03-18 01:15] LABS: MCH 30.6 pg (25.7-33.7); MCHC 32.9 g/dl (32.0-35.9); MEAN CELL VOLUME 93.1 fl (80-96); MEAN PLT VOLUME 7.9 fl (7.5-11.1); PLATELET COUNT 182 K/MM3 (134-434); RDW 15.5 % (11.9-15.9); WHITE BLOOD COUNT 5.8 K/mm3 (4.0-10.0)
[2017-03-18] MEDS: SODIUM CHLORIDE 1,000 ML IV SCH ×2 (01:53→16:36)
[2017-03-18 01:54] LABS: ANION GAP 9 (8-16); CALCIUM 8.8 mg/dL (8.5-10.1); CO2 25 mmol/L (21-32); CREATININE 0.8 mg/dL (0.7-1.3); GLUCOSE,RANDOM 98 mg/dL (74-106)
[2017-03-18] MEDS ORDERED: PT OWN MED DRAWER 7, Y5N ONE (02:30)
[2017-03-18] MEDS: NYSTATIN 500,000 UNITS/5 ML SUSPENSION PO SCH ×3 (02:33→12:45)
[2017-03-18] MEDS: HEPARIN NA (PORCINE) 5,000 UNITS/ML 1ML VIAL SQ SCH ×2 (02:33→11:00)
[2017-03-18] MEDS: GEMFIBROZIL 600 MG TABLET (FP) PO SCH ×2 (02:33→11:00)
[2017-03-18] MEDS: PERAMPANEL 6 MG PO SCH (02:34)
[2017-03-18] MEDS: VANCOMYCIN 1,250 MG in DEXTROSE 5%-WATER - 250 ML IVPB SCH (02:35)
[2017-03-18] MEDS: VALPROIC ACID 250 MG CAPSULE PO SCH ×2 (02:36→11:00)
[2017-03-18] MEDS: TOPIRAMATE 25 MG TABLET (FP) PO SCH ×2 (02:37→11:00)
[2017-03-18] MEDS: POLYETHYLENE GLYCOL 3350 119 GM BTL PO SCH ×3 (02:38→11:00)
--- NOTE | 2017-03-18 02:55 | HOSP ---
Subjective - Review of Symptoms Events since last encounter: Paged as pt was unarousable to sternal rub. Pt appears to be lethargic and unarousable to sternal rub. Pt with no clonic/tonic movements. Pt with RRR heart sounds, Lungs w/coarse breath sounds anteriorly, Non-tender abdomen, normoactive bowel sounds, skin dry and warm. Vital Signs Temperature 99.5 F 03/17/17 18:30 Pulse Rate 61 03/17/17 18:30 Respiratory Rate 20 03/17/17 18:30 Blood Pressure 111/72 03/17/17 18:30 O2 Sat by Pulse Oximetry (%) 95 03/15/17 10:00 Pt afebrile w/rectal temp of 99.5. BP stable. Saturating well on RA. CBC, CMP, CXR ordered to r/o aspiration. CBC, BMP 03/18/17 00:38 03/18/17 00:38 CXR: shows no of aspiration pna. No acute pathology noted. Physical Examination Vital Signs: Vital Signs Temperature 98.4 F 03/17/17 18:30 Pulse Rate 95 H 03/17/17 18:30 Respiratory Rate 20 03/17/17 18:30 Blood Pressure 111/72 03/17/17 18:30 O2 Sat by Pulse Oximetry (%) 95 03/15/17 10:00 Labs: CBC, BMP 03/18/17 00:38 03/18/17 00:38 Visit type - Emergency Visit Emergency Visit: Yes ED Registration Date: 03/05/17 Care time: The patient presented to the Emergency Department on the above date and was hospitalized for further evaluation of their emergent condition. - New Patient This patient is new to me today: No - Critical Care Critical Care patient: No
[2017-03-18] MEDS: METRONIDAZOLE 500 MG PREMIXED 100 ML IVPB SCH (05:37)
[2017-03-18] MEDS: GENTAMICIN 80 MG PREMIXED IVPB 100 ML IVPB SCH (08:14)
--- NOTE | 2017-03-18 09:55 | PN ---
Progress Note, Physician Chief Complaint: ID Altered mental status overnight but presently up to baseline - Current Medication List Current Medications: Active Medications Gemfibrozil (Lopid -) [address] [facility] Last Admin: 03/18/17 02:33 Dose: 600 mg Heparin Sodium (Porcine) (Heparin -) 5,000 unit SQ BID [facility]AR[facility] Last Admin: 03/18/17 02:33 Dose: 5,000 unit Sodium Chloride (Normal Saline -) 1,000 mls @ 42 mls/hr IV ASDIR [facility] Last Admin: 03/18/17 01:53 Dose: 42 mls/hr Vancomycin HCl 1,250 mg/ (Dextrose) 250 mls @ 166.667 mls/hr IVPB Q12H [facility]ARIQ PRN Reason: Protocol Last Admin: 03/18/17 02:35 Dose: 166.667 mls/hr Gentamicin Sulfate/Sodium Chloride (Garamycin 80 Mg Premixed Ivpb -) 100 mls @ 100 mls/hr IVPB Q8H-IV [facility] Last Admin: 03/18/17 08:14 Dose: Not Given Metronidazole (Flagyl 500mg Premixed Ivpb -) 100 mls @ 100 mls/hr IVPB Q8H-IV [facility] Last Admin: 03/18/17 05:37 Dose: 100 mls/hr Loratadine (Claritin -) [address] [facility] Last Admin: 03/17/17 14:00 Dose: 10 mg Non-Formulary Medication (Perampanel [Fycompa]) [address] [facility] Last Admin: 03/18/17 02:34 Dose: 6 mg Nystatin (Nystatin Oral Suspension -) 500,[address] [facility] Last Admin: 03/18/17 06:26 Dose: Not Given Nystatin (Nystop Powder -) [address] [facility] Last Admin: 03/17/17 14:11 Dose: 1 applic Polyethylene Glycol (Miralax (For Daily Use) -) [address] [facility] Last Admin: 03/18/17 03:41 Dose: Not Given Ranitidine HCl (Zantac -) [address] [facility] Last Admin: 03/17/17 14:11 Dose: 150 mg Topiramate (Topamax -) [address] [facility] Last Admin: 03/18/17 02:37 Dose: 75 mg Valproic Acid (Depakene -) 1,000 mg PO BID [facility] Last Admin: 03/18/17 02:36 Dose: 1,000 mg - Objective Vital Signs: Vital Signs Temperature 99.2 F 03/18/17 07:00 Pulse Rate 83 03/18/17 07:00 Respiratory Rate 18 03/18/17 07:00 Blood Pressure 133/81 03/18/17 07:00 O2 Sat by Pulse Oximetry (%) 95 03/15/17 10:00 Constitutional: Yes: Well Nourished, No Distress HENT: Yes: WNL, Atraumatic Neck: Yes: WNL, Supple Cardiovascular: Yes: WNL, Regular Rate and Rhythm, S1, S2 Respiratory: Yes: WNL, Regular, CTA Bilaterally. No: Poor Air Entry, Rales Gastrointestinal: Yes: WNL, Normal Bowel Sounds, Soft. No: Tenderness Edema: No Labs: CBC, BMP 03/18/17 00:38 03/18/17 00:38 INR, PTT INR 1.32 (0.82-1.09) H 03/05/17 08:40 Assessment/Plan Microbiology 03/04/17 21:05 Blood - Peripheral Venous Blood Culture - Final Enterococcus Faecalis Pediococcus Pentosaceus Staphylococcus Epidermidis 03/04/17 21:05 Blood - Peripheral Venous Blood Culture - Final Enterococcus Faecalis Pediococcus Pentosaceus Staphylococcus Epidermidis Laboratory Tests 03/18/17 03/18/17 00:38 00:38 WBC 5.8 Hgb 11.7 Hct 35.5 Plt Count 182 BUN 11 D Creatinine 0.8 Assessment Polymicrobial negative bacteremia treated Plan Stop all antibiotics Nadya KEENAN
[2017-03-18] MEDS: LORATADINE 10 MG TABLET PO SCH (11:00)
[2017-03-18] MEDS: NYSTATIN POWDER 100,000 UNITS/GM - 15 GM TOPICAL POWDER TP SCH (11:00)
[2017-03-18] MEDS: RANITIDINE HCL 150 MG TABLET (FP) PO SCH (11:00)
--- NOTE | 2017-03-18 12:05 | PN ---
Progress Note, Physician History of Present Illness: Altered mental status overnight since resolved. - Current Medication List Current Medications: Active Medications Gemfibrozil (Lopid -) 600 mg PO BID [facility] Last Admin: 03/18/17 11:00 Dose: 600 mg Heparin Sodium (Porcine) (Heparin -) 5,000 unit SQ BID [facility] Last Admin: 03/18/17 11:00 Dose: 5,000 unit Sodium Chloride (Normal Saline -) 1,000 mls @ 42 mls/hr IV ASDIR [facility] Last Admin: 03/18/17 01:53 Dose: 42 mls/hr Loratadine (Claritin -) 10 mg PO DAILY [facility] Last Admin: 03/18/17 11:00 Dose: 10 mg Non-Formulary Medication (Perampanel [Fycompa]) 6 mg PO HS [facility] Last Admin: 03/18/17 02:34 Dose: 6 mg Nystatin (Nystatin Oral Suspension -) 500,000 units PO Q6HPO [facility] Last Admin: 03/18/17 06:26 Dose: Not Given Nystatin (Nystop Powder -) 1 applic TP DAILY [facility] Last Admin: 03/18/17 11:00 Dose: 1 applic Polyethylene Glycol (Miralax (For Daily Use) -) 17 gm PO BID [facility] Last Admin: 03/18/17 11:00 Dose: Not Given Ranitidine HCl (Zantac -) 150 mg PO DAILY [facility] Last Admin: 03/18/17 11:00 Dose: 150 mg Topiramate (Topamax -) 75 mg PO BID [facility] Last Admin: 03/18/17 11:00 Dose: 75 mg Valproic Acid (Depakene -) 1,000 mg PO BID [facility] Last Admin: 03/18/17 11:00 Dose: 1,000 mg - Objective Vital Signs: Vital Signs Temperature 99.2 F 03/18/17 07:00 Pulse Rate 83 03/18/17 07:00 Respiratory Rate 18 03/18/17 07:00 Blood Pressure 133/81 03/18/17 07:00 O2 Sat by Pulse Oximetry (%) 95 03/15/17 10:00 Constitutional: Yes: No Distress, Calm Neck: Yes: Supple Cardiovascular: Yes: Regular Rate and Rhythm Respiratory: Yes: Regular, Diminished Gastrointestinal: Yes: Normal Bowel Sounds, Soft Edema: No Labs: CBC, BMP 03/18/17 00:38 03/18/17 00:38 INR, PTT INR 1.32 (0.82-1.09) H 03/05/17 08:40 - ....Imaging Chest X-ray: Report Reviewed (NAD) Problem List - Problems (1) Mental retardation Code(s): F79 - UNSPECIFIED INTELLECTUAL DISABILITIES (2) Anemia Code(s): D64.9 - ANEMIA, UNSPECIFIED Qualifiers: Anemia type: iron deficiency (3) Colitis Code(s): K52.9 - NONINFECTIVE GASTROENTERITIS AND COLITIS, UNSPECIFIED (4) Seizure disorder Code(s): G40.909 - EPILEPSY, UNSP, NOT INTRACTABLE, WITHOUT STATUS EPILEPTICUS (5) Polymicrobial septicemia Code(s): A41.9 - SEPSIS, UNSPECIFIED ORGANISM Assessment/Plan 1. Polymicrobial Bacteremia, possible colonic translocation resolved 2. Mental retardation 3. Resolving ischemic colitis 4. Seizure d/o PLAN: 1. Transthoracic echocardiography reveals normal left ventricular systolic function with mild MR and TR 2. Due to underlying mental retardation, CAITLIN is not feasible at this time nor is indicated as he is not persistently febrile and transthoracic echocardiography does not reveal any evidence of valvular heart disease or vegetations 3. Completed antibiotic coverage as per ID service 4. Continue Lopid 600 bid, GI and DVT prophylaxis, d/c planning
--- NOTE | 2017-03-18 15:11 | DS ---
Physical Exam: SUBJECTIVE:Patient seen and examined at bedside. No overnight events. No new complaints. Non-verbal. Awake and lying comfortably. OBJECTIVE: Vital Signs Period Temp Pulse Resp BP Sys/[place] Pulse Ox Last 24 Hr 98.4 F-99.5 F 61-95 18-20 111-133/72-81 PHYSICAL EXAM GENERAL: non verbal , NAD HEAD: NC/AT. LUNGS: CTAB, no wheezing HEART: RRR, no M/G/R ABDOMEN: Soft, LLQ tenderness improved, ND ,BS(+), EXTREMITIES: contracted bilateral LE 2+ pulses, warm, well-perfused, no edema or erythema SKIN: Warm, dry, normal turgor, no rashes or lesions noted LABS Laboratory Results - last 24 hr 03/18/17 03/18/17 03/18/17 00:38 00:38 00:38 WBC 5.8 RBC 3.82 L Hgb 11.7 Hct 35.5 MCV 93.1 MCHC 32.9 RDW 15.5 Plt Count 182 MPV 7.9 Neutrophils % Y Lymphocytes % Y Sodium 139 Potassium 4.3 Chloride 105 Carbon Dioxide 25 Anion Gap 9 BUN 11 D Creatinine 0.8 Random Glucose 98 Lactic Acid 0.7 Calcium 8.8 HOSPITAL COURSE: 41 yo M with PMhx of severe MR, Seizure disorder, h/o MRSA presented from [facility] with fevers and tachypnea. He was moreno cultured and started on broad spectrum antibiotics. He was found to have polymicrobial bacteremia. He was seen by ID and antibiotics were tailored to culture and sensitivity results. He was also seen by GI who performed Flex Sigmoidoscopy and found to have ischemic colitis which was the source of bacteremia. He remained afebrile and without leukocytosis for 12 days. He completed a 14 day course of IV antibiotics and cleared by infectious disease. He was also cleared by GI and will follow up as outpatient. He is advised to continue with miralax BID. Avoid stimulant laxatives and NSAIDS. His seizure medications were continued as directed and he was seizure free during admission. He is stable for discharge and advised to follow up with primary doctor in one week. Date of Admission:03/05/17 Date of Discharge: 03/18/17 Minutes to complete discharge: 36 Discharge Summary Reason For Visit: FEVER M.R. FUNCTIONAL QUADRIPLEGIA Current Active Problems DVT prophylaxis (Acute) Fever (Acute) Polymicrobial septicemia (Acute) Severe sepsis (Acute) Colitis (Chronic) Functional quadriplegia (Chronic) Mental retardation (Chronic) Seizure disorder (Chronic) Condition: Improved - Instructions Diet, Activity, Other Instructions: -Please follow up with your Primary care doctor in one week. -Resume all home meds as directed. -Regular diet -Increase activity as tolerated. Referrals: Kali Pham MD [Primary Care Provider] - Disposition: HOME - Home Medications Comprehensive Discharge Medication List: Ambulatory Orders Calcium Carbonate/Vitamin D3 [Oystercal-D 500 mg-400 Unit Tb] 500 mg PO DAILY Cholecalciferol (Vitamin D3) [Vitamin D3] 2,000 unit PO DAILY 02/20/17 Clonazepam [Klonopin] 1 mg PO TID 02/20/17 Diazepam Rectal Gel [Diastat Rectal Gel -] 10 mg [place] ONCE 02/20/17 Famotidine 20 mg PO DAILY 02/20/17 Fluticasone Prop 0.05% Nasal [Flonase -] 1 - 2 spray NS DAILY 02/20/17 Gemfibrozil 600 mg PO BID 02/20/17 Loratadine 10 mg PO DAILY 02/20/17 Perampanel [Fycompa] 6 mg PO HS 02/20/17 Topiramate 75 mg PO BID 02/20/17 Valproic Acid [Depakene -] 1 gm PO BID 02/20/17 Problem List - Problems (1) Sepsis (2) Colitis (3) Seizure disorder (4) DVT prophylaxis This patient is new to me today: No Emergency Visit: Yes ED Registration Date: 03/05/17 Care time: The patient presented to the Emergency Department on the above date and was hospitalized for further evaluation of their emergent condition. Critical Care patient: No - Discharge Referral Referred to [facility] No
[2017-03-18 15:53] VITALS: BP 131/76; PULSE 74; TEMP 99.1
--- NOTE | 2017-03-18 21:08 | PN ---
Teaching Attending Note Name of Resident: Caden Fountain ATTENDING PHYSICIAN STATEMENT I saw and evaluated the patient. I reviewed the resident's note and discussed the case with the resident. I agree with the resident's findings and plan as documented. SUBJECTIVE: Patient is comfortable with no acute distress. OBJECTIVE: Vital Signs Temperature 99.1 F 03/18/17 15:50 Pulse Rate 74 03/18/17 15:50 Respiratory Rate 20 03/18/17 15:50 Blood Pressure 131/76 03/18/17 15:50 O2 Sat by Pulse Oximetry (%) 95 03/15/17 10:00 CBCD WBC 5.8 K/mm3 (4.0-10.0) 03/18/17 00:38 RBC 3.82 M/mm3 (4.00-5.60) L 03/18/17 00:38 Hgb 11.7 GM/dL (11.7-16.9) 03/18/17 00:38 Hct 35.5 % (35.4-49) 03/18/17 00:38 MCV 93.1 fl (80-96) 03/18/17 00:38 MCHC 32.9 g/dl (32.0-35.9) 03/18/17 00:38 RDW 15.5 % (11.9-15.9) 03/18/17 00:38 Plt Count 182 K/MM3 (134-434) 03/18/17 00:38 MPV 7.9 fl (7.5-11.1) 03/18/17 00:38 CMP Sodium 139 mmol/L (136-145) 03/18/17 00:38 Potassium 4.3 mmol/L (3.5-5.1) 03/18/17 00:38 Chloride 105 mmol/L (98-107) 03/18/17 00:38 Carbon Dioxide 25 mmol/L (21-32) 03/18/17 00:38 Anion Gap 9 (8-16) 03/18/17 00:38 BUN 11 mg/dL (7-18) D 03/18/17 00:38 Creatinine 0.8 mg/dL (0.7-1.3) 03/18/17 00:38 Creat Clearance w eGFR > 60 (>60) 03/11/17 05:35 Random Glucose 98 mg/dL (74-106) 03/18/17 00:38 Calcium 8.8 mg/dL (8.5-10.1) 03/18/17 00:38 Total Bilirubin 0.2 mg/dL (0.2-1.0) 03/11/17 05:35 AST 31 U/L (15-37) D 03/11/17 05:35 ALT 30 U/L (12-78) D 03/11/17 05:35 Alkaline Phosphatase 51 U/L (45-117) 03/11/17 05:35 Total Protein 6.3 g/dl (6.4-8.2) L 03/11/17 05:35 Albumin 2.5 g/dl (3.4-5.0) L 03/11/17 05:35 Home Medications Medication Instructions Recorded Calcium Carbonate/Vitamin D3 500 mg PO DAILY 02/20/17 [Oystercal-D 500 mg-400 Unit Tb] Cholecalciferol (Vitamin D3) 2,000 unit PO DAILY 02/20/17 [Vitamin D3] Clonazepam [Klonopin] 1 mg PO TID 02/20/17 Diazepam Rectal Gel [Diastat 10 mg CA ONCE 02/20/17 Rectal Gel -] Famotidine 20 mg PO DAILY 02/20/17 Fluticasone Prop 0.05% Nasal 1 - 2 spray NS DAILY 02/20/17 [Flonase -] Gemfibrozil 600 mg PO BID 02/20/17 Loratadine 10 mg PO DAILY 02/20/17 Perampanel [Fycompa] 6 mg PO HS 02/20/17 Topiramate 75 mg PO BID 02/20/17 Valproic Acid [Depakene -] 1 gm PO BID 02/20/17 PE: per resident's note ASSESSMENT AND PLAN: 41 y/o male with h/o severe MR, seizure disorder, and h/o MRSA , who presented from [facility] with fevers. He was found to have severe sepsis . # s/p Acute sepsis with bacteremia 2/2 : Pediococcus Pentosaceus, Enterococcus Faecalis , due to colitis. s/p treatment of 13 days of antibiotic. Patient is afebrile with no acute distress. As per GI: Patient had Flex Sig with likely ischemic event and that this could recur/become a chronic problem. Suspected bacteria translocated leading to bacteremia on IV antibiotic day 13 today. # Seizure disorder :Cont valproic acid, topiramate and Eycompa # Residual colitis: on Abx # [facility] retardation from [facility]. DVT Px: Heparin sq Discharge patient back to [facility]
--- NOTE | 2017-03-19 13:22 | PATH ---
Surgical Pathology Report Patient Name: AMBER JOHNSON Med. Rec. #: [id number] /Age/Gender: 1975 (Age: 41) / M Account: [id number] Location: [address] [place] [address] Taken: 03/14/2017 Received: 03/15/2017 Reported: 03/19/2017 Physicians: Maicol Campos D.O. Specimen(s) Received BX DESCENDING COLON/SIGMOID Clinical History Colitis Rule out ischemic colitis, rule out CMV, rule out HSV Final Diagnosis COLON, DESCENDING/SIGMOID, BIOPSY: COLONIC MUCOSA WITH EXTENSIVE ULCERATION AND ASSOCIATED INFLAMED GRANULATION TISSUE. NO CARCINOMA IDENTIFIED. NO DEFINITE ISCHEMIC CHANGES IDENTIFIED. CRYPT ARCHITECTURAL DISTORTION NORMALLY ASSOCIATED WITH CHRONIC IDIOPATHIC INFLAMMATORY BOWEL DISEASE IS NOT IDENTIFIED. Comment: Immunohistochemical stains performed at [place], [place] ([id number]) and interpreted at [facility] show the following results: Stain for HSV 1, HSV-2, and CMV are negative. Recommend correlation with clinical findings and followup as clinically indicated. Electronically Signed Moncho Cueto M.D. Gross Description Received in formalin, labeled "biopsy descending/sigmoid colon" are 5 renae, irregular portions of soft tissue ranging from 0.1-0.3 cm. in greatest dimension. The specimens are submitted in toto in one cassette. 03/15/201703/15/2017
== END 2017-03-18 17:43 | disposition home or self-care (01) | DRG 871 ==
LOC: JER 19:10 → JERBED 03-05 02:22 → J5S 03-05 19:05
PROVIDERS: ADMIT Internal Medicine; ATTEND Internal Medicine
PROC: 0DBN8ZX Excision of Sigmoid Colon, Via Natural or Artificial Opening Endoscopic, Diagnostic (ICD-10-PCS; principal; 2017-03-14 10:00)
DX: A41.81 Sepsis due to Enterococcus (principal); K55.039 Acute (reversible) ischemia of large intestine, extent unspecified; R53.2 Functional quadriplegia; J96.01 Acute respiratory failure with hypoxia; E87.0 Hyperosmolality and hypernatremia; E87.2 Acidosis; F72 Severe intellectual disabilities; J98.11 Atelectasis; B37.0 Candidal stomatitis; E78.5 Hyperlipidemia, unspecified; R65.20 Severe sepsis without septic shock; G40.909 Epilepsy, unspecified, not intractable, without status epilepticus; R41.82 Altered mental status, unspecified; Z88.0 Allergy status to penicillin; M81.0 Age-related osteoporosis without current pathological fracture
CPT/HCPCS: 36415; 71010-TC; 71275-TC; 74000-TC; 74177-TC; 80048; 80053; 81003; 82803; 83605; 83735; 84100; 85025; 85027; 85610; 85651; 85730; 86140; 87040; 87086; 87186; 87324; 87449; 88305-TC; 93005; 93010; 93306-TC; 99284-25; G0480; J1644

== ENCOUNTER 2017-10-16 21:05 | Inpatient (IN) | payer OTHER ==
--- NOTE | 2017-10-16 22:06 | PDOC ---
History of Present Illness - General Stated Complaint: DIFF BREATHING Time Seen by Provider: 10/16/17 21:50 - History of Present Illness Initial Comments: 10/16/17 22:03 42 yo M with who arrives from 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 Per health aide at bedside pt.is with increased agitation over the past 24-48 hours. Report that 3 hours prior to arrival patient had 2 large watery stools, and labored breathing with blue appearing lips. Deny N/V, F/C, urinary changes, LOC, or trauma. Past History - Past Medical History Allergies/Adverse Reactions: Allergies Allergy/AdvReac Type Severity Reaction Status Date / Time cheese Allergy Verified 10/17/17 01:24 legumes Allergy Verified 10/17/17 01:24 peanut Allergy Verified 10/17/17 01:24 peas Allergy Verified 10/17/17 01:24 Penicillins Allergy Verified 10/17/17 01:24 Pork/Porcine Containing Allergy Verified 10/17/17 01:24 Products soy Allergy Verified 10/17/17 01:24 turkey Allergy Verified 10/17/17 01:24 wheat Allergy Verified 10/17/17 01:24 Home Medications: Ambulatory Orders Calcium Carbonate/Vitamin D3 [Oystercal-D 500 mg-400 Unit Tb] 500 mg PO DAILY Cholecalciferol (Vitamin D3) [Vitamin D3] 2,000 unit PO DAILY 02/20/17 Clonazepam [Klonopin] 1 mg PO TID 02/20/17 Diazepam Rectal Gel [Diastat Rectal Gel -] [address] ONCE 02/20/17 Famotidine 20 mg PO DAILY 02/20/17 Fluticasone Prop 0.05% Nasal [Flonase -] 1 - 2 spray NS DAILY 02/20/17 Gemfibrozil 600 mg PO BID 02/20/17 Loratadine 10 mg PO DAILY 02/20/17 Perampanel [Fycompa] 6 mg PO HS 02/20/17 Topiramate 75 mg PO BID 02/20/17 Valproic Acid [Depakene -] 1 gm PO BID 02/20/17 Anemia: No Asthma: No Cancer: No Cardiac Disorders: No CVA: No COPD: No CHF: No Dementia: No Diabetes: No GI Disorders: No Disorders: No HTN: No Hypercholesterolemia: No Liver Disease: No Seizures: Yes Thyroid Disease: No - Immunization History Immunization Up to Date: Yes - Suicide/Smoking/Psychosocial Hx Smoking History: Never smoked Have you smoked in the past 12 months: No Hx Alcohol Use: No Drug/Substance Use Hx: No Substance Use Type: None Hx Substance Use Treatment: No Review of Systems - Review of Systems Comments:: 10/16/17 22:03 Unable to assess d/t MR and nonverbal. *Physical Exam - Physical Exam Comments: 10/16/17 22:04 GENERAL: Awake, alert, and fully oriented, in no acute distress HEAD: No signs of trauma, normocephalic, atraumatic EYES: PERRLA, EOMI, sclera anicteric, conjunctiva clear ENT: Auricles normal inspection, hearing grossly normal, nares patent, oropharynx clear without exudates. Moist mucosa NECK: Normal ROM, supple, no lymphadenopathy, JVD, or masses LUNGS: No distress, speaks full sentences, clear to auscultation bilaterally HEART: Regular rate and rhythm, normal S1 and S2, no murmurs, rubs or gallops, peripheral pulses normal and equal bilaterally. ABDOMEN: Soft, nontender, normoactive bowel sounds. No guarding, no rebound. No masses EXTREMITIES : Normal inspection, Normal range of motion, no edema. No clubbing or cyanosis. SKIN: Warm, Dry, normal turgor, no rashes or lesions noted. ED Treatment Course - LABORATORY CBC & Chemistry Diagram: 10/17/17 00:32 10/17/17 00:30 Medical Decision Making - Medical Decision Making 10/17/17 00:34 42 yo M with who arrives from [facility] with h/o nonverbal/noncommunicative at baseline, quadraplageia, MR, seizure disorder , right craniotomy for corpus colostomy, and osteoporosis with agitation, slightly hypoxic on RA O2 93 %, and 3/4 SIRS criteria ( rectal temp 103, HR 118 , R 30) . Health aide at bedside reports increased agitation and combativeness over the past 24-48 hours. 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 Deny N/V, cough,wheezing, F/C, urinary changes, LOC, or trauma. Physical exam unremarkable. We will evaluate patient for underlying source of infection ( UTI vs. PNA), and electrolyte derangements. ED Course: CBC, CMP, UA, lactic acid, Trop, Influenza Urine Cx, Blood Cx. EKG, CXR EKG: Sinus tachycardia with normal axis and absent RENU/STD, or TWI. Normal interval duration. 10/17/17 01:17 14.4 WBC with 23 H monocytes. 10/17/17 01:56 CMP: Unremarkable 10/17/17 01:17 CXR: Inconclusive. Poor body habitus interfering with view/wheelchair bound. Repeat CXR. 10/17/17 02:16 Lactic acid : 4.1 10/17/17 02:50 UA: 2+ Leuk esterase, Nitrite Pos Levaquin 500 mg Valium 2 mg 10/17/17 02:52 Repeat CXR: Inconclusive 10/17/17 05:19 CT AP: No acute pathology. 10/17/17 05:35 Patient admitted to inpatient Tele/ Dr. Martin. Handoff to Aylin Montesinos *DC/Admit/Observation/Transfer Diagnosis at time of Disposition: Sepsis, UTI (urinary tract infection) - Discharge Dispostion Admit: Yes - Referrals - Patient Instructions - Post Discharge Activity
--- NOTE | 2017-10-16 23:19 | PDOC ---
Attending Attestation - HPI HPI: 10/17/17 01:18 Patient is a 42M with PMHx of profound mental retardation (nonverbal), seizure disorder, and osteoporosis, who was BIBA from [facility] with his home health aide, and presents with increased agitation as per health aide for the last 2 days. Aide also notes 2 large loose watery stools, laboured breathing, and cyanotic looking lips. No nausea, vomiting, fever, chills, or any urinary complaints. <Charley Mancilla - Last Filed: 10/17/17 01:18> - Resident Resident Name: Jhonathan Novak - ED Attending Attestation I have performed the following: I have examined & evaluated the patient, The case was reviewed & discussed with the resident, I agree w/resident's findings & plan, Exceptions are as noted - Physicial Exam PE: 10/17/17 01:13 Physical Exam General Appearance: Yes: Appropriately Dressed. No: Apparent Distress, Intoxicated HEENT: positive: EOMI, PAULO, Normal ENT Inspection, Normal Voice, TMs Normal, Pharynx Normal. negative: Pale Conjunctivae, Photophobia, Scleral Icterus (R), Scleral Icterus (L) Neck: positive: Trachea midline, Normal Thyroid, Supple. negative: Tender, Rigid, Carotid bruit, Stridor, Lymphadenopathy (R), Lymphadenopathy (L), Thyromegaly Respiratory/Chest: positive: Lungs Clear, Normal Breath Sounds. negative: Chest Tender, Respiratory Distress, Accessory Muscle Use, Labored Respiration, RES, Crackles, Rales, Rhonchi, Stridor, Wheezing, Dullness Cardiovascular: positive: Regular Rhythm, Regular Rate, S1, S2. negative: Edema , JVD, Murmur, Bradycardia, Tachycardia Vascular Pulses: Dorsalis-Pedis (R): 2+, Doralis-Pedis (L): 2+ Gastrointestinal/Abdominal: positive: Normal Bowel Sounds, Flat, Soft. negative : Tender, Organomegaly, Pulsatile Mass, Increased Bowel Sounds, Decreased BS, Distended, Guarding, Rebound, Hernia, Hepatomegaly, Spleenomegaly Lymphatic: negative: Adenopathy, Tenderness Musculoskeletal: positive: Normal Inspection. negative: CVA Tenderness, Decreased Range of Motion Extremity: positive: Normal Capillary Refill, Normal Inspection, Normal Range of Motion, Pelvis Stable. negative: Tender, Pedal Edema, Swelling, Erythema Integumentary: positive: Normal Color, Dry, Warm. 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 negative: EOM Palsy, Facial Droop, Sensory Deficit - Medical Decision Making 10/17/17 19:37 Pt was admitted for further medical care <Cruz Mock - Last Filed: 10/17/17 19:37>
[2017-10-17 00:44] LABS: HEMATOCRIT 45.5 % (35.4-49); HEMOGLOBIN 15.1 GM/dL (11.7-16.9); MCH 30.6 pg (25.7-33.7); MCHC 33.1 g/dl (32.0-35.9); MEAN CELL VOLUME 92.3 fl (80-96); MEAN PLT VOLUME 8.6 fl (7.5-11.1); RBC 4.92 M/mm3 (4.00-5.60); RDW 15.2 % (11.9-15.9); WHITE BLOOD COUNT 14.4 K/mm3 (4.0-10.0)
[2017-10-17 01:04] LABS: INR 1.19 (0.82-1.09); PROTHROMBIN TIME (PATIENT) 13.5 SEC (9.98-11.88)
[2017-10-17 01:12] LABS: ALBUMIN 3.5 g/dl (3.4-5.0); ANION GAP 14 (8-16); BLOOD UREA NITROGEN 16 mg/dL (7-18); CALCIUM 9.3 mg/dL (8.5-10.1); CHLORIDE 106 mmol/L (98-107); CO2 21 mmol/L (21-32); CREATININE 1.1 mg/dL (0.7-1.3); GLUCOSE,RANDOM 147 mg/dL (74-106); SGPT/ALT 23 U/L (12-78); SODIUM 141 mmol/L (136-145)
[2017-10-17 01:14] LABS: ALK PHOS 86 U/L (45-117); BILIRUBIN,TOTAL 0.3 mg/dL (0.2-1.0); TOT PROT 8.3 g/dl (6.4-8.2)
[2017-10-17 01:17] LABS: POTASSIUM 4.3 mmol/L (3.5-5.1); SGOT/AST 33 U/L (15-37)
[2017-10-17 01:23] VITALS: BMI 21.2
[2017-10-17] MEDS ORDERED: ACETAMINOPHEN 325 MG SUPP.RECT PR ONE (01:28)
[2017-10-17] MEDS ORDERED: SODIUM CHLORIDE 1,000 ML IV STA (01:29)
[2017-10-17 01:37] LABS: URINE APPEARANCE SLCLOUDY; URINE BILIRUBIN NEGATIVE (NEGATIVE); URINE BLOOD NEGATIVE (NEGATIVE); URINE COLOR YELLOW; URINE GLUCOSE (UA) NEGATIVE (NEGATIVE); URINE KETONE NEGATIVE (NEGATIVE); URINE NITRITE POSITIVE (NEGATIVE); URINE PROTEIN NEGATIVE (NEGATIVE); URINE UROBILINOGEN NEGATIVE mg/dL (0.2-1.0)
[2017-10-17 02:23] LABS: URINE LEUK ESTERASE 2+ (NEGATIVE)
[2017-10-17 02:29] LABS: URINE BACTERIA RARE /hpf (NONE SEEN); URINE MUCUS RARE
[2017-10-17] MEDS ORDERED: LORazepam 2 MG/ML SDV VIAL ONE (03:22)
[2017-10-17] MEDS ORDERED: ACETAMINOPHEN 325 MG SUPP.RECT ONE (03:23)
[2017-10-17 03:24] LABS: PLATELET COUNT 148 K/MM3 (134-434)
[2017-10-17 03:26] LABS: PLATELET ESTIMATE SLT DECREASE
[2017-10-17] MEDS ORDERED: LEVOFLOXACIN 500 MG IVPB 500 MG/100 ML BAG IVPB ONE ×2 (05:16→05:30)
--- NOTE | 2017-10-17 05:40 | HP ---
Admitting History and Physical - Admission Chief Complaint: Labored Breathing, increased agigtatin, watery stools History of Present Illness: This is a 42 y/o male with MDD, Seizure Disorder from the [facility]. Who presents to the ED for labored breathing increased agitation, 2 watery stools. Unable to obtain HPI due to patient has MDD. Per health aide at bedside, patient has been increasingly agitated over the past 24-48 hours. He reports that 3 hours prior to arrival patient had 2 large watery stools, and labored breathing with blue appearing lips. The aide denies patient having fever, cough , CP, AP, N/V, constipation, urinary changes, LOC, or trauma. History Source: Medical Record, Caregiver, Transfer Record Limitations to Obtaining History: Clinical Condition - Past Medical History UMBRELLA MENDER: Yes: Seizure, Other (Mental retardation) Musculoskeletal: Yes: Osteoarthritis - Past Surgical History Past Surgical History: Yes: Craniotomy (right- for corpus colostomy) - Smoking History Smoking history: Never smoked Have you smoked in the past 12 months: No - Alcohol/Substance Use Hx Alcohol Use: No - Social History Usual Living Arrangement: Yes: Fdc ADL: Support Services Occupation: Disabled History of Recent Travel: No Home Medications - Allergies Allergies/Adverse Reactions: Allergies Allergy/AdvReac Type Severity Reaction Status Date / Time cheese Allergy Verified 10/17/17 01:24 legumes Allergy Verified 10/17/17 01:24 peanut Allergy Verified 10/17/17 01:24 peas Allergy Verified 10/17/17 01:24 Penicillins Allergy Verified 10/17/17 01:24 Pork/Porcine Containing Allergy Verified 10/17/17 01:24 Products soy Allergy Verified 10/17/17 01:24 turkey Allergy Verified 10/17/17 01:24 wheat Allergy Verified 10/17/17 01:24 - Home Medications Home Medications: Ambulatory Orders Calcium Carbonate/Vitamin D3 [Oystercal-D 500 mg-400 Unit Tb] 500 mg PO DAILY Cholecalciferol (Vitamin D3) [Vitamin D3] 2,000 unit PO DAILY 02/20/17 Clonazepam [Klonopin] 1 mg PO TID 02/20/17 Diazepam Rectal Gel [Diastat Rectal Gel -] 10 mg CO ONCE 02/20/17 Famotidine 20 mg PO DAILY 02/20/17 Fluticasone Prop 0.05% Nasal [Flonase -] 1 - 2 spray NS DAILY 02/20/17 Gemfibrozil 600 mg PO BID 02/20/17 Loratadine 10 mg PO DAILY 02/20/17 Perampanel [Fycompa] 6 mg PO HS 02/20/17 Topiramate 75 mg PO BID 02/20/17 Valproic Acid [Depakene -] 1 gm PO BID 02/20/17 Family Disease History - Family Disease History Family History: Unable to Obtain Review of Systems Unable to obtain ROS, reason: MR Physical Examination Vital Signs: Vital Signs Temperature 103 F H 10/17/17 01:18 Pulse Rate 118 H 10/17/17 01:18 Respiratory Rate 30 H 10/17/17 01:18 Blood Pressure 110/87 10/17/17 01:18 O2 Sat by Pulse Oximetry (%) 93 L 10/17/17 01:18 Constitutional: Yes: Mild Distress, Obese Eyes: Yes: Conjunctiva Clear, PERRL HENT: Yes: WNL, Atraumatic, Normocephalic Neck: Yes: WNL, Supple, Trachea Midline Cardiovascular: Yes: Tachycardia, S1, S2 Respiratory: Yes: Diminished Gastrointestinal: Yes: Normal Bowel Sounds, Soft Renal/: Yes: Thomas Present Breast(s): Yes: WNL Musculoskeletal: Yes: Other (flaccid) Edema: No Peripheral Pulses WNL: Yes Neurological: Yes: Alert Psychiatric: Yes: Alert Labs: CBC, BMP 10/17/17 00:32 10/17/17 00:30 Laboratory Results - last 24 hr 10/17/17 10/17/17 10/17/17 00:30 00:30 00:30 WBC RBC Hgb Hct MCV MCH MCHC RDW Plt Count MPV Neutrophils % Neutrophils % (Manual) Band Neutrophils % Lymphocytes % Lymphocytes % (Manual) Monocytes % (Manual) Platelet Estimate Platelet Comment PT with INR 13.50 H INR 1.19 H Sodium 141 Potassium 4.3 Chloride 106 Carbon Dioxide 21 Anion Gap 14 BUN 16 D Creatinine 1.1 D Creat Clearance w eGFR > 60 Random Glucose 147 H D Lactic Acid Calcium 9.3 Total Bilirubin 0.3 D AST 33 ALT 23 D Alkaline Phosphatase 86 D Creatine Kinase 190 Creatine Kinase Index 1.4 CK-MB (CK-2) 2.813 Troponin I < 0.02 Total Protein 8.3 H D Albumin 3.5 D Urine Color Urine Appearance Urine pH Ur Specific [place] Urine Protein Urine Glucose (UA) Urine Ketones Urine Blood Urine Nitrite Urine Bilirubin Urine Urobilinogen Ur Leukocyte Esterase Urine WBC (Auto) Urine RBC (Auto) Urine Bacteria Urine Mucus 10/17/17 10/17/17 10/17/17 00:32 01:27 01:29 WBC 14.4 H D RBC 4.92 D Hgb 15.1 D Hct 45.5 D MCV 92.3 MCH 30.6 MCHC 33.1 RDW 15.2 Plt Count 148 MPV 8.6 Neutrophils % No Result Required. Neutrophils % (Manual) 50.0 Band Neutrophils % 8.0 Lymphocytes % No Result Required. Lymphocytes % (Manual) 12.0 Monocytes % (Manual) 23 H* Platelet Estimate Slt decrease Platelet Comment No clotting detected PT with INR INR Sodium Potassium Chloride Carbon Dioxide Anion Gap BUN Creatinine Creat Clearance w eGFR Random Glucose Lactic Acid 4.1 H* Calcium Total Bilirubin AST ALT Alkaline Phosphatase Creatine Kinase Creatine Kinase Index CK-MB (CK-2) Troponin I Total Protein Albumin Urine Color Yellow Urine Appearance Slcloudy Urine pH 5.0 Ur Specific [place] 1.020 Urine Protein Negative Urine Glucose (UA) Negative Urine Ketones Negative Urine Blood Negative Urine Nitrite Positive Urine Bilirubin Negative Urine Urobilinogen Negative Ur Leukocyte Esterase 2+ H Urine WBC (Auto) 66 Urine RBC (Auto) 3 Urine Bacteria Rare Urine Mucus Rare Intake & Output 10/14/17 10/15/17 10/16/17 10/17/17 23:59 23:59 23:59 23:59 Weight 74.843 kg Imaging - Results X-ray: Image Reviewed EKG: Image Reviewed Problem List - Problems (1) Sepsis Assessment/Plan: - Likely secondary to UTI - Meets severe sepsis criteria: T Max 103, P 118, R 30, Spo2 93%, WBC 14, LA 4.1 - Blood Cultures-pending - Urine Culture-pending - qSOFA- 2 - Chest Xray- reviewed - NS bolus given in ED - Levofloxacin given in ED - Will start Azetreonam, Vancomycin - Appreciate ID Consult - Repeat lactic acid now - ABG - O2 - Monitor CBC, BMP - Continue gentle NS Code(s): A41.9 - SEPSIS, UNSPECIFIED ORGANISM Qualifiers: Sepsis type: sepsis due to unspecified organism Qualified Code(s): A41.9 - Sepsis, unspecified organism (2) UTI (urinary tract infection) Assessment/Plan: - UA +2 Leukocyte esterase, +Nitrates - Urine Culture-pending - Given Levofloxacin, will continue secondary to PCN allergy Code(s): N39.0 - URINARY TRACT INFECTION, SITE NOT SPECIFIED (3) Seizure disorder Assessment/Plan: - Continue home meds - Seizure Precautions Code(s): G40.909 - EPILEPSY, UNSP, NOT INTRACTABLE, WITHOUT STATUS EPILEPTICUS (4) Anemia Assessment/Plan: - At baseline - Will transfuse if Hgb < 7.0 - Monitor CBC Code(s): D64.9 - ANEMIA, UNSPECIFIED Qualifiers: Anemia type: iron deficiency (5) Functional quadriplegia Assessment/Plan: - Turn patient Q2h Code(s): R53.2 - FUNCTIONAL QUADRIPLEGIA (6) Mental retardation Code(s): F79 - UNSPECIFIED INTELLECTUAL DISABILITIES (7) Penicillin allergy Code(s): Z88.0 - ALLERGY STATUS TO PENICILLIN (8) DVT prophylaxis Assessment/Plan: - SCDs - Lovenox SQ Code(s): [id number] - (9) Fever Code(s): R50.9 - FEVER, UNSPECIFIED Qualifiers: Fever type: unspecified Qualified Code(s): R50.9 - Fever, unspecified Assessment/Plan This is a 42 y/o male with a PMHx of: MR, Seizure, non-communicative, non-verbal , Quadraplegic, R- craniotomy for corpus colostomy, OA. Admitted to Telemetry for Severe Sepsis secondary to UTI Problems: 1. Severe Sepsis 2. Lactic Acidosis 3. Hypoxemia 4. UTI 5. Seizure Disorder FEN - NS@30cc/hr - Replete lytes prn - NPO Code Status: Full Code Dispo: Requires Inpatient Care Visit type - Emergency Visit Emergency Visit: Yes ED Registration Date: 10/17/17 Care time: The patient presented to the Emergency Department on the above date and was hospitalized for further evaluation of their emergent condition. - New Patient This patient is new to me today: Yes Date on this admission: 10/17/17 - Critical Care Critical Care patient: No
[2017-10-17] MEDS ORDERED: VANCOMYCIN 1 GRAM (PRE-DOCKED) 1,000 MG/250 ML BAG IVPB ONE ×3 (05:57→19:17)
[2017-10-17] MEDS ORDERED: AZTREONAM 1 GM in DEXTROSE 5%-WATER - 50 ML IVPB ONE (05:58)
[2017-10-17] MEDS ORDERED: AZTREONAM 1 GRAM SYRINGE 1 GM/10 ML DISP.SYRIN IVPUSH ONE (06:15)
[2017-10-17] MEDS: clonazePAM 0.5 MG TABLET PO SCH ×3 (07:02→22:18)
[2017-10-17] MEDS ORDERED: clonazePAM 0.5 MG TABLET ONE ×3 (07:05→22:23)
[2017-10-17 07:15] LABS: ARTERIAL BLD GAS O2 SATURATION 68.1 % (90-98.9); ARTERIAL BLOOD GAS BASE EXCESS 0.1 meq/l (-2-2); ARTERIAL BLOOD GAS pH 7.39 (7.35-7.45); CARBOXYHEMOGLOBIN 0.9 gm% (0.5-2.0)
[2017-10-17 07:21] LABS: ALLENS TEST POSITIVE
[2017-10-17 07:22] LABS: ARTERIAL BLOOD GAS PO2 37.7 mmHg (80-100)
--- NOTE | 2017-10-17 09:59 | PN ---
Progress Note, Physician Chief Complaint: ID Full note dictated - Current Medication List Current Medications: Active Medications Clonazepam (Klonopin -) 1 mg PO TID [facility] Last Admin: 10/17/17 07:02 Dose: 1 mg Levofloxacin (Levaquin 500 Mg Premixed Ivpb -) 500 mg in 100 mls @ 100 mls/hr IVPB DAILY TARIQ Topiramate (Topamax -) 75 mg PO BID TARIQ Valproic Acid (Depakene -) 1,000 mg PO BID TARIQ - Objective Vital Signs: Vital Signs Temperature 89.2 F L 10/17/17 07:48 Pulse Rate 81 10/17/17 07:48 Respiratory Rate 16 10/17/17 07:48 Blood Pressure 111/75 10/17/17 07:48 O2 Sat by Pulse Oximetry (%) 98 10/17/17 07:48 Constitutional: Yes: No Distress Labs: CBC, BMP 10/17/17 00:32 10/17/17 00:30 INR, PTT INR 1.19 (0.82-1.09) H 10/17/17 00:30 Problem List - Problems (1) UTI (urinary tract infection) Code(s): N39.0 - URINARY TRACT INFECTION, SITE NOT SPECIFIED (2) Polymicrobial septicemia Code(s): A41.9 - SEPSIS, UNSPECIFIED ORGANISM (3) Sepsis Code(s): A41.9 - SEPSIS, UNSPECIFIED ORGANISM Qualifiers: Sepsis type: sepsis due to unspecified organism Qualified Code(s): A41.9 - Sepsis, unspecified organism (4) Mental retardation Code(s): F79 - UNSPECIFIED INTELLECTUAL DISABILITIES Assessment/Plan Selected Entries 10/17/17 10/17/17 01:18 07:01 Temperature 103 F H 98.4 F Pulse Rate [ 89 Apical] Respiratory 16 Rate Blood Pressure 106/69 [Right Arm] O2 Sat by Pulse 96 Oximetry (%) Laboratory Tests 10/17/17 10/17/17 10/17/17 00:30 00:32 01:27 WBC 14.4 H D Hct 45.5 D Plt Count 148 Neutrophils % (Manual) 50.0 Monocytes % (Manual) 23 H* ABG pO2 at Pt Temp Creatinine 1.1 D Lactic Acid Total Bilirubin 0.3 D AST 33 ALT 23 D Alkaline Phosphatase 86 D Urine RBC (Auto) 3 10/17/17 10/17/17 01:29 07:05 WBC Hct Plt Count Neutrophils % (Manual) Monocytes % (Manual) ABG pO2 at Pt Temp 37.7 L* Creatinine Lactic Acid 4.1 H* Total Bilirubin AST ALT Alkaline Phosphatase Urine RBC (Auto) Assessment Sepsis syndrome urinary tract infection as possible source History of a polymicrobial bactermia February 2017. PCN allergy ? Plan Vancomycin and Cefepime empiric pending c/s Await CT report Nadya KEENAN
[2017-10-17] MEDS: VALPROIC ACID 250 MG CAPSULE PO SCH ×2 (10:17→22:18)
[2017-10-17] MEDS: TOPIRAMATE 25 MG TABLET (FP) PO SCH ×2 (10:17→22:18)
[2017-10-17] MEDS ORDERED: CEFEPIME 2 GM/100 ML BAG IVPB ONE ×2 (10:29→21:36)
[2017-10-17] MEDS: CEFEPIME 2 GM in DEXTROSE 5%-WATER - 100 ML IVPB SCH ×2 (10:30→21:45)
--- NOTE | 2017-10-17 10:58 | CONS ---
INFECTIOUS DISEASE CONSULTATION DATE OF CONSULTATION: 10/17/2017 REASON FOR CONSULTATION: This is a 42-year-old male from the [facility], quadriplegia with severe mental retardation and seizure disorder, who I am asked to see for evaluation of sepsis syndrome. HISTORY OF PRESENT ILLNESS: The patient offers no history, but his aide informed me that he had been otherwise well until about 2 days prior to admission when he developed onset of shortness of breath associated with at least 2 watery diarrheal bowel movements. He did not appear to have any abdominal pain or other complaints. Here, he was found to be febrile to 103. Because of a history of allergy to PENICILLIN of unknown type, he was given doses of vancomycin and levofloxacin. I am asked to see him for further evaluation. PAST MEDICAL HISTORY: As noted above. MEDICATIONS: Calcium, Klonopin, famotidine, gemfibrozil, Fycompa, topiramate, and valproic acid. ALLERGIES: PENICILLIN and MULTIPLE FOOD ALLERGIES. 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 Nonsmoker. No alcohol use. FAMILY HISTORY: Unobtainable. REVIEW OF SYSTEMS: Respiratory: Shortness of breath, hypoxemia on admission. No cough. Cardiac: No chest pain, history of murmur, congenital heart disease. Gastrointestinal: Two episodes of nonbloody diarrhea without abdominal pain, vomiting, blood per rectum. Genitourinary: Incontinent of urine and a diaper. Neuromuscular: History of seizure disorder, profound mental retardation. PHYSICAL EXAMINATION: General: He appeared in no acute distress. Vital Signs: Temperature was 103 on admission, pulse 118, blood pressure 110/87 , respirations 30, O2 saturation 93%. Respirations currently 16. Lungs: Clear to percussion and auscultation. Heart: S1, S2. Regular rhythm without audible murmur. Abdomen: Soft, nontender, without organomegaly. Extremities: No clubbing, cyanosis, or edema. Extremities contracted. DIAGNOSTIC DATA: The white count was 14.4 with hemoglobin of 15.1, platelets of 148 with differential with 50 neutrophils, 8 bands, 12 lymphs, and 23 monocytes. The INR was 1.19. BUN 16, creatinine 1.1. Liver enzymes within normal limit. Lactic acid 4.1, now 1.5. Urinalysis with 66 WBCs, 2+ leukocyte esterase, and 3 RBCs. Chest x-ray reviewed, shows no acute infiltrate. An abdominal CT scan has been performed, the results currently pending. ASSESSMENT: A 42-year-old male with a history of polymicrobial bacteremia in February2017 with enterococcus, pediococcus and Staphylococcus epidermidis from 2 blood culture sets. The source of that bacteremia unknown. Currently presents with sepsis syndrome and what appears to be urinary tract infection. Previous cultures were reviewed for Clostridium difficile, negative in the past, along with a Norovirus stool PCR also negative in February. He has a PENICILLIN allergy. Would empirically treat him with a combination of vancomycin and cefepime intially pending cultures. Obtain a CRP and await final results of the CAT scan official report to see if any intrabdominal pathology. AMAYA QUINTANA M.D. [id number] MTDD
--- NOTE | 2017-10-17 12:59 | EKG ---
Test Reason : Blood Pressure : / mmHG Vent. Rate : 125 BPM Atrial Rate : 125 BPM P-R Int : 150 ms QRS Dur : 098 ms QT Int : 296 ms P-R-T Axes : 033 092 008 degrees QTc Int : 427 ms SINUS TACHYCARDIA RIGHTWARD AXIS INCOMPLETE RIGHT BUNDLE BRANCH BLOCK CANNOT RULE OUT ANTERIOR INFARCT , AGE UNDETERMINED ABNORMAL ECG WHEN COMPARED WITH ECG OF 04-MAR-2017 20:36, INCOMPLETE RIGHT BUNDLE BRANCH BLOCK IS NOW PRESENT Confirmed by DB KEENAN, AMBER ([id number]) on 10/17/2017 12:58:45 PM Referred By: Confirmed By:AMBER ACE MD
[2017-10-17] MEDS ORDERED: VANCOMYCIN 1 GRAM (PRE-DOCKED) 1,000 MG/250 ML BAG IVPB SCH (19:00)
[2017-10-17] MEDS: VANCOMYCIN 1,000 MG in DEXTROSE 5%-WATER - 250 ML IVPB SCH (19:18)
[2017-10-17] MEDS ORDERED: TOPIRAMATE 25 MG TABLET (FP) ONE (22:23)
[2017-10-18] MEDS: CEFEPIME 2 GM in DEXTROSE 5%-WATER - 100 ML IVPB SCH ×3 (04:20→20:53)
[2017-10-18] MEDS: clonazePAM 0.5 MG TABLET PO SCH ×3 (06:11→21:03)
[2017-10-18] MEDS ORDERED: CEFEPIME 2 GM/100 ML BAG IVPB ONE (06:57)
[2017-10-18] MEDS: VANCOMYCIN 1,000 MG in DEXTROSE 5%-WATER - 250 ML IVPB SCH ×2 (08:14→18:22)
[2017-10-18] MEDS ORDERED: clonazePAM 0.5 MG TABLET ONE (08:32)
[2017-10-18] MEDS ORDERED: TOPIRAMATE 25 MG TABLET (FP) ONE ×2 (08:33→10:05)
[2017-10-18] MEDS ORDERED: LEVOFLOXACIN 500 MG IVPB 500 MG/100 ML BAG IVPB SCH (10:00)
[2017-10-18] MEDS ORDERED: levETIRAcetam 500 MG TABLET (FP) PO ONE (10:01)
[2017-10-18] MEDS: TOPIRAMATE 25 MG TABLET (FP) PO SCH ×2 (10:10→21:02)
[2017-10-18] MEDS: VALPROIC ACID 250 MG CAPSULE PO SCH ×2 (10:26→23:29)
--- NOTE | 2017-10-18 10:44 | PN ---
Progress Note (short form) - Note Progress Note: Subjective: The patient was seen and examined at the bedside, he is non-verbal at baseline Tmax 103 Current Medications Generic Name Dose Route Start Last Admin Trade Name Nathanael PRN Reason Stop Dose Admin Clonazepam 1 mg 10/17/17 06:15 10/18/17 06:11 Klonopin - PO 1 mg TID [facility] Administration Cefepime HCl 2 gm/ Dextrose 100 mls @ 200 mls/hr 10/17/17 10:15 10/18/17 10: 09 IVPB 200 mls/hr Q8H-IV [facility] Administration Vancomycin HCl 1,000 mg/ 250 mls @ 166.667 mls/hr 10/17/17 19:00 10/18/17 08: 14 Dextrose IVPB 166.667 mls/hr BID@0700,1900 [facility] Administration Topiramate 75 mg 10/17/17 10:00 10/18/17 10:10 Topamax - PO 75 mg BID [facility] Administration Valproic Acid 1,000 mg 10/17/17 10:00 10/18/17 10:26 Depakene - PO 1,000 mg BID [facility] Administration Objective: Vital Signs Period Temp Pulse Resp BP Sys/Monroy Pulse Ox Last 24 Hr 97.5 F-98.5 F 53-85 16-18 97-131/55-86 95-100 Physical Exam: General: Non-verbal, NAD Lungs: CTA bilaterally Heart: RRR, S1S2 Abd: Soft, non-tender, non-distended. Normoactive bowel sounds Ext: Warm, well-perfused. 2+ DP/PT bilaterally CBCD WBC 14.4 K/mm3 (4.0-10.0) H D 10/17/17 00:32 RBC 4.92 M/mm3 (4.00-5.60) D 10/17/17 00:32 Hgb 15.1 GM/dL (11.7-16.9) D 10/17/17 00:32 Hct 45.5 % (35.4-49) D 10/17/17 00:32 MCV 92.3 fl (80-96) 10/17/17 00:32 MCHC 33.1 g/dl (32.0-35.9) 10/17/17 00:32 RDW 15.2 % (11.9-15.9) 10/17/17 00:32 Plt Count 148 K/MM3 (134-434) 10/17/17 00:32 MPV 8.6 fl (7.5-11.1) 10/17/17 00:32 CMP Sodium 141 mmol/L (136-145) 10/17/17 00:30 Potassium 4.3 mmol/L (3.5-5.1) 10/17/17 00:30 Chloride 106 mmol/L (98-107) 10/17/17 00:30 Carbon Dioxide 21 mmol/L (21-32) 10/17/17 00:30 Anion Gap 14 (8-16) 10/17/17 00:30 BUN 16 mg/dL (7-18) D 10/17/17 00:30 Creatinine 1.1 mg/dL (0.7-1.3) D 10/17/17 00:30 Creat Clearance w eGFR > 60 (>60) 10/17/17 00:30 Random Glucose 147 mg/dL (74-106) H D 10/17/17 00:30 Calcium 9.3 mg/dL (8.5-10.1) 10/17/17 00:30 Total Bilirubin 0.3 mg/dL (0.2-1.0) D 10/17/17 00:30 AST 33 U/L (15-37) 10/17/17 00:30 ALT 23 U/L (12-78) D 10/17/17 00:30 Alkaline Phosphatase 86 U/L (45-117) D 10/17/17 00:30 Total Protein 8.3 g/dl (6.4-8.2) H D 10/17/17 00:30 Albumin 3.5 g/dl (3.4-5.0) D 10/17/17 00:30 CARDIAC ENZYMES Creatine Kinase 190 IU/L (39-308) 10/17/17 00:30 Troponin I < 0.02 ng/ml (0.00-0.05) 10/17/17 00:30 Microbiology 10/17/17 03:39 Blood - Peripheral Venous Blood Culture - Preliminary NO GROWTH OBTAINED AFTER 24 HOURS, INCUBATION TO CONTINUE FOR 4 DAYS. 10/17/17 03:39 Blood - Peripheral Venous Blood Culture - Preliminary NO GROWTH OBTAINED AFTER 24 HOURS, INCUBATION TO CONTINUE FOR 4 DAYS. 10/17/17 01:27 Nasopharyngeal Swab Influenza Types A,B Antigen (MAGDY) - Final 10/17/17 01:27 Nasopharyngeal Swab - Final Assessment: This is a 42 year old male with PMHx of profound mental retardation , seizure disorder, osteoporosis, who presented from [facility] with increased agitation, watery stools, labored breathing, cyanotic lips. Plan: 1) Severe sepsis 2/2 UTI - WBC 14.4, f/u repeat level today - Lactic acidosis resolved - F/u blood cultures, prelim + 2/2 bottles - F/u urine culture - Continue Cefepime - Continue Vancomycin - CTAP: no evidence of acute collitis/diverticulitis. No free air or free fluids in the abdomen and pelvis. Moderate to large amount of fecal residue in the mid and distal sigmoid colon - Appreciate ID consult 2) Constipation - Assess for impaction - Give miralax if not impacted 3) Seizure disorder - Continue home medications 4) F/E/N: - Pureed diet with nectar thick liquids - Monitor electrolytes 5) Prophylaxis: - SCDs bilaterally - Fondaparinux 2.5mg sc daily for DVT prophylaxis 6) Dispo: - Requires continued inpatient care CODE STATUS: FULL CODE Visit type - Emergency Visit Emergency Visit: Yes ED Registration Date: 10/17/17 Care time: The patient presented to the Emergency Department on the above date and was hospitalized for further evaluation of their emergent condition. - New Patient This patient is new to me today: Yes Date on this admission: 10/18/17 - Critical Care Critical Care patient: No
[2017-10-18] MEDS: LORATADINE 10 MG TABLET PO SCH (13:01)
[2017-10-18 13:06] LABS: BASO % 0.5 % (0-2.0); EOS % 7.8 % (0-4.5); HEMATOCRIT 43.1 % (35.4-49); HEMOGLOBIN 14.1 GM/dL (11.7-16.9); LYMPH % 37.4 % (8-40); MCH 30.1 pg (25.7-33.7); MCHC 32.6 g/dl (32.0-35.9); MEAN CELL VOLUME 92.3 fl (80-96); MEAN PLT VOLUME 7.4 fl (7.5-11.1); MONO % 14.2 % (3.8-10.2); NEUT % 40.1 % (42.8-82.8); PLATELET COUNT 130 K/MM3 (134-434); RBC 4.67 M/mm3 (4.00-5.60); RDW 14.9 % (11.9-15.9); WHITE BLOOD COUNT 7.5 K/mm3 (4.0-10.0)
--- NOTE | 2017-10-18 14:56 | PN ---
Progress Note, Physician Chief Complaint: ID Vancomcyin and Cefepime day 1 therapy afebrile since the initial temp of 103 - Current Medication List Current Medications: Active Medications Clonazepam (Klonopin -) 1 mg PO TID [facility] Last Admin: 10/18/17 13:01 Dose: 1 mg Gemfibrozil (Lopid -) 600 mg PO BIDAC [facility] Cefepime HCl 2 gm/ Dextrose 100 mls @ 200 mls/hr IVPB Q8H-IV [facility] Last Admin: 10/18/17 10:09 Dose: 200 mls/hr Vancomycin HCl 1,000 mg/ (Dextrose) 250 mls @ 166.667 mls/hr IVPB BID@0700, 1900 [facility] Last Admin: 10/18/17 08:14 Dose: 166.667 mls/hr Loratadine (Claritin -) 10 mg PO DAILY [facility] Last Admin: 10/18/17 13:01 Dose: 10 mg Non-Formulary Medication (Perampanel [Fycompa]) 6 mg PO HS [facility] Polyethylene Glycol (Miralax (For Daily Use) -) 17 gm PO DAILY [facility] Ranitidine HCl (Zantac -) 150 mg PO DAILY [facility] Topiramate (Topamax -) 75 mg PO BID [facility] Last Admin: 10/18/17 10:10 Dose: 75 mg Valproic Acid (Depakene -) 1,000 mg PO BID [facility] Last Admin: 10/18/17 10:26 Dose: 1,000 mg - Objective Vital Signs: Vital Signs Temperature 98.5 F 10/18/17 10:29 Pulse Rate 53 L 10/18/17 10:29 Respiratory Rate 18 10/18/17 10:29 Blood Pressure 97/55 10/18/17 10:29 O2 Sat by Pulse Oximetry (%) 95 10/18/17 10:29 Labs: CBC, BMP 10/18/17 12:40 10/17/17 00:30 INR, PTT INR 1.19 (0.82-1.09) H 10/17/17 00:30 Problem List - Problems (1) UTI (urinary tract infection) Code(s): N39.0 - URINARY TRACT INFECTION, SITE NOT SPECIFIED (2) Polymicrobial septicemia Code(s): A41.9 - SEPSIS, UNSPECIFIED ORGANISM (3) Sepsis Code(s): A41.9 - SEPSIS, UNSPECIFIED ORGANISM Qualifiers: Sepsis type: sepsis due to unspecified organism Qualified Code(s): A41.9 - Sepsis, unspecified organism (4) Mental retardation Code(s): F79 - UNSPECIFIED INTELLECTUAL DISABILITIES Assessment/Plan Microbiology 10/17/17 03:39 Blood - Peripheral Venous Blood Culture - Preliminary Pending Organism 10/17/17 03:39 Blood - Peripheral Venous Blood Culture - Preliminary Pending Organism 10/17/17 01:27 Urine - Urine - Catheterized Urine Culture - Preliminary Staphylococcus Coagulase Neg Laboratory Tests 10/17/17 10/17/17 10/17/17 00:30 00:30 00:32 WBC 14.4 H D Hgb Hct Plt Count Neutrophils % Lymphocytes % Monocytes % Monocytes % (Manual) 23 H* INR 1.19 H Creat Clearance w eGFR > 60 Lactic Acid Urine RBC (Auto) 10/17/17 10/17/17 10/17/17 01:27 01:29 06:21 WBC Hgb Hct Plt Count Neutrophils % Lymphocytes % Monocytes % Monocytes % (Manual) INR Creat Clearance w eGFR Lactic Acid 4.1 H* 1.5 Urine RBC (Auto) 3 10/18/17 12:40 WBC 7.5 D Hgb 14.1 Hct 43.1 Plt Count 130 L Neutrophils % 40.1 L D Lymphocytes % 37.4 D Monocytes % 14.2 H Monocytes % (Manual) INR Creat Clearance w eGFR Lactic Acid Urine RBC (Auto) Assessment Sepsis syndrome history of polymicrobial bacteremia in past. COuld be urinary source but the clinical picture not yet clear 3/4 blood cultures gram positive cocci clusters no ID yet ? coag negative Plan Tomorrow we will know about the blood cultures check vanco trough level Perhaps will stop Cefepime in am LINDA Covington MD
[2017-10-18] MEDS ORDERED: PT OWN MED DRAWER 7, Y5N ONE ×3 (17:40→20:40)
[2017-10-18] MEDS: GEMFIBROZIL 600 MG TABLET (FP) PO SCH (18:21)
[2017-10-19] MEDS ORDERED: PT OWN MED DRAWER 7, Y5N ONE ×3 (01:50→10:42)
[2017-10-19] MEDS ORDERED: CEFEPIME 2 GM in DEXTROSE 5%-WATER - 100 ML IVPB SCH (02:00)
[2017-10-19] MEDS: clonazePAM 0.5 MG TABLET PO SCH ×3 (06:52→21:43)
[2017-10-19] MEDS: GEMFIBROZIL 600 MG TABLET (FP) PO SCH ×2 (06:53→16:33)
[2017-10-19 07:30] LABS: BASO % 0.8 % (0-2.0); HEMATOCRIT 39.8 % (35.4-49); HEMOGLOBIN 13.3 GM/dL (11.7-16.9); LYMPH % 47.3 % (8-40); MCHC 33.5 g/dl (32.0-35.9); MEAN CELL VOLUME 92.4 fl (80-96); MONO % 16.6 % (3.8-10.2); NEUT % 26.3 % (42.8-82.8); PLATELET COUNT 129 K/MM3 (134-434); RBC 4.31 M/mm3 (4.00-5.60); WHITE BLOOD COUNT 6.1 K/mm3 (4.0-10.0)
[2017-10-19 07:53] LABS: ALBUMIN 3.3 g/dl (3.4-5.0); ANION GAP 9 (8-16); BILIRUBIN,TOTAL 0.2 mg/dL (0.2-1.0); BLOOD UREA NITROGEN 14 mg/dL (7-18); CALCIUM 8.6 mg/dL (8.5-10.1); CHLORIDE 106 mmol/L (98-107); CO2 26 mmol/L (21-32); CREATININE 0.9 mg/dL (0.7-1.3); GLUCOSE,RANDOM 77 mg/dL (74-106); POTASSIUM 3.8 mmol/L (3.5-5.1); SGOT/AST 25 U/L (15-37); SGPT/ALT 25 U/L (12-78); SODIUM 141 mmol/L (136-145); TOT PROT 7.4 g/dl (6.4-8.2)
[2017-10-19 07:54] LABS: ALK PHOS 73 U/L (45-117)
--- NOTE | 2017-10-19 08:59 | PN ---
Progress Note, Physician Chief Complaint: ID Looks comfortable Blood cultures final Vancomycin and Cefepime - Current Medication List Current Medications: Active Medications Clonazepam (Klonopin -) 1 mg PO TID [facility] Last Admin: 10/19/17 06:52 Dose: 1 mg Gemfibrozil (Lopid -) 600 mg PO BIDAC [facility] Last Admin: 10/19/17 06:53 Dose: 600 mg Cefepime HCl 2 gm/ Dextrose 100 mls @ 200 mls/hr IVPB Q8H-IV [facility] Last Admin: 10/19/17 02:24 Dose: 200 mls/hr Vancomycin HCl 1,000 mg/ (Dextrose) 250 mls @ 166.667 mls/hr IVPB BID@0700, 1900 [facility] Loratadine (Claritin -) 10 mg PO DAILY [facility] Last Admin: 10/18/17 13:01 Dose: 10 mg Non-Formulary Medication (Perampanel [Fycompa]) 6 mg PO HS [facility] Polyethylene Glycol (Miralax (For Daily Use) -) 17 gm PO DAILY [facility] Ranitidine HCl (Zantac -) 150 mg PO DAILY [facility] Topiramate (Topamax -) 75 mg PO BID [facility] Valproic Acid (Depakene -) 1,000 mg PO BID [facility] - Objective Vital Signs: Vital Signs Temperature 97.6 F 10/19/17 02:00 Pulse Rate 64 10/19/17 02:00 Respiratory Rate 18 10/19/17 02:00 Blood Pressure 103/49 10/19/17 02:00 O2 Sat by Pulse Oximetry (%) 95 10/18/17 21:00 Labs: CBC, BMP 10/19/17 07:15 10/19/17 07:15 INR, PTT INR 1.19 (0.82-1.09) H 10/17/17 00:30 Problem List - Problems (1) UTI (urinary tract infection) Code(s): N39.0 - URINARY TRACT INFECTION, SITE NOT SPECIFIED (2) Polymicrobial septicemia Code(s): A41.9 - SEPSIS, UNSPECIFIED ORGANISM (3) Sepsis Code(s): A41.9 - SEPSIS, UNSPECIFIED ORGANISM Qualifiers: Sepsis type: sepsis due to unspecified organism Qualified Code(s): A41.9 - Sepsis, unspecified organism (4) Mental retardation Code(s): F79 - UNSPECIFIED INTELLECTUAL DISABILITIES Assessment/Plan Laboratory Tests 10/19/17 10/19/17 07:15 07:15 WBC 6.1 Hgb 13.3 Plt Count 129 L Lymphocytes % 47.3 H D Eosinophils % 9.0 H Basophils % 0.8 Vancomycin Pre-Dose 13.603 H D Assessment Gram positive bacteremia SCN assume urinary source Vanco level good Plan Stop Cefepime Continue Vancomycin as ordered ECHO Duration of therapy to be determined Repeat blood cultures negative so far Nadya KEENAN
[2017-10-19] MEDS: VANCOMYCIN 1,000 MG in DEXTROSE 5%-WATER - 250 ML IVPB SCH ×2 (10:55→18:11)
[2017-10-19] MEDS: LORATADINE 10 MG TABLET PO SCH (10:56)
[2017-10-19] MEDS: RANITIDINE HCL 150 MG TABLET (FP) PO SCH (10:56)
[2017-10-19] MEDS: TOPIRAMATE 25 MG TABLET (FP) PO SCH ×2 (10:56→21:43)
[2017-10-19] MEDS: POLYETHYLENE GLYCOL 3350 119 GM BTL PO SCH (10:56)
[2017-10-19] MEDS: VALPROIC ACID 250 MG CAPSULE PO SCH ×2 (11:17→21:44)
--- NOTE | 2017-10-19 13:12 | PN ---
Progress Note (short form) - Note Progress Note: Subjective: The patient was seen and examined at the bedside, he is non-verbal at baseline Tmax 103 Current Medications Generic Name Dose Route Start Last Admin Trade Name Nathanael PRN Reason Stop Dose Admin Clonazepam 1 mg 10/17/17 06:15 10/18/17 06:11 Klonopin - PO 1 mg TID [facility] Administration Cefepime HCl 2 gm/ Dextrose 100 mls @ 200 mls/hr 10/17/17 10:15 10/18/17 10: 09 IVPB 200 mls/hr Q8H-IV [facility] Administration Vancomycin HCl 1,000 mg/ 250 mls @ 166.667 mls/hr 10/17/17 19:00 10/18/17 08: 14 Dextrose IVPB 166.667 mls/hr BID@0700,1900 [facility] Administration Topiramate 75 mg 10/17/17 10:00 10/18/17 10:10 Topamax - PO 75 mg BID [facility] Administration Valproic Acid 1,000 mg 10/17/17 10:00 10/18/17 10:26 Depakene - PO 1,000 mg BID [facility] Administration Objective: Vital Signs Period Temp Pulse Resp BP Sys/Monroy Pulse Ox Last 24 Hr 97.5 F-98.5 F 53-85 16-18 97-131/55-86 95-100 Physical Exam: General: Non-verbal, NAD Lungs: CTA bilaterally Heart: RRR, S1S2 Abd: Soft, non-tender, non-distended. Normoactive bowel sounds Ext: Warm, well-perfused. 2+ DP/PT bilaterally CBCD WBC 14.4 K/mm3 (4.0-10.0) H D 10/17/17 00:32 RBC 4.92 M/mm3 (4.00-5.60) D 10/17/17 00:32 Hgb 15.1 GM/dL (11.7-16.9) D 10/17/17 00:32 Hct 45.5 % (35.4-49) D 10/17/17 00:32 MCV 92.3 fl (80-96) 10/17/17 00:32 MCHC 33.1 g/dl (32.0-35.9) 10/17/17 00:32 RDW 15.2 % (11.9-15.9) 10/17/17 00:32 Plt Count 148 K/MM3 (134-434) 10/17/17 00:32 MPV 8.6 fl (7.5-11.1) 10/17/17 00:32 CMP Sodium 141 mmol/L (136-145) 10/17/17 00:30 Potassium 4.3 mmol/L (3.5-5.1) 10/17/17 00:30 Chloride 106 mmol/L (98-107) 10/17/17 00:30 Carbon Dioxide 21 mmol/L (21-32) 10/17/17 00:30 Anion Gap 14 (8-16) 10/17/17 00:30 BUN 16 mg/dL (7-18) D 10/17/17 00:30 Creatinine 1.1 mg/dL (0.7-1.3) D 10/17/17 00:30 Creat Clearance w eGFR > 60 (>60) 10/17/17 00:30 Random Glucose 147 mg/dL (74-106) H D 10/17/17 00:30 Calcium 9.3 mg/dL (8.5-10.1) 10/17/17 00:30 Total Bilirubin 0.3 mg/dL (0.2-1.0) D 10/17/17 00:30 AST 33 U/L (15-37) 10/17/17 00:30 ALT 23 U/L (12-78) D 10/17/17 00:30 Alkaline Phosphatase 86 U/L (45-117) D 10/17/17 00:30 Total Protein 8.3 g/dl (6.4-8.2) H D 10/17/17 00:30 Albumin 3.5 g/dl (3.4-5.0) D 10/17/17 00:30 CARDIAC ENZYMES Creatine Kinase 190 IU/L (39-308) 10/17/17 00:30 Troponin I < 0.02 ng/ml (0.00-0.05) 10/17/17 00:30 Microbiology 10/17/17 03:39 Blood - Peripheral Venous Blood Culture - Preliminary NO GROWTH OBTAINED AFTER 24 HOURS, INCUBATION TO CONTINUE FOR 4 DAYS. 10/17/17 03:39 Blood - Peripheral Venous Blood Culture - Preliminary NO GROWTH OBTAINED AFTER 24 HOURS, INCUBATION TO CONTINUE FOR 4 DAYS. 10/17/17 01:27 Nasopharyngeal Swab Influenza Types A,B Antigen (MAGDY) - Final 10/17/17 01:27 Nasopharyngeal Swab - Final Assessment: This is a 42 year old male with PMHx of profound mental retardation , seizure disorder, osteoporosis, who presented from [facility] with increased agitation, watery stools, labored breathing, cyanotic lips. Plan: 1) Severe sepsis 2/2 staphylococcus coag negative UTI/bacteremia - WBC WNL, afebrile - Lactic acidosis resolved - Continue Vancomycin - F/u ECHO - Appreciate ID consult 2) Constipation - Had large bowel movement per aide 3) Seizure disorder - Continue home medications 4) F/E/N: - Pureed diet with nectar thick liquids - Monitor electrolytes 5) Prophylaxis: - SCDs bilaterally - Fondaparinux 2.5mg sc daily for DVT prophylaxis 6) Dispo: - Requires continued inpatient care CODE STATUS: FULL CODE Visit type - Emergency Visit Emergency Visit: Yes ED Registration Date: 10/17/17 Care time: The patient presented to the Emergency Department on the above date and was hospitalized for further evaluation of their emergent condition. - New Patient This patient is new to me today: No - Critical Care Critical Care patient: No
[2017-10-19] MEDS: FONDAPARINUX SODIUM 2.5 MG/0.5 ML DISP.SYRIN SQ SCH (17:34)
[2017-10-20] MEDS ORDERED: PT OWN MED DRAWER 7, Y5N ONE ×2 (05:33→17:43)
[2017-10-20] MEDS: clonazePAM 0.5 MG TABLET PO SCH ×3 (06:08→21:42)
[2017-10-20] MEDS: VANCOMYCIN 1,000 MG in DEXTROSE 5%-WATER - 250 ML IVPB SCH ×2 (06:08→18:02)
[2017-10-20] MEDS: GEMFIBROZIL 600 MG TABLET (FP) PO SCH ×2 (06:09→18:02)
[2017-10-20 07:48] LABS: BASO % 0.7 % (0-2.0); EOS % 9.9 % (0-4.5); HEMATOCRIT 35.8 % (35.4-49); LYMPH % 47.2 % (8-40); MCH 30.8 pg (25.7-33.7); MCHC 33.6 g/dl (32.0-35.9); MEAN CELL VOLUME 91.6 fl (80-96); MEAN PLT VOLUME 7.9 fl (7.5-11.1); MONO % 14.1 % (3.8-10.2); NEUT % 28.1 % (42.8-82.8); PLATELET COUNT 135 K/MM3 (134-434); RBC 3.91 M/mm3 (4.00-5.60); RDW 15.1 % (11.9-15.9); WHITE BLOOD COUNT 5.1 K/mm3 (4.0-10.0)
[2017-10-20] MEDS: RANITIDINE HCL 150 MG TABLET (FP) PO SCH (10:49)
[2017-10-20] MEDS: TOPIRAMATE 25 MG TABLET (FP) PO SCH ×2 (10:49→21:42)
[2017-10-20] MEDS: LORATADINE 10 MG TABLET PO SCH (10:49)
[2017-10-20] MEDS: POLYETHYLENE GLYCOL 3350 119 GM BTL PO SCH (10:50)
[2017-10-20] MEDS: VALPROIC ACID 250 MG CAPSULE PO SCH ×2 (10:52→21:44)
--- NOTE | 2017-10-20 12:03 | PN ---
Progress Note (short form) - Note Progress Note: Subjective: The patient was seen and examined at the bedside, he is non-verbal at baseline Current Medications Generic Name Dose Route Start Last Admin Trade Name Nathanael PRN Reason Stop Dose Admin Clonazepam 1 mg 10/19/17 06:00 10/20/17 06:08 Klonopin - PO 1 mg TID [facility] Administration Fondaparinux 2.5 mg 10/19/17 13:45 10/19/17 17:34 Arixtra (Restricted) - SQ 2.5 mg DAILY [facility] Administration Gemfibrozil 600 mg 10/18/17 16:30 10/20/17 06:09 Lopid - PO 600 mg BIDAC [facility] Administration Vancomycin HCl 1,000 mg/ 250 mls @ 166.667 mls/hr 10/19/17 07:00 10/20/17 06: 08 Dextrose IVPB 166.667 mls/hr BID@0700,1900 [facility] Administration Loratadine 10 mg 10/18/17 11:15 10/20/17 10:49 Claritin - PO 10 mg DAILY [facility] Administration Non-Formulary Medication 6 mg 10/18/17 22:00 Perampanel [Fycompa] PO HS [facility] Polyethylene Glycol 17 gm 10/19/17 10:00 10/20/17 10:50 Miralax (For Daily Use) - PO 17 gm DAILY [facility] Administration Ranitidine HCl 150 mg 10/19/17 10:00 10/20/17 10:49 Zantac - PO 150 mg DAILY [facility] Administration Topiramate 75 mg 10/19/17 10:00 10/20/17 10:49 Topamax - PO 75 mg BID [facility] Administration Valproic Acid 1,000 mg 10/19/17 10:00 10/20/17 10:52 Depakene - PO 1,000 mg BID [facility] Administration Objective: Vital Signs Period Temp Pulse Resp BP Sys/Monroy Pulse Ox Last 24 Hr 97.4 F-98.4 F 64-79 18-18 98-117/54-60 94 Physical Exam: General: Non-verbal, NAD Lungs: CTA bilaterally Heart: RRR, S1S2 Abd: Soft, non-tender, non-distended. Normoactive bowel sounds Ext: Warm, well-perfused. 2+ DP/PT bilaterally CBCD WBC 5.1 K/mm3 (4.0-10.0) 10/20/17 07:15 RBC 3.91 M/mm3 (4.00-5.60) L 10/20/17 07:15 Hgb 12.0 GM/dL (11.7-16.9) 10/20/17 07:15 Hct 35.8 % (35.4-49) 10/20/17 07:15 MCV 91.6 fl (80-96) 10/20/17 07:15 MCHC 33.6 g/dl (32.0-35.9) 10/20/17 07:15 RDW 15.1 % (11.9-15.9) 10/20/17 07:15 Plt Count 135 K/MM3 (134-434) 10/20/17 07:15 MPV 7.9 fl (7.5-11.1) 10/20/17 07:15 CMP Sodium 141 mmol/L (136-145) 10/19/17 07:15 Potassium 3.8 mmol/L (3.5-5.1) 10/19/17 07:15 Chloride 106 mmol/L (98-107) 10/19/17 07:15 Carbon Dioxide 26 mmol/L (21-32) D 10/19/17 07:15 Anion Gap 9 (8-16) 10/19/17 07:15 BUN 14 mg/dL (7-18) 10/19/17 07:15 Creatinine 0.9 mg/dL (0.7-1.3) 10/19/17 07:15 Creat Clearance w eGFR > 60 (>60) 10/19/17 07:15 Random Glucose 77 mg/dL (74-106) D 10/19/17 07:15 Calcium 8.6 mg/dL (8.5-10.1) 10/19/17 07:15 Total Bilirubin 0.2 mg/dL (0.2-1.0) D 10/19/17 07:15 AST 25 U/L (15-37) D 10/19/17 07:15 ALT 25 U/L (12-78) 10/19/17 07:15 Alkaline Phosphatase 73 U/L (45-117) 10/19/17 07:15 Total Protein 7.4 g/dl (6.4-8.2) 10/19/17 07:15 Albumin 3.3 g/dl (3.4-5.0) L 10/19/17 07:15 CARDIAC ENZYMES Creatine Kinase 190 IU/L (39-308) 10/17/17 00:30 Troponin I < 0.02 ng/ml (0.00-0.05) 10/17/17 00:30 Microbiology 10/19/17 08:25 Blood - Peripheral Venous Blood Culture - Preliminary NO GROWTH OBTAINED AFTER 24 HOURS, INCUBATION TO CONTINUE FOR 4 DAYS. 10/19/17 08:10 Blood - Peripheral Venous Blood Culture - Preliminary NO GROWTH OBTAINED AFTER 24 HOURS, INCUBATION TO CONTINUE FOR 4 DAYS. 10/17/17 03:39 Blood - Peripheral Venous Blood Culture - Preliminary Staphylococcus Coagulase Neg 10/17/17 03:39 Blood - Peripheral Venous Blood Culture - Preliminary Staphylococcus Coagulase Neg 10/17/17 01:27 Urine - Urine - Catheterized Urine Culture - Final Staphylococcus Epidermidis 10/17/17 01:27 Nasopharyngeal Swab Influenza Types A,B Antigen (MAGDY) - Final 10/17/17 01:27 Nasopharyngeal Swab - Final Assessment: This is a 42 year old male with PMHx of profound mental retardation , seizure disorder, osteoporosis, who presented from [facility] with increased agitation, watery stools, labored breathing, cyanotic lips. Plan: 1) Severe sepsis 2/2 staphylococcus coag negative UTI/bacteremia - WBC WNL, afebrile - Lactic acidosis resolved - Continue Vancomycin - F/u ECHO - Appreciate ID consult 2) Constipation - Resolved 3) Seizure disorder - Continue home medications 4) F/E/N: - Pureed diet with nectar thick liquids - Monitor electrolytes 5) Prophylaxis: - SCDs bilaterally - Fondaparinux 2.5mg sc daily for DVT prophylaxis 6) Dispo: - Requires continued inpatient care CODE STATUS: FULL CODE Visit type - Emergency Visit Emergency Visit: Yes ED Registration Date: 10/17/17 Care time: The patient presented to the Emergency Department on the above date and was hospitalized for further evaluation of their emergent condition. - New Patient This patient is new to me today: No - Critical Care Critical Care patient: No
[2017-10-20] MEDS: FONDAPARINUX SODIUM 2.5 MG/0.5 ML DISP.SYRIN SQ SCH (13:53)
[2017-10-20] MEDS: PERAMPANEL 6 MG PO SCH (16:30)
[2017-10-21] MEDS: VANCOMYCIN 1,000 MG in DEXTROSE 5%-WATER - 250 ML IVPB SCH ×2 (06:03→18:26)
[2017-10-21] MEDS: clonazePAM 0.5 MG TABLET PO SCH ×3 (06:03→22:31)
[2017-10-21] MEDS: GEMFIBROZIL 600 MG TABLET (FP) PO SCH ×2 (06:04→18:26)
[2017-10-21 07:36] LABS: BASO % 0.8 % (0-2.0); EOS % 9.4 % (0-4.5); HEMATOCRIT 36.9 % (35.4-49); HEMOGLOBIN 12.3 GM/dL (11.7-16.9); LYMPH % 35.7 % (8-40); MCH 30.6 pg (25.7-33.7); MCHC 33.5 g/dl (32.0-35.9); MEAN CELL VOLUME 91.4 fl (80-96); MEAN PLT VOLUME 7.5 fl (7.5-11.1); MONO % 15.3 % (3.8-10.2); NEUT % 38.8 % (42.8-82.8); PLATELET COUNT 152 K/MM3 (134-434); RBC 4.03 M/mm3 (4.00-5.60); RDW 14.3 % (11.9-15.9); WHITE BLOOD COUNT 6.1 K/mm3 (4.0-10.0)
[2017-10-21 07:54] LABS: ANION GAP 9 (8-16); BLOOD UREA NITROGEN 10 mg/dL (7-18); CALCIUM 8.7 mg/dL (8.5-10.1); CHLORIDE 109 mmol/L (98-107); CO2 24 mmol/L (21-32); CREATININE 0.7 mg/dL (0.7-1.3); GLUCOSE,RANDOM 118 mg/dL (74-106); POTASSIUM 3.6 mmol/L (3.5-5.1); SODIUM 142 mmol/L (136-145)
[2017-10-21] MEDS ORDERED: PT OWN MED DRAWER 7, Y5N ONE ×3 (09:59→20:04)
[2017-10-21] MEDS: RANITIDINE HCL 150 MG TABLET (FP) PO SCH (10:02)
[2017-10-21] MEDS: LORATADINE 10 MG TABLET PO SCH (10:02)
[2017-10-21] MEDS: POLYETHYLENE GLYCOL 3350 119 GM BTL PO SCH (10:03)
[2017-10-21] MEDS: TOPIRAMATE 25 MG TABLET (FP) PO SCH ×2 (10:03→22:31)
[2017-10-21] MEDS: VALPROIC ACID 250 MG CAPSULE PO SCH ×2 (10:04→22:31)
[2017-10-21] MEDS: FONDAPARINUX SODIUM 2.5 MG/0.5 ML DISP.SYRIN SQ SCH (10:05)
--- NOTE | 2017-10-21 11:59 | PN ---
Progress Note, Physician Chief Complaint: ID Vancomcyin - Current Medication List Current Medications: Active Medications Clonazepam (Klonopin -) 1 mg PO TID [facility] Last Admin: 10/21/17 06:03 Dose: 1 mg Fondaparinux (Arixtra (Restricted) -) 2.5 mg SQ DAILY [facility] Last Admin: 10/21/17 10:05 Dose: 2.5 mg Gemfibrozil (Lopid -) 600 mg PO BIDAC [facility] Last Admin: 10/21/17 06:04 Dose: 600 mg Vancomycin HCl 1,000 mg/ (Dextrose) 250 mls @ 166.667 mls/hr IVPB BID@0700, 1900 [facility] Last Admin: 10/21/17 06:03 Dose: 166.667 mls/hr Loratadine (Claritin -) 10 mg PO DAILY [facility] Last Admin: 10/21/17 10:02 Dose: 10 mg Polyethylene Glycol (Miralax (For Daily Use) -) 17 gm PO DAILY [facility] Last Admin: 10/21/17 10:03 Dose: 17 gm Ranitidine HCl (Zantac -) 150 mg PO DAILY [facility] Last Admin: 10/21/17 10:02 Dose: 150 mg Topiramate (Topamax -) 75 mg PO BID [facility] Last Admin: 10/21/17 10:03 Dose: 75 mg Valproic Acid (Depakene -) 1,000 mg PO BID [facility] Last Admin: 10/21/17 10:04 Dose: 1,000 mg - Objective Vital Signs: Vital Signs Temperature 97.5 F L 10/21/17 06:00 Pulse Rate 78 10/21/17 06:00 Respiratory Rate 18 10/21/17 06:00 Blood Pressure 97/55 10/21/17 06:00 O2 Sat by Pulse Oximetry (%) 95 10/20/17 21:00 Labs: CBC, BMP 10/21/17 07:15 10/21/17 07:15 INR, PTT INR 1.19 (0.82-1.09) H 10/17/17 00:30 Problem List - Problems (1) UTI (urinary tract infection) Code(s): N39.0 - URINARY TRACT INFECTION, SITE NOT SPECIFIED (2) Polymicrobial septicemia Code(s): A41.9 - SEPSIS, UNSPECIFIED ORGANISM (3) Sepsis Code(s): A41.9 - SEPSIS, UNSPECIFIED ORGANISM Qualifiers: Sepsis type: sepsis due to unspecified organism Qualified Code(s): A41.9 - Sepsis, unspecified organism (4) Mental retardation Code(s): F79 - UNSPECIFIED INTELLECTUAL DISABILITIES Assessment/Plan Laboratory Tests 10/17/17 10/17/17 10/19/17 01:29 06:21 07:15 WBC Hgb Plt Count BUN Creatinine Lactic Acid 4.1 H* 1.5 Vancomycin Pre-Dose 13.603 H D 10/21/17 10/21/17 07:15 07:15 WBC 6.1 Hgb 12.3 Plt Count 152 BUN 10 D Creatinine 0.7 D Lactic Acid Vancomycin Pre-Dose Assessment Staph coag negative bacteremia ? urinary source Level of 13 good Plan Continue current drug Obtain ECHO Duration of therapy to be determined 2 vs 4 weeks Nadya KEENAN
--- NOTE | 2017-10-21 18:05 | PN ---
Progress Note (short form) - Note Progress Note: Subjective: The patient was seen and examined at the bedside, he is non-verbal at baseline Current Medications Generic Name Dose Route Start Last Admin Trade Name Nathanael PRN Reason Stop Dose Admin Clonazepam 1 mg 10/19/17 06:00 10/21/17 14:07 Klonopin - PO 1 mg TID [facility] Administration Fondaparinux 2.5 mg 10/19/17 13:45 10/21/17 10:05 Arixtra (Restricted) - SQ 2.5 mg DAILY [facility] Administration Gemfibrozil 600 mg 10/18/17 16:30 10/21/17 06:04 Lopid - PO 600 mg BIDAC [facility] Administration Vancomycin HCl 1,000 mg/ 250 mls @ 166.667 mls/hr 10/19/17 07:00 10/21/17 06: 03 Dextrose IVPB 166.667 mls/hr BID@0700,1900 [facility] Administration Loratadine 10 mg 10/18/17 11:15 10/21/17 10:02 Claritin - PO 10 mg DAILY [facility] Administration Polyethylene Glycol 17 gm 10/19/17 10:00 10/21/17 10:03 Miralax (For Daily Use) - PO 17 gm DAILY [facility] Administration Ranitidine HCl 150 mg 10/19/17 10:00 10/21/17 10:02 Zantac - PO 150 mg DAILY [facility] Administration Topiramate 75 mg 10/19/17 10:00 10/21/17 10:03 Topamax - PO 75 mg BID [facility] Administration Valproic Acid 1,000 mg 10/19/17 10:00 10/21/17 10:04 Depakene - PO 1,000 mg BID [facility] Administration Objective: Vital Signs Period Temp Pulse Resp BP Sys/Monroy Pulse Ox Last 24 Hr 97.4 F-98.4 F 71-93 18-18 97-111/55-69 95-95 Physical Exam: General: Non-verbal, NAD Lungs: CTA bilaterally Heart: RRR, S1S2 Abd: Soft, non-tender, non-distended. Normoactive bowel sounds Ext: Warm, well-perfused. 2+ DP/PT bilaterally CBCD WBC 6.1 K/mm3 (4.0-10.0) 10/21/17 07:15 RBC 4.03 M/mm3 (4.00-5.60) 10/21/17 07:15 Hgb 12.3 GM/dL (11.7-16.9) 10/21/17 07:15 Hct 36.9 % (35.4-49) 10/21/17 07:15 MCV 91.4 fl (80-96) 10/21/17 07:15 MCHC 33.5 g/dl (32.0-35.9) 10/21/17 07:15 RDW 14.3 % (11.9-15.9) 10/21/17 07:15 Plt Count 152 K/MM3 (134-434) 10/21/17 07:15 MPV 7.5 fl (7.5-11.1) 10/21/17 07:15 CMP Sodium 142 mmol/L (136-145) 10/21/17 07:15 Potassium 3.6 mmol/L (3.5-5.1) 10/21/17 07:15 Chloride 109 mmol/L (98-107) H 10/21/17 07:15 Carbon Dioxide 24 mmol/L (21-32) 10/21/17 07:15 Anion Gap 9 (8-16) 10/21/17 07:15 BUN 10 mg/dL (7-18) D 10/21/17 07:15 Creatinine 0.7 mg/dL (0.7-1.3) D 10/21/17 07:15 Creat Clearance w eGFR > 60 (>60) 10/19/17 07:15 Random Glucose 118 mg/dL (74-106) H D 10/21/17 07:15 Calcium 8.7 mg/dL (8.5-10.1) 10/21/17 07:15 Total Bilirubin 0.2 mg/dL (0.2-1.0) D 10/19/17 07:15 AST 25 U/L (15-37) D 10/19/17 07:15 ALT 25 U/L (12-78) 10/19/17 07:15 Alkaline Phosphatase 73 U/L (45-117) 10/19/17 07:15 Total Protein 7.4 g/dl (6.4-8.2) 10/19/17 07:15 Albumin 3.3 g/dl (3.4-5.0) L 10/19/17 07:15 CARDIAC ENZYMES Creatine Kinase 190 IU/L (39-308) 10/17/17 00:30 Troponin I < 0.02 ng/ml (0.00-0.05) 10/17/17 00:30 Microbiology 10/17/17 03:39 Blood - Peripheral Venous Blood Culture - Final Staphylococcus Epidermidis 10/17/17 03:39 Blood - Peripheral Venous Blood Culture - Final Staphylococcus Epidermidis 10/19/17 08:25 Blood - Peripheral Venous Blood Culture - Preliminary NO GROWTH OBTAINED AFTER 48 HOURS, INCUBATION TO CONTINUE FOR 3 DAYS. 10/19/17 08:10 Blood - Peripheral Venous Blood Culture - Preliminary NO GROWTH OBTAINED AFTER 48 HOURS, INCUBATION TO CONTINUE FOR 3 DAYS. 10/17/17 01:27 Urine - Urine - Catheterized Urine Culture - Final Staphylococcus Epidermidis 10/17/17 01:27 Nasopharyngeal Swab Influenza Types A,B Antigen (MAGDY) - Final 10/17/17 01:27 Nasopharyngeal Swab - Final Assessment: This is a 42 year old male with PMHx of profound mental retardation , seizure disorder, osteoporosis, who presented from [facility] with increased agitation, watery stools, labored breathing, cyanotic lips. Plan: 1) Severe sepsis 2/2 staphylococcus coag negative UTI/bacteremia - WBC WNL, afebrile - Lactic acidosis resolved - Continue Vancomycin - ECHO: normal LV size and function. No evidence of vegetations - Appreciate ID consult 2) Constipation - Resolved 3) Seizure disorder - Continue home medications 4) F/E/N: - Pureed diet with nectar thick liquids - Monitor electrolytes 5) Prophylaxis: - SCDs bilaterally - Fondaparinux 2.5mg sc daily for DVT prophylaxis 6) Dispo: - Requires continued inpatient care CODE STATUS: FULL CODE Visit type - Emergency Visit Emergency Visit: Yes ED Registration Date: 10/17/17 Care time: The patient presented to the Emergency Department on the above date and was hospitalized for further evaluation of their emergent condition. - New Patient This patient is new to me today: No - Critical Care Critical Care patient: No
[2017-10-22] MEDS ORDERED: PT OWN MED DRAWER 7, Y5N ONE ×3 (06:17→20:45)
[2017-10-22] MEDS: GEMFIBROZIL 600 MG TABLET (FP) PO SCH ×2 (06:53→17:51)
[2017-10-22] MEDS: clonazePAM 0.5 MG TABLET PO SCH ×3 (06:57→22:14)
[2017-10-22] MEDS: VANCOMYCIN 1,000 MG in DEXTROSE 5%-WATER - 250 ML IVPB SCH ×2 (06:57→17:59)
[2017-10-22 07:51] LABS: HEMATOCRIT 37.6 % (35.4-49); HEMOGLOBIN 12.6 GM/dL (11.7-16.9); MCH 30.7 pg (25.7-33.7); MCHC 33.6 g/dl (32.0-35.9); MEAN CELL VOLUME 91.4 fl (80-96); MEAN PLT VOLUME 7.6 fl (7.5-11.1); PLATELET COUNT 160 K/MM3 (134-434); RBC 4.11 M/mm3 (4.00-5.60); RDW 14.4 % (11.9-15.9); WHITE BLOOD COUNT 5.6 K/mm3 (4.0-10.0)
[2017-10-22 08:16] LABS: CHLORIDE 109 mmol/L (98-107); POTASSIUM 3.8 mmol/L (3.5-5.1); SODIUM 142 mmol/L (136-145)
[2017-10-22 08:24] LABS: ALBUMIN 3.1 g/dl (3.4-5.0); ALK PHOS 65 U/L (45-117); ANION GAP 8 (8-16); BILIRUBIN,TOTAL 0.3 mg/dL (0.2-1.0); BLOOD UREA NITROGEN 11 mg/dL (7-18); CALCIUM 8.6 mg/dL (8.5-10.1); CO2 25 mmol/L (21-32); CREATININE 0.7 mg/dL (0.7-1.3); GLUCOSE,RANDOM 95 mg/dL (74-106); SGOT/AST 16 U/L (15-37); SGPT/ALT 21 U/L (12-78); TOT PROT 6.9 g/dl (6.4-8.2)
[2017-10-22] MEDS: TOPIRAMATE 25 MG TABLET (FP) PO SCH ×2 (09:25→22:17)
[2017-10-22] MEDS: LORATADINE 10 MG TABLET PO SCH (09:25)
[2017-10-22] MEDS: POLYETHYLENE GLYCOL 3350 119 GM BTL PO SCH (09:26)
[2017-10-22] MEDS: RANITIDINE HCL 150 MG TABLET (FP) PO SCH (09:26)
[2017-10-22] MEDS: FONDAPARINUX SODIUM 2.5 MG/0.5 ML DISP.SYRIN SQ SCH (09:26)
[2017-10-22] MEDS: VALPROIC ACID 250 MG CAPSULE PO SCH ×2 (09:27→22:14)
--- NOTE | 2017-10-22 13:35 | PN ---
Physical Exam: SUBJECTIVE: Patient seen and examined. No acute issues reported, appears calm. OBJECTIVE: Vital Signs Period Temp Pulse Resp BP Sys/Monroy Pulse Ox Last 24 Hr 97.8 F-98.4 F 65-81 18-20 100-112/59-69 95 PE Neuro: arousable, non verbal Pulm: CTAB CV: s1 s2 rrr no mrg Abd: s nt nd + bs Ext: Warm, no le edema Laboratory Results - last 24 hr 10/22/17 10/22/17 06:30 06:30 WBC 5.6 RBC 4.11 Hgb 12.6 Hct 37.6 MCV 91.4 MCH 30.7 MCHC 33.6 RDW 14.4 Plt Count 160 MPV 7.6 Sodium 142 Potassium 3.8 Chloride 109 H Carbon Dioxide 25 Anion Gap 8 BUN 11 Creatinine 0.7 Creat Clearance w eGFR > 60 Random Glucose 95 Calcium 8.6 Total Bilirubin 0.3 D AST 16 D ALT 21 Alkaline Phosphatase 65 Total Protein 6.9 Albumin 3.1 L Active Medications Generic Name Dose Route Start Last Admin Trade Name Semajq PRN Reason Stop Dose Admin Clonazepam 1 mg 10/19/17 06:00 10/22/17 06:57 Klonopin - PO 1 mg TID [facility] Administration Fondaparinux 2.5 mg 10/19/17 13:45 10/22/17 09:26 Arixtra (Restricted) - SQ 2.5 mg DAILY [facility] Administration Gemfibrozil 600 mg 10/18/17 16:30 10/22/17 06:53 Lopid - PO 600 mg BIDAC [facility] Administration Vancomycin HCl 1,000 mg/ 250 mls @ 166.667 mls/hr 10/19/17 07:00 10/22/17 06: 57 Dextrose IVPB 166.667 mls/hr BID@0700,1900 [facility] Administration Loratadine 10 mg 10/18/17 11:15 10/22/17 09:25 Claritin - PO 10 mg DAILY [facility] Administration Polyethylene Glycol 17 gm 10/19/17 10:00 10/22/17 09:26 Miralax (For Daily Use) - PO 17 gm DAILY [facility] Administration Ranitidine HCl 150 mg 10/19/17 10:00 10/22/17 09:26 Zantac - PO 150 mg DAILY [facility] Administration Topiramate 75 mg 10/19/17 10:00 10/22/17 09:25 Topamax - PO 75 mg BID [facility] Administration Valproic Acid 1,000 mg 10/19/17 10:00 10/22/17 09:27 Depakene - PO 1,000 mg BID [facility] Administration Microbiology 10/19/17 08:25 Blood Culture - Preliminary Blood - Peripheral Venous NO GROWTH OBTAINED AFTER 72 HOURS, INCUBATION TO CONTINUE FOR 2 DAYS. 10/19/17 08:10 Blood Culture - Preliminary Blood - Peripheral Venous NO GROWTH OBTAINED AFTER 72 HOURS, INCUBATION TO CONTINUE FOR 2 DAYS. 10/17/17 03:39 Blood Culture - Final Blood - Peripheral Venous Staphylococcus Epidermidis 10/17/17 03:39 Blood Culture - Final Blood - Peripheral Venous Staphylococcus Epidermidis Imaging: - ECHO: normal LV size and function. No evidence of vegetations Assessment: 42 year old male with PMHx of profound mental retardation, seizure disorder, osteoporosis, presented from [facility] with increased agitation, watery stools, labored breathing, cyanotic lips. Plan: 1. Severe sepsis 2/2 staphylococcus coag negative UTI/bacteremia - Improving, wbc wnl, no fever, repeat BC cleared - Continue Vancomycin per ID - Duration of abx per ID 2. Constipation - Resolved 3. Seizure disorder - Topamax, valproic acid, lopid, klonopin 4. Nutrition: - Pureed diet with nectar thick liquids 5. DVT PPX - SCDs bilaterally - Fondaparinux 2.5mg sc daily for DVT prophylaxis CODE STATUS: FULL CODE Visit type - Emergency Visit Emergency Visit: Yes ED Registration Date: 10/17/17 Care time: The patient presented to the Emergency Department on the above date and was hospitalized for further evaluation of their emergent condition. - New Patient This patient is new to me today: Yes Date on this admission: 10/22/17 - Critical Care Critical Care patient: No
--- NOTE | 2017-10-22 15:12 | PN ---
Progress Note (short form) - Note Progress Note: resting comfortably Vital Signs Period Temp Pulse Resp BP Sys/Monroy Pulse Ox Last 24 Hr 97.8 F-98.4 F 65-81 18-20 100-112/59-69 95 cor-rrr lungs clear abd soft,nt ext no edema CBC, BMP 10/22/17 06:30 10/22/17 06:30 Microbiology 10/19/17 08:25 Blood - Peripheral Venous Blood Culture - Preliminary NO GROWTH OBTAINED AFTER 72 HOURS, INCUBATION TO CONTINUE FOR 2 DAYS. 10/19/17 08:10 Blood - Peripheral Venous Blood Culture - Preliminary NO GROWTH OBTAINED AFTER 72 HOURS, INCUBATION TO CONTINUE FOR 2 DAYS. 10/17/17 03:39 Blood - Peripheral Venous Blood Culture - Final Staphylococcus Epidermidis 10/17/17 03:39 Blood - Peripheral Venous Blood Culture - Final Staphylococcus Epidermidis 10/17/17 01:27 Urine - Urine - Catheterized Urine Culture - Final Staphylococcus Epidermidis 10/17/17 01:27 Nasopharyngeal Swab Influenza Types A,B Antigen (MAGDY) - Final 10/17/17 01:27 Nasopharyngeal Swab - Final a/p staph epi bacteremia- d/w Dr Covington plan 4 weeks iv vancomycin check trough
[2017-10-22] MEDS ORDERED: PICC LINE 8 ML FLUSH PROTOCOL IVPUSH PRN (15:56)
[2017-10-23] MEDS: clonazePAM 0.5 MG TABLET PO SCH ×2 (05:51→15:38)
[2017-10-23] MEDS: GEMFIBROZIL 600 MG TABLET (FP) PO SCH ×2 (06:05→17:38)
[2017-10-23] MEDS: VANCOMYCIN 1,000 MG in DEXTROSE 5%-WATER - 250 ML IVPB SCH (09:00)
--- NOTE | 2017-10-23 10:09 | PN ---
Physical Exam: SUBJECTIVE: Patient seen and examined. He is awake in no acute distress. No fevers. OBJECTIVE: Vital Signs Period Temp Pulse Resp BP Sys/Monroy Pulse Ox Last 24 Hr 97.0 F-99.6 F 61-115 20-20 106-120/54-78 95 PE Neuro: awake, arousable, non verbal Pulm: CTAB CV: s1 s2 rrr no mrg Abd: s nt nd + bs Ext: Warm, no le edema Laboratory Results - last 24 hr 10/23/17 06:00 Vancomycin Pre-Dose 6.565 D Active Medications Generic Name Dose Route Start Last Admin Trade Name Freq PRN Reason Stop Dose Admin Clonazepam 1 mg 10/19/17 06:00 10/23/17 05:51 Klonopin - PO 1 mg TID [facility] Administration Fondaparinux 2.5 mg 10/19/17 13:45 10/22/17 09:26 Arixtra (Restricted) - SQ 2.5 mg DAILY [facility] Administration Gemfibrozil 600 mg 10/18/17 16:30 10/23/17 06:05 Lopid - PO 600 mg BIDAC [facility] Administration IV Flush 8 ml 10/22/17 15:56 Picc Line Flush IVPUSH PRN PRN Protocol Vancomycin HCl 1,000 mg/ 250 mls @ 166.667 mls/hr 10/19/17 07:00 10/22/17 17: 59 Dextrose IVPB 166.667 mls/hr BID@0700,1900 [facility] Administration Loratadine 10 mg 10/18/17 11:15 10/22/17 09:25 Claritin - PO 10 mg DAILY [facility] Administration Polyethylene Glycol 17 gm 10/19/17 10:00 10/22/17 09:26 Miralax (For Daily Use) - PO 17 gm DAILY [facility] Administration Ranitidine HCl 150 mg 10/19/17 10:00 10/22/17 09:26 Zantac - PO 150 mg DAILY [facility] Administration Topiramate 75 mg 10/19/17 10:00 10/22/17 22:17 Topamax - PO 75 mg BID [facility] Administration Valproic Acid 1,000 mg 10/19/17 10:00 10/22/17 22:14 Depakene - PO 1,000 mg BID [facility] Administration Imaging: - ECHO: normal LV size and function. No evidence of vegetations Assessment: 42 year old male with PMHx of profound mental retardation, seizure disorder, osteoporosis, presented from [facility] with increased agitation, watery stools, labored breathing, cyanotic lips. Plan: 1. Severe sepsis 2/2 staphylococcus coag negative UTI/bacteremia - PICC line placement today for [facility] abx - Continue Vancomycin for total of 4 weeks - Duration of abx per ID 2. Constipation - Resolved 3. Seizure disorder - Topamax, valproic acid, lopid, klonopin 4. Nutrition - Pureed diet with nectar thick liquids 5. DVT PPX - SCDs bilaterally - Fondaparinux 2.5mg sc daily for DVT prophylaxis CODE STATUS: FULL CODE Visit type - Emergency Visit Emergency Visit: Yes ED Registration Date: 10/17/17 Care time: The patient presented to the Emergency Department on the above date and was hospitalized for further evaluation of their emergent condition. - New Patient This patient is new to me today: No - Critical Care Critical Care patient: No
[2017-10-23] MEDS ORDERED: PT OWN MED DRAWER 7, Y5N ONE (11:19)
[2017-10-23] MEDS: TOPIRAMATE 25 MG TABLET (FP) PO SCH (11:26)
[2017-10-23] MEDS: LORATADINE 10 MG TABLET PO SCH (11:26)
[2017-10-23] MEDS: RANITIDINE HCL 150 MG TABLET (FP) PO SCH (11:27)
[2017-10-23] MEDS: POLYETHYLENE GLYCOL 3350 119 GM BTL PO SCH (11:27)
[2017-10-23] MEDS: FONDAPARINUX SODIUM 2.5 MG/0.5 ML DISP.SYRIN SQ SCH (11:28)
[2017-10-23] MEDS: VALPROIC ACID 250 MG CAPSULE PO SCH (11:28)
[2017-10-23 14:29] VITALS: BP 120/65; PULSE 79; TEMP 97.5
--- NOTE | 2017-10-23 16:56 | DS ---
Physical Exam: SUBJECTIVE: Patient seen and examined OBJECTIVE: Vital Signs Period Temp Pulse Resp BP Sys/Monroy Pulse Ox Last 24 Hr 97.0 F-98.0 F 61-80 18-20 106-120/54-70 95-96 PE Neuro: awake, arousable, non verbal Pulm: CTAB CV: s1 s2 rrr no mrg Abd: s nt nd + bs Ext: Warm, no le edema Laboratory Results - last 24 hr 10/23/17 06:00 Vancomycin Pre-Dose 6.565 D HOSPITAL COURSE: Date of Admission:10/17/17 Date of Discharge: 10/23/17 Minutes to complete discharge: 37 Discharge Summary Reason For Visit: SEPSIS UTI Current Active Problems Sepsis (Acute) UTI (urinary tract infection) (Acute) UTI (urinary tract infection) (Acute) Hospital Course: Initial Hospital Course: Briefly, this 42 y/o male with MDD, Seizure Disorder from the [facility] presented to the ED for labored breathing increased agitation, 2 watery stools. Per health aide at bedside, patient has been increasingly agitated over the past 24-48 hours. He reported that 3 hours prior to arrival patient had 2 large watery stools, and labored breathing with blue appearing lips. Imaging: - ECHO: normal LV size and function. No evidence of vegetations Subsequent Hospital Course/DC summary: Assessment: 42 year old male with PMHx of profound mental retardation, seizure disorder, osteoporosis, presented from [facility] with increased agitation, watery stools, labored breathing, cyanotic lips. Plan: 1. Severe sepsis 2/2 staphylococcus coag negative UTI/bacteremia - PICC line placement 10/23 - Continue Vancomycin 1250mg BID for total of 4 weeks (10/19-11/15) today was day 4 - Monitor Vanco levels 2. Constipation - Resolved 3. Seizure disorder - Topamax, valproic acid, lopid, klonopin 4. Nutrition - Pureed diet with nectar thick liquids 5. DVT PPX - Fondaparinux 2.5mg sc daily for DVT prophylaxis Dispo: - Transfer to [facility] for SN[facility] - Mother aware Home Medications Medication Instructions Recorded Calcium Carbonate/Vitamin D3 500 mg PO DAILY 02/20/17 [Oystercal-D 500 mg-400 Unit Tb] Cholecalciferol (Vitamin D3) 2,000 unit PO DAILY 02/20/17 [Vitamin D3] Clonazepam [Klonopin] 1 mg PO TID 02/20/17 Diazepam Rectal Gel [Diastat 10 mg DC ONCE 02/20/17 Rectal Gel -] Famotidine 20 mg PO DAILY 02/20/17 Fluticasone Prop 0.05% Nasal 1 - 2 spray NS DAILY 02/20/17 [Flonase -] Gemfibrozil 600 mg PO BID 02/20/17 Loratadine 10 mg PO DAILY 02/20/17 Perampanel [Fycompa] 6 mg PO HS 02/20/17 Topiramate 75 mg PO BID 02/20/17 Valproic Acid [Depakene -] 1 gm PO BID 02/20/17 Vancomycin 1,250 mg IVPB BID@0700,1900 24 10/23/17 Days vial Condition: Stable - Instructions Diet, Activity, Other Instructions: Please return to the ED for any new, persistent, or worsening symptoms. Follow up with PCP in 4 weeks Resume home meds as listed Continue vancomycin for 4 weeks total started on 10/19 complete on 11/15 Disposition: [facility] - Home Medications Comprehensive Discharge Medication List: Ambulatory Orders Calcium Carbonate/Vitamin D3 [Oystercal-D 500 mg-400 Unit Tb] 500 mg PO DAILY Cholecalciferol (Vitamin D3) [Vitamin D3] 2,000 unit PO DAILY 02/20/17 Clonazepam [Klonopin] 1 mg PO TID 02/20/17 Diazepam Rectal Gel [Diastat Rectal Gel -] 10 mg DC ONCE 02/20/17 Famotidine 20 mg PO DAILY 02/20/17 Fluticasone Prop 0.05% Nasal [Flonase -] 1 - 2 spray NS DAILY 02/20/17 Gemfibrozil 600 mg PO BID 02/20/17 Loratadine 10 mg PO DAILY 02/20/17 Perampanel [Fycompa] 6 mg PO HS 02/20/17 Topiramate 75 mg PO BID 02/20/17 Valproic Acid [Depakene -] 1 gm PO BID 02/20/17 This patient is new to me today: No Emergency Visit: Yes ED Registration Date: 10/17/17 Care time: The patient presented to the Emergency Department on the above date and was hospitalized for further evaluation of their emergent condition. Critical Care patient: No - Discharge Referral Referred to [facility] No
[2017-10-23] MEDS ORDERED: VANCOMYCIN 1,250 MG in DEXTROSE 5%-WATER - 250 ML IVPB SCH (19:00)
== END 2017-10-23 18:52 | DRG 871 ==
LOC: JER 21:05 → JERBED 10-17 05:17 → UNDOADMIN 10-17 05:17 → JERBED 10-17 05:35 → UNDOADMIN 10-17 05:51 → JERBED 10-17 05:51 → J5S 10-18 11:11
PROVIDERS: ADMIT Internal Medicine; ATTEND Nurse Practitioner Acute Care
PROC: 02HV33Z Insertion of Infusion Device into Superior Vena Cava, Percutaneous Approach (ICD-10-PCS; principal; 2017-10-23)
DX: A41.9 Sepsis, unspecified organism (principal); R53.2 Functional quadriplegia; N39.0 Urinary tract infection, site not specified; E87.2 Acidosis; F73 Profound intellectual disabilities; G40.909 Epilepsy, unspecified, not intractable, without status epilepticus; D64.9 Anemia, unspecified; Z88.0 Allergy status to penicillin; K59.00 Constipation, unspecified; M81.0 Age-related osteoporosis without current pathological fracture
CPT/HCPCS: 36415; 36569; 36600; 71045-TC; 74176-TC; 77001-TC; 80048; 80053; 81003; 81015; 82375; 82550; 82553; 82803; 83050; 83605; 84484; 85025; 85027; 85610; 86140; 87040; 87086; 87186; 87804; 93005; 93010; 93306-TC; 99284-25; C1751; G0480

== ENCOUNTER 2018-02-21 23:11 | Observation (INO) | payer OTHER ==
--- NOTE | 2018-02-21 23:15 | PDOC ---
History of Present Illness - General History Source: Care Provider (Aid.) Exam Limitations: No Limitations - History of Present Illness Initial Comments: 02/22/18 01:35 The patient is a 42 year old male, with a significant past medical history of nonverbal/noncommunicative, wheelchair bound at baseline, MR, seizure disorder, right craniotomy for corpus colostomy, and osteoporosis, who presents to the emergency department via EMS from [facility] with, a fever. As per patients aid from his facility, he has a Tmax of 103 degrees Fahrenheit. They report administering Tylenol 5 hours ago, with relief. They report a rash on his pelvic region. The aid denies he has any recent chills, headache or dizziness. The aid denies he has any recent nausea, vomit, diarrhea or constipation. The aid denies he has any recent chest pain or shortness of breath.The aid denies he has any recent dysuria, frequency, urgency or hematuria. Past surgical history: Craniotomy. Social History: Nonsmoker. Denies EtOH use and recreational drug use. <Kayla Larsen - Last Filed: 02/22/18 05:48> <Martina Ahuja - Last Filed: 02/22/18 06:54> - General Stated Complaint: FEVER Time Seen by Provider: 02/21/18 23:15 Past History <Kayla Larsen - Last Filed: 02/22/18 05:48> - Past Medical History Anemia: No Asthma: No Cancer: No Cardiac Disorders: No CVA: No COPD: No CHF: No Dementia: No Diabetes: No GI Disorders: No Disorders: No HTN: No Hypercholesterolemia: No Liver Disease: No Seizures: Yes Thyroid Disease: No - Immunization History Immunization Up to Date: Yes - Suicide/Smoking/Psychosocial Hx Smoking History: Never smoked Have you smoked in the past 12 months: No Hx Alcohol Use: No Drug/Substance Use Hx: No Substance Use Type: None Hx Substance Use Treatment: No <Martina Ahuaj - Last Filed: 02/22/18 06:54> - Past Medical History Allergies/Adverse Reactions: Allergies Allergy/AdvReac Type Severity Reaction Status Date / Time cheese Allergy Verified 02/21/18 23:14 legumes Allergy Verified 02/21/18 23:14 peanut Allergy Verified 02/21/18 23:14 peas Allergy Verified 02/21/18 23:14 Penicillins Allergy Verified 02/21/18 23:14 Pork/Porcine Containing Allergy Verified 02/21/18 23:14 Products soy Allergy Verified 02/21/18 23:14 turkey Allergy Verified 02/21/18 23:14 wheat Allergy Verified 02/21/18 23:14 Home Medications: Ambulatory Orders Calcium Carbonate/Vitamin D3 [Oystercal-D 500 mg-400 Unit Tb] 1 each PO DAILY Clonazepam 1 mg PO TID 02/22/18 Clotrimazole/Betamet Diprop [Lotrisone Cream (Small Tube)] 1 applic TP BID 02/22 Clotrimazole/Betamet Diprop [Lotrisone Cream (Small Tube)] 1 applic TP BID 02/22 Diazepam 10 mg RC DAILY 02/22/18 Famotidine 20 mg PO DAILY 02/22/18 Famotidine 20 mg PO HS 02/22/18 Fluticasone Prop 0.05% Nasal [Flonase -] 1 - 2 spray NS DAILY 02/22/18 Fluticasone Propionate [Flovent Diskus] 50 mcg IH DAILY 02/22/18 Gemfibrozil 600 mg PO BID 02/22/18 Gemfibrozil 600 mg PO BID 02/22/18 Glycopyrrolate [Robinul Forte -] 2 mg PO DAILY 02/22/18 Glycopyrrolate [Robinul Forte] 2 mg PO BID 02/22/18 Hydrocortisone 0.5% Cream [Hytone 0.5% Cream -] 1 02/22/18 Hydrocortisone [Anti-Itch] 28 gm TP DAILY 02/22/18 Loratadine 10 mg PO DAILY 02/22/18 Loratadine 10 mg PO HS 02/22/18 Perampanel [Fycompa] 6 mg PO DAILY 02/22/18 Polyethylene Glycol 3350 [Glycolax] 119 gm PO AC 02/22/18 Polyethylene Glycol 3350 [Glycolax] 119 gm PO DAILY 02/22/18 Topiramate 25 mg PO BID 02/22/18 Valproic Acid 250 mg PO BID 02/22/18 Review of Systems - Review of Systems Able to Perform ROS?: Yes Comments:: 02/22/18 01:35 +GENERAL/CONSTITUTIONAL: Fever. No chills. No weakness. HEAD, EYES, EARS, NOSE AND THROAT: No change in vision. No ear pain or discharge. No sore throat. CARDIOVASCULAR: No chest pain or shortness of breath. RESPIRATORY: No cough, wheezing, or hemoptysis. GASTROINTESTINAL: No nausea, vomiting, diarrhea or constipation. GENITOURINARY: No dysuria, frequency, or change in urination. MUSCULOSKELETAL: No joint or muscle swelling or pain. No neck or back pain. +SKIN: Rash on pelvic region. NEUROLOGIC: No headache, vertigo, loss of consciousness, or change in strength/ sensation. ENDOCRINE: No increased thirst. No abnormal weight change. HEMATOLOGIC/LYMPHATIC: No anemia, easy bleeding, or history of blood clots. ALLERGIC/IMMUNOLOGIC: No hives or skin allergy. All Other Systems: Reviewed and Negative <Kayla Larsen - Last Filed: 02/22/18 05:48> *Physical Exam - Vital Signs Last Vital Signs Temp Pulse Resp BP Pulse Ox 99.2 F 95 H 18 95/56 93 L 02/21/18 23:20 02/21/18 23:20 02/21/18 23:20 02/21/18 23:20 02/21/18 23:20 - Physical Exam Comments: 02/22/18 05:00 GENERAL: Awake, alert, and fully oriented, in no acute distress HEAD: No signs of trauma EYES: PERRLA, EOMI, sclera anicteric, conjunctiva clear ENT: Auricles normal inspection, hearing grossly normal, nares patent, oropharynx clear without exudates. Moist mucosa NECK: Normal ROM, supple, no lymphadenopathy, JVD, or masses LUNGS: Bilateral coarse breath sounds greater on the right. No wheezes, and no crackles HEART: Regular rate and rhythm, normal S1 and S2, no murmurs, rubs or gallops ABDOMEN: Soft, nontender, normoactive bowel sounds. No guarding, no rebound. No masses EXTREMITIES: Bilateral legs contracted. No edema. No clubbing or cyanosis. No cords, erythema, or tenderness. NEUROLOGICAL: Cranial nerves II through XII grossly intact. SKIN: Candidal rash infection on the lower abdomen and suprapubic region. Warm, Dry, normal turgor. <Kayla Larsen - Last Filed: 02/22/18 05:48> ED Treatment Course - LABORATORY CBC & Chemistry Diagram: 02/22/18 01:25 02/22/18 03:33 - Medications Given in the ED: ED Medications Discontinued Medications Generic Name Dose Route Start Last Admin Trade Name Nathanael PRN Reason Stop Dose Admin Sodium Chloride 1,000 ml 02/22/18 01:03 02/22/18 01:24 Normal Saline - IV 02/22/18 01:04 1,000 ml ONCE ONE Administration <Kayla Larsen - Last Filed: 02/22/18 05:48> - LABORATORY CBC & Chemistry Diagram: 02/22/18 01:25 02/22/18 03:33 <Martina Ahuja - Last Filed: 02/22/18 06:54> Medical Decision Making - Medical Decision Making 02/22/18 05:43 EXAM: CHEST X-RAY PORTABLE* HISTORY: Rule out pneumonia COMPARISON: None. FINDINGS: Heart size is normal. Left-sided metallic implantable device is noted which is apparently a neural stimulator. Retrocardiac consolidation is suspicious for pneumonia. No pleural effusion. IMPRESSION: Suspected left lower lobe pneumonia. Read by: Jm Mcclellan MD <Kayla Larsen - Last Filed: 02/22/18 05:48> - Medical Decision Making 02/22/18 05:14 Pt comes with fever and low pulsox on room air. On exam pt has coarse breath sounds bilaterally, right side worse than the left side. Pt's CXR is suboptimal, but reveals increased markings on the right side. 02/22/18 06:54 Pt will be admitted to the hospitalist medical observation. <Martina Ahuja - Last Filed: 02/22/18 06:54> *DC/Admit/Observation/Transfer - Attestations Scribe Attestion: 02/22/18 01:36 Documentation prepared by Kayla Larsen, acting as medical administrator for Martina Ahuja MD. <Kayla Larsen - Last Filed: 02/22/18 05:48> - Discharge Dispostion Decision to Admit order: Yes <Martina Ahuja - Last Filed: 02/22/18 06:54> Diagnosis at time of Disposition: Pneumonia - Discharge Dispostion Condition at time of disposition: Guarded
[2018-02-22] MEDS ORDERED: SODIUM CHLORIDE 0.9% 500 ML INFUS.BAG IV ONE (01:03)
[2018-02-22 01:47] LABS: HEMATOCRIT 34.4 % (35.4-49); HEMOGLOBIN 11.4 GM/dL (11.7-16.9); MCH 30.3 pg (25.7-33.7); MCHC 33.3 g/dl (32.0-35.9); MEAN CELL VOLUME 90.9 fl (80-96); MEAN PLT VOLUME 7.8 fl (7.5-11.1); PLATELET COUNT 138 K/MM3 (134-434); RBC 3.78 M/mm3 (4.00-5.60); RDW 16.4 % (11.9-15.9)
[2018-02-22 02:50] LABS: URINE APPEARANCE CLEAR; URINE BILIRUBIN NEGATIVE (<2.0 mg/dL); URINE COLOR YELLOW; URINE GLUCOSE (UA) NEGATIVE (NEGATIVE); URINE KETONE NEGATIVE (NEGATIVE); URINE LEUK ESTERASE NEGATIVE (NEGATIVE); URINE NITRITE NEGATIVE (NEGATIVE); URINE PROTEIN NEGATIVE (NEGATIVE)
[2018-02-22 04:09] LABS: ALBUMIN 2.8 g/dl (3.4-5.0); ALK PHOS 60 U/L (45-117); ANION GAP 9 (8-16); BILIRUBIN,TOTAL 0.2 mg/dL (0.2-1.0); BLOOD UREA NITROGEN 19 mg/dL (7-18); CALCIUM 8.6 mg/dL (8.5-10.1); CHLORIDE 111 mmol/L (98-107); CO2 23 mmol/L (21-32); CREATININE 0.9 mg/dL (0.7-1.3); GLUCOSE,RANDOM 81 mg/dL (74-106); POTASSIUM 4.1 mmol/L (3.5-5.1); SGOT/AST 25 U/L (15-37); SGPT/ALT 13 U/L (12-78); SODIUM 143 mmol/L (136-145); TOT PROT 6.7 g/dl (6.4-8.2)
[2018-02-22 04:39] LABS: PLATELET ESTIMATE SLT DECREASE; SMUDGE CELLS FEW
--- NOTE | 2018-02-22 06:04 | PN ---
Teaching Attending Note Name of Resident: Jarrod Dacosta ATTENDING PHYSICIAN STATEMENT I saw and evaluated the patient. I reviewed the resident's note and discussed the case with the resident. I agree with the resident's findings and plan as documented. SUBJECTIVE: OBJECTIVE: ASSESSMENT AND PLAN: The patient is a 42 year old male, with a significant past medical history of nonverbal/noncommunicative, wheelchair bound at baseline, MR, seizure disorder, right craniotomy for corpus colostomy, and osteoporosis, who presents to the emergency department via EMS patient's aid stated that the patient had a temp of 103F in the facility.
--- NOTE | 2018-02-22 06:45 | HP ---
CHIEF COMPLAINT: sent from [place] for fever cough congestion PCP: Ankit HISTORY OF PRESENT ILLNESS: Pt is a 42 y/o M with PMH epillepsy, corpus callosectomy, vagus stimulator, severe MR (noncommunicative in wheelchair at baseline) osteoporosis who wsa sent to the hosptial because of fever 103, resp 24, PaO2 90. Pt was given tylenol at [place] without improvement. Here, he was started on Levaquin. Vitals are now wnl. ER course was notable for: (1) WBC 12, (2) CXR with opacification (3) Recent Travel: no PAST MEDICAL HISTORY: as above PAST SURGICAL HISTORY: Social History: Smoking: no Alcohol: no Drugs: no Family History: Allergies cheese Allergy (Verified 02/21/18 23:14) legumes Allergy (Verified 02/21/18 23:14) peanut Allergy (Verified 02/21/18 23:14) peas Allergy (Verified 02/21/18 23:14) Penicillins Allergy (Verified 02/21/18 23:14) Pork/Porcine Containing Products Allergy (Verified 02/21/18 23:14) soy Allergy (Verified 02/21/18 23:14) turkey Allergy (Verified 02/21/18 23:14) wheat Allergy (Verified 02/21/18 23:14) HOME MEDICATIONS: Home Medications Medication Instructions Recorded Calcium Carbonate/Vitamin D3 1 each PO DAILY 02/22/18 [Oystercal-D 500 mg-400 Unit Tb] Clonazepam 1 mg PO TID 02/22/18 Clotrimazole/Betamet Diprop 1 applic TP BID 02/22/18 [Lotrisone Cream (Small Tube)] Clotrimazole/Betamet Diprop 1 applic TP BID 02/22/18 [Lotrisone Cream (Small Tube)] Diazepam 10 mg RC DAILY 02/22/18 Famotidine 20 mg PO DAILY 02/22/18 Famotidine 20 mg PO HS 02/22/18 Fluticasone Prop 0.05% Nasal 1 - 2 spray NS DAILY 02/22/18 [Flonase -] Fluticasone Propionate [Flovent 50 mcg IH DAILY 02/22/18 Diskus] Gemfibrozil 600 mg PO BID 02/22/18 Gemfibrozil 600 mg PO BID 02/22/18 Glycopyrrolate [Robinul Forte -] 2 mg PO DAILY 02/22/18 Glycopyrrolate [Robinul Forte] 2 mg PO BID 02/22/18 Hydrocortisone 0.5% Cream [Hytone 1 02/22/18 0.5% Cream -] Hydrocortisone [Anti-Itch] 28 gm TP DAILY 02/22/18 Loratadine 10 mg PO DAILY 02/22/18 Loratadine 10 mg PO HS 02/22/18 Perampanel [Fycompa] 6 mg PO DAILY 02/22/18 Polyethylene Glycol 3350 [Glycolax] 119 gm PO AC 02/22/18 Polyethylene Glycol 3350 [Glycolax] 119 gm PO DAILY 02/22/18 Topiramate 25 mg PO BID 02/22/18 Valproic Acid 250 mg PO BID 02/22/18 REVIEW OF SYSTEMS unable to obtain PHYSICAL EXAMINATION Vital Signs - 24 hr 02/21/18 02/22/18 23:20 05:04 Temperature 99.2 F 97.9 F Pulse Rate 95 H Pulse Rate [ 60 Right Radial] Respiratory 18 Rate Blood Pressure 95/56 Blood Pressure 96/41 [Left Arm] O2 Sat by Pulse 93 L 95 Oximetry (%) Gen: lying in bed in NAD. b/l lower limb dontracted. HEENT: moist membranes, NCAT NECK: supple no jvd Cor: RRR normal s1 s2 Pulm: diffuse crackles abd: no guarding Laboratory Results - last 24 hr 02/22/18 02/22/18 02/22/18 01:25 01:25 01:50 WBC 12.0 H D RBC 3.78 L Hgb 11.4 L Hct 34.4 L MCV 90.9 MCH 30.3 MCHC 33.3 RDW 16.4 H Plt Count 138 MPV 7.8 Neutrophils % No Result Required. Neutrophils % (Manual) 40.0 L Band Neutrophils % 15.0 Lymphocytes % No Result Required. Lymphocytes % (Manual) 25.0 D Monocytes % (Manual) 19 H Nucleated RBC % 0 Metamyelocytes 1 Smudge Cells Few Hypochromia 1+ Platelet Estimate Slt decrease Platelet Comment No clumping noted Sodium Cancelled Potassium Cancelled Chloride Cancelled Carbon Dioxide Cancelled Anion Gap Cancelled BUN Cancelled Creatinine Cancelled Creat Clearance w eGFR Cancelled Random Glucose Cancelled Calcium Cancelled Total Bilirubin Cancelled AST Cancelled ALT Cancelled Alkaline Phosphatase Cancelled Total Protein Cancelled Albumin Cancelled Urine Color Yellow Urine Appearance Clear Urine pH 7.0 D Ur Specific [place] 1.021 Urine Protein Negative Urine Glucose (UA) Negative Urine Ketones Negative Urine Blood Negative Urine Nitrite Negative Urine Bilirubin Negative Urine Urobilinogen 2.0 Ur Leukocyte Esterase Negative 02/22/18 03:33 WBC RBC Hgb Hct MCV MCH MCHC RDW Plt Count MPV Neutrophils % Neutrophils % (Manual) Band Neutrophils % Lymphocytes % Lymphocytes % (Manual) Monocytes % (Manual) Nucleated RBC % Metamyelocytes Smudge Cells Hypochromia Platelet Estimate Platelet Comment Sodium 143 Potassium 4.1 Chloride 111 H Carbon Dioxide 23 Anion Gap 9 BUN 19 H D Creatinine 0.9 D Creat Clearance w eGFR > 60 Random Glucose 81 Calcium 8.6 Total Bilirubin 0.2 D AST 25 D ALT 13 D Alkaline Phosphatase 60 Total Protein 6.7 Albumin 2.8 L Urine Color Urine Appearance Urine pH Ur Specific [place] Urine Protein Urine Glucose (UA) Urine Ketones Urine Blood Urine Nitrite Urine Bilirubin Urine Urobilinogen Ur Leukocyte Esterase ASSESSMENT/PLAN: Pt is a 42 y/o M from [facility] who presented to ED sent because of fever, and sat 90%. #PNA -febrile -CXR with infiltrate -Levaquin in ed -cont Levaquin #Seizure disorder -resume home meds #MR -stable issue #FEN -NS -lytes -dysphagia ground #PPx -hep sub Q #Dispo -obs for PNA Jarrod Dacosta MD PGY-1 IM Visit type - Emergency Visit Emergency Visit: Yes ED Registration Date: 02/22/18 Care time: The patient presented to the Emergency Department on the above date and was hospitalized for further evaluation of their emergent condition. - New Patient This patient is new to me today: Yes Date on this admission: 02/22/18 - Critical Care Critical Care patient: No Hospitalist Screening - Colonoscopy Questionnaire Colonoscopy Questionnaire: Colonoscopy Questionnaire - Patient: 50 - 75 years old and never had a screening colonoscopy: Unknown History of colon or rectal polyps, or CA: Unknown History of IBD, Crohn's disease or UC: Unknown History of abdominal radiation therapy as a child: Unknown - Relative: 1 with colon or rectal CA, or polyps at age 60 or younger: Unknown Colon or rectal CA diagnosed at age 45 or younger: Unknown Multiple relatives with colon or rectal CA: Unknown - Outcome: Screening Result: Negative Screen
[2018-02-22] MEDS: SODIUM CHLORIDE 1,000 ML IV SCH (06:54)
[2018-02-22] MEDS: HEPARIN NA (PORCINE) 5,000 UNITS/ML 1ML VIAL SQ SCH ×3 (09:02→22:00)
[2018-02-22 11:49] LABS: ALBUMIN 2.7 g/dl (3.4-5.0); ALK PHOS 60 U/L (45-117); ANION GAP 7 (8-16); BILIRUBIN,TOTAL 0.2 mg/dL (0.2-1.0); BLOOD UREA NITROGEN 16 mg/dL (7-18); CALCIUM 8.2 mg/dL (8.5-10.1); CHLORIDE 112 mmol/L (98-107); CO2 24 mmol/L (21-32); CREATININE 0.7 mg/dL (0.7-1.3); GLUCOSE,RANDOM 72 mg/dL (74-106); POTASSIUM 3.8 mmol/L (3.5-5.1); SGOT/AST 20 U/L (15-37); SGPT/ALT 13 U/L (12-78); SODIUM 143 mmol/L (136-145); TOT PROT 6.5 g/dl (6.4-8.2)
[2018-02-22] MEDS ORDERED: HEPARIN NA (PORCINE) 5,000 UNITS/ML 1ML VIAL ONE (14:07)
[2018-02-22] MEDS ORDERED: PERAMPANEL 6 MG PO SCH (17:00)
[2018-02-22 18:49] VITALS: BMI 31.4
[2018-02-22] MEDS: GEMFIBROZIL 600 MG TABLET (FP) PO SCH (21:59)
[2018-02-22] MEDS: TOPIRAMATE 25 MG TABLET (FP) PO SCH (21:59)
[2018-02-22] MEDS: GLYCOPYRROLATE 1 MG TABLET PO SCH (22:00)
[2018-02-22] MEDS ORDERED: GLYCOPYRROLATE 2 MG TABLET PO SCH (22:00)
[2018-02-22] MEDS: clonazePAM 0.5 MG TABLET PO SCH (22:00)
[2018-02-22] MEDS: VALPROIC ACID 250 MG CAPSULE PO SCH (22:00)
[2018-02-23] MEDS: clonazePAM 0.5 MG TABLET PO SCH (05:58)
[2018-02-23] MEDS: HEPARIN NA (PORCINE) 5,000 UNITS/ML 1ML VIAL SQ SCH (05:58)
--- NOTE | 2018-02-23 08:15 | PN ---
Teaching Attending Note Name of Resident: Andres Alicea ATTENDING PHYSICIAN STATEMENT I saw and evaluated the patient. I reviewed the resident's note and discussed the case with the resident. I agree with the resident's findings and plan as documented. SUBJECTIVE:resting comfortable OBJECTIVE: Last Vital Signs Temp Pulse Resp BP Pulse Ox 98.2 F 70 20 104/60 92 L 02/23/18 05:44 02/23/18 05:44 02/23/18 05:44 02/23/18 05:44 02/23/18 01:00 General NAD CV S1 S2 RRR no murmur/rub/gallop Lungs CTA B/L no wheezing/rales/rhonchi Abdomen soft NT/ND Extremities contracted ASSESSMENT AND PLAN: 42yo M with H epilepsy s/p corpus callostomy, vagus nerve stimulator, MR from [facility] presented for tachypnea and fever of 103 1. Sepsis due to PNA- based on vital signs present at [facility] (fever and tachypnea). clinically improved. afebrile. on levaquin day 2. would complete 7 day course. PCN allergy noted 2. Hypotension- either due to sepsis vs body habitus as its difficult to obtain accurate readings 3. epilepsy- no seizure like activity here. cont home regimen 4. MR 5. Pt is medically optimized at this time. plan to d/c to [facility] today on 5 day course of abx
[2018-02-23 08:45] LABS: BASO % 0.6 % (0-2.0); EOS % 7.4 % (0-4.5); HEMATOCRIT 33.4 % (35.4-49); HEMOGLOBIN 11.2 GM/dL (11.7-16.9); LYMPH % 36.2 % (8-40); MCH 30.9 pg (25.7-33.7); MCHC 33.4 g/dl (32.0-35.9); MEAN CELL VOLUME 92.6 fl (80-96); MEAN PLT VOLUME 7.9 fl (7.5-11.1); MONO % 16.7 % (3.8-10.2); NEUT % 39.1 % (42.8-82.8); PLATELET COUNT 126 K/MM3 (134-434); RBC 3.61 M/mm3 (4.00-5.60); RDW 16.4 % (11.9-15.9); WHITE BLOOD COUNT 6.6 K/mm3 (4.0-10.0)
[2018-02-23] MEDS ORDERED: diazePAM ACUDIAL 5-7.5-10 MG 1 EACH KIT RC PRN (08:56)
[2018-02-23 09:10] LABS: CHLORIDE 110 mmol/L (98-107); POTASSIUM 3.8 mmol/L (3.5-5.1); SODIUM 143 mmol/L (136-145)
[2018-02-23 09:13] LABS: ANION GAP 11 (8-16); BLOOD UREA NITROGEN 16 mg/dL (7-18); CALCIUM 8.1 mg/dL (8.5-10.1); CO2 22 mmol/L (21-32); CREATININE 0.7 mg/dL (0.7-1.3); GLUCOSE,RANDOM 73 mg/dL (74-106)
[2018-02-23] MEDS ORDERED: PATIENT'S OWN MEDICATION (NON-FORMULARY) (Diazepam [Diazepam] 10 MG) RC SCH (10:00)
[2018-02-23] MEDS ORDERED: POLYETHYLENE GLYCOL 3350 119 GM BTL PO SCH (10:00)
[2018-02-23] MEDS ORDERED: RANITIDINE HCL 150 MG TABLET (FP) PO SCH (10:00)
[2018-02-23] MEDS ORDERED: levoFLOXacin 750 MG TABLET PO SCH (10:00)
[2018-02-23] MEDS ORDERED: CALCIUM 500MG/VIT-D 200 UNITS COMBO TABLET (FP) PO SCH (10:00)
[2018-02-23] MEDS ORDERED: PT OWN MED DRAWER 7, Y5N ONE (10:25)
[2018-02-23] MEDS: GEMFIBROZIL 600 MG TABLET (FP) PO SCH (10:31)
[2018-02-23] MEDS: TOPIRAMATE 25 MG TABLET (FP) PO SCH (10:31)
[2018-02-23] MEDS: GLYCOPYRROLATE 1 MG TABLET PO SCH (10:33)
--- NOTE | 2018-02-23 10:51 | DS ---
Physical Exam: SUBJECTIVE: Patient seen and examined lying comfortably in bed. no acute distress no events overnight. OBJECTIVE: Vital Signs Period Temp Pulse Resp BP Sys/[place] Pulse Ox Last 24 Hr 97.3 F-98.4 F 57-88 16-20 104-120/56-68 92-95 PHYSICAL EXAM GENERAL: The patient is awake, in no acute distress. HEAD: Normal with no signs of trauma. EYES: sclera anicteric, conjunctiva clear. NECK: full range of motion, supple. LUNGS: Breath sounds equal, clear to auscultation bilaterally, no wheezes, no crackles, no accessory muscle use. HEART: s1s2 normal ABDOMEN: Soft, nontender, nondistended, normoactive bowel sounds, no guarding, no rebound, EXTREMITIES, warm, well-perfused, no edema. SKIN: Warm, dry, LABS Laboratory Results - last 24 hr 02/22/18 02/23/18 02/23/18 10:56 06:30 06:30 WBC 6.6 D RBC 3.61 L Hgb 11.2 L Hct 33.4 L MCV 92.6 MCH 30.9 MCHC 33.4 RDW 16.4 H Plt Count 126 L MPV 7.9 Neutrophils % 39.1 L Lymphocytes % 36.2 Monocytes % 16.7 H Eosinophils % 7.4 H Basophils % 0.6 Nucleated RBC % 0 Sodium 143 143 Potassium 3.8 3.8 Chloride 112 H 110 H Carbon Dioxide 24 22 Anion Gap 7 L 11 BUN 16 16 Creatinine 0.7 D 0.7 Creat Clearance w eGFR > 60 Random Glucose 72 L 73 L Calcium 8.2 L 8.1 L Total Bilirubin 0.2 AST 20 ALT 13 Alkaline Phosphatase 60 Total Protein 6.5 Albumin 2.7 L Microbiology 02/22/18 02:06 Blood - Peripheral Venous Blood Culture - Preliminary NO GROWTH OBTAINED AFTER 24 HOURS, INCUBATION TO CONTINUE FOR 4 DAYS. 02/22/18 02:06 Blood - Peripheral Venous Blood Culture - Preliminary NO GROWTH OBTAINED AFTER 24 HOURS, INCUBATION TO CONTINUE FOR 4 DAYS. CXR: reveals a spinal stimulator on the left with weak inspiration, prominent mediastinum and increased perihilar marking. HOSPITAL COURSE: Pt is a 42 y/o M with PMH epillepsy, corpus callosectomy, vagus stimulator, severe MR (noncommunicative in wheelchair at baseline) osteoporosis who waa sent to the hospital because of fever 103, resp 24, PaO2 90. Pt was given tylenol at [place] without improvement. In hospital patient patient treated on levofloxacin got IV on day one and PO day 2. [place] has no episode of fever in hospital. Wbc decreased to 6.6 from 12.0. patient is maintains a saturation of 96-97 % on room air and has clear breath sounds b/l. Patient is accepting food orally. Patient is discharged to [facility] after discussing it with Dr Randolph ( director [facility]) Patient is discharged on 3 more days of PO antibiotic levofloxacin 500mg daily. Date of Admission:02/22/18 Date of Discharge: 02/23/18 Minutes to complete discharge: 45 Discharge Summary Reason For Visit: PNEUMONIA Current Active Problems Pneumonia (Acute) Condition: Guarded - Instructions Diet, Activity, Other Instructions: we had treated you here for pneumonia. You got 2 days of levaquin in hospital. You need three more days of levaquin (levofloxacin) 500mg orally. keep head end elevated. take aspiration precautions. take all your other medications as you were taking it before. We had just added Levaquin (levofloxacin) 500mg orally for 3 days. Discharge discussed with Dr Randolph. If develop fever, chilly, vomiting, contact doctor or send him to hospital. Disposition: CARE HOME FACILITY - Home Medications Comprehensive Discharge Medication List: Ambulatory Orders Calcium Carbonate/Vitamin D3 [Oystercal-D 500 mg-400 Unit Tb] 1 each PO DAILY Clonazepam 1 mg PO TID 02/22/18 Clotrimazole/Betamet Diprop [Lotrisone -] 1 applic TP BID 02/22/18 Clotrimazole/Betamet Diprop [Lotrisone Cream (Small Tube)] 1 applic TP BID 02/22 Diazepam 10 mg RC DAILY PRN 02/22/18 Famotidine 20 mg PO DAILY 02/22/18 Famotidine 20 mg PO HS 02/22/18 Fluticasone Prop 0.05% Nasal [Flonase -] 1 - 2 spray NS DAILY 02/22/18 Fluticasone Propionate [Flovent Diskus] 50 mcg IH DAILY 02/22/18 Gemfibrozil 600 mg PO BID 02/22/18 Gemfibrozil 600 mg PO BID 02/22/18 Glycopyrrolate [Robinul Forte -] 2 mg PO DAILY 02/22/18 Glycopyrrolate [Robinul Forte] 2 mg PO BID 02/22/18 Hydrocortisone [Anti-Itch] 28 gm TP DAILY 02/22/18 Loratadine 10 mg PO DAILY 02/22/18 Loratadine 10 mg PO HS 02/22/18 Perampanel [Fycompa] 6 mg PO DAILY 02/22/18 Polyethylene Glycol 3350 [Glycolax] 119 gm PO AC 02/22/18 Polyethylene Glycol 3350 [Glycolax] 119 gm PO DAILY 02/22/18 Topiramate 75 mg PO BID 02/22/18 Valproic Acid 250 mg PO BID 02/22/18 levoFLOXacin [Levaquin] 500 mg PO DAILY 3 Days #3 tab 02/23/18 This patient is new to me today: Yes Date on this admission: 02/23/18 Emergency Visit: Yes ED Registration Date: 02/22/18 Care time: The patient presented to the Emergency Department on the above date and was hospitalized for further evaluation of their emergent condition. Critical Care patient: No - Discharge Referral Referred to [facility] Med P.C.: No
[2018-02-23] MEDS: VALPROIC ACID 250 MG CAPSULE PO SCH ×2 (11:17→13:01)
[2018-02-23] MEDS ORDERED: VALPROATE SODIUM 250 MG/5 ML UNIT DOSE CUP PO SCH (11:23)
[2018-02-23 11:34] VITALS: BP 120/66; PULSE 76; TEMP 98.9
[2018-02-23] MEDS: SODIUM CHLORIDE 1,000 ML IV SCH (11:48)
--- NOTE | 2018-02-23 22:18 | EKG ---
Test Reason : Blood Pressure : / mmHG Vent. Rate : 067 BPM Atrial Rate : 067 BPM P-R Int : 178 ms QRS Dur : 102 ms QT Int : 398 ms P-R-T Axes : 042 060 037 degrees QTc Int : 420 ms POOR DATA QUALITY, INTERPRETATION MAY BE ADVERSELY AFFECTED NORMAL SINUS RHYTHM NORMAL ECG WHEN COMPARED WITH ECG OF 17-OCT-2017 00:22, VENT. RATE HAS DECREASED BY [address] ELEVATION NOW PRESENT IN LATERAL LEADS T WAVE INVERSION NO LONGER EVIDENT IN INFERIOR LEADS Confirmed by JOHN ROWLAND MD ([id number]) on 02/23/2018 10:18:22 PM Referred By: Confirmed By:JOHN ROWLAND MD
== END 2018-02-23 14:06 ==
LOC: JER 23:11 → JERBED 02-22 06:07 → J8W 02-22 18:36
PROVIDERS: ADMIT Internal Medicine; ATTEND Internal Medicine
PROC: 3E03329 Introduction of Other Anti-infective into Peripheral Vein, Percutaneous Approach (ICD-10-PCS; principal; 2018-02-22)
PROC: 3E0337Z Introduction of Electrolytic and Water Balance Substance into Peripheral Vein, Percutaneous Approach (ICD-10-PCS; 2018-02-22)
PROC: 3E013GC Introduction of Other Therapeutic Substance into Subcutaneous Tissue, Percutaneous Approach (ICD-10-PCS; 2018-02-22)
DX: A41.9 Sepsis, unspecified organism (principal); J18.9 Pneumonia, unspecified organism; J86.9 Pyothorax without fistula; I95.9 Hypotension, unspecified; F80.1 Expressive language disorder; F80.9 Developmental disorder of speech and language, unspecified; Z99.3 Dependence on wheelchair; F72 Severe intellectual disabilities; G40.909 Epilepsy, unspecified, not intractable, without status epilepticus; Z98.890 Other specified postprocedural states; Z91.011 Allergy to milk products; Z91.010 Allergy to peanuts; Z88.0 Allergy status to penicillin; Z91.018 Allergy to other foods
CPT/HCPCS: 36415; 71045-TC-FY; 80048; 80053; 81003; 85025; 87040; 93005; 93010; 96365; 96372; 99285-25; G0378; J1644; J7030